=== PATIENT | male | born 1950 | race Caucasian/White ===

== ENCOUNTER 2018-05-06 19:55 | Emergency (ER) | payer MEDICARE, SELFPAY ==
[2018-05-06 19:58] VITALS: BP 123/78; PULSE 69; RESP 16; TEMP 36.4; O2SAT 99; BMI 41.1
--- NOTE | 2018-05-06 21:17 | ED.VISSUMM ---
- ER Visit Summary Date of Service: 05/06/18 Chief Complaint: Leg wounds History of Present Illness: The patient is a 67 M who dropped a ramp on his bilateral shins about a week ago. He has some abrasions to his shins and he is concerned the left side seems to be getting infected. He says he has been scrubbing them. He is also applying peroxide. He has noted some increasing surrounding redness and weeping on the left side. No fever or systemic symptoms. He does take Coumadin for A. fib and he says his last INR was about 2.8. Physical Examination: Vital signs are unremarkable. Afebrile. No acute distress. Patient has abrasions to his bilateral shins, worse on the left side. The abrasions on the left benavides are surrounded by erythema and warmth. There is a central area with some mild weeping. He is neurovascularly intact distally. No deformities. Test Results: None indicated. Emergency Department Course and Treatment: Tetanus updated. Patient will be started on Keflex. He was advised that antibiotics can raise his INR and he will follow-up with his PCP for recheck. Patient was advised to stop scrubbing the wounds. He will clean them gently and pat them dry. Regular soap and water. Apply bacitracin or topical antibiotic ointment. He may keep the wounds open to the air when he is at home and resting. When he is active or outside his home, he should cover them up and protect them. He should monitor for signs of spreading redness or warmth. Monitor for signs of black or tissue. Monitor for signs of skin peeling or other concerning findings. Return for fevers or any other issues. Treatment Plan: As above Disposition: Discharged Impression: 1. Bilateral leg abrasions 2. Left leg cellulitis This note was generated with [employer] dictation software. It may contain incorrect words, spelling, and punctuation that were not noted in review of the chart prior to signing ED Disposition - Plan for ED Patient: Chief Complaint: Wound Referrals: Matthew Rocha MD [Primary Care Provider] -
--- NOTE | 2018-05-06 21:20 | ED.DEP ---
ED Disposition - Plan for ED Patient: Chief Complaint: Wound Instructions: Cellulitis - Causes,Symptoms,Treating Prescriptions: Cephalexin [Keflex] 500 mg PO Q6 #28 cap Referrals: Matthew Rocha MD [Primary Care Provider] -
[2018-05-06] MEDS: Diphth,Pertuss(Acell),Tet Vac 0.5 ML Vial IM (21:26)
[2018-05-06] MEDS: Cephalexin 250 MG Capsule 500 MG PO (21:27)
[2018-05-06] MEDS: BACITRACIN 15 GM Tube 1 APPLIC TOPICAL (21:27)
[2018-05-06 21:37] VITALS: BP 128/66; PULSE 60; RESP 14; O2SAT 96
== END 2018-05-06 21:39 | disposition home or self-care (01) ==
LOC: ED 21:17
PROVIDERS: Emergency Provider Emergency Medicine; Family Provider Internal Medicine; PCP Internal Medicine
DX: S80.812A Abrasion, left lower leg, initial encounter (principal); S80.811A Abrasion, right lower leg, initial encounter; L03.116 Cellulitis of left lower limb; L03.115 Cellulitis of right lower limb; B96.89 Other specified bacterial agents as the cause of diseases classified elsewhere; W22.8XXA Striking against or struck by other objects, initial encounter; Y93.9 Activity, unspecified; Y92.9 Unspecified place or not applicable; I10 Essential (primary) hypertension; I48.91 Unspecified atrial fibrillation; Z79.01 Long term (current) use of anticoagulants; Z79.899 Other long term (current) drug therapy; Z87.891 Personal history of nicotine dependence
CPT/HCPCS: 90471; 90715; 99283

== ENCOUNTER → 2019-01-02 10:03 | Outpatient (CLI) | payer MEDICARE, SELFPAY ==
[2019-01-02 10:23] LABS: International Normalized Ratio 2.3
== END ==
PROVIDERS: Family Provider Internal Medicine; PCP Internal Medicine; Referring Provider Internal Medicine; Visit Provider Internal Medicine
DX: I48.91 Unspecified atrial fibrillation (principal)
CPT/HCPCS: 85610

== ENCOUNTER 2019-03-15 11:26 | Emergency (ER) | payer MEDICARE, SELFPAY ==
[2019-03-15 11:27] VITALS: BP 143/62; PULSE 67; RESP 18; TEMP 36.6; O2SAT 96; BMI 42.3
--- NOTE | 2019-03-15 11:44 | ED.DCSUM_ITS ---
History of Present Illness Chief Complaint: Cellulitis Informant: Patient Onset: Yesterday Context: Gradual Onset Timing: Continuous Quality: sore Location: left lower leg Current Severity: Mild Maximum Severity: Mild Worsened by: palpation Relieved by: leaving affected area alone Associated Symptoms: redness. no fevers or systemic sx. Narrative: Patient states 2 days ago he dropped a metal ring out and accidentally scraped his leg. Yesterday and today it is sore and red. Redness spread more proximally although that area does not hurt. Has chronic edema in both of his legs, with changes of stasis dermatitis, he states the area proximally that is now red used to look like the contralateral one does, which is chronic stasis- appearing changes of the skin. He has varicose veins in the legs, he says he recently had an ultrasound of his leg vasculature that was good, he has had no recent surgeries or procedures on the veins. He is not a diabetic. - Past Medical History (1) HTN (hypertension) Status: Chronic Past Medical History - Allergies and Home Meds Allergies/Adverse Reactions: Allergies No Known Allergies Allergy (Verified 03/15/19 11:29) Primary Care Physician: Matthew Rocha MD [Primary Care Provider] - Smoking Status: Never smoker Review of Systems General: Denies: Chills, Fever Gastrointestinal: Denies: Nausea, Vomiting Musculoskeletal: Reports: Swelling, Extremity Pain Skin: Reports: Abrasions, Wounds Neurological: Denies: Weakness, Numbness Physical Exam Vital Signs/Narrative: Vital Signs Temp Pulse Resp BP Pulse Ox 03/15/19 11:27 97.8 F 67 18 143/62 H 96 Inital Vital Signs reviewed: Yes General: Well nourished, Well developed, No Acute Distress Head: Normocephalic, Atraumatic Neck: Supple, Nontender Respiratory: No distress Back: Nontender, Normal Inspection Extremities: No edema, Tenderness - distal LLE. chronic-appearing edema and stasis BLE. symmetrically edematous, 1-2+. Skin: Trauma - superficial abrasion distal anterior left lower leg/benavides, w/ surrounding mildly tender erythema that goes distally around lateral malleolus and proximally into dark discolored area of stasis dermatitis, which is nontender. no lymphangitis. no abscess. many areas of venous varicosities, all nontender. Neurological: Alert, Oriented x3, Cranial nerves II-XII grossly intact, Normal Strength, Normal Sensation, Normal Gait Psychological: Normal affect, Normal Mood Diagnostic/Tx/Re-eval - Medical Decision Making He likely has cellulitis due to his superficial wound. There is no abscess. He has no systemic symptoms and I do not think any studies are involved, there is nothing to suggest necrotizing fasciitis or very fast spreading. There is no subcutaneous emphysema. He has full range of motion of all joints of the left lower extremity. We will give him an injection of Ancef here as well as a prescription for Keflex which should minimally interact with his Coumadin. There is no active bleeding from his wound. ED Disposition - Plan for ED Patient: Disposition: Home or Assisted Living Diagnosis: Wound infection, posttraumatic, Abrasion, left lower leg, initial encounter Instructions: ED Infec Skin Cellulitis, ED Abrasion Prescriptions: Cephalexin [Keflex] 500 mg PO 4X/DAY #40 cap Referrals: Matthew Rocha MD [Primary Care Provider] - 3-5 Days if not improving Additional Instructions: Keep wound covered with dressing and antibiotic ointment.
== END 2019-03-15 13:24 | disposition home or self-care (01) ==
PROVIDERS: Emergency Provider Emergency Medicine; Family Provider Internal Medicine; PCP Internal Medicine
DX: S80.812A Abrasion, left lower leg, initial encounter (principal); L08.9 Local infection of the skin and subcutaneous tissue, unspecified; W20.8XXA Other cause of strike by thrown, projected or falling object, initial encounter; Y93.9 Activity, unspecified; Y92.9 Unspecified place or not applicable; I87.2 Venous insufficiency (chronic) (peripheral); I10 Essential (primary) hypertension; Z79.01 Long term (current) use of anticoagulants; Z79.899 Other long term (current) drug therapy
CPT/HCPCS: 96372; 99283; A4216

== ENCOUNTER → 2019-09-18 14:08 | Outpatient (CLI) | payer MEDICARE, SELFPAY ==
--- NOTE | 2019-09-18 14:12 | VDLE_ITS ---
Reason For Study: Edema RIGHT LEFT GSV is normal. GSV is normal. CFV is compressible, spontaneous, phasic, CFV is compressible, spontaneous, phasic, competent and demonstrates normal competent, and demonstrates normal augmentation. augmentation. FV is compressible, spontaneous, phasic, FV is compressible, spontaneous, phasic, competent and demonstrates normal competent and demonstrates normal augmentation. augmentation. POP V is compressible, spontaneous, phasic, POP V is compressible, spontaneous, phasic, competent and demonstrates normal competent and demonstrates normal augmentation. augmentation. T/P Trunk is compressible. T/P Trunk is compressible. PTV is compressible. PTV is compressible. RT PerV is compressible. LT PerV is compressible. Procedure Exam performed in department. A preliminary report was called and/or faxed to [facility]. Interpretation Summary Deep veins of the lower extremities are bilaterally patent and compressible segmentally. There is no evidence of deep vein thrombosis on either side. Valvular competence appears intact within the proximal deep venous systems bilaterally. The great saphenous veins appear bilaterally patent and compressible segmentally. Ordering Physician: Piper Sears Referring Physician: Matthew Rocha M.D. Performed By: Catie Womack RVT
[2019-09-18 14:32] LABS: International Normalized Ratio 2.5; Prothrombin Time (Protime)PT. 27.1 SECONDS (11.7-14.9)
== END ==
LOC: CVS 14:10
PROVIDERS: Family Provider Internal Medicine; PCP Internal Medicine; Referring Provider Nurse Practitioner; Visit Provider Nurse Practitioner
DX: R60.0 Localized edema (principal); I87.2 Venous insufficiency (chronic) (peripheral); I48.91 Unspecified atrial fibrillation
CPT/HCPCS: 83880; 85610; 93970

== ENCOUNTER 2020-03-26 19:07 | Emergency (ER) | payer MEDICARE, SELFPAY ==
[2020-03-26 19:07] VITALS: BP 162/91; PULSE 83; RESP 16; TEMP 36.5; O2SAT 94; BMI 47.5
--- NOTE | 2020-03-26 19:19 | ED.DCSUM_ITS ---
History of Present Illness Chief Complaint: Cellulitis Informant: Patient Onset: Days Context: Gradual Onset Current Severity: Moderate Maximum Severity: Moderate Narrative: Patient presents secondary to cellulitis of the left lower extremity. He has had intermittent problems with cellulitis of the past 2 years. He does have chronic venous stasis. He states that the left lower leg became more red and swollen several days ago. He developed a fluid-filled blister on the medial portion of his lower leg that ruptured when he was in the shower. Since that time he continues to have yellow watery drainage from that area. He was seen by his PCP in a virtual visit 2 days ago and started on doxycycline. Patient states that despite the antibiotic the redness is continued to worsen. He den ies fever but has had some chills. - Past Medical History (1) BPH (benign prostatic hyperplasia) Status: Chronic (2) A-fib Status: Acute (3) Sleep apnea Status: Chronic (4) HTN (hypertension) Status: Chronic Past Medical History - Allergies and Home Meds Allergies/Adverse Reactions: Allergies No Known Allergies Allergy (Verified 03/26/20 19:09) Primary Care Physician: Matthew Rocha MD [Primary Care Provider] - Prior records reviewed: Yes Lives: Spouse/ Significant Other Smoking Status: Never smoker Review of Systems General: Reports: Chills. Denies: Fever Eyes: Denies: Visual changes - bilaterally ENT: Denies: Bilateral ear pain Cardiovascular: Denies: Chest pain Respiratory: Denies: Dyspnea, Cough Gastrointestinal: Denies: Abdominal pain, Nausea, Vomiting Musculoskeletal: Reports: Swelling, Extremity Pain Skin: Reports: Wounds Neurological: Denies: Headache Hematologic: Denies: Easy bruising, Easy bleeding Allergy: Denies: Uticaria Physical Exam Vital Signs/Narrative: Vital Signs Temp Pulse Resp BP Pulse Ox 03/26/20 19:07 97.7 F L 83 16 162/91 H 94 Inital Vital Signs reviewed: Yes General: Well nourished, Well developed Head: Normocephalic ENT: Moist mucous membranes Neck: Supple Cardiovascular: Regular rate, Regular rhythm Respiratory: No distress, CTA bilaterally Abdomen: Soft, Nontender Extremities: - - Chronic venous stasis changes noted to both lower extremities. He does have slight increased warmth and erythema to the left leg. There is a 3 cm round opened blister along the medial left calf. There is drainage of serosanguineous fluid. He does have erythema and significant edema of the left foot. Neurological: Alert, Oriented x3 Psychological: Normal affect Diagnostic/Tx/Re-eval Laboratory Results 03/26/20 03/26/20 03/26/20 19:30 19:30 19:30 WBC 14.2 H RBC 3.91 L Hgb 12.9 L Hct 38.7 L MCV 99.0 H MCH 33.0 H MCHC 33.3 RDW Std Deviation 52.3 H RDW Coeff of Leah 14.4 Plt Count 131 L MPV 9.4 Immature Gran % (Auto) 0.400 Neut % (Auto) 33.0 L Lymph % (Auto) 56.9 H Terrell % (Auto) 7.3 Eos % (Auto) 2.0 Baso % (Auto) 0.4 Absolute Neuts (auto) 4.7 Absolute Lymphs (auto) 8.10 H Nucleated RBC % 0 Differential Comment SCANNED PT 40.5 H INR 4.2 H* Sodium 138 Potassium 3.1 L Chloride 102 Carbon Dioxide 29.0 Anion Gap 7 BUN 17 Creatinine 1.11 Estim Creat Clear Calc 67.00 Est GFR (MDRD) Af Amer 84 Est GFR (MDRD) Non-Af 69 BUN/Creatinine Ratio 15.3 Glucose 118 H Lactic Acid Calcium 8.8 03/26/20 19:30 WBC RBC Hgb Hct MCV MCH MCHC RDW Std Deviation RDW Coeff of Leah Plt Count MPV Immature Gran % (Auto) Neut % (Auto) Lymph % (Auto) Terrell % (Auto) Eos % (Auto) Baso % (Auto) Absolute Neuts (auto) Absolute Lymphs (auto) Nucleated RBC % Differential Comment PT INR Sodium Potassium Chloride Carbon Dioxide Anion Gap BUN Creatinine Estim Creat Clear Calc Est GFR (MDRD) Af Amer Est GFR (MDRD) Non-Af BUN/Creatinine Ratio Glucose Lactic Acid 1.4 Calcium - Medical Decision Making Patient's white count is elevated. He has been on 48 hours of doxycycline. Patient is given IV Ancef and vancomycin here. This time he is refusing hospital admission and wants to go home. His lactic acid is normal. Left leg wound will be cleansed and dressed. Patient was advised if he has not seen improvement in next 24 hours he needs to return for admission and IV antibiotics. He voices understanding and agreement. ED Disposition - Plan for ED Patient: Disposition: Home or Assisted Living Diagnosis: Cellulitis Instructions: Cellulitis Referrals: Matthew Rocha MD [Primary Care Provider] - 3-5 Days
[2020-03-26 19:27] VITALS: BP 162/91; PULSE 83; RESP 16; TEMP 36.5; O2SAT 94
[2020-03-26 19:38] LABS: Absolute Neutrophil Count 4.7 X10^3/uL (2.0-7.7); Basophil# 0.06 X10^3/uL; Basophil% 0.4 % (0-1); Eosinophil# 0.28 X10^3/uL; Hematocrit 38.7 % (40-54); Hemoglobin 12.9 g/dL (13.0-16.5); Lymphocyte % 56.9 % (19-41); Mean Corp Hgb Conc 33.3 g/dL (32-36); Mean Platelet Vol. 9.4 fl (6.2-12.0); Monocyte# 1.04 X10^3/uL; Monocyte% 7.3 % (0-10); NRBC Flagged by Analyzer 0 % (0-5); Neutrophil # 4.71 X10^3/uL (2.7-7.7); POSITIVE DIFFERENTIAL YES; Platelet Count 131 K/mm3 (150-450); RBC Distribution Width CV 14.4 % (11.6-14.6); RBC Distribution Width SD 52.3 fl (35.1-43.9); Red Blood Count 3.91 M/mm3 (4.6-6.2); White Blood Count 14.2 K/mm3 (4.4-11.0)
[2020-03-26 19:41] LABS: Differential Indicated SCAN CRITERIA MET
[2020-03-26 19:49] LABS: Prothrombin Time (Protime)PT. 40.5 SECONDS (11.7-14.9)
[2020-03-26 19:59] LABS: Anion Gap 7 (5-15); BUN 17 mg/dL (7-18); BUN/Creat Ratio 15.3 RATIO (10-20); Calcium,Total 8.8 mg/dL (8.5-10.1); Chloride 102 mmol/L (98-107); Creatinine, Serum 1.11 mg/dL (0.70-1.30); EST Glomerular Filtration Rate 69 mL/min (>60); Est Glom Filt Rate - Afr Amer 84 mL/min (>60); Glucose 118 mg/dL (74-106); Potassium 3.1 mmol/L (3.5-5.1); Sodium Level 138 mmol/L (136-145)
[2020-03-26 20:03] LABS: Lactic Acid 1.4 mmol/L (0.4-1.9)
[2020-03-26] MEDS: Cefazolin 1 GM/50 ML BAG IV (20:07)
[2020-03-26 20:18] LABS: Differential Comment SCANNED
[2020-03-26 20:19] LABS: International Normalized Ratio 4.2
[2020-03-26 21:04] VITALS: BP 158/89; PULSE 85; RESP 16; TEMP 36.6; O2SAT 95
[2020-03-26 23:17] VITALS: BP 125/59; PULSE 75; RESP 18; O2SAT 96
--- OUTSIDE RECORDS SUMMARY | 2020-08-09 19:37 | XMS RPT_ITS | CCD ---
:1950 External Reference #:[id number] Author Organization [facility] Care Team Providers Name Role Phone Matthew Rocha Primary Care Provider Medications Medication Name Sig Date Prescriber Location Finasteride finasteride (PROSCAR) 12-23-2019 - Matthew Rocha [facility] 5 mg tablet TAKE 1/2 06-27-2020 (58783) (ONE-HALF) OF A TABLET BY MOUTH DAILY 45 tablet 1 12/23/2019 06/27/2020 Discontinued Comment: TAKE 1/2 (ONE-HALF) OF A TAB LET BY MOUTH DAILY Furosemide furosemide (LASIX) 20 mg 04-21-2020 Mike ([facility]) Kam ladd [facility] tablet Indications: (44596) Bilateral lower extremity edema Take 0.5 tablets by mouth once daily. 45 tablet 0 04/21/2020 Active Comment: Take 0.5 tablets by mouth on ce daily. Metoprolol metoprolol tartrate, short 05-10-2020 Piper ([facility]) Lydia bower [facility] acting, (LOPRESSOR) 50 mg (4 9239) tablet Indications: Atrial fibrillation, unspecified type (HCC) , Essential hypertension Take 0.5 tablets by mouth twice daily. 180 tablet 0 05/10/2020 Active Comment: Take 0.5 tablets by mouth tw ice daily. perflutren lipid perflutren lipid 05-27-2020 - Matthew Montes [place] microspheres microspheres (DEFINITY) 05-27-2021 [place] [facility] ic (29568) (DEFINITY) 1.1 1.1 mg/mL injection (to mg/mL injection be provided with echo (to be provided procedure) Inject 1.3 with echo mL intravenously as procedure) directed. Administration Instructions: If no IV access, insert saline lock prior to administering contrast. Discontinue saline lock post exam. If patient has central line or IVAD, may access for administration according to line specific nursing protocol. Once exam is complete, flush line and de-access per line specific nursing protocol. Diluted IV Bolus: Dilute 1.3 ml of Definity with 8.7 ml of preservative-free saline. 1.3 mL 0 05/27/2020 05/27/2021 Active perflutren lipid 05-27-2020 - [facility] [place] inic microspheres (DEFINITY) 1.1 05-27-2021 (441 95) mg/mL injection (to be provided with echo procedure) Inject 1.3 mL intravenously as directed. Administration Instructions: If no IV access, insert saline lock prior to administering contrast. Discontinue saline lock post exam. If patient has central line or IVAD, may access for administration according to line specific nursing protocol. Once exam is complete, flush line and de-access per line specific nursing protocol. Diluted IV Bolus: Dilute 1.3 ml of Definity with 8.7 ml of preservative-free saline. 1.3 mL 0 05/27/2020 05/27/2021 Active perflutren lipid 05-27-2020 - [facility] [place] inic microspheres (DEFINITY) 1.1 05-27-2021 (441 95) mg/mL injection (to be provided with echo procedure) Inject 1.3 mL intravenously as directed. Administration Instructions: If no IV access, insert saline lock prior to administering contrast. Discontinue saline lock post exam. If patient has central line or IVAD, may access for administration according to line specific nursing protocol. Once exam is complete, flush line and de-access per line specific nursing protocol. Diluted IV Bolus: Dilute 1.3 ml of Definity with 8.7 ml of preservative-free saline. 1.3 mL 0 05/27/2020 05/27/2021 Active perflutren lipid 05-27-2020 - [facility] [place] inic microspheres (DEFINITY) 1.1 05-27-2021 (441 95) mg/mL injection (to be provided with echo procedure) Inject 1.3 mL intravenously as directed. Administration Instructions: If no IV access, insert saline lock prior to administering contrast. Discontinue saline lock post exam. If patient has central line or IVAD, may access for administration according to line specific nursing protocol. Once exam is complete, flush line and de-access per line specific nursing protocol. Diluted IV Bolus: Dilute 1.3 ml of Definity with 8.7 ml of preservative-free saline. 1.3 mL 0 05/27/2020 05/27/2021 Active Comment: Inject 1.3 mL intravenously as directed. Administration Instructions: If no IV access, insert saline lock prior to administering contrast. Discontinue saline lock post exam. If patient has central line or IVAD, may access for admi nistration according to line specific nursing protocol. Once exam is complete, flush line and de-access per line specific nursing protocol. Diluted IV Bolus: Dilute 1.3 ml of Definity with 8.7 ml of preservative-free saline. Potassium Chloride potassium chloride 04-21-2020 Mike ([facility]) [facility] (K-TAB) 10 mEq tablet Sin (31964 ) Indications: Bilateral lower extremity edema Take 1 tablet by mouth daily with breakfast. 90 tablet 0 04/21/2020 Active Comment: Take 1 tablet by mouth daily with breakfast. Triamcinolone triamcinolone acetonide 11-06-2019 Piper ([facility]) [facility] (KENALOG) 0.5 % cream (91495 ) Apply 1 application to affected area twice daily. For rash/itching. Apply sparingly. Avoid face/skin fold. 30 g 0 11/06/2019 Active Comment: Apply 1 application to affec ino area twice daily. For rash/itching. Apply sparingly. Avoid face/skin f old. Warfarin warfarin (COUMADIN) 5 mg 06-02-2020 Matthew Mckeon [facility] tablet Indications: (64651) Atrial fibrillation, unspecified type (HCC) TAKE 1 TABLET BY MOUTH DAILY or DIRECTED 90 tablet 1 06/02/2020 Active Comment: TAKE 1 TABLET BY MOUTH DAILY or DIRECTED Problems Active Problems Category Problem Name Status Date Location Cardiac dysrhythmias Atrial fibrillation Active 07-25-2009 - [facility] ([id number]) Essential hypertension Hypertensive disorder Active - [facility] ([id number]) Hyperplasia of prostate Benign prostatic Active 07-14-2007 - [facility] hypertrophy with (44895) outflow obstruction Osteoarthritis Osteoarthritis of right Active 09-29-2015 - [facility] knee joint (31906) Other nutritional; Morbid obesity Active 03-10-2018 - [facility] endocrine; and metabolic (44 195) disorders Pulmonary heart disease Pulmonary hypertension Active 020 - [facility] (79061) Residual codes; Obstructive sleep apnea Active 09-01-2009 - [facility] unclassified syndrome (91572) Past or Other Problems Category Problem Name Status Date Location Other screening for Platelet count below Completed 01-08-2019 - [facility] suspected conditions reference range (441 95) (not mental disorders or infectious disease) Other skin disorders Alopecia Completed 05-03-2010 - [facility] ([id number]) Varicose veins of Varicose veins of Completed 01-08-2019 - [facility] lower extremity lower extremity (59027) Results Result Name Value Range Unit Interpretation Flag Date Location obsolete on 2020-05 OBSOLETE Refill (INTMWS) Normal 06-27-2020 [facility] JUSTIN ZAZUETA ([id number]) 1950 [facility] Time Provider Department ([id number]) 06/27/20 MATTHEW ROCHA INTMWS During your visit today, we recorded the following informati on about you: Cary Og RN 06/27/2020 9:28 AM Signed Patient phones requesting refills as follows: Pending Prescriptions Disp Refills FINASTERIDE 5 MG TABLET 45 tablet 0 Sig: TAKE 1/2 (ONE-HALF) OF A TABLET BY MOUTH DAILY ROGER: No Verified pharmacy Last office visit 04-21-2020, next visit 08-11-2020 Please review and advise. Cary Og RN Allergies As of Date: 06/27/2020 (No Known Allergies) Date Reviewed: 06/06/2020 Reviewed by: Chhaya Singh Ma - Fully Assessed Reason for Visit: Refill Request [94] Order(s):finasteride (PROSCAR) 5 mg tabletTAKE 1/2 (ON E-HALF) OF A TABLET BY MOUTH DAILYDisp: 45 tabletRfl: 0 Prescriptions as of 06/27/2020 Sig: FINASTERIDE 5 MG TABLET TAKE 1/2 (ONE-HALF) OF A TABL* WARFARIN 5 MG TABLET TAKE 1 TABLET BY MOUTH DAILY * PERFLUTREN LIPID MICROSPHERES* Inject 1.3 mL intravenously a * METOPROLOL TARTRATE 50 MG TAB* Take 0.5 tablets by mouth twi * FUROSEMIDE 20 MG TABLET Take 0.5 tablets by mouth onc* POTASSIUM CHLORIDE ER 10 MEQ * Take 1 tablet by mouth daily * TRIAMCINOLONE ACETONIDE 0.5 %* Apply 1 application to affect * Patient not taking: Reported on 04/15/2020 Problem List As Of Date 06/27/2020 Noted Resolved Abnormal liver function test [R94.5] 12/25/2004 11/03/2010 More... 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 Obstructive Sleep Apnea, on CPAP [G47.33] 09/01/2009 More... Erectile dysfunction [N52.9] 05/03/2010 12/10/2014 Alopecia [L65.9] 05/03/2010 Primary osteoarthritis of right knee [M17.11] 09/29/2015 Obesity, Class III, BMI 40-49.9 (morbid obesity*03/10/2018 Thrombocytopenia (HCC) [D69.6] 01/08/2019 Varicose veins of bilateral lower extremities w*01/08/2019 Prescriptions ordered this encounter Disp Refills Start End FINASTERIDE 5 MG TABLET 45 t* 0 06/27/2020 Sig: TAKE 1/2 (ONE-HALF) OF A TABLET BY MOUTH DAILY Medications Discontinued During This Encounter Prescriptions - finasteride (PROSCAR) 5 mg tablet (Discontinued) TAKE 1/2 (ONE-HALF) OF A TABLET BY MOUTH DAILY Encounter Status:Closed by PIPER SEARS CNP on 06/27/20 lorenzo on 2020-06-27 CNOV Office Visit (CARDWS) Normal 06-27-20 [facility] JUSTIN ZAZUETA ([id number]) 1950 [facility] Date Time Provider Department () 06/27/20 10:00 AM ECHOCARDIOGRAM WSTR CARDWS During your visit today, we recorded the following informati on about you: Nichelle Rose RN, RN 06/27/2020 10:34 AM Signed 22 ga angio started to right arm. Good blood ret urn. Flushed easily with NSS. Dressing applied. Definity (Lot # [id number] exp ) mixed per protocol. 4 cc administered throughout proc edure. 6 cc discarded. Pt tolerated procedure well. No C/o's, Hep lock D/c'd and dressing applied. Patient discharged ambulatory with Mmi Teacher. Nichelle Rose RN Referring Provider: MATTHEW ROCHA [[id number]] Allergies As of Date: 06/27/2020 (No Known Allergies) Date Reviewed: 06/06/2020 Reviewed by: Chhaya Singh Ma - Fully Assessed Visit Diagnosis:Chronic atrial fibrillation (HCC) [I48.20] Order(s):ECHO [147202] Order #: [id number]. #:[id number]: [id number] Prescriptions as of 06/27/2020 Sig: WARFARIN 5 MG TABLET TAKE 1 TABLET BY MOUTH DAILY * PERFLUTREN LIPID MICROSPHERES* Inject 1.3 mL intravenously a * METOPROLOL TARTRATE 50 MG TAB* Take 0.5 tablets by mouth twi * FUROSEMIDE 20 MG TABLET Take 0.5 tablets by mouth onc* POTASSIUM CHLORIDE ER 10 MEQ * Take 1 tablet by mouth daily * X FINASTERIDE 5 MG TABLET TAKE 1/2 (ONE-HALF) OF A TABL* TRIAMCINOLONE ACETONIDE 0.5 %* Apply 1 application to affect * Patient not taking: Reported on 04/15/2020 Problem List As Of Date 06/27/2020 Noted Resolved Abnormal liver function test [R94.5] 12/25/2004 11/03/2010 More... 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 Obstructive Sleep Apnea, on CPAP [G47.33] 09/01/2009 More... Erectile dysfunction [N52.9] 05/03/2010 12/10/2014 Alopecia [L65.9] 05/03/2010 Primary osteoarthritis of right knee [M17.11] 09/29/2015 Obesity, Class III, BMI 40-49.9 (morbid obesity*03/10/2018 Thrombocytopenia (HCC) [D69.6] 01/08/2019 Varicose veins of bilateral lower extremities w*01/08/2019 Visit Notes: >> Nichelle Rose, RN, RN Mon Jun 27, 2020 10:33 AM Status: Signed 22 ga angio started to right arm. Good blood return. Flushed easily with NSS. Dressing applied. Definity (Lot # [id number] exp 11-28- ) mi xed per protocol. 4 cc administered throughout procedure. 6 cc disca rded. Pt tolerated procedure well. No C/o's, Hep lock D/c'd and dress ing applied. Patient discharged ambulatory with Mmi Teacher. Nichelle Rose RN Encounter Status:Closed by FRIDA GORDILLO CMA on 07/13/20 No panel information on 2020-06-27 LV Ejection Fraction 63 % 0 [facility] ([id number]) [facility] ([id number]) cnco on 2020-06-09 CNCO Letter Text Normal 06-09-2020 [facility] ([id number]) progress on 2020-05 PROGRESS HNO ID: [id number] Normal 06-06-2020 [facility] Author: Kaitlin Betancourt [facility] ([id number]) Service: ? Author Type: Physician Type: Progress Notes Filed: 06/06/2020 9:19 PM Note Text: Initial Podiatric Office Visit: Chief Complaint: This 69 year old male who presents with chi ef complaint:toenail fungus HPI Patient presents to clinic for evaluation of b/l feet. Patie nt complains of thick dystrophic toenails of b/l feet. He treats them usu ally himself but recently he was admitted to a nursing facility for cellu litis of legs and he was advised that he should seek podiatry evaluation b ecause if he cuts his toenails and develops sores, he could be at risk of recurrent cellulitis. Patient states that at times, his left hallux toenail become s ingrown and causes him pain. PAIN EVALUATION No data found in the last 1 encounters. Hemoglobin A1C (%) Date Value 01/02/2019 5.5 PCP: Matthew Rocha MD PAST MEDICAL HISTORY Diagnosis Date - Abnormal liver function test 12/25/2004 Pt reportedly had this since age 24: no measure in the syste m to verify ALT 61 (30-65) in 08-05 HCV quantitative was undetectable in 08-05 HBsAb, HBsAg, Hep A negative in 08-05 NL iron and ferritin levels i n 08-05 HCV negative in 08-05 - Alopecia 05/03/2010 - Atrial fibrillation (HCC) 07/25/2009 Started Coumadin and Metoprolol in 07-06 - Diverticulosis of colon (without mention of hemorrhage) - Erectile dysfunction 05/03/2010 - HTN (hypertension) 07/25/2009 Office BP was 150/98 in 08-05: Lisinopril to 20 mg bid - Hypertrophy of prostate with urinary obstruction and other lower urinary tract symptoms (LUTS) 07/14/2007 - Obstructive sleep apnea 09/01/[address] Ramos. - Primary osteoarthritis of right knee 09/29/2015 - Unspecified viral hepatitis C without hepatic coma 1980s Current Outpatient Medications Medication Sig - warfarin (COUMADIN) 5 mg tablet TAKE 1 TABLET BY MOUTH SHARON LY or DIRECTED - perflutren lipid microspheres (DEFINITY) 1.1 mg/mL injecti on (to be provided with echo procedure) Inject 1.3 mL intravenously as directed. Administration Instructions: If no IV access, insert saline lock prior to administering contrast. Discontinue saline lock post exam. I f patient has central line or IVAD, may access for administration accordin g to line specific nursing protocol. Once exam is complete, flush line and de-access per line specific nursing protocol. Diluted IV Bolus: Dilute 1.3 ml of Definity with 8.7 ml of preservative-free saline. - metoprolol tartrate, short acting, (LOPRESSOR) 50 mg table t Take 0.5 tablets by mouth twice daily. - furosemide (LASIX) 20 mg tablet Take 0.5 tablets by mouth once daily. - potassium chloride (K-TAB) 10 mEq tablet Take 1 tablet by mouth daily with breakfast. - finasteride (PROSCAR) 5 mg tablet TAKE 1/2 (ONE-HALF) OF A TABLET BY MOUTH DAILY - triamcinolone acetonide (KENALOG) 0.5 % cream Apply 1 appl ication to affected area twice daily. For rash/itching. Apply sparingly . Avoid face/skin fold. (Patient not taking: Reported on 04/15/2020 ) No current facility-administered medications for this visit. ALLERGIES No Known Allergies PAST SURGICAL HISTORY Procedure Laterality Date - COLONOSCOP W/ OR W/O [facility] SPEC April 2001 normal - COLONOSCOP W/ OR W/O [facility] SPEC 02/25/2012 Colonoscopy - PAST SURGICAL HISTORY OF sinus x2 FAMILY HISTORY Problem Relation Age of Onset - Alzheimer's Disease Mother 85 - Prostate Cancer Father 78 - Diabetes Father - None Sister Social History Tobacco Use - Smoking status: Former Smoker Packs/day: 2.00 Years: 8.00 Pack years: 16.00 Types: Cigarettes Quit date: 10/28/1975 Years since quittin.6 - Smokeless tobacco: Never Used Substance Use Topics - Alcohol use: No Frequency: Never Drinks per session: Patient refused Binge frequency: Never - Drug use: No Comment: none since 20s REVIEW OF SYSTEMS GENERAL: Negative for Malaise, significant weight loss, feve r RESPIRATORY: Negative for cough, wheezing and shortness of b reath CARDIOVASCULAR: Negative for chest pain, leg swelling and pa lpitations GI: Negative for abdominal discomfort, blood in stools or bl ack stools and change in bowel habits : Negative for dysuria, frequency and incontinence MUSCULOSKELETAL: Negative for joint pain or swelling, back p ain, and muscle pain. SKIN: Negative for lesions, rash, and itching. HEMATOLOGY/LYMPHOLOGY Negative for prolonged bleeding, bruis ing easily, and swollen nodes. ENDOCRINE: Negative for cold or heat intolerance, polyuria, polydipsia and goiter. NEURO: negative Physical Exam: Constitutional: Pt is a well developed 69 year old male who is alert, oriented and cooperative Eyes: Following during examination. No redness or drainage. Respiratory: RR normal and nonlabored. Even breathing. No ev idence of distress or shortness of breath. Psychology: Patient is engaged during conversation. Normal a ffect and mood. Does not appear depressed or anxious during encounter. Vascular: Dorsalis pedis and posterior tibial pulses faintly palpable as b/l Capillary Fill time < 5 seconds to digits 1-5 b/l Skin temperature warm to cool proximal to distal b/l Hair growth decreased to digits Neurological: decreased light touch/epicritic sensation Vibratory sensation decreased b/l decreased protective sensation + significant neurological deficits Dermatological: Nails 1-5 b/l appear thick, dystrophic, painful. Webspaces c lean and dry 1-4 b/l. Skin appears well hydrated and supple. good color, texture, turgor. No open lesions present. Callus present to right 1st metatarsal Musculoskeletal/Orthopaedic: Foot type is neutral structurally AJ ROM is full with knee extended and flexed 1st MPJ is full when loaded and no pain or crepitus are note d with ROM. MTJ, STJ are full and free of pain and crepitus. +5/5 muscle strength dorsiflexion, plantarflexion, inversion , eversion b/l Radiographs: n/a ASSESSMENT: (B35.1) Onychomycosis (primary encounter diagnosis) (M79.675) Pain in toe of left foot (M79.674) Pain in toe of right foot (L85.9) Hyperkeratosis PLAN: A review of the patient's PMH and Podiatric physical exam wa s completed. We discussed the possible etiologies of discolored, dystroph ic, and thickened nails including fungus, yeast, mold as well as in some instances, prior trauma, or mechanical causes such as repeti tive microtrauma in shoe gear. We discussed topical medication fo r discolored toenails which has very low success but no major side effect s. We discussed oral medication. Patient will need hepatic testing prior to use. Patient informed of risks associated with Lamisil. We d iscussed removal of toenails. Patient would like to proceed with cont inued debridement. Debridement performed on toenails 1-5 b/l Callus reduced with dremmel and tissue nippers Continue with lotion to feet daily ? Kaitlin Betancourt DPM Podiatry [address] [facility] [id number] Dept: [phone] Dept PROGRESS HNO ID: [id number] Normal 06-06-2020 [facility] Author: Chhaya Singh Ma [facility] ([id number]) Service: ? Author Type: ? Type: Progress Notes Filed: 06/06/2020 9:19 PM Note Text: AMB ROOMING INTAKE FLOWSHEET DATA Patient presents with: Left Foot - New, Nail Fungus Right Foot - New, Nail Fungus Travel Screening Question Response In the last month, have you been in contact with someone who was confirmed or suspected to have Coronavirus / COVID-19? No / Unsure Do you have any of the following symptoms? None of these Have you traveled internationally in the last month? No Travel History Travel since 05/06/20 No documented travel since 05/06/20 cnov on 2020-06-06 CNOV Office Visit (PODIWS) Normal 06-06-20 [facility] JUSTIN ZAZUETA ([id number]) 1950 [facility] Date Time Provider Department ([id number]) 06/06/20 3:00 PM KAITLIN BETANCOURT During your visit today, we recorded the following informati on about you: Chhaya Samanthamansoor Chase 06/06/2020 9:19 PM Signed [facility] ROOMING INTAKE FLOWSHEET DATA Patient presents with: Left Foot - New, Nail Fungus Right Foot - New, Nail Fungus Travel Screening Question Response In the last month, have you been in contact with someone who was confirmed or suspected to have Coronavirus / COVID-19? No / Unsure Do you have any of the following symptoms? None of these Have you traveled internationally in the last month? No Travel History Travel since 05/06/20 No documented travel since 05/06/20 Kaitlin Betancourt DPM 06/06/2020 9:19 PM Signed Initial Podiatric Office Visit: Chief Complaint: This 69 year old male who presents with chi ef complaint:toenail fungus HPI Patient presents to clinic for evaluation of b/l feet. Pat ient complains of thick dystrophic toenails of b/l feet. He treats them usuall y himself but recently he was admitted to a nursing facility for carmel lulitis of legs and he was advised that he should seek podiatry evaluation because if he cuts his toenails and develops sores, he could be at risk of recurren t cellulitis. Patient states that at times, his left hallux toenail become s ingrown and causes him pain. PAIN EVALUATION No data found in the last 1 encounters. Hemoglobin A1C (%) Date Value 01/02/2019 5.5 PCP: Matthew Rocha MD PAST MEDICAL HISTORY Diagnosis Date - Abnormal liver function test 12/25/2004 Pt reportedly had this since age 24: no measure in the system to verify ALT 61 (30-65) in 08-05 HCV quantit ative was undetectable in 08-05 HBsAb, HBsAg, Hep A negative in 08-05 NL iron and ferritin levels in 08-05 HCV negative in 08-05 - Alopecia 05/03/2010 - Atrial fibrillation (HCC) 07/25/2009 Started Coumadin and Metoprolol in 07-06 - Diverticulosis of colon (without mention of hemorrhage) - Erectile dysfunction 05/03/2010 - HTN (hypertension) 07/25/2009 Office BP was 150/98 in 08-05: Lisinopril to 20 mg bid - Hypertrophy of prostate with urinary obstruction and other lower urinary tract symptoms (LUTS) 07/14/2007 - Obstructive sleep apnea 09/01/[address] Ramos. - Primary osteoarthritis of right knee 09/29/2015 - Unspecified viral hepatitis C without hepatic coma 1980s Current Outpatient Medications Medication Sig - warfarin (COUMADIN) 5 mg tablet TAKE 1 TABLET BY MOUTH DAILY or DIRECTED - perflutren lipid microspheres (DEFINIT Y) 1.1 mg/mL injection (to be provided with echo procedure) Inject 1.3 mL intravenously as di rected. Administration Instructions: If no IV access, insert saline lock prior to a dministering contrast. Discontinue saline lock post exam. If patient castano s central line or IVAD, may access for administration according to line specif ic nursing protocol. Once exam is complete, flush line and de-access per line specific nursing protocol. Diluted IV Bolus: Dilute 1.3 ml of Definity with 8.7 m l of preservative-free saline. - metoprolol tartrate, short acting, (LO PRESSOR) 50 mg tablet Take 0.5 tablets by mouth twice daily. - furosemide (LASIX) 20 mg tablet Take 0.5 tablets by mouth once daily. - potassium chloride (K-TAB) 10 mEq tablet Take 1 tabl et by mouth daily with breakfast. - finasteride (PROSCAR) 5 mg tablet TAKE 1/2 (ONE-HALF ) OF A TABLET BY MOUTH DAILY - triamcinolone acetonide (K ENALOG) 0.5 % cream Apply 1 application to affected area twice daily. For rash/itching. Apply sparingly. Avoid f danika/skin fold. (Patient not taking: Reported on 04/15/2020 ) No current facility-administered medications for this visit. ALLERGIES No Known Allergies PAST SURGICAL HISTORY Procedure Laterality Date - COLONOSCOP W/ OR W/O [facility] SPEC April 2001 normal - COLONOSCOP W/ OR W/O [facility] SPEC 02/25/2012 Colonoscopy - PAST SURGICAL HISTORY OF sinus x2 FAMILY HISTORY Problem Relation Age of Onset - Alzheimer's Disease Mother 85 - Prostate Cancer Father 78 - Diabetes Father - None Sister Social History Tobacco Use - Smoking status: Former Smoker Packs/day: 2.00 Years: 8.00 Pack years: 16.00 Types: Cigarettes Quit date: 10/28/1975 Years since quittin.6 - Smokeless tobacco: Never Used Substance Use Topics - Alcohol use: No Frequency: Never Drinks per session: Patient refused Binge frequency: Never - Drug use: No Comment: none since 20s REVIEW OF SYSTEMS GENERAL: Negative for Malaise, significant weight loss, feve r RESPIRATORY: Negative for cough, wheezing and shortness of b reath CARDIOVASCULAR: Negative for chest pain, leg swelling and pa lpitations GI: Negative for abdominal discomfort, blood in stools or bl ack stools and change in bowel habits : Negative for dysuria, frequency and incontinence MUSCULOSKELETAL: Negative for joint pain or swelling, back pain, and muscle pain. SKIN: Negative for lesions, rash, and itching. HEMATOLOGY/LYMPHOLOGY Negative for prolonged bleeding, bru ising easily, and swollen nodes. ENDOCRINE: Negative for cold or heat intolerance, polyuria, polydipsia and goiter. NEURO: negative Physical Exam: Constitutional: Pt is a well developed 5 1 year old male who is alert, oriented and cooperative Eyes: Following during examination. No redness or drainage. Respiratory: RR normal and nonlabored. E minh breathing. No evidence of distress or shortness of breath. Psychology: Patient is engaged during conversation. Normal affect and mood. Does not appear depressed or anxious during encounter. Vascular: Dorsalis pedis and posterior tibial pulses faintly palpable as b/l Capillary Fill time < 5 seconds to digits 1-5 b/l Skin temperature warm to cool proximal to distal b/l Hair growth decreased to digits Neurological: decreased light touch/epicritic sensation Vibratory sensation decreased b/l decreased protective sensation + significant neurological deficits Dermatological: Nails 1-5 b/l appear thick, dystrophic, painful. Websp aces clean and dry 1-4 b/l. Skin appears well hydrated and supple. good color, te xture, turgor. No open lesions present. Callus present to right 1st metatarsal Musculoskeletal/Orthopaedic: Foot type is neutral structurally AJ ROM is full with knee extended and flexed 1st MPJ is full when loaded and no pain or crepitus are note d with ROM. MTJ, STJ are full and free of pain and crepitus. +5/5 muscle strength dorsiflexion, plantarflexion, inversion , eversion b/l Radiographs: n/a ASSESSMENT: (B35.1) Onychomycosis (primary encounter diagnosis) (M79.675) Pain in toe of left foot (M79.674) Pain in toe of right foot (L85.9) Hyperkeratosis PLAN: A review of the patient's PMH and Podiatric physical exam was completed. We discussed the possible etiologies of discolored, dystrophic, and thickened nails including fungus, yeas t, mold as well as in some instances, prior trauma, or mechanical causes such as repetitive microtrauma in shoe gear. We discussed topical medication for discolored toenails which has v carmen low success but no major side effects. We discussed oral medication. Patient will need hepatic testing prior to use. Patient informed of risks associated with Lamisil. We discussed removal of toenails. Patient would like to proce ed with continued debridement. Debridement performed on toenails 1-5 b/l Callus reduced with dremmel and tissue nippers Continue with lotion to feet daily ? Kaitlin Betancourt DPM Podiatry [address] [facility] [address] Dept: [phone] Dept Referring Provider: SELF [200] Allergies As of Date: 06/06/2020 (No Known Allergies) Date Reviewed: 06/06/2020 Reviewed by: Chhaya Singh Ma - Fully Assessed Reason for Visit: New [[id number]] Nail Fungus [764] New [[id number]] Nail Fungus [764] Primary Visit Diagnosis:Onychomycosis [B35.1] Other Visit Diagnoses:Pain in toe of left foot [M79.675] Pain in toe of right foot [M79.674] Hyperkeratosis [L85.9] Prescriptions as of 06/06/2020 Sig: WARFARIN 5 MG TABLET TAKE 1 TABLET BY MOUTH DAILY * PERFLUTREN LIPID MICROSPHERES* Inject 1.3 mL intravenously a * METOPROLOL TARTRATE 50 MG TAB* Take 0.5 tablets by mouth twi * FUROSEMIDE 20 MG TABLET Take 0.5 tablets by mouth onc* POTASSIUM CHLORIDE ER 10 MEQ * Take 1 tablet by mouth daily * FINASTERIDE 5 MG TABLET TAKE 1/2 (ONE-HALF) OF A TABL* TRIAMCINOLONE ACETONIDE 0.5 %* Apply 1 application to affect * Patient not taking: Reported on 04/15/2020 Problem List As Of Date 06/06/2020 Noted Resolved Abnormal liver function test [R94.5] 12/25/2004 11/03/2010 More... 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 Obstructive Sleep Apnea, on CPAP [G47.33] 09/01/2009 More... Erectile dysfunction [N52.9] 05/03/2010 12/10/2014 Alopecia [L65.9] 05/03/2010 Primary osteoarthritis of right knee [M17.11] 09/29/2015 Obesity, Class III, BMI 40-49.9 (morbid obesity*03/10/2018 Thrombocytopenia (HCC) [D69.6] 01/08/2019 Varicose veins of bilateral lower extremities w*01/08/2019 Disposition: Return in about 3 months (around 09/06/2020) fo r nail care. Follow-up and Disposition History Recorded Encounter Status:Closed by KAITLIN BETANCOURT DPM on 06/06/20 obsolete on 2020-05 OBSOLETE Refill (FAMPWS) Normal 06-02-2020 [facility] JUSTIN ZAZUETA ([id number]) 1950 [facility] Date Time Provider Department ([id number]) 06/02/20 MATTHEW ROCHA FAMPWS During your visit today, we recorded the following informati on about you: Ewa Liu LPN 06/02/2020 12:45 PM Signed Last appt: 04/21/20 Last INR: 05/19/20 Patient has been identified by name and date of : Yes Pending Prescriptions Disp Refills WARFARIN 5 MG TABLET 90 tablet 1 Sig: TAKE 1 TABLET BY MOUTH DAILY or DIRECTED ROGER: No RX INSTRUCTIONS: Patient aware RX will be sent to pharmacy. No need to notify patient. Ewa Liu LPN Allergies As of Date: 06/02/2020 (No Known Allergies) Date Reviewed: 04/27/2020 Reviewed by: Graciela Espitia Ma - Fully Assessed Reason for Visit: Refill Request [94] Visit Diagnosis:Atrial fibrillation, unspecified type (HCC) [I48.91] Order(s):warfarin (COUMADIN) 5 mg tabletTAKE 1 TABLET BY JOSETTE DAILY or DIRECTEDDisp: 90 tabletRfl: 1 Prescriptions as of 06/02/2020 Sig: WARFARIN 5 MG TABLET TAKE 1 TABLET BY MOUTH DAILY * PERFLUTREN LIPID MICROSPHERES* Inject 1.3 mL intravenously a * METOPROLOL TARTRATE 50 MG TAB* Take 0.5 tablets by mouth twi * FUROSEMIDE 20 MG TABLET Take 0.5 tablets by mouth onc* POTASSIUM CHLORIDE ER 10 MEQ * Take 1 tablet by mouth daily * FINASTERIDE 5 MG TABLET TAKE 1/2 (ONE-HALF) OF A TABL* TRIAMCINOLONE ACETONIDE 0.5 %* Apply 1 application to affect * Patient not taking: Reported on 04/15/2020 Problem List As Of Date 06/02/2020 Noted Resolved Abnormal liver function test [R94.5] 12/25/2004 11/03/2010 More... 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 Obstructive Sleep Apnea, on CPAP [G47.33] 09/01/2009 More... Erectile dysfunction [N52.9] 05/03/2010 12/10/2014 Alopecia [L65.9] 05/03/2010 Primary osteoarthritis of right knee [M17.11] 09/29/2015 Obesity, Class III, BMI 40-49.9 (morbid obesity*03/10/2018 Thrombocytopenia (HCC) [D69.6] 01/08/2019 Varicose veins of bilateral lower extremities w*01/08/2019 Prescriptions ordered this encounter Disp Refills Start End WARFARIN 5 MG TABLET 90 t* 1 06/02/2020 Sig: TAKE 1 TABLET BY MOUTH DAILY or DIRECTED Medications Discontinued During This Encounter Prescriptions - warfarin (COUMADIN) 5 mg tablet (Discontinued) TAKE 1 TABLET BY MOUTH DAILY or DIRECTED Encounter Status:Closed by MATTHEW ROCHA [facility] Normal 05-27-2020 [place] [facility] JUSTIN ZAZUETA ([id number]) 1950 [facility] Date Time Provider Department ([id number]) 05/27/20 MATTHEW ROCHA INTMWS During your visit today, we recorded the following informati on about you: Darby Boyle, RN, RN 05/27/2020 9:40 AM Signed Pt calls, stating PCP had recommended he get an echo and he wanted to know how to schedule. No orders seen. Please place orders if pt to [facility] ve echo. Matthew Rocha MD 05/27/2020 11:21 AM Signed ASSESSMENT/PLAN: 1. Chronic atrial fibrillation (HCC) - ICD9: 427.31, ICD10: I48.20 - ECHO MD Itzel Saul [facility] 05/27/2020 12:37 PM Signed PSS please assist with scheduling. Jessica Lee Pss 05/28/2020 3:08 PM Signed L/m for patient to call and schedule. Jessica Lee Pss Osei Bautista Pss 06/03/2020 3:26 PM Signed Patient has been scheduled for Echo on 06/09 Allergies As of Date: 05/27/2020 (No Known Allergies) Date Reviewed: 04/27/2020 Reviewed by: Graciela Espitia Ma - Fully Assessed Reason for Visit: Orders for Echo [Other] Primary Visit Diagnosis:Chronic atrial fibrillation (HCC) [I 48.20] Order(s):ECHO [[id number]] Order #: [id number]: 1 FUTURE perflutren lipid microspheres (DEFINITY) 1.1 mg/mL injection (to be provided with echo procedure)Inject 1.3 mL intravenously as directed. Administration Instructions: If no IV access, insert saline lock prior to administering contrast. Discontinue saline lock post exam . If patient has central line or IVAD, may access for administrat ion according to line specific nursing protocol. Once exam is co mplete, flush line and de-access per line specific nursing protocol. Diluted IV Bolus: Dilute 1.3 ml of Definity with 8.7 ml of preservative-free saline.Disp: 1.3 mLRfl: 0 Prescriptions as of 05/27/2020 Sig: PERFLUTREN LIPID MICROSPHERES* Inject 1.3 mL intravenously a * METOPROLOL TARTRATE 50 MG TAB* Take 0.5 tablets by mouth twi * FUROSEMIDE 20 MG TABLET Take 0.5 tablets by mouth onc* POTASSIUM CHLORIDE ER 10 MEQ * Take 1 tablet by mouth daily * FINASTERIDE 5 MG TABLET TAKE 1/2 (ONE-HALF) OF A TABL* X WARFARIN 5 MG TABLET TAKE 1 TABLET BY MOUTH DAILY * TRIAMCINOLONE ACETONIDE 0.5 %* Apply 1 application to affect * Patient not taking: Reported on 04/15/2020 Problem List As Of Date 05/27/2020 Noted Resolved Abnormal liver function test [R94.5] 12/25/2004 11/03/2010 More... 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 Obstructive Sleep Apnea, on CPAP [G47.33] 09/01/2009 More... Erectile dysfunction [N52.9] 05/03/2010 12/10/2014 Alopecia [L65.9] 05/03/2010 Primary osteoarthritis of right knee [M17.11] 09/29/2015 Obesity, Class III, BMI 40-49.9 (morbid obesity*03/10/2018 Thrombocytopenia (HCC) [D69.6] 01/08/2019 Varicose veins of bilateral lower extremities w*01/08/2019 Prescriptions ordered this encounter Disp Refills Start End PERFLUTREN LIPID MICROSPHERES 1.1 MG* 1.3 * 0 05/27/2020 Class: In Office Route: INTRAVENOUS Sig: Inject 1.3 mL intravenously as directed. Ad ministration Instructions: If no IV access, insert saline lock prior to administering cont rast. Discontinue saline lock post exam. If patient has central li ne or IVAD, may access for administration according to line specific nina sing protocol. Once exam is complete, flush line and de-access pe r line specific nursing protocol. Diluted IV Bolus: Dilute 1.3 ml of Definity with 8.7 ml of preservative-free saline. Encounter Status:Closed by ITZEL MOSER CMA on 06/03/20 blood culture on 16-05-31 Bacteria identified Specimen source XXX: Normal 05-27-2020 [facility] Cx Nom (Bld) BLOOD Performed at [facility] [address] [facility] 44 122 System (33686) Service Cmnt XXX-Imp: NONE Performed at [address] [address] Bacteria identified: NO GROWTH 5 DAYS Performed at [facility],[address] [place] [address] : FINAL 05/27/2020 Comment: Performed By: #### BCUL #### [facility] [place] [address] prothrombin time on 2020-05-25 INR Coag (PPP) [Relative 2.0 0.86-1.16 {INR} High 05-25 [facility] time] (24259) Comment: Result Comment: INR Theraput ic Range: 2.0-3.5 Performed at [place] [address] [address] [place] [address] PT Coag (PPP) 22.0 9.3-12.7 SEC High 05-25-2020 [facility] [Time] System (00 000) PT Coag (PPP) INFORMATION NOT Normal 05-25-2020 [facility] [Time] REPORTED TO System ( 76861) LABORATORY comprehensive metabolic panel on 2020-05-25 Albumin [Mass/Vol] 2.9 3.5-5.0 GM/DL Low 05-25-2020 [facility] (36356) Albumin/Globulin [Mass 1.0 1.5-3.0 RATIO Low 020 [facility] ratio] (84476) ALP [Catalytic 82 35-125 U/L Normal 05-25-2020 [facility] activity/Vol] (85179 ) ALT [Catalytic 8 5-40 U/L Normal 05-25-2020 [facility] activity/Vol] (22199 ) Comment: Result Comment: Performed at [place] [address] [address] [place] [id number] Anion gap [Moles/Vol] 11 0-19 MMOL/L Normal 05-25-20 [facility] (25521) AST [Catalytic 39 5-40 U/L Normal 05-25-2020 [facility] activity/Vol] (56544 ) Bilirubin [Mass/Vol] 2.3 0.1-1.2 MG/DL High 0 [facility] (25645) Calcium [Mass/Vol] 8.3 8.5-10.4 MG/DL Low 05-25-2020 [facility] (11691) Chloride [Moles/Vol] 104 97-107 MMOL/L Normal 0 [facility] (35099) CO2 [Moles/Vol] 25 24-31 MMOL/L Normal 05-25-2020 [facility] (06696) Creatinine [Mass/Vol] 1.0 0.4-1.6 MG/DL Normal 05-25-20 20 [facility] (64516) Globulin (S) [Mass/Vol] 2.8 1.9-3.7 G/DL Normal 2019 [facility] (78102) Glucose [Mass/Vol] 94 65-99 MG/DL Normal 05-25-2020 [facility] (82185) Potassium [Moles/Vol] 3.5 3.4-5.1 MMOL/L Normal 05-25-20 [facility] (68065) Protein [Mass/Vol] 5.7 5.9-7.9 G/DL Low 05-25-2020 [facility] (25675) Sodium [Moles/Vol] 140 133-145 MMOL/L Normal 05-25-2020 [facility] (10311) Urea nitrogen [Mass/Vol] 14 8-25 MG/DL Normal 05-25 [facility] (12073) Urea nitrogen/Creatinine 14.0 8-21 RATIO Normal 05-25 [facility] [Mass ratio] (63515) cbc with diff on 16-05-29 AB IMMATURE NEUT 0.02 0.0-0.1 K/UL Normal 05-25-2020 [facility] (10967) ABS BASO 0.03 0.00-0.22 K/UL Normal 05-25-2020 [facility] (95581) ABS EOS 0.41 0-0.45 K/UL Normal 05-25-2020 [facility] (87514) ABS NEUTROPHILS 3.11 1.8-7.7 K/UL Normal 05-25-2020 [facility] (55174) ABS.NEUT.CALCULATED 3.11 K/UL Normal 05-25-2020 [facility] (66585) Comment: Result Comment: Performed at [facility] [address] [facility] [address] Basophils/100 WBC (Bld) 0.30 0-1 % Normal 2019 [facility] (00 000) DIFF TYPE AUTO DIFF Normal 05-25-2020 [facility] (00 000) Eosinophils/100 WBC 4.40 0-3 % High 05-25-2020 [facility] (Bld) System (00 000) Erythrocyte distribution 14.2 11.7-15.0 % Normal 05-25 [facility] width (RBC) [Ratio] System (45494) Hematocrit (Bld) [Volume 35.5 41-50 % Low 05-25 [facility] fraction] System (00 000) Hemoglobin (Bld) 11.8 13.5-16.5 GM/DL Low 05-25-2020 [facility] [Mass/Vol] System (0 0000) Lymphocytes (Bld) 5.24 1.2-3.2 K/UL High 05-25-2020 [facility] [#/Vol] System (00 000) Lymphocytes/100 WBC 55.60 20-40 % High 05-25-2020 [facility] (Bld) System (00 000) MCH (RBC) [Entitic mass] 33.1 26-34 PG Normal 05-25 [facility] System (00 000) MCHC (RBC) [Mass/Vol] 33.2 31-37 % Normal 05-25-20 20 [facility] (00 000) MCV (RBC) [Entitic vol] 99.4 80-100 FL Normal 2019 [facility] (00 000) MEAN PLT VOL 9.7 7.0-12.6 CU Normal 05-25-2020 [facility] (00 000) Monocytes (Bld) [#/Vol] 0.61 0-0.8 K/UL Normal 2019 [facility] (00 000) Monocytes/100 WBC (Bld) 6.50 0-8 % Normal 2019 [facility] (00 000) Neutrophils/100 WBC 0.20 0.0-1.0 % Normal 05-25-2020 [facility] (Bld) System (00 000) Neutrophils/100 WBC 33.00 50-70 % Low 05-25-2020 [facility] (d) System (00 000) Comment: Result Comment: CONSISTENT W ITH PERIPHERAL SMEAR Platelets (Bld) CONSISTENT WITH Normal 05-25-20 20 [facility] [#/Vol] REPORTED RESULTS Sys tem (94390) Platelets (Bld) 105 150-450 K/UL Low 05-25-2020 [employer] [#/Vol] System (00 000) RBC (Bld) [#/Vol] 3.57 4.5-5.5 M/UL Low 05-25-2020 [facility] System (00 000) RBC morphology CONSISTENT WITH Normal 0 [facility] finding Nom (Bld) REPORTED RESULTS System (28481) RDW-SD 52.3 37.0-54. FL Normal 05-25-2020 [facility] System (00 000) WBC (Bld) [#/Vol] 9.4 4.5-11.0 K/UL Normal 05-25-2020 L [facility] System ( 000) WBC MORPHOLOGY SMEAR REVIEWED AND Normal 2019 [facility] FOUND CONSISTENT Sys tem (82312) WITH AUTOMATED DIFFERENTIAL prothrombin time on 2020-05-24 INR Coag (PPP) [Relative 2.4 0.86-1.16 {INR} High 05-24 [facility] time] (60855) Comment: Result Comment: INR Theraput ic Range: 2.0-3.5 Performed at [facility] [address] [address] [facility] [address] PT Coag (PPP) 26.0 9.3-12.7 SEC High 05-24-2020 [facility] [Time] System ( 000) PT Coag (PPP) INFORMATION NOT Normal 05-24-2020 [facility] [Time] REPORTED TO System ( 84497) LABORATORY comprehensive metabolic panel on 2020-05-24 Bilirubin [Mass/Vol] 1.8 0.1-1.2 MG/DL High 0 [facility] (46637) Comment: Result Comment: RESULT CHECK ED Albumin [Mass/Vol] 2.9 3.5-5.0 GM/DL Low 05-24-2020 [facility] (37360) Albumin/Globulin [Mass 1.0 1.5-3.0 RATIO Low 020 [facility] ratio] (90241) ALP [Catalytic 82 35-125 U/L Normal 05-24-2020 [facility] activity/Vol] (12750 ) ALT [Catalytic 9 5-40 U/L Normal 05-24-2020 [facility] activity/Vol] (03411 ) Comment: Result Comment: Performed at [facility] [address] [address] [facility] [address] Anion gap [Moles/Vol] 11 0-19 MMOL/L Normal 05-24-20 20 [facility] (19776) AST [Catalytic 40 5-40 U/L Normal 05-24-2020 [facility] activity/Vol] (18085 ) Calcium [Mass/Vol] 8.2 8.5-10.4 MG/DL Low 05-24-2020 [facility] (53912) Chloride [Moles/Vol] 104 97-107 MMOL/L Normal 0 [facility] (44988) CO2 [Moles/Vol] 23 24-31 MMOL/L Low 05-24-2020 [facility] (72030) Creatinine [Mass/Vol] 0.9 0.4-1.6 MG/DL Normal 05-24-20 20 [facility] (92229) Globulin (S) [Mass/Vol] 2.9 1.9-3.7 G/DL Normal 2019 [facility] (41605) Glucose [Mass/Vol] 98 65-99 MG/DL Normal 05-24-2020 [facility] (63636) Potassium [Moles/Vol] 3.5 3.4-5.1 MMOL/L Normal 05-24-20 20 [facility] (77141) Protein [Mass/Vol] 5.8 5.9-7.9 G/DL Low 05-24-2020 [facility] (67813) Sodium [Moles/Vol] 138 133-145 MMOL/L Normal 05-24-2020 [facility] (30135) Urea nitrogen [Mass/Vol] 16 8-25 MG/DL Normal 05-24 [facility] (01603) Urea nitrogen/Creatinine 17.8 8-21 RATIO Normal 05-24 [facility] [Mass ratio] (01733) cbc with diff on 16-05-28 AB IMMATURE NEUT 0.01 0.0-0.1 K/UL Normal 05-24-2020 [facility] (17610) ABS BASO 0.03 0.00-0.22 K/UL Normal 05-24-[address] [facility] (01154) ABS EOS 0.43 0-0.45 K/UL Normal 05-24-[address] [facility] (37914) ABS NEUTROPHILS 4.23 1.8-7.7 K/UL Normal 05-24-2020 [facility] (64924) ABS.NEUT.CALCULATED 4.23 K/UL Normal 05-24-2020 [facility] (96363) Comment: Result Comment: Performed at [facility] [address] [facility] [address] Basophils/100 WBC (Bld) 0.30 0-1 % Normal 2019 [facility] (00 000) DIFF TYPE AUTO DIFF Normal 05-24-[address] [facility] (00 000) Eosinophils/100 WBC 4.20 0-3 % High 05-24-2020 [facility] (Bld) System ( 000) Erythrocyte distribution 14.5 11.7-15.0 % Normal 05-24 [facility] width (RBC) [Ratio] System (26125) Hematocrit (Bld) [Volume 33.0 41-50 % Low 05-24 [facility] fraction] System (00 000) Hemoglobin (Bld) 10.9 13.5-16.5 GM/DL Low 05-24-2020 [facility] [Mass/Vol] System (0 0000) Lymphocytes (Bld) 4.92 1.2-3.2 K/UL High 05-24-2020 [facility] [#/Vol] System (00 000) Lymphocytes/100 WBC 48.00 20-40 % High 05-24-2020 [facility] (Bld) System ( 000) MCH (RBC) [Entitic mass] 33.1 26-34 PG Normal 05-24 [facility] ( 000) MCHC (RBC) [Mass/Vol] 33.0 31-37 % Normal 05-24-20 20 [facility] ( 000) MCV (RBC) [Entitic vol] 100.3 80-100 FL High 2019 [facility] ( 000) MEAN PLT VOL 9.5 7.0-12.6 CU Normal 05-24-2020 [facility] ( 000) Monocytes (Bld) [#/Vol] 0.63 0-0.8 K/UL Normal 2019 [facility] ( 000) Monocytes/100 WBC (Bld) 6.10 0-8 % Normal 2019 [facility] ( 000) Neutrophils/100 WBC 0.10 0.0-1.0 % Normal 05-24-2020 [facility] (Bld) System (00 000) Neutrophils/100 WBC 41.30 50-70 % Low 05-24-2020 [facility] (d) System ( 000) Platelets (Bld) [#/Vol] 104 150-450 K/UL Low 2019 [facility] (00 000) RBC (Bld) [#/Vol] 3.29 4.5-5.5 M/UL Low 05-24-2020 [facility] ( 000) RDW-SD 54.3 37.0-54.0 FL High 05-24-[address] [facility] (00 000) WBC (Bld) [#/Vol] 10.3 4.5-11.0 K/UL Normal 05-24-2020 [facility] (00 000) prothrombin time on 2020-05-23 INR Coag (PPP) [Relative 2.7 0.86-1.16 {INR} High 05-23 [facility] time] (10460) Comment: Result Comment: INR Theraput ic Range: 2.0-3.5 Performed at [place] [address] [address] [place] [address] PT Coag (PPP) 29.2 9.3-12.7 SEC High 05-23-2020 [facility] [Time] (56667) PT Coag (PPP) HISTORY OF COUMADIN Normal 2019 [facility] [Time] (33021) pro-bnp on Natriuretic peptide B (Bld) 467 0-229 PG/ML High [facility] [Mass/Vol] (67451) Comment: Result Comment: Reference ra nges are based on clinical submission data. These ranges represent the 95th percentil e of normal cut-off points. As NT pro-BNP values approach 1000 pg/ml, clinical symptoms are more likely associated with CHF. Performed at [place] [address] Performed By: #### PBNP #### [place] [address] plt estimate battery on 2020-05-23 Platelets (Bld) [#/Vol] Normal 2019 [facility] (92259) Comment: Result Comment: DECREASED Performed at [place] [address] [address] [place] [id number] magnesium on 05-23 Magnesium [Mass/Vol] 1.8 1.6-3.1 MG/DL Normal 0 [facility] (98562) Comment: Result Comment: Performed at [place] [address] [address] [place] [id number] cbc without diff on 2020-05-23 Erythrocyte distribution 14.4 11.7-15.0 % Normal 05-23 [facility] width (RBC) [Ratio] (39955) Hematocrit (Bld) [Volume 31.9 41-50 % Low 05-23 [facility] fraction] (08617) Hemoglobin (Bld) 10.8 13.5-16.5 GM/DL Low 05-23-2020 [facility] [Mass/Vol] (85354) MCH (RBC) [Entitic mass] 34.0 26-34 PG Normal 05-23 [facility] (30260) MCHC (RBC) [Mass/Vol] 33.9 31-37 % Normal 05-23-20 20 [facility] (00736) MCV (RBC) [Entitic vol] 100.3 80-100 FL High 2019 [facility] (38750) MEAN PLT VOL 9.3 7.0-12.6 CU Normal 05-23-2020 [facility] (82472) Comment: Result Comment: Performed at [facility] [address] [address] [facility] [address] Platelets (Bld) [#/Vol] 94 150-450 K/UL Low 2019 [facility] ([id number]) Comment: Result Comment: CONSISTENT W ITH PERIPHERAL SMEAR RBC (Bld) [#/Vol] 3.18 4.5-5.5 M/UL Low 05-23-2020 [facility] ([id number]) RDW-SD 53.7 37.0-54.0 FL Normal 05-23-[address] [facility] (66024) WBC (Bld) [#/Vol] 14.6 4.5-11.0 K/UL High 05-23-2020 [facility] (63534) c reactive protein on 2020-05-23 CRP [Mass/Vol] 5.7 0-2.0 MG/DL High 05-23-2020 [facility] (22733) Comment: Result Comment: Performed at [address] [address] Performed By: #### CRP #### Main Laboratory [address] [address] basic metabolic panel on 2020-05-23 Anion gap [Moles/Vol] 10 0-19 MMOL/L Normal 05-23-20 20 [facility] (22048) Calcium [Mass/Vol] 8.2 8.5-10.4 MG/DL Low 05-23-2020 [facility] (41721) Comment: Result Comment: Performed at [address] [address] Chloride [Moles/Vol] 104 97-107 MMOL/L Normal 0 [facility] (49511) CO2 [Moles/Vol] 24 24-31 MMOL/L Normal 05-23-2020 [facility] (02518) Creatinine [Mass/Vol] 1.0 0.4-1.6 MG/DL Normal 05-23-20 20 [facility] (46889) Glucose [Mass/Vol] 105 65-99 MG/DL High 05-23-2020 [facility] (88837) Potassium [Moles/Vol] 3.3 3.4-5.1 MMOL/L Low 05-23-20 20 [facility] (47757) Sodium [Moles/Vol] 138 133-145 MMOL/L Normal 05-23-2020 [facility] (93061) Urea nitrogen [Mass/Vol] 17 8-25 MG/DL Normal 05-23 [facility] (52951) Urea nitrogen/Creatinine 17.0 8-21 RATIO Normal 05-23 [facility] [Mass ratio] (49164) sedimentation rate on 2020-05-22 SEDIMENTATION RATE 39 0-12 MM/HR High 05-22-2020 [facility] (36013) Comment: Result Comment: Performed at [address] [address] pt and ptt on 05-22 aPTT Coag (Bld) [Time] 40.9 22.0-32.5 SEC High 020 [facility] (91456) Comment: Result Comment: Performed at [address] [address] INR Coag (PPP) [Relative 2.5 0.86-1.16 {INR} High 05-22 [facility] time] (37417) Comment: Result Comment: INR Theraput ic Range: 2.0-3.5 PT Coag (PPP) [Time] 27.0 9.3-12.7 SEC High 0 [facility] (21436) ANTICOAGULANT COUMADIN Normal 05-22-2020 [facility] (02276) magnesium on 05-22 Magnesium [Mass/Vol] 1.9 1.6-3.1 MG/DL Normal 0 [facility] (83863) Comment: Result Comment: Performed at [facility] [address] [place] [id number] comprehensive metabolic panel on 2020-05-22 Albumin [Mass/Vol] 3.3 3.5-5.0 GM/DL Low 05-22-2020 [facility] (05618) Albumin/Globulin 1.1 1.5-3.0 RATIO Low 05-22-2020 [facility] [Mass ratio] (00232) ALP [Catalytic 97 35-125 U/L Normal 05-22-2020 [facility] activity/Vol] (94961 ) ALT [Catalytic 11 5-40 U/L Normal 05-22-2020 [facility] activity/Vol] (36979 ) Anion gap [Moles/Vol] 13 0-19 MMOL/L Normal 05-22-20 20 [facility] (00215) AST [Catalytic 53 5-40 U/L High 05-22-2020 [facility] activity/Vol] (43857 ) Bilirubin [Mass/Vol] 2.6 0.1-1.2 MG/DL High 0 [facility] (16349) Calcium [Mass/Vol] 8.5 8.5-10.4 MG/DL Normal 05-22-2020 [facility] (29394) Chloride [Moles/Vol] 102 97-107 MMOL/L Normal 0 [facility] (26991) CO2 [Moles/Vol] 22 24-31 MMOL/L Low 05-22-2020 [facility] (22706) Creatinine [Mass/Vol] 1.0 0.4-1.6 MG/DL Normal 05-22-20 20 [facility] (65932) GFR/1.73 sq 78 mL/min/1.73 m2 Normal 05-22-2020 [facility] M.predicted MDRD (00 000) (S/P/Bld) [Vol rate/Area] Comment: Result Comment: GFR ml/min/1.73m2 Stage ----- 90 1 60-89 2 30-59 3 15-29 4 <15 5 For -Americans, multi ply EGFR result by 1.210 Calculation not validated fo r patients under 18 years of age. Performed at [facility] [address] [facility] [address] Globulin (S) [Mass/Vol] 3.1 1.9-3.7 G/DL Normal 2019 [facility] (07487) Glucose [Mass/Vol] 90 65-99 MG/DL Normal 05-22-2020 [facility] (56856) Potassium [Moles/Vol] 3.6 3.4-5.1 MMOL/L Normal 05-22-20 [facility] (89384) Protein [Mass/Vol] 6.4 5.9-7.9 G/DL Normal 05-22-2020 [facility] (48824) Sodium [Moles/Vol] 137 133-145 MMOL/L Normal 05-22-2020 [facility] (23798) Urea nitrogen [Mass/Vol] 18 8-25 MG/DL Normal 05-22 [facility] (20055) Urea nitrogen/Creatinine 18.0 8-21 RATIO Normal 05-22 [facility] [Mass ratio] (02740) cbc with diff on 16-05-26 ABS ATYPICAL LYMPH 0.19 K/UL Normal 05-22-2020 [facility] (66878) Comment: Performed By: #### CBCD #### [facility] [address] [place] [address] ABS BAND 0.39 K/UL Normal 05-22-2020 [facility] (82164) Comment: Performed By: #### CBCD #### [facility] [address] [place] [address] ABS EOS 0.58 0-0.45 K/UL High 05-22-2020 [facility] (44725) Comment: Performed By: #### CBCD #### [facility] [address] [place] [address] ABS NEUTROPHILS 8.50 1.8-7.7 K/UL High 05-22-2020 [facility] (41754) Comment: Performed By: #### CBCD #### [facility] [address] [place] [address] ABS.NEUT.MANUAL 8.88 Normal 05-22-2020 [facility] (86490) Comment: Performed By: #### CBCD #### [facility] [address] [place] [address] ATYPICAL LYMPH 1.00 % Normal 05-22-2020 [facility] (12664) Comment: Performed By: #### CBCD #### [facility] [address] [place] [address] BAND NEUTROPHIL 2.00 <16 % Normal 05-22-2020 [facility] (44348) Comment: Performed By: #### CBCD #### [facility] [address] [place] [address] DIFF TYPE MANUAL DIFF Normal 05-22-2020 [facility] (62904) Comment: Performed By: #### CBCD #### [facility] [address] [place] [address] Eosinophils/100 WBC (Bld) 3.00 0-3 % Normal 04-28 [facility] (16510) Comment: Performed By: #### CBCD #### [place] [address] [place] [address] Lymphocytes (Bld) [#/Vol] 8.50 1.2-3.2 K/UL High 04-28 [facility] (67095) Comment: Performed By: #### CBCD #### [facility] [address] [place] [address] Lymphocytes/100 WBC (Bld) 44.00 20-40 % High 04-28 [facility] (14059) Comment: Performed By: #### CBCD #### [facility] [address] [place] [address] Monocytes (Bld) [#/Vol] 1.16 0-0.8 K/UL High 2019 [facility] (93538) Comment: Performed By: #### CBCD #### [facility] [address] [place] [address] Monocytes/100 WBC (Bld) 6.00 0-8 % Normal 2019 [facility] (29209) Comment: Performed By: #### CBCD #### [facility] [address] [place] [address] Neutrophils/100 WBC (Bld) 44.00 50-70 % Low 04-28 [facility] (56282) Comment: Performed By: #### CBCD #### [facility] [address] [place] [address] Platelets (Bld) [#/Vol] SLIGHTLY DECREASED Normal 05-22-2020 [facility] (22869) Comment: Performed By: #### CBCD #### [facility] [address] [place] [address] RBC morphology finding CONSISTENT WITH Normal 0 05-22-2020 [facility] Nom (Bld) REPORTED RESULTS (00 000) Comment: Performed By: #### CBCD #### [facility] [address] [place] [address] ABS.NEUT.CALCULATED 9.43 K/UL Normal 05-22-2020 [facility] (19408) Comment: Result Comment: Performed at [address] [address] Performed By: #### CBCD #### [facility] [address] [place] [address] Erythrocyte distribution 14.4 11.7-15.0 % Normal 05-22 [facility] width (RBC) [Ratio] (74356) Comment: Performed By: #### CBCD #### [facility] [address] [place] [address] Hematocrit (Bld) [Volume 35.1 41-50 % Low 05-22 [facility] (40674) fraction] Comment: Performed By: #### CBCD #### [facility] [address] [place] [address] Hemoglobin (Bld) 11.9 13.5-16.5 GM/DL Low 05-22-2020 [facility] [Mass/Vol] (11145) Comment: Performed By: #### CBCD #### [facility] [address] [place] [address] MCH (RBC) [Entitic mass] 34.0 26-34 PG Normal 05-22 [facility] (15520) Comment: Performed By: #### CBCD #### [facility] [address] [place] [address] MCHC (RBC) [Mass/Vol] 33.9 31-37 % Normal 05-22-20 20 [facility] (03868) Comment: Performed By: #### CBCD #### [facility] [address] [place] [address] MCV (RBC) [Entitic vol] 100.3 80-100 FL High 2019 [facility] (25069) Comment: Performed By: #### CBCD #### [facility] [address] [place] [address] MEAN PLT VOL 9.7 7.0-12.6 CU Normal 05-22-2020 [facility] (54786) Comment: Performed By: #### CBCD #### [facility] [address] [place] [address] Platelets (Bld) [#/Vol] 112 150-450 K/UL Low 2019 [facility] (78264) Comment: Performed By: #### CBCD #### [facility] [address] [place] [address] RBC (Bld) [#/Vol] 3.50 4.5-5.5 M/UL [facility] 05-22-2020 [facility] (35915) Comment: Performed By: #### CBCD #### [facility] [address] [place] [address] RDW-SD 53.4 37.0-54.0 FL Normal 05-22-2020 [facility] (45524) Comment: Performed By: #### CBCD #### [facility] [address] [place] [address] WBC (Bld) [#/Vol] 19.3 4.5-11.0 K/UL High 05-22-2020 [facility] (96865) Comment: Performed By: #### CBCD #### [facility] [address] [place] [address] progress on 2020-04 PROGRESS HNO ID: [id number] Normal 05-19-2020 [facility] Author: Piper Harman) [facility] [place] ([id number]) Service: ? Author Type: Nurse Practitioner Type: Progress Notes Filed: 05/19/2020 11:04 AM Note Text: Victorino Sears, ENVIRONMENTAL HEALTH NURSE.JULIANA PROGRESS HNO ID: [id number] Normal 05-19-2020 [facility] Author: Elsie Huber RN [facility] ([id number]) Service: ? Author Type: ? Type: Progress Notes Filed: 05/19/2020 11:04 AM Note Text: patient had inr completed at [facility] patients inr is 2.6 (patients inr range is 2.0-3.0) patient is currently taking 5mg daily patients last dose change was on 04/07/20 due to a low level of 1.5 (dose at that time ws 2.5mg daily) patient has had no changes in medication and no missed doses and no change in diet Advised patient to continue on the same dose(s) and that the y would only be contacted regarding dosage and follow up instructions aft er review with provider, if a change is needed. Written instructions given and patient verbalized understanding. Presently scheduled in 1 month (pt will call to schedule follow up ) for follow up INR. hay on 2020-05-19 CNPN Telephone (KAYY) Normal 05-19-2020 [facility] JUSTIN ZAZUETA ([id number]) 1950 [facility] Date Time Provider Department ([id number]) 05/19/20 MATTHEW ROCHA During your visit today, we recorded the following informati on about you: Elsie Huber RN 05/19/2020 10:35 AM Signed patients orders for coumadin clinic inr's has ex pired at this time. new order has been pended for approval if possible so that patie nt can continue to get inr's completed thru the coumadin clinic. coumadin clinic nu rse only needs called if order can not be approved. Allergies As of Date: 05/19/2020 (No Known Allergies) Date Reviewed: 04/27/2020 Reviewed by: Graciela Espitia Ma - Fully Assessed Reason for Visit: Orders [681] Primary Visit Diagnosis:Atrial fibrillation, chronic (HCC) [ I48.20] Order(s):INR (POC) [0855702] Order #: [id number] STANDING PROTHROMBIN TIME/PT [SQPT] Order #: [id number] STANDING Prescriptions as of 05/19/2020 Sig: METOPROLOL TARTRATE 50 MG TAB* Take 0.5 tablets by mouth twi * FUROSEMIDE 20 MG TABLET Take 0.5 tablets by mouth onc* POTASSIUM CHLORIDE ER 10 MEQ * Take 1 tablet by mouth daily * FINASTERIDE 5 MG TABLET TAKE 1/2 (ONE-HALF) OF A TABL* WARFARIN 5 MG TABLET TAKE 1 TABLET BY MOUTH DAILY * TRIAMCINOLONE ACETONIDE 0.5 %* Apply 1 application to affect * Patient not taking: Reported on 04/15/2020 Problem List As Of Date 05/19/2020 Noted Resolved Abnormal liver function test [R94.5] 12/25/2004 11/03/2010 More... 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 Obstructive Sleep Apnea, on CPAP [G47.33] 09/01/2009 More... Erectile dysfunction [N52.9] 05/03/2010 12/10/2014 Alopecia [L65.9] 05/03/2010 Primary osteoarthritis of right knee [M17.11] 09/29/2015 Obesity, Class III, BMI 40-49.9 (morbid obesity*03/10/2018 Thrombocytopenia (HCC) [D69.6] 01/08/2019 Varicose veins of bilateral lower extremities w*01/08/2019 Encounter Status:Closed by PIPER SEARS CNP on 05/19/20 obsolete on 2020-04 OBSOLETE Refill (INTMWS) Normal 05-10-2020 [place] JUSTIN Julian ([id number]) 1950 [facility] Date Time Provider Department ([id number]) 05/10/20 MATTHEW ROCHA During your visit today, we recorded the following informati on about you: Veronica Farris LPN 05/10/2020 9:14 AM Signed Last entry on medication listed below was a med update. Patient has been identified by name and date of : Yes Patient phones for refill(s): Pending Prescriptions Disp Refills METOPROLOL TARTRATE 50 MG TABLET 180 tablet 0 Sig: Take 0.5 tablets by mouth twice daily. ROGER: No Date of last office visit in primary care: 04/21/20 next apt 05/19/20 Last 2 Encounter Wt Readings: Date: Wt: 04/21/2020 148.8 kg (328 lb) 04/15/2020 147 kg (324 lb) Previous labs/tests for medication: Blood Pressure: BUN (mg/dL) Date Value 04/06/2020 20 Sodium (mmol/L) Date Value 04/06/2020 135 Last 1 Encounter BP Readings: Date: BP: 04/21/2020 118/72 Please advise. Thank you. Veronica Farris LPN Allergies As of Date: 05/10/2020 (No Known Allergies) Date Reviewed: 04/27/2020 Reviewed by: Graciela Espitia Ma - Fully Assessed Reason for Visit: Refill Request [94] Visit Diagnoses:Atrial fibrillation, unspecified type (HCC) [I48.91] Essential hypertension [I10] Order(s):metoprolol tartrate, short acting, (LOPRESSOR ) 50 mg tabletTake 0.5 tablets by mouth twice daily.Disp: 180 tabletRfl: 0 Prescriptions as of 05/10/2020 Sig: METOPROLOL TARTRATE 50 MG TAB* Take 0.5 tablets by mouth twi * FUROSEMIDE 20 MG TABLET Take 0.5 tablets by mouth onc* POTASSIUM CHLORIDE ER 10 MEQ * Take 1 tablet by mouth daily * FINASTERIDE 5 MG TABLET TAKE 1/2 (ONE-HALF) OF A TABL* WARFARIN 5 MG TABLET TAKE 1 TABLET BY MOUTH DAILY * TRIAMCINOLONE ACETONIDE 0.5 %* Apply 1 application to affect * Patient not taking: Reported on 04/15/2020 Problem List As Of Date 05/10/2020 Noted Resolved Abnormal liver function test [R94.5] 12/25/2004 11/03/2010 More... 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 Obstructive Sleep Apnea, on CPAP [G47.33] 09/01/2009 More... Erectile dysfunction [N52.9] 05/03/2010 12/10/2014 Alopecia [L65.9] 05/03/2010 Primary osteoarthritis of right knee [M17.11] 09/29/2015 Obesity, Class III, BMI 40-49.9 (morbid obesity*03/10/2018 Thrombocytopenia (HCC) [D69.6] 01/08/2019 Varicose veins of bilateral lower extremities w*01/08/2019 Prescriptions ordered this encounter Disp Refills Start End METOPROLOL TARTRATE 50 MG TABLET 180 * 0 05/10/2020 Route: ORAL Sig: Take 0.5 tablets by mouth twice daily. Medications Discontinued During This Encounter metoprolol tartrate, short acting, (* 180 * 0 04/21/202005/10 Class: Med Update Route: ORAL Sig: Take 0.5 tablets by mouth twice daily. Disc: Reason for discontinue is not on file. Encounter Status:Closed by PIPER SEARS CNP on 05/10/20 progress on 2020-04 PROGRESS HNO ID: [id number] Normal 04-27-2020 [place] Author: Vickie Griffin [facility] Service: ? [place] Author Type: Nurse Practitioner ([id number]) Type: Progress Notes Filed: 05/01/2020 9:32 AM Note Text: VASCULAR SURGERY WOUND OSTOMY CONTINENCE CONSULTATION CHIEF COMPLAINT: Wound check and evaluation HISTORY OF PRESENT ILLNESS: BLE lymphedema PAST MEDICAL HISTORY Diagnosis Date - Abnormal liver function test 12/25/2004 Pt reportedly had this since age 24: no measure in the syste m to verify ALT 61 (30-65) in 08-05 HCV quantitative was undetectable in 08-05 HBsAb, HBsAg, Hep A negative in 08-05 NL iron and ferritin levels i n 08-05 HCV negative in 08-05 - Alopecia 05/03/2010 - Atrial fibrillation (HCC) 07/25/2009 Started Coumadin and Metoprolol in 07-06 - Diverticulosis of colon (without mention of hemorrhage) - Erectile dysfunction 05/03/2010 - HTN (hypertension) 07/25/2009 Office BP was 150/98 in 10-09: Lisinopril to 20 mg bid - Hypertrophy of prostate with urinary obstruction and other lower urinary tract symptoms (LUTS) 07/14/2007 - Obstructive sleep apnea 09/01/[address] Ramos. - Primary osteoarthritis of right knee 09/29/2015 - Unspecified viral hepatitis C without hepatic coma 1980s PAST SURGICAL HISTORY Procedure Laterality Date - COLONOSCOP W/ OR W/O [facility] SPEC April 2001 normal - COLONOSCOP W/ OR W/O [facility] SPEC 02/25/2012 Colonoscopy - PAST SURGICAL HISTORY OF sinus x2 ALLERGIES No Known Allergies Social History Tobacco Use - Smoking status: Former Smoker Packs/day: 2.00 Years: 8.00 Pack years: 16.00 Types: Cigarettes Last attempt to quit: 10/28/1975 Years since quittin.5 - Smokeless tobacco: Never Used Substance Use Topics - Alcohol use: No Frequency: Never Drinks per session: Patient refused Binge frequency: Never - Drug use: No Comment: none since 20s FAMILY HISTORY Problem Relation Age of Onset - Alzheimer's Disease Mother 85 - Prostate Cancer Father 78 - Diabetes Father - None Sister MEDICATIONS: metoprolol tartrate, short acting, (LOPRESSOR) 50 mg tablet Take 0.5 tablets by mouth twice daily. furosemide (LASIX) 20 mg tablet Take 0.5 tablets by mouth on ce daily. potassium chloride (K-TAB) 10 mEq tablet Take 1 tablet by mo uth daily with breakfast. finasteride (PROSCAR) 5 mg tablet TAKE 1/2 (ONE-HALF) OF A T ABLET BY MOUTH DAILY warfarin (COUMADIN) 5 mg tablet TAKE 1 TABLET BY MOUTH DAILY or DIRECTED triamcinolone acetonide (KENALOG) 0.5 % cream Apply 1 applic ation to affected area twice daily. For rash/itching. Apply sparingly . Avoid face/skin fold. REVIEW OF SYSTEMS 12 organ system review was performed with these findings: No change from prior assessment Exceptions: Integumentary: See below Nutritional Status Appetite: fair Diet: Low sodium Albumin/Prealbumin levels: Lab Results Component Value Date ALB 3.7 (L) 04/06/2020 PHYSICAL EXAMINATION Constitutional: Appears about stated age, well nourished, no weight loss, no fevers and no chills. Psych: Alert and oriented to person, place and time. Intact memory. Normal limit affect, judgement and insight. Respiratory: Symmetrical expansion and effort. No cough, no shortness of breath. Cardiovascular: No chest pain. Normal limit dorsalis pedis a nd posterior tibial pulses. BLE lymphedema. Neuro: Normal limit cranial nerves. Musculoskeletal: Normal limit gait. Normal limit symmetry. N ormal limit range of motion. Normal limit muscle strength. Normal limit tone of all extremities. Integumentary: Normal skin color, texture and turgor. No dry , scaly or cracked skin. No ecchymotic areas. No friable skin. No rash, lesions, excoriations or waller. No diaphoresis. No jaundice, no ruddi ness, no skin pallor. Left medial LE ulcer: healed Eyes: Pupils are equal, round and reactive to light. Ears: Normal limit hearing. Nose/Mouth/Throat: Normal limit external ear canals and TM. Normal limit teeth, lips and gums. Neck: Normal limit appearance and movements. Trachea midline . Breast: Not assessed. Lymphatic: Not assessed. Abdominal: Not assessed. WOUND PAIN: No pain or discomfort DATA REVIEWED: Chart reviewed. ASSESSMENT/PLAN/TREATMENT RECOMMENDATIONS Danika wrap 6 inches from toes to knee at all times until compr ession stockings are available Elevate legs frequently. Exercise legs frequently as per LE edema, lymphedema and CVI conservative treatment plan. Follow up with Dr. Mckay for possible intervention as per he r note Will order compression pumps due to continued lymphedema nir pite above plan Education provided Treatment demonstrated Questions answered I have spent 15 minutes with the patient for physical and wo und assessment, wound cleaning, dressing demonstration and answe ring questions. More than 50% of the time spent with the patient included education/counselling/coordination of care. Vickie Griffin, PhD, WOCN, CUSTOMER SUCCESS MANAGER cnov on 2020-04-27 CNOV Office Visit (VASSWS) Normal 04-27-20 20 [facility] JUSTIN ZAZUETA ([id number]) 1950 [facility] Date Time Provider Department ([id number]) 04/27/20 2:30 PM VICKIE GRIFFIN During your visit today, we recorded the following informati on about you: Vickie Griffin, PhD, ENVIRONMENTAL HEALTH NURSE.CUSTOMER SUCCESS MANAGER 05/01/2020 9:32 AM Signed VASCULAR SURGERY WOUND OSTOMY CONTINENCE CONSULTATION CHIEF COMPLAINT: Wound check and evaluation HISTORY OF PRESENT ILLNESS: BLE lymphedema PAST MEDICAL HISTORY Diagnosis Date - Abnormal liver function test 12/25/2004 Pt reportedly had this since age 24: no measure in the system to verify ALT 61 (30-65) in 08-05 HCV quantit ative was undetectable in 08-05 HBsAb, HBsAg, Hep A negative in 08-05 NL iron and ferritin levels in 08-05 HCV negative in 08-05 - Alopecia 05/03/2010 - Atrial fibrillation (HCC) 07/25/2009 Started Coumadin and Metoprolol in 07-06 - Diverticulosis of colon (without mention of hemorrhage) - Erectile dysfunction 05/03/2010 - HTN (hypertension) 07/25/2009 Office BP was 150/98 in 08-05: Lisinopril to 20 mg bid - Hypertrophy of prostate with urinary obstruction and other lower urinary tract symptoms (LUTS) 07/14/2007 - Obstructive sleep apnea 09/01/[address] Ramos. - Primary osteoarthritis of right knee 09/29/2015 - Unspecified viral hepatitis C without hepatic coma PAST SURGICAL HISTORY Procedure Laterality Date - COLONOSCOP W/ OR W/O [facility] SPEC April 2001 normal - COLONOSCOP W/ OR W/O [facility] SPEC 02/25/2012 Colonoscopy - PAST SURGICAL HISTORY OF sinus x2 ALLERGIES No Known Allergies Social History Tobacco Use - Smoking status: Former Smoker Packs/day: 2.00 Years: 8.00 Pack years: 16.00 Types: Cigarettes Last attempt to quit: 10/28/1975 Years since quittin.5 - Smokeless tobacco: Never Used Substance Use Topics - Alcohol use: No Frequency: Never Drinks per session: Patient refused Binge frequency: Never - Drug use: No Comment: none since 20s FAMILY HISTORY Problem Relation Age of Onset - Alzheimer's Disease Mother 85 - Prostate Cancer Father 78 - Diabetes Father - None Sister MEDICATIONS: metoprolol tartrate, short a cting, (LOPRESSOR) 50 mg tablet Take 0.5 tablets by mouth twice daily. furosemide (LASIX) 20 mg tablet Take 0.5 tablets by mouth on ce daily. potassium chloride (K-TAB) 10 mEq tablet Take 1 tablet by mo uth daily with breakfast. finasteride (PROSCAR) 5 mg tablet TAKE 1/2 (ONE-HALF) OF A T ABLET BY MOUTH DAILY warfarin (COUMADIN) 5 mg tablet TAKE 1 TABLET BY MOUTH SHARON LY or DIRECTED triamcinolone acetonide (KENALOG) 0.5 % cream Ap ply 1 application to affected area twice daily. For rash/itching. Apply sparingly. Avoid f danika/skin fold. REVIEW OF SYSTEMS 12 organ system review was performed with these findings: No change from prior assessment Exceptions: Integumentary: See below Nutritional Status Appetite: fair Diet: Low sodium Albumin/Prealbumin levels: Lab Results Component Value Date ALB 3.7 (L) 04/06/2020 PHYSICAL EXAMINATION Constitutional: Appears about stated age, well nourish ed, no weight loss, no fevers and no chills. Psych: Alert and oriented to person, place and time. Intact memory. Normal limit affect, judgement and insight. Respiratory: Symmetrical exp ansion and effort. No cough, no shortness of breath. Cardiovascular: No chest ricky n. Normal limit dorsalis pedis and posterior tibial pulses. BLE lymphedema. Neuro: Normal limit cranial nerves. Musculoskeletal: Normal limit gait. Normal limit symmetry. Normal limit range of motion. Normal limit muscle strength. Normal limit tone of all extremities. Integumentary: Normal skin color, textur e and turgor. No dry, scaly or cracked skin. No ecchymotic areas. No friable skin. No r mehrdad, lesions, excoriations or waller. No diaphoresis. No jaundice, no ruddiness, no skin pa llor. Left medial LE ulcer: healed Eyes: Pupils are equal, round and reactive to light. Ears: Normal limit hearing. Nose/Mouth/Throat: Normal li betzaida external ear canals and TM. Normal limit teeth, lips and gums. Neck: Normal limit appearance and movements. Trachea midline . Breast: Not assessed. Lymphatic: Not assessed. Abdominal: Not assessed. WOUND PAIN: No pain or discomfort DATA REVIEWED: Chart reviewed. ASSESSMENT/PLAN/TREATMENT RECOMMENDATIONS Danika wrap 6 inches from toes to knee at all times until compression stockings are available Elevate legs frequently. Exercise legs frequently as per LE edema, lymphedema and CVI conservative treatment plan. Follow up with Dr. Mckay for possible intervention as per he r note Will order compression pumps due to continued lymphedema d espite above plan Education provided Treatment demonstrated Questions answered I have spent 15 minutes with the patient for physical and wound assessment, wound cleaning, dressing demonstration and answe ring questions. More than 50% of the time spent with the patient inclu ded education/counselling/coordination of care. Vickie Griffin, PhD, WOCN, CUSTOMER SUCCESS MANAGER Referring Provider: VICKIE GRIFFIN [[id number]] Allergies As of Date: 04/27/2020 (No Known Allergies) Date Reviewed: 04/27/2020 Reviewed by: Graciela Espitia Ma - Fully Assessed Reason for Visit: Established Patient [175] Cmt: 2 week follow up Primary Visit Diagnosis:Lymphedema of both lower extremities [I89.0] Prescriptions as of 04/27/2020 Sig: METOPROLOL TARTRATE 50 MG TAB* Take 0.5 tablets by mouth twi * FUROSEMIDE 20 MG TABLET Take 0.5 tablets by mouth onc* POTASSIUM CHLORIDE ER 10 MEQ * Take 1 tablet by mouth daily * FINASTERIDE 5 MG TABLET TAKE 1/2 (ONE-HALF) OF A TABL* WARFARIN 5 MG TABLET TAKE 1 TABLET BY MOUTH DAILY * TRIAMCINOLONE ACETONIDE 0.5 %* Apply 1 application to affect * Patient not taking: Reported on 04/15/2020 Problem List As Of Date 04/27/2020 Noted Resolved Abnormal liver function test [R94.5] 12/25/2004 11/03/2010 More... 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 Obstructive Sleep Apnea, on CPAP [G47.33] 09/01/2009 More... Erectile dysfunction [N52.9] 05/03/2010 12/10/2014 Alopecia [L65.9] 05/03/2010 Primary osteoarthritis of right knee [M17.11] 09/29/2015 Obesity, Class III, BMI 40-49.9 (morbid obesity*03/10/2018 Thrombocytopenia (HCC) [D69.6] 01/08/2019 Varicose veins of bilateral lower extremities w*01/08/2019 Encounter Status:Closed by VICKIE GRIFFIN CNP on 05/01/20 cnco on 2020-04-27 CNCO Letter Text Normal 04-27-2020 [facility] ([id number]) progress on 2020-03 PROGRESS HNO ID: [id number] Normal 04-21-2020 [facility] Author: Matthew Rocha [place] ([id number]) Service: ? Author Type: Physician Type: Progress Notes Filed: 04/21/2020 5:33 PM Note Text: Okay. DIRECTOR OF LABOR AND DELIVERY notes reviewed. Medication list updated. PROGRESS HNO ID: [id number] Normal 04-21-2020 [facility] Author: Elsie Huber RN [place] ([id number]) Service: ? Author Type: ? Type: Progress Notes Filed: 04/21/2020 5:33 PM Note Text: patient had inr completed at [facility] patients inr is 2.5 (patients inr range is 2.0-3.0) patient is currently taking 5mg daily patients last dose change was on 03/13/18 due to a high level of 3.2 (dose at that time was 7.5mg Sun and 5mg all other days) patient has had no changes in medication and no missed doses and no change in diet Advised patient to continue on the same dose(s) and that the y would only be contacted regarding dosage and follow up instructions aft er review with provider, if a change is needed. Written instructions given and patient verbalized understanding. Presently scheduled in 4 weeks () for follow up INR. PROGRESS HNO ID: [id number] Normal 04-21-2020 [facility] Author: Mike Mccurdy [place] ([id number]) Service: ? Author Type: Nurse Practitioner Type: Progress Notes Filed: 04/21/2020 1:53 PM Note Text: CC: Patient presents with: Ear Problem: R ear muffled, improving HPI Justin Zazueta is a 69 year old male who presents today for fol low BP and ear complaints. is an established patient of and is new to me today. He complains of intermittent muffled hearing or hearing loss of the right ear for several weeks. Notes commented on his hearing l oss, he requires her to repeat herself more. Denies any recent head injury, sinus symptoms, ear pain or tinnitus. Did experience some dizzines s with reported low BP of 103/42 readings. Hypotension: Patient contacted office ~6 days ago with low B P readings of 103/42 and 113/62 with some dizziness. He was instructed to reduce his lisinopril to half. Patient indicates by the time office fol lowed up with him he had stopped his BP medications. Dizziness has resolved. Denies chest pain, SOB or palpitatio ns. He is no longer on lasix- indicates significant weight loss when dose increased and felt ~30lb weight loss was too much. He is now wearing his c ompression stockings however experiencing pitting edema up to the thigh s. He does weigh himself at home- 324-326lbs. REVIEW OF SYSTEMS General: no fevers, no chills and See HPI HEENT: no frequent or significant headaches, no visual slaughter es, no sinus or nasal problems, See HPI Respiratory: no cough, no wheezing, no shortness of breath Cardiovascular: no chest pain, no chest pressure, no palpita tions and See HPI See HPI PAST MEDICAL HISTORY Diagnosis Date - Abnormal liver function test 12/25/2004 Pt reportedly had this since age 24: no measure in the syste m to verify ALT 61 (30-65) in 08-05 HCV quantitative was undetectable in 08-05 HBsAb, HBsAg, Hep A negative in 08-05 NL iron and ferritin levels i n 08-05 HCV negative in 08-05 - Alopecia 05/03/2010 - Atrial fibrillation (HCC) 07/25/2009 Started Coumadin and Metoprolol in 07-06 - Diverticulosis of colon (without mention of hemorrhage) - Erectile dysfunction 05/03/2010 - HTN (hypertension) 07/25/2009 Office BP was 150/98 in 08-05: Lisinopril to 20 mg bid - Hypertrophy of prostate with urinary obstruction and other lower urinary tract symptoms (LUTS) 07/14/2007 - Obstructive sleep apnea 09/01/[address] Ramos. - Primary osteoarthritis of right knee 09/29/2015 - Unspecified viral hepatitis C without hepatic coma PAST SURGICAL HISTORY Procedure Laterality Date - COLONOSCOP W/ OR W/O [facility] SPEC April 2001 normal - COLONOSCOP W/ OR W/O [facility] SPEC 02/25/2012 Colonoscopy - PAST SURGICAL HISTORY OF sinus x2 ALLERGIES Patient has no known allergies. MEDICATIONS lisinopril (ZESTRIL, PRINIVIL) 20 mg tablet Take 0.5 tablets by mouth once daily. metoprolol tartrate, short acting, (LOPRESSOR) 50 mg tablet Take 1 tablet by mouth twice daily. finasteride (PROSCAR) 5 mg tablet TAKE 1/2 (ONE-HALF) OF A T ABLET BY MOUTH DAILY warfarin (COUMADIN) 5 mg tablet TAKE 1 TABLET BY MOUTH DAILY or DIRECTED triamcinolone acetonide (KENALOG) 0.5 % cream Apply 1 applic ation to affected area twice daily. For rash/itching. Apply sparingly . Avoid face/skin fold. FAMILY HISTORY Problem Relation Age of Onset - Alzheimer's Disease Mother 85 - Prostate Cancer Father 78 - Diabetes Father - None Sister Social History Tobacco Use - Smoking status: Former Smoker Packs/day: 2.00 Years: 8.00 Pack years: 16.00 Types: Cigarettes Last attempt to quit: 10/28/1975 Years since quittin.5 - Smokeless tobacco: Never Used Substance Use Topics - Alcohol use: No Frequency: Never Drinks per session: Patient refused Binge frequency: Never - Drug use: No Comment: none since 20s PHYSICAL EXAM BP 118/72 Pulse 63 Temp 36.3 ?C (97.3 ?F) (Temporal) R luz 16 Wt (!) 148.8 kg (328 lb) SpO2 98% BMI 43.85 kg/m? General Appearance: well appearing, in no acute distress, al ert, obese Pysch: mood and affect broad and appropriate Skin: Skin color, texture, turgor normal for age; Head: normocephalic, atraumatic Eyes: EOM's intact, conjunctiva pink and moist, no icterus, sclera white, non-injected Ears: external ears normal to inspection and palpation, sanjiv ls clear, Left tympanic membrane normal. , Right tympanic membrane normal. Carl test: normal and Rinne test: AC>BC, normal Oropharynx: lips normal without lesions, tongue midline and normal Lungs: Lungs clear to auscultation. No wheezing, rhonchi, ra les. Heart: RRR without murmur, gallop, or rubs. No ectopy Bilateral Lower Extremities: Edema: +1-2 pitting edema exten ding to the thigh. Patient wearing bilateral compression stockings. SHINGRIX VACCINE(2 of 3) due on 07/23/2012 ADVANCE DIRECTIVE DISCUSSION due on 2013 ANNUAL PCP TEAM CHRONIC DISEASE VISIT due on 04/06/2021 BP CONTROLLED (<130/80) due on 04/15/2021 DIABETES SCREEN due on 04/06/2023 LIPID SCREEN due on 04/06/2025 COLORECTAL CANCER SCREENING,SEE MODIFIER due on 10/30/2027 DTAP,TDAP,TD(3 - Td) due on 05/06/2028 ABDOMINAL AORTIC ANEURYSM SCREENING Completed INFLUENZA Completed HEPATITIS C SCREENING Completed PNEUMOVAX AGE 65 AND OVER WITH 5YR LOOKBACK Completed ASSESSMENT/PLAN: 1. Perceived hearing changes - ICD9: 388.8, ICD10: H91.90 (p rimary diagnosis) - No conductive or sensorineural hearing loss. Carl and Rin ne test normal - Discussed possible audiology referral for further evaluati on, patient declined at this time 2. Atrial fibrillation, unspecified type (HCC) - ICD9: 427.3 1, ICD10: I48.91 - Discussed importance of continued beta jag therapy for management of Afib. Resume metoprolol at reduced dose of 25mg BID given hypotension and reported dizziness - Recheck BP in 3-4 weeks - METOPROLOL TARTRATE 50 MG TABLET 3. Essential hypertension - ICD9: 401.9, ICD10: I10 - Episodes of hypotension reported. Today BP is stable, yung sangeeta patient self discontinued antihypertensives ~ 1 week ago. - Patient agreeable to restart metoprolol as above, see #2 - Begin low dose lasix for worsening BLE edema - Follow up with labs and BP check in 3-4 weeks - METOPROLOL TARTRATE 50 MG TABLET - BASIC METABOLIC PNL 4. Bilateral lower extremity edema - ICD9: 782.3, ICD10: R60 .0 - As above - FUROSEMIDE 20 MG TABLET - POTASSIUM CHLORIDE ER 10 MEQ TABLET,EXTENDED RELEASE Mike Mccurdy APRN.CUSTOMER SUCCESS MANAGER Prescription instructions reviewed with patient as applicabl e. Potential red flag symptoms discussed with the patient. Reviewed appro priate action plan to take if red flag symptoms occur. Patient agreeable t o treatment plan. cnov on 2020-04-21 CNOV Office Visit (INTMWS) Normal 04-21-20 [place] [facility] JUSTIN ZAZUETA ([id number]) 1950 [facility] Date Time Provider Department ([id number]) 04/21/20 10:40 AM MIKE MCCURDY (CUSTOMER SUCCESS MANAGER) INTMWS During your visit today, we recorded the following informati on about you: Temperature Pulse Respiration Blood pressure 97.3 degrees 63/minute 16/minute 118/72 Weight 148.8 kg Mike Mccurdy APRN.CNP 04/21/2020 1:53 PM Signed CC: Patient presents with: Ear Problem: R ear muffled, improving HPI Justinshaina Zazueta is a 69 year old male who presents today for fol low BP and ear complaints. is an established patient of and is new to me today. He complains of intermittent muffled hearing or hearing loss of the right ear for several weeks. Notes dahlia walden commented on his hearing loss, he requires her to repeat herself more. Denies any recent head injury, sinus symptoms, ear pain or tinnitus. Did experience some dizziness with reported low BP of 103/42 readings. Hypotension: Patient contacted office ~6 days ago with low B P readings of 103/42 and 113/62 with some dizziness. He was instructed to reduce his lisinopril to half. Patient indicates by the mitzi walden office followed up with him he had stopped his BP medications. Dizziness has resolved. Demetris es chest pain, SOB or palpitations. He is no longer on lasix- indicates significant weight l oss when dose increased and felt ~30lb weight loss was too much. He is now wearing his compression stockings however experiencing pitting edema up to the thighs. He does weigh himself at home- 324-326lbs. REVIEW OF SYSTEMS General: no fevers, no chills and See HPI HEENT: no frequent or significant headaches, no visual staci nges, no sinus or nasal problems, See HPI Respiratory: no cough, no wheezing, no shortness of breath Cardiovascular: no chest pain, no chest pressure , no palpitations and See HPI See HPI PAST MEDICAL HISTORY Diagnosis Date - Abnormal liver function test 12/25/2004 Pt reportedly had this since age 24: no measure in the system to verify ALT 61 (30-65) in 08-05 HCV quantit ative was undetectable in 08-05 HBsAb, HBsAg, Hep A negative in 08-05 NL iron and ferritin levels in 08-05 HCV negative in 08-05 - Alopecia 05/03/2010 - Atrial fibrillation (HCC) 07/25/2009 Started Coumadin and Metoprolol in 07-06 - Diverticulosis of colon (without mention of hemorrhage) - Erectile dysfunction 05/03/2010 - HTN (hypertension) 07/25/2009 Office BP was 150/98 in 08-05: Lisinopril to 20 mg bid - Hypertrophy of prostate with urinary obstruction and other lower urinary tract symptoms (LUTS) 07/14/2007 - Obstructive sleep apnea 09/01/[address] Ramos. - Primary osteoarthritis of right knee 09/29/2015 - Unspecified viral hepatitis C without hepatic coma 1980s PAST SURGICAL HISTORY Procedure Laterality Date - COLONOSCOP W/ OR W/O [facility] SPEC April 2001 normal - COLONOSCOP W/ OR W/O [facility] SPEC 02/25/2012 Colonoscopy - PAST SURGICAL HISTORY OF sinus x2 ALLERGIES Patient has no known allergies. MEDICATIONS lisinopril (ZESTRIL, PRINIVIL) 20 mg tablet Take 0.5 tablets by mouth once daily. metoprolol tartrate, short acting, (LOPRESSOR) 50 mg t ablet Take 1 tablet by mouth twice daily. finasteride (PROSCAR) 5 mg tablet TAKE 1/2 (ONE-HALF) OF A T ABLET BY MOUTH DAILY warfarin (COUMADIN) 5 mg tablet TAKE 1 TABLET BY MOUTH SHARON LY or DIRECTED triamcinolone acetonide (KENALOG) 0.5 % cream Ap ply 1 application to affected area twice daily. For rash/itching. Apply sparingly. Avoid f danika/skin fold. FAMILY HISTORY Problem Relation Age of Onset - Alzheimer's Disease Mother 85 - Prostate Cancer Father 78 - Diabetes Father - None Sister Social History Tobacco Use - Smoking status: Former Smoker Packs/day: 2.00 Years: 8.00 Pack years: 16.00 Types: Cigarettes Last attempt to quit: 10/28/1975 Years since quittin.5 - Smokeless tobacco: Never Used Substance Use Topics - Alcohol use: No Frequency: Never Drinks per session: Patient refused Binge frequency: Never - Drug use: No Comment: none since 20s PHYSICAL EXAM BP 118/72 Pulse 63 Temp 36.3 ?C (97.3 ?F) (Temporal) Resp 16 Wt (!) 148.8 kg (328 lb) SpO2 98% BMI 43.85 kg/m? General Appearance: well appearing, in no acute distress, al ert, obese Pysch: mood and affect broad and appropriate Skin: Skin color, texture, turgor normal for age; Head: normocephalic, atraumatic Eyes: EOM's intact, conjunctiva pink and moist, no icterus, sclera white, non-injected Ears: external ears normal to inspection and palpation, sanjiv ls clear, Left tympanic membrane normal. , Right tympanic membrane normal. Carl test: normal and Rinne test: AC>BC, normal Oropharynx: lips normal without lesions, tongue midline and normal Lungs: Lungs clear to auscultation. No wheezing, rhonchi, ra les. Heart: RRR without murmur, gallop, or rubs. No ectopy Bilateral Lower Extremities: Edema: +1-2 pitting edema extending to the thigh. Patient wearing bilateral compression stockings. SHINGRIX VACCINE(2 of 3) due on 07/23/2012 ADVANCE DIRECTIVE DISCUSSION due on 2013 ANNUAL PCP TEAM CHRONIC DISEASE VISIT due on 04/06/2021 BP CONTROLLED (<130/80) due on 04/15/2021 DIABETES SCREEN due on 04/06/2023 LIPID SCREEN due on 04/06/2025 COLORECTAL CANCER SCREENING,SEE MODIFIER due on 10/30/2027 DTAP,TDAP,TD(3 - Td) due on 05/06/2028 ABDOMINAL AORTIC ANEURYSM SCREENING Completed INFLUENZA Completed HEPATITIS C SCREENING Completed PNEUMOVAX AGE 65 AND OVER WITH 5YR LOOKBACK Completed ASSESSMENT/PLAN: 1. Perceived hearing changes - ICD9: 388.8, ICD1 0: H91.90 (primary diagnosis) - No conductive or sensorineural hearing loss. Carl and Rin ne test normal - Discussed possible audiology referral for further evaluati on, patient declined at this time 2. Atrial fibrillation, unspecified type (HCC) - ICD9: 427.31, ICD10: I48.91 - Discussed importance of continued beta jag therapy for management of Afib. Resume metoprolol at reduced dose of 25mg BID given hy potension and reported dizziness - Recheck BP in 3-4 weeks - METOPROLOL TARTRATE 50 MG TABLET 3. Essential hypertension - ICD9: 401.9, ICD10: I10 - Episodes of hypotension reported. Today BP is stable , however patient self discontinued antihypertensives ~ 1 week ago. - Patient agreeable to restart metoprolol as above, see #2 - Begin low dose lasix for worsening BLE edema - Follow up with labs and BP check in 3-4 weeks - METOPROLOL TARTRATE 50 MG TABLET - BASIC METABOLIC PNL 4. Bilateral lower extremity edema - ICD9: 782.3, ICD10: R60 .0 - As above - FUROSEMIDE 20 MG TABLET - POTASSIUM CHLORIDE ER 10 MEQ TABLET,EXTENDED RELEASE Mike Mccurdy APRN.CUSTOMER SUCCESS MANAGER Prescription instructions reviewed with patient as sanjay licable. Potential red flag symptoms discussed with the patient. Review ed appropriate action plan to take if red flag symptoms occur. Patient agreeable to treatm ent plan. Mike Mccurdy APRN.CUSTOMER SUCCESS MANAGER 04/21/2020 11:05 AM Addendum Continue to check blood pressure daily. Contact office for readings <100/60 or >140/90. Check weight daily- record readings. Not mannie office of >5 pounds weight gain in 24 hour period. Continue to hold Lisinopril Referring Provider: MATTHEW ROCHA [[id number]] Allergies As of Date: 04/21/2020 (No Known Allergies) Date Reviewed: 04/21/2020 Reviewed by: Dianelys Donaldson Ma - Fully Assessed Reason for Visit: Ear Problem [38] Cmt: R ear muffled, improving Primary Visit Diagnosis:Perceived hearing changes [H91.90] Other Visit Diagnoses:Atrial fibrillation, unspecified type (HCC) [I48.91] Essential hypertension [I10] Bilateral lower extremity edema [R60.0] Order(s):INR (POC) [[id number]] Order #: [id number]. #:[id number] metoprolol tartrate, short acting, (LOPRESSOR) 50 mg tabletT ken 0.5 tablets by mouth twice daily.Disp: 180 tabletRfl: 0 furosemide (LASIX) 20 mg tabletTake 0.5 tablets by mouth onc e daily.Disp: 45 tabletRfl: 0 potassium chloride (K-TAB) 10 mEq tabletTake 1 tablet by josette th daily with breakfast.Disp: 90 tabletRfl: 0 BASIC METABOLIC PNL [SQBMP] Order #: [id number] FUTURE Prescriptions as of 04/21/2020 Sig: METOPROLOL TARTRATE 50 MG TAB* Take 0.5 tablets by mouth twi * FUROSEMIDE 20 MG TABLET Take 0.5 tablets by mouth onc* POTASSIUM CHLORIDE ER 10 MEQ * Take 1 tablet by mouth daily * LISINOPRIL 20 MG TABLET Take 0.5 tablets by mouth onc* FINASTERIDE 5 MG TABLET TAKE 1/2 (ONE-HALF) OF A TABL* WARFARIN 5 MG TABLET TAKE 1 TABLET BY MOUTH DAILY * TRIAMCINOLONE ACETONIDE 0.5 %* Apply 1 application to affect * Patient not taking: Reported on 04/15/2020 Problem List As Of Date 04/21/2020 Noted Resolved Abnormal liver function test [R94.5] 12/25/2004 11/03/2010 More... 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 Obstructive Sleep Apnea, on CPAP [G47.33] 09/01/2009 More... Erectile dysfunction [N52.9] 05/03/2010 12/10/2014 Alopecia [L65.9] 05/03/2010 Primary osteoarthritis of right knee [M17.11] 09/29/2015 Obesity, Class III, BMI 40-49.9 (morbid obesity*03/10/2018 Thrombocytopenia (HCC) [D69.6] 01/08/2019 Varicose veins of bilateral lower extremities w*01/08/2019 Other instructions from your clinician: Continue to check blood pressure daily. Contact office for r eadings <100/60 or >140/90. Check weight daily- record readings. Notify office of >5 nickolas nds weight gain in 24 hour period. Continue to hold Lisinopril Prescriptions ordered this encounter Disp Refills Start End METOPROLOL TARTRATE 50 MG TABLET 180 * 0 04/21/2020 Class: Med Update Route: ORAL Sig: Take 0.5 tablets by mouth twice daily. FUROSEMIDE 20 MG TABLET 45 t* 0 04/21/2020 Class: Med Update Route: ORAL Sig: Take 0.5 tablets by mouth once daily. POTASSIUM CHLORIDE ER 10 MEQ TABLET,* 90 t* 0 04/21/2020 Route: ORAL Sig: Take 1 tablet by mouth daily with breakfast. Medications Discontinued During This Encounter metoprolol tartrate, short acting, (* 180 * 0 01/18/202004/21 Route: ORAL Sig: Take 1 tablet by mouth twice daily. Disc: Reason for discontinue is not on file. Follow-up and Disposition History Recorded Encounter Status:Closed by MIKE MCCURDY CNP on 04/21/20 progress on 2020-03 PROGRESS HNO ID: [id number] Normal 04-15-2020 [place] Author: [facility] Service: ? [place] Author Type: Nurse Practitioner ([id number]) Type: Progress Notes Filed: 04/15/2020 6:01 PM Note Text: VASCULAR SURGERY WOUND OSTOMY CONTINENCE CONSULTATION CHIEF COMPLAINT: Wound check and evaluation HISTORY OF PRESENT ILLNESS: LLE venous ulcer with lymphedema PAST MEDICAL HISTORY Diagnosis Date - Abnormal liver function test 12/25/2004 Pt reportedly had this since age 24: no measure in the syste m to verify ALT 61 (30-65) in 08-05 HCV quantitative was undetectable in 08-05 HBsAb, HBsAg, Hep A negative in 08-05 NL iron and ferritin levels i n 08-05 HCV negative in 08-05 - Alopecia 05/03/2010 - Atrial fibrillation (HCC) 07/25/2009 Started Coumadin and Metoprolol in 07-06 - Diverticulosis of colon (without mention of hemorrhage) - Erectile dysfunction 05/03/2010 - HTN (hypertension) 07/25/2009 Office BP was 150/98 in 08-05: Lisinopril to 20 mg bid - Hypertrophy of prostate with urinary obstruction and other lower urinary tract symptoms (LUTS) 07/14/2007 - Obstructive sleep apnea 09/01/[address] Ramos. - Primary osteoarthritis of right knee 09/29/2015 - Unspecified viral hepatitis C without hepatic coma 1980s PAST SURGICAL HISTORY Procedure Laterality Date - COLONOSCOP W/ OR W/O [facility] SPEC April 2001 normal - COLONOSCOP W/ OR W/O [facility] SPEC 02/25/2012 Colonoscopy - PAST SURGICAL HISTORY OF sinus x2 ALLERGIES No Known Allergies Social History Tobacco Use - Smoking status: Former Smoker Packs/day: 2.00 Years: 8.00 Pack years: 16.00 Types: Cigarettes Last attempt to quit: 10/28/1975 Years since quittin.4 - Smokeless tobacco: Never Used Substance Use Topics - Alcohol use: No Frequency: Never Drinks per session: Patient refused Binge frequency: Never - Drug use: No Comment: none since 20s FAMILY HISTORY Problem Relation Age of Onset - Alzheimer's Disease Mother 85 - Prostate Cancer Father 78 - Diabetes Father - None Sister MEDICATIONS: metoprolol tartrate, short acting, (LOPRESSOR) 50 mg tablet Take 1 tablet by mouth twice daily. finasteride (PROSCAR) 5 mg tablet TAKE 1/2 (ONE-HALF) OF A T ABLET BY MOUTH DAILY warfarin (COUMADIN) 5 mg tablet TAKE 1 TABLET BY MOUTH DAILY or DIRECTED lisinopril (ZESTRIL, PRINIVIL) 20 mg tablet Take 0.5 tablets by mouth once daily. triamcinolone acetonide (KENALOG) 0.5 % cream Apply 1 applic ation to affected area twice daily. For rash/itching. Apply sparingly . Avoid face/skin fold. REVIEW OF SYSTEMS 12 organ system review was performed with these findings: No change from prior assessment Exceptions: Integumentary: See below Nutritional Status Appetite: good Diet: Low sodium Albumin/Prealbumin levels: Lab Results Component Value Date ALB 3.7 (L) 04/06/2020 PHYSICAL EXAMINATION Constitutional: Appears about stated age, well nourished, no weight loss, no fevers and no chills. Psych: Alert and oriented to person, place and time. Intact memory. Normal limit affect, judgement and insight. Respiratory: Symmetrical expansion and effort. No cough, no shortness of breath. Cardiovascular: No chest pain. Normal limit dorsalis pedis a nd posterior tibial pulses. BLE lymphedema. Neuro: Normal limit cranial nerves. Musculoskeletal: Normal limit gait. Normal limit symmetry. N ormal limit range of motion. Normal limit muscle strength. Normal limit tone of all extremities. Integumentary: Normal skin color, texture and turgor. No dry , scaly or cracked skin. No ecchymotic areas. No friable skin. No rash, lesions, excoriations or waller. No diaphoresis. No jaundice, no ruddi ness, no skin pallor. Left medial LE ulcer: pink pinpoint tissue, rest is healed Eyes: Pupils are equal, round and reactive to light. Ears: Normal limit hearing. Nose/Mouth/Throat: Normal limit external ear canals and TM. Normal limit teeth, lips and gums. Neck: Normal limit appearance and movements. Trachea midline . Breast: Not assessed. Lymphatic: Not assessed. Abdominal: Not assessed. WOUND PAIN: No pain or discomfort DATA REVIEWED: Chart reviewed. ASSESSMENT/PLAN/TREATMENT RECOMMENDATIONS Danika wrap 6 inches from toes to knee at all times until compr ession stockings are available Elevate legs frequently. Exercise legs frequently as per LE edema, lymphedema and CVI conservative treatment plan. Follow up with Dr. Mckay for possible intervention as per he r note Continue with xeroform or ABX ointment daily until healed Education provided Treatment demonstrated Questions answered I have spent 15 minutes with the patient for physical and wo und assessment, wound cleaning, dressing demonstration and answe ring questions. More than 50% of the time spent with the patient included education/counselling/coordination of care. Vickie Griffin, PhD, WOCN, CUSTOMER SUCCESS MANAGER cnpn on 2020-04-15 CNPN Telephone (INTMWS) Normal 04-15-2020 [facility] JUSTIN ZAZUETA ([id number]) 1950 [facility] Date Time Provider Department ([id number]) 04/15/20 MATTHEW ROCHA INTMWS During your visit today, we recorded the following informati on about you: Veronica Tate RN 04/15/2020 1:27 PM Signed Patient calls to report that he saw Vickie Griffin DNP today and BP was running too low at 103/42 and patient verbalized intermittent dizzin ess and mild headache. Denies shortness o f breath or other symptoms. At visit on 04/06/20 his BP was 113/62. His is only on Lisinopril 20 mg d karlay and Metroprolol Tartrate 50 mg twice a day. Oumou walden remains off diuretics and lost too much/30 pounds water weight in past month. He was down to 307 #'s but is now regaining some weight and back up to 324#'s. Patient also reports that [facility] is not permitted to check patient's ear for his recent hearing etienne ge. Vickie informed patient to notify PCP. [facility]acy is [facility]. Patient does not monitor BP at home. Please review and advise. Veronica Tate, NAVID Rocha MD 04/15/2020 3:45 PM Signed Schedule with or Piper next week when he comes in for INR for BP and ear check. Cut LISINOPRIL 20 mg to 1/2 tablet daily. Itzel Moser Cma 04/15/2020 3:58 PM Signed Left message for patient to call office back and to ask to speak with a nurse. Itzel Moser [facility] Racheal Macario LPN 04/19/2020 11:05 AM Signed My chart message sent to pt. Racheal Macario LPN 04/19/2020 11:54 AM Signed Message left to pt with info. Allergies As of Date: 04/15/2020 (No Known Allergies) Date Reviewed: 04/15/2020 Reviewed by: Graciela Espitia Ma - Fully Assessed Reason for Visit: bp lower [Other] Visit Diagnosis:Essential hypertension [I10] Order(s):lisinopril (ZESTRIL, PRINIVIL) 20 mg ta Jesusita 0.5 tablets by mouth once daily.Disp: Rfl: Prescriptions as of 04/15/2020 Sig: LISINOPRIL 20 MG TABLET Take 0.5 tablets by mouth onc* METOPROLOL TARTRATE 50 MG TAB* Take 1 tablet by mouth twice * FINASTERIDE 5 MG TABLET TAKE 1/2 (ONE-HALF) OF A TABL* WARFARIN 5 MG TABLET TAKE 1 TABLET BY MOUTH DAILY * TRIAMCINOLONE ACETONIDE 0.5 %* Apply 1 application to affect * Patient not taking: Reported on 04/15/2020 Problem List As Of Date 04/15/2020 Noted Resolved Abnormal liver function test [R94.5] 12/25/2004 11/03/2010 More... 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 Obstructive Sleep Apnea, on CPAP [G47.33] 09/01/2009 More... Erectile dysfunction [N52.9] 05/03/2010 12/10/2014 Alopecia [L65.9] 05/03/2010 Primary osteoarthritis of right knee [M17.11] 09/29/2015 Obesity, Class III, BMI 40-49.9 (morbid obesity*03/10/2018 Thrombocytopenia (HCC) [D69.6] 01/08/2019 Varicose veins of bilateral lower extremities w*01/08/2019 Prescriptions ordered this encounter Disp Refills Start End LISINOPRIL 20 MG TABLET 04/15/2020 Class: Med Update Route: ORAL Sig: Take 0.5 tablets by mouth once daily. Medications Discontinued During This Encounter lisinopril (ZESTRIL, PRINIVIL) 20 mg* 90 t* 3 02/18/202004/15 Route: ORAL Sig: Take 1 tablet by mouth once daily. Disc: Reason for discontinue is not on file. Encounter Status:Closed by RACHEAL MACARIO LPN on 04/19/20 cnov on 2020-04-15 CNOV Office Visit (VASSWS) Normal 04-15-[address] [place] [address] [facility] JUSTIN ZAZUETA ([id number]) 1950 [facility] Date Time Provider Department ([id number]) 04/15/20 10:30 AM VICKIE GRIFFIN VASSWS During your visit today, we recorded the following informati on about you: Pulse Blood pressure Weight 63/minute 103/42 147 kg Vickie Griffin, PhD, ENVIRONMENTAL HEALTH NURSE.CUSTOMER SUCCESS MANAGER 04/15/2020 6:01 PM Signed VASCULAR SURGERY WOUND OSTOMY CONTINENCE CONSULTATION CHIEF COMPLAINT: Wound check and evaluation HISTORY OF PRESENT ILLNESS: LLE venous ulcer with lymphedema PAST MEDICAL HISTORY Diagnosis Date - Abnormal liver function test 12/25/2004 Pt reportedly had this since age 24: no measure in the system to verify ALT 61 (30-65) in 08-05 HCV quantit ative was undetectable in 08-05 HBsAb, HBsAg, Hep A negative in 08-05 NL iron and ferritin levels in 08-05 HCV negative in 08-05 - Alopecia 05/03/2010 - Atrial fibrillation (HCC) 07/25/2009 Started Coumadin and Metoprolol in 07-06 - Diverticulosis of colon (without mention of hemorrhage) - Erectile dysfunction 05/03/2010 - HTN (hypertension) 07/25/2009 Office BP was 150/98 in 08-05: Lisinopril to 20 mg bid - Hypertrophy of prostate with urinary obstruction and other lower urinary tract symptoms (LUTS) 07/14/2007 - Obstructive sleep apnea 09/01/[address] Ramos. - Primary osteoarthritis of right knee 09/29/2015 - Unspecified viral hepatitis C without hepatic coma PAST SURGICAL HISTORY Procedure Laterality Date - COLONOSCOP W/ OR W/O BRS SPEC April 2001 normal - COLONOSCOP W/ OR W/O BRSH SPEC 02/25/2012 Colonoscopy - PAST SURGICAL HISTORY OF sinus x2 ALLERGIES No Known Allergies Social History Tobacco Use - Smoking status: Former Smoker Packs/day: 2.00 Years: 8.00 Pack years: 16.00 Types: Cigarettes Last attempt to quit: 10/28/1975 Years since quittin.4 - Smokeless tobacco: Never Used Substance Use Topics - Alcohol use: No Frequency: Never Drinks per session: Patient refused Binge frequency: Never - Drug use: No Comment: none since 20s FAMILY HISTORY Problem Relation Age of Onset - Alzheimer's Disease Mother 85 - Prostate Cancer Father 78 - Diabetes Father - None Sister MEDICATIONS: metoprolol tartrate, short acting, (LOPRESSOR) 50 mg t ablet Take 1 tablet by mouth twice daily. finasteride (PROSCAR) 5 mg tablet TAKE 1/2 (ONE-HALF) OF A T ABLET BY MOUTH DAILY warfarin (COUMADIN) 5 mg tablet TAKE 1 TABLET BY MOUTH SHARON LY or DIRECTED lisinopril (ZESTRIL, PRINIVIL) 20 mg tablet Take 0.5 tablets by mouth once daily. triamcinolone acetonide (KENALOG) 0.5 % cream Ap ply 1 application to affected area twice daily. For rash/itching. Apply sparingly. Avoid f danika/skin fold. REVIEW OF SYSTEMS 12 organ system review was performed with these findings: No change from prior assessment Exceptions: Integumentary: See below Nutritional Status Appetite: good Diet: Low sodium Albumin/Prealbumin levels: Lab Results Component Value Date ALB 3.7 (L) 04/06/2020 PHYSICAL EXAMINATION Constitutional: Appears about stated age, well nourish ed, no weight loss, no fevers and no chills. Psych: Alert and oriented to person, place and time. Intact memory. Normal limit affect, judgement and insight. Respiratory: Symmetrical exp ansion and effort. No cough, no shortness of breath. Cardiovascular: No chest ricky n. Normal limit dorsalis pedis and posterior tibial pulses. BLE lymphedema. Neuro: Normal limit cranial nerves. Musculoskeletal: Normal limit gait. Normal limit symmetry. Normal limit range of motion. Normal limit muscle strength. Normal limit tone of all extremities. Integumentary: Normal skin color, textur e and turgor. No dry, scaly or cracked skin. No ecchymotic areas. No friable skin. No r mehrdad, lesions, excoriations or waller. No diaphoresis. No jaundice, no ruddiness, no skin pa llor. Left medial LE ulcer: pink pinpoint tissue, rest is healed Eyes: Pupils are equal, round and reactive to light. Ears: Normal limit hearing. Nose/Mouth/Throat: Normal li betzaida external ear canals and TM. Normal limit teeth, lips and gums. Neck: Normal limit appearance and movements. Trachea midline . Breast: Not assessed. Lymphatic: Not assessed. Abdominal: Not assessed. WOUND PAIN: No pain or discomfort DATA REVIEWED: Chart reviewed. ASSESSMENT/PLAN/TREATMENT RECOMMENDATIONS Danika wrap 6 inches from toes to knee at all times until compression stockings are available Elevate legs frequently. Exercise legs frequently as per LE edema, lymphedema and CVI conservative treatment plan. Follow up with Dr. Mckay for possible intervention as per he r note Continue with xeroform or ABX ointment daily until healed Education provided Treatment demonstrated Questions answered I have spent 15 minutes with the patient for physical and wound assessment, wound cleaning, dressing demonstration and answe ring questions. More than 50% of the time spent with the patient inclu ded education/counselling/coordination of care. Vickie Griffin, PhD, WOCN, CUSTOMER SUCCESS MANAGER Referring Provider: VICKIE GRIFFIN [[id number]] Allergies As of Date: 04/15/2020 (No Known Allergies) Date Reviewed: 04/15/2020 Reviewed by: Graciela Espitia Ma - Fully Assessed Reason for Visit: Established Patient [175] Cmt: follow up LLE wound Primary Visit Diagnosis:Lymphedema of both lower extremities [I89.0] Other Visit Diagnosis:Venous ulcer (HCC) [I83.009, L97.909] Prescriptions as of 04/15/2020 Sig: X LISINOPRIL 20 MG TABLET Take 1 tablet by mouth once d* METOPROLOL TARTRATE 50 MG TAB* Take 1 tablet by mouth twice * FINASTERIDE 5 MG TABLET TAKE 1/2 (ONE-HALF) OF A TABL* WARFARIN 5 MG TABLET TAKE 1 TABLET BY MOUTH DAILY * TRIAMCINOLONE ACETONIDE 0.5 %* Apply 1 application to affect * Patient not taking: Reported on 04/15/2020 Problem List As Of Date 04/15/2020 Noted Resolved Abnormal liver function test [R94.5] 12/25/2004 11/03/2010 More... 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 Obstructive Sleep Apnea, on CPAP [G47.33] 09/01/2009 More... Erectile dysfunction [N52.9] 05/03/2010 12/10/2014 Alopecia [L65.9] 05/03/2010 Primary osteoarthritis of right knee [M17.11] 09/29/2015 Obesity, Class III, BMI 40-49.9 (morbid obesity*03/10/2018 Thrombocytopenia (HCC) [D69.6] 01/08/2019 Varicose veins of bilateral lower extremities w*01/08/2019 Encounter Status:Closed by VICKIE GRIFFIN CNP on 04/15/20 progress on 2020-03 PROGRESS HNO ID: [id number] Normal 04-07-2020 [facility] Author: Matthew Jose ([id number]) Service: ? Author Type: Physician Type: Progress Notes Filed: 04/07/2020 1:22 PM Note Text: I agree. PROGRESS HNO ID: [id number] Normal 04-07-2020 [facility] Author: Elsie Huber RN [facility] ([id number]) Service: ? Author Type: ? Type: Progress Notes Filed: 04/07/2020 1:22 PM Note Text: patient had inr completed at [facility] patients inr is 1.5 (patients inr range is 2.0-3.0) patient is currently taking 2.5mg daily patients last dose change was on 03/13/18 due to a high level of 3.2 (dose at that time was 7.5mg Sun and 5mg all other days) patient has had no changes in medication and no uninstructed missed doses and no change in diet FYI - patient only started back on 2.5mg daily due to still on antibiotics. patient was instructed to go to the 5mg daily a s instructed last week and to recheck inr in 2 weeks on 04/21/20, unless o therwise notified after pcp reviews. psa, diagnostic on 2020-04-06 PSA, Diagnostic 0.38 0.00-2.59 ng/mL Normal 04-06-2020 [facility] ([id number]) Comment: Result Comment: Total PSA te st methodology used is the Electrochemiluminescence Imm unoassay. Performed By: #### PSA, CMP, LIPB, CBCDIF ####[facility] [id number] [place], [place] [phone] protime on PT Coag (PPP) Test sent to Mobile Normal 04-06 [facility] [Time] [facility] ([id number]) Comment: Result Comment: Account Cred ited HIDE progress on 2020-03 PROGRESS HNO ID: [id number] Normal 04-06-2020 [facility] Author: Matthew Rocha [place] ([id number]) Service: ? Author Type: Physician Type: Progress Notes Filed: 04/06/2020 6:14 PM Note Text: This note was created using NoteWriter. Subjective This Team Access Model visit is a phone encounter. It requir ed patient-provider interaction for the medical decision making as documented below. Justin Zazueta's identity was confirmed by The limitatio ns of telemedicine were reviewed, and verbal consent was obtained for this encounter. This encounter is not related to previous similar encounter within the past 7 days. No face to face visit is planned in the next day in connection to this encounter. Patient presents with: Multiple Concerns He was seen 03/24 for infected ulcer of the left leg and alejandro a. His condition was slow to respond to oral diuresis and antibioti c, so he ended up in in the ER 03/26 where he got IV antibiotics. He started feeling better, for 1 week. Edema significantly improved, and he not ed progressive weight loss. He saw wound nurse last week, and h is edema resolved, wound and cellulitis healed. His blood pressure wa s lower than baseline. However he started having headaches, back aches, m uscle pains, burning sensation of his eyes, generalized weakness, and dec reased appetite. He therefore stopped the furosemide and zaroxolyn 3 days ago. His INR in the ER 03/26 was 4.2, so he had been taking only 2 .5 mg of warfarin daily. Review of Systems Constitutional: Positive for appetite change and unexpected weight change. Negative for chills, diaphoresis and fever. HENT: Positive for hearing loss. Alternating hearing loss on either side. Respiratory: Negative for cough and shortness of breath. Cardiovascular: Negative. Gastrointestinal: Negative. Genitourinary: Positive for frequency. Musculoskeletal: Positive for arthralgias, gait problem and myalgias. Neurological: Positive for weakness and headaches. ACTIVE PROBLEM LIST Bph With Obstruction/Lower Urinary Tract Symptoms Htn (Hypertension) Atrial Fibrillation (Hcc) Obstructive Sleep Apnea, on CPAP Alopecia Primary Osteoarthritis of Right Knee Obesity, Class Iii, Bmi 40-49.9 (Morbid Obesity) (Hcc) Thrombocytopenia (Hcc) Varicose Veins of Bilateral Lower Extremities With Other Com plications Current Outpatient Medications Medication Sig - metOLAzone (ZAROXOLYN) 5 mg tablet Take 1 tablet by mouth every morning. With furosemide. - lisinopril (ZESTRIL, PRINIVIL) 20 mg tablet Take 1 tablet by mouth once daily. - furosemide (LASIX) 40 mg tablet Take 1 tablet by mouth onc e daily. - metoprolol tartrate, short acting, (LOPRESSOR) 50 mg table t Take 1 tablet by mouth twice daily. - finasteride (PROSCAR) 5 mg tablet TAKE 1/2 (ONE-HALF) OF A TABLET BY MOUTH DAILY - warfarin (COUMADIN) 5 mg tablet TAKE 1 TABLET BY MOUTH SHARON LY or DIRECTED - triamcinolone acetonide (KENALOG) 0.5 % cream Apply 1 appl ication to affected area twice daily. For rash/itching. Apply sparingly . Avoid face/skin fold. No current facility-administered medications for this visit. Objective There were no vitals taken for this visit. He was in no distress. Labs were drawn and pending. Assessment and Plan 1. Nonintractable headache, unspecified chronicity pattern, unspecified headache type - ICD9: 784.0, ICD10: R51 (primary diagnosis) 2. Myalgia multiple sites - ICD9: 729.1, ICD10: M79.18 3. Multiple joint pain - ICD9: 719.49, ICD10: M25.50 4. Weakness - ICD9: 780.79, ICD10: R53.1 5. Chronic anticoagulation - ICD9: V58.61, ICD10: Z79.01 Symptoms concerning for dehydration, acute kidney injury. Hy dration stressed. NSAIDs not recommended. Take Tylenol as needed for headache. Further recommendations when lab results are in. Time spent was 25 minutes for discussion. Matthew Rocha MD PROGRESS HNO ID: [id number] Normal 04-06-2020 [facility] Author: Vickie Jose ([id number]) Service: ? Author Type: Nurse Practitioner Type: Progress Notes Filed: 04/07/2020 1:15 PM Note Text: VASCULAR SURGERY WOUND OSTOMY CONTINENCE CONSULTATION CHIEF COMPLAINT: Wound check and evaluation HISTORY OF PRESENT ILLNESS: LLE ulcer and lymphedema PAST MEDICAL HISTORY Diagnosis Date - Abnormal liver function test 12/25/2004 Pt reportedly had this since age 24: no measure in the syste m to verify ALT 61 (30-65) in 08-05 HCV quantitative was undetectable in 08-05 HBsAb, HBsAg, Hep A negative in 08-05 NL iron and ferritin levels i n 08-05 HCV negative in 08-05 - Alopecia 05/03/2010 - Atrial fibrillation (HCC) 07/25/2009 Started Coumadin and Metoprolol in 07-06 - Diverticulosis of colon (without mention of hemorrhage) - Erectile dysfunction 05/03/2010 - HTN (hypertension) 07/25/2009 Office BP was 150/98 in 08-05: Lisinopril to 20 mg bid - Hypertrophy of prostate with urinary obstruction and other lower urinary tract symptoms (LUTS) 07/14/2007 - Obstructive sleep apnea 09/01/[address] Ramos. - Primary osteoarthritis of right knee 09/29/2015 - Unspecified viral hepatitis C without hepatic coma 1980s PAST SURGICAL HISTORY Procedure Laterality Date - COLONOSCOP W/ OR W/O BRSH SPEC April 2001 normal - COLONOSCOP W/ OR W/O BRSH SPEC 02/25/2012 Colonoscopy - PAST SURGICAL HISTORY OF sinus x2 ALLERGIES No Known Allergies Social History Tobacco Use - Smoking status: Former Smoker Packs/day: 2.00 Years: 8.00 Pack years: 16.00 Types: Cigarettes Last attempt to quit: 10/28/1975 Years since quittin.4 - Smokeless tobacco: Never Used Substance Use Topics - Alcohol use: No Frequency: Never Drinks per session: Patient refused Binge frequency: Never - Drug use: No Comment: none since 20s FAMILY HISTORY Problem Relation Age of Onset - Alzheimer's Disease Mother 85 - Prostate Cancer Father 78 - Diabetes Father - None Sister MEDICATIONS: lisinopril (ZESTRIL, PRINIVIL) 20 mg tablet Take 1 tablet by mouth once daily. metoprolol tartrate, short acting, (LOPRESSOR) 50 mg tablet Take 1 tablet by mouth twice daily. finasteride (PROSCAR) 5 mg tablet TAKE 1/2 (ONE-HALF) OF A T ABLET BY MOUTH DAILY warfarin (COUMADIN) 5 mg tablet TAKE 1 TABLET BY MOUTH DAILY or DIRECTED triamcinolone acetonide (KENALOG) 0.5 % cream Apply 1 applic ation to affected area twice daily. For rash/itching. Apply sparingly . Avoid face/skin fold. REVIEW OF SYSTEMS 12 organ system review was performed with these findings: No change from prior assessment Exceptions: Integumentary: See below Nutritional Status Appetite: good Diet: Low sodium Albumin/Prealbumin levels: Lab Results Component Value Date ALB 3.7 (L) 04/06/2020 PHYSICAL EXAMINATION Constitutional: Appears about stated age, well nourished, no weight loss, no fevers and no chills. Psych: Alert and oriented to person, place and time. Intact memory. Normal limit affect, judgement and insight. Respiratory: Symmetrical expansion and effort. No cough, no shortness of breath. Cardiovascular: No chest pain. Normal limit dorsalis pedis a nd posterior tibial pulses. BLE lymphedema. New compression stockings rec eived Neuro: Normal limit cranial nerves. Musculoskeletal: Normal limit gait. Normal limit symmetry. N ormal limit range of motion. Normal limit muscle strength. Normal limit tone of all extremities. Integumentary: Normal skin color, texture and turgor. No dry , scaly or cracked skin. No ecchymotic areas. No friable skin. No rash, lesions, excoriations or waller. No diaphoresis. No jaundice, no ruddi ness, no skin pallor. Left medial LE ulcer 75% Healed, pink base shallow 2.0 cm x 2.3 x <0.25 Eyes: Pupils are equal, round and reactive to light. Ears: Normal limit hearing. Nose/Mouth/Throat: Normal limit external ear canals and TM. Normal limit teeth, lips and gums. Neck: Normal limit appearance and movements. Trachea midline . Breast: Not assessed. Lymphatic: Not assessed. Abdominal: Not assessed. WOUND PAIN: No pain or discomfort DATA REVIEWED: Chart reviewed. ASSESSMENT/PLAN/TREATMENT RECOMMENDATIONS Danika wrap 6 inches from toes to knee at all times until compr ession stockings are available Elevate legs frequently. Exercise legs frequently as per LE edema, lymphedema and CVI conservative treatment plan. Continue with xeroform or ABX ointment daily until healed Education provided Treatment demonstrated Questions answered I have spent 15 minutes with the patient for physical and wo und assessment, wound cleaning, dressing demonstration and answe ring questions. More than 50% of the time spent with the patient included education/counselling/coordination of care. Vickie Griffin, PhD, WOCN, CUSTOMER SUCCESS MANAGER lipid panel, basic on 2020-04-06 Cholesterol [Mass/Vol] 127 <200 mg/dL Normal 04-06- 020 [facility] ([id number]) Comment: Result Comment: <200 mg/dL, Desirable 200-239 mg/dL, Borderline hi gh >239 mg/dL, High Performed By: #### PSA, CMP, LIPB, CBCDIF ####[facility] [id number] [place], [place] [phone] Cholesterol in HDL 43 >39 mg/dL Normal 04-06-2020 [facility] [Mass/Vol] ([id number]) Comment: Result Comment: 40-59 mg/dL, Acceptable >59 mg/dL, High: Negative ri sk factor for coronary heart disease <40 mg/dL, Low: Positive ris k factor for coronary heart disease Performed By: #### PSA, CMP, LIPB, CBCDIF ####[facility] [id number] [place], [place] [phone] Cholesterol in LDL 71 <100 mg/dL Normal 04-06-2020 [facility] [Mass/Vol] [place] ([id number]) Comment: Result Comment: <100 mg/dL, Optimal 100-129 mg/dL, Near optimal/ above optimal 130-159 mg/dL, Borderline hi gh 160-189 mg/dL, High >189 mg/dL, Very high Secondary prevention optimal LDL Cholesterol levels are recommended to be < 70 mg/dL Performed By: #### PSA, CMP, LIPB, CBCDIF ####[facility] [id number] [place], [place] [phone] Fasting Time 12 hrs Normal 04-06-2020 [facility] ([id number]) Comment: Performed By: #### PSA, CMP, LIPB, CBCDIF ####[facility] [id number] [place], [place] [phone] LDL:HDL Ratio 1.65 <2.54 Normal 04-06-2020 [facility] ([id number]) Comment: Result Comment: Reference: 1. National Cholesterol Educ ation Program ATP III Guideline At-A-Glance Quick Desk Reference: National Heart, Lung, and Blood [place]. National Institutes of Health. 2001: NIH Publication No. 01-3305. 2. An International Atherosc lerosis Society position paper: global recommendations for the management of dyslipidemia: executive summary, Atherosclerosis. 2014: 232(2):410-413. Performed By: #### PSA, CMP, LIPB, CBCDIF ####[place] [address] [place], [place] [phone] Non HDL Cholesterol 84 <130 mg/dL Normal 04-06-2020 [facility] ([id number]) Comment: Result Comment: <130 mg/dL, Optimal 130-159 mg/dL, Near optimal/ above optimal 160-189 mg/dL, Borderline hi gh 190-219 mg/dL, High >219 mg/dL, Very high Secondary prevention optimal non HDL Cholesterol levels are recommended to be < 100 mg/dL Performed By: #### PSA, CMP, LIPB, CBCDIF ####[facility] [address] [place], [place] [phone] TC:HDL Ratio 2.95 <5.10 Normal 04-06-2020 [facility] ([id number]) Comment: Performed By: #### PSA, CMP, LIPB, CBCDIF ####[place] [address] [place] [phone] Triglyceride [Mass/Vol] 63 <150 mg/dL Normal 2019 [facility] ([id number]) Comment: Result Comment: <150 mg/dL, Normal 150-199 mg/dL, Borderline hi gh 200-499 mg/dL, High >499 mg/dL, Very high Performed By: #### PSA, CMP, LIPB, CBCDIF ####[facility] [address] [place] [phone] VLDL Cholesterol 13 <30 mg/dL Normal 04-06-2020 [facility] (74721) Comment: Performed By: #### PSA, CMP, LIPB, CBCDIF ####[facility] [address] [place] [phone] comp metabolic panel on 2020-04-06 Albumin [Mass/Vol] 3.7 3.9-4.9 g/dL Low 04-06-2020 [facility] ([id number]) Comment: Performed By: #### PSA, CMP, LIPB, CBCDIF ####[place] [address] [place] [phone] ALP [Catalytic activity/Vol] 88 38-113 U/L Normal 0 04-06-2020 [facility] (54347) Comment: Performed By: #### PSA, CMP, LIPB, CBCDIF ####[facility] [place], [place] [phone] ALT [Catalytic activity/Vol] 7 10-54 U/L Low 0 04-06-2020 [facility] (22903) Comment: Performed By: #### PSA, CMP, LIPB, CBCDIF ####[place] [address] [place], [place] [phone] Anion gap [Moles/Vol] 11 9-18 mmol/L Normal 04-06-20 20 [facility] (46173) Comment: Performed By: #### PSA, CMP, LIPB, CBCDIF ####[place] [address] [place], [place] [phone] AST [Catalytic activity/Vol] 66 14-40 U/L High 0 04-06-2020 [facility] (41712) Comment: Performed By: #### PSA, CMP, LIPB, CBCDIF ####[place] [address] [place], [place] [phone] Bilirubin [Mass/Vol] 2.7 0.2-1.3 mg/dL High 0 [facility] (91798) Comment: Performed By: #### PSA, CMP, LIPB, CBCDIF ####[facility] [place], [place] [phone] Calcium [Mass/Vol] 9.7 8.5-10.2 mg/dL Normal 04-06-2020 [facility] (12448) Comment: Performed By: #### PSA, CMP, LIPB, CBCDIF ####[facility] [address] [place], [place] [phone] Chloride [Moles/Vol] 98 97-105 mmol/L Normal 0 [facility] (18097) Comment: Performed By: #### PSA, CMP, LIPB, CBCDIF ####[facility] [address] [place], [place] [phone] CO2 [Moles/Vol] 26 22-30 mmol/L Normal 04-06-2020 [facility] (11707) Comment: Performed By: #### PSA, CMP, LIPB, CBCDIF ####[facility] [address] [place] [phone] Creatinine [Mass/Vol] 0.92 0.73-1.22 mg/dL Normal 04-06-20 [facility] (44453) Comment: Performed By: #### PSA, CMP, LIPB, CBCDIF ####[facility] [address] [place], [place] [phone] eGFR- Amer. >60 Normal 04-06-2020 [facility] (89246) Comment: Performed By: #### PSA, CMP, LIPB, CBCDIF ####[facility] [place], [place] [phone] GFR/1.73 sq M predicted >60 mL/min/{1.73_m2} Normal 04-06-2020 [facility] among non-blacks MDRD [place] (81381) (S/P/Bld) [Vol rate/Area] Comment: Result Comment: eGFR (Estima ino GFR) Units of measure: mL/min/1.73 meters squared eGFR is derived from the ree xpressed MDRD Study equation using the following parameters: serum creatinine, age, gender and race. The creatinine assay has been calibrated to be traceable to IDMS. An eGFR <60 mL/min/1.73m2 fo r >3 months is consistent with chronic kidney disease. Refer to KDOQI guidelines for clinical interpretation. In patients with unstable re nal function, e.g. those with acute kidney injury, the eGFR may not accurately reflect actual GFR. Performed By: #### PSA, CMP, LIPB, CBCDIF ####[facility] [address] [place], [place] [phone] Glucose [Mass/Vol] 97 74-99 mg/dL Normal 04-06-2020 [facility] (59253) Comment: Result Comment: The [place] Diabetes Association (ADA) provides guidance for cutoff values for fasting glucose and random glucose. The ADA defines fasting as no caloric intake for at least 8 hours. Fas ting plasma glucose results between 100 to 125 mg/dL indicate increased risk for diabetes (prediabetes). Fasting plasma glucose resul ts greater than or equal to 126 mg/dL meet the criteria for diagnosis of diabetes. In the absence of unequivocal hyperglycemia, results should be confirmed by repeat testing. In a patient with classic s ymptoms of hyperglycemia or hyperglycemic crisis, random plasma glucose results greater than or equal to 200 mg/dL meet the criteria for diagnosis of diabetes. Reference: Standards of [facility] Care in Diabetes 2016, [place] Diabetes Association. Diabetes Care. 2016.39(Suppl 1). Performed By: #### PSA, CMP, LIPB, CBCDIF ####[facility] [address] [place], [place] [phone] Potassium [Moles/Vol] 3.8 3.7-5.1 mmol/L Normal 04-06-20 20 [facility] (67455) Comment: Performed By: #### PSA, CMP, LIPB, CBCDIF ####[facility] [address] [place], [place] [phone] Protein [Mass/Vol] 7.2 6.3-8.0 g/dL Normal 04-06-2020 [facility] (59723) Comment: Performed By: #### PSA, CMP, LIPB, CBCDIF ####[facility] [address] [place], [place] [phone] Sodium [Moles/Vol] 135 136-144 mmol/L Low 04-06-2020 [facility] (14199) Comment: Performed By: #### PSA, CMP, LIPB, CBCDIF ####[facility] [address] [place], [place] [phone] Urea nitrogen [Mass/Vol] 20 9-24 mg/dL Normal 04-06 [facility] (88364) Comment: Performed By: #### PSA, CMP, LIPB, CBCDIF ####[facility] [address] [place], [place] [phone] cnpn on 2020-04-06 CNPN Telephone (INTMWS) Normal 04-06-2020 [place] [facility] JUSTIN ZAZUETA ([id number]) 1950 [facility] Date Time Provider Department ([id number]) 04/06/20 MATTHEW ROCHA INTDiandraWS During your visit today, we recorded the following informati on about you: Darby Venegas LPN 04/06/2020 4:42 PM Signed as of 4:41PM , INR not resulted in [facility]. Kate Lemon LPN 04/06/2020 5:05 PM Signed Called [facility] Lab, INR specimen was rejected because there was not enough blood in the tube. Kate Rocha MD 04/06/2020 6:20 PM Signed MC message sent. Matthew Rocha MD 04/07/2020 8:50 AM Signed This Team Access Model visit is a phone encounter. It requir ed patient-provider interaction for the medical decision making as documented below. I called Mr. Zazueta. He was still fatigued. He had no s/s of i nfection. We reviewed his lab results. Plans: 1) INR POC today. 2) Monitor hearing loss. It may be from medication. Have ear s checked when able. 3) Repeat labs in one week to recheck elevated W BC, LFT. WBC elevation may be protracted response to infection. LFT elevation can occur wi th metolazone. 4) Call for recurrent s/s of infection. ASSESSMENT/PLAN: 1. Leukocytosis, unspecified type - ICD9: 288.60, ICD10: D72 .829 (primary diagnosis) Repeat in one week - CBC + DIFF 2. Abnormal liver enzymes - ICD9: 790.5, ICD10: R74.8 Repeat in one week - HEPATIC FUNCTION PNL 3. Atrial fibrillation, unspecified type (HCC) - ICD9: 427.31, ICD10: I48.91 Renewed standing orders. - PROTHROMBIN TIME/PT - INR (POC) Patient indicated understanding and willingness to follow re commendations. Matthew Rocha MD Allergies As of Date: 04/06/2020 (No Known Allergies) Date Reviewed: 04/06/2020 Reviewed by: Veronica Johnson Ma - Fully Assessed Reason for Visit: Anticoagulation [8] Primary Visit Diagnosis:Leukocytosis, unspecified type [D72. 829] Other Visit Diagnoses:Abnormal liver enzymes [R74.8] Atrial fibrillation, unspecified type (HCC) [I48.91] Order(s):CBC + DIFF [SQCBCDIF] Order #: [id number] FUTURE HEPATIC FUNCTION PNL [SQHFP] Order #: [id number] FUTURE PROTHROMBIN TIME/PT [SQPT] Order #: [id number] STANDING INR (POC) [3574492] Order #: [id number]: 99 STANDING Prescriptions as of 04/06/2020 Sig: LISINOPRIL 20 MG TABLET Take 1 tablet by mouth once d* METOPROLOL TARTRATE 50 MG TAB* Take 1 tablet by mouth twice * FINASTERIDE 5 MG TABLET TAKE 1/2 (ONE-HALF) OF A TABL* WARFARIN 5 MG TABLET TAKE 1 TABLET BY MOUTH DAILY * TRIAMCINOLONE ACETONIDE 0.5 %* Apply 1 application to affect * Problem List As Of Date 04/06/2020 Noted Resolved Abnormal liver function test [R94.5] 12/25/2004 11/03/2010 More... 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 Obstructive Sleep Apnea, on CPAP [G47.33] 09/01/2009 More... Erectile dysfunction [N52.9] 05/03/2010 12/10/2014 Alopecia [L65.9] 05/03/2010 Primary osteoarthritis of right knee [M17.11] 09/29/2015 Obesity, Class III, BMI 40-49.9 (morbid obesity*03/10/2018 Thrombocytopenia (HCC) [D69.6] 01/08/2019 Varicose veins of bilateral lower extremities w*01/08/2019 Encounter Status:Closed by MATTHEW ROCHA MD on 04/07/20 cnov on 2020-04-06 CNOV Office Visit (VASSWS) Normal 04-06-[address] [place] [address] [facility] JUSTIN ZAZUETA ([id number]) 1950 [address] [place] Date Time Provider Department ([id number]) 04/06/20 11:00 AM VICKIE GRIFFIN VASSWS During your visit today, we recorded the following informati on about you: Pulse Blood pressure Weight 65/minute 113/62 139.6 kg Vickei Griffin, PhD, ENVIRONMENTAL HEALTH NURSE.CUSTOMER SUCCESS MANAGER 04/07/2020 1:15 PM Signed VASCULAR SURGERY WOUND OSTOMY CONTINENCE CONSULTATION CHIEF COMPLAINT: Wound check and evaluation HISTORY OF PRESENT ILLNESS: LLE ulcer and lymphedema PAST MEDICAL HISTORY Diagnosis Date - Abnormal liver function test 12/25/2004 Pt reportedly had this since age 24: no measure in the system to verify ALT 61 (30-65) in 08-05 HCV quantit ative was undetectable in 08-05 HBsAb, HBsAg, Hep A negative in 08-05 NL iron and ferritin levels in 08-05 HCV negative in 08-05 - Alopecia 05/03/2010 - Atrial fibrillation (HCC) 07/25/2009 Started Coumadin and Metoprolol in 07-06 - Diverticulosis of colon (without mention of hemorrhage) - Erectile dysfunction 05/03/2010 - HTN (hypertension) 07/25/2009 Office BP was 150/98 in 08-05: Lisinopril to 20 mg bid - Hypertrophy of prostate with urinary obstruction and other lower urinary tract symptoms (LUTS) 07/14/2007 - Obstructive sleep apnea 09/01/[address] Ramos. - Primary osteoarthritis of right knee 09/29/2015 - Unspecified viral hepatitis C without hepatic coma 1980s PAST SURGICAL HISTORY Procedure Laterality Date - COLONOSCOP W/ OR W/O [facility] SPEC April 2001 normal - COLONOSCOP W/ OR W/O [facility] SPEC 02/25/2012 Colonoscopy - PAST SURGICAL HISTORY OF sinus x2 ALLERGIES No Known Allergies Social History Tobacco Use - Smoking status: Former Smoker Packs/day: 2.00 Years: 8.00 Pack years: 16.00 Types: Cigarettes Last attempt to quit: 10/28/1975 Years since quittin.4 - Smokeless tobacco: Never Used Substance Use Topics - Alcohol use: No Frequency: Never Drinks per session: Patient refused Binge frequency: Never - Drug use: No Comment: none since 20s FAMILY HISTORY Problem Relation Age of Onset - Alzheimer's Disease Mother 85 - Prostate Cancer Father 78 - Diabetes Father - None Sister MEDICATIONS: lisinopril (ZESTRIL, PRINIVIL) 20 mg tab let Take 1 tablet by mouth once daily. metoprolol tartrate, short acting, (LOPRESSOR) 50 mg t ablet Take 1 tablet by mouth twice daily. finasteride (PROSCAR) 5 mg tablet TAKE 1/2 (ONE-HALF) OF A T ABLET BY MOUTH DAILY warfarin (COUMADIN) 5 mg tablet TAKE 1 TABLET BY MOUTH SHARON LY or DIRECTED triamcinolone acetonide (KENALOG) 0.5 % cream Ap ply 1 application to affected area twice daily. For rash/itching. Apply sparingly. Avoid f danika/skin fold. REVIEW OF SYSTEMS 12 organ system review was performed with these findings: No change from prior assessment Exceptions: Integumentary: See below Nutritional Status Appetite: good Diet: Low sodium Albumin/Prealbumin levels: Lab Results Component Value Date ALB 3.7 (L) 04/06/2020 PHYSICAL EXAMINATION Constitutional: Appears about stated age, well nourish ed, no weight loss, no fevers and no chills. Psych: Alert and oriented to person, place and time. Intact memory. Normal limit affect, judgement and insight. Respiratory: Symmetrical exp ansion and effort. No cough, no shortness of breath. Cardiovascular: No chest ricky n. Normal limit dorsalis pedis and posterior tibial pulses. BLE lymphedema. New compression stockings received Neuro: Normal limit cranial nerves. Musculoskeletal: Normal limit gait. Normal limit symmetry. Normal limit range of motion. Normal limit muscle strength. Normal limit tone of all extremities. Integumentary: Normal skin color, textur e and turgor. No dry, scaly or cracked skin. No ecchymotic areas. No friable skin. No r mehrdad, lesions, excoriations or waller. No diaphoresis. No jaundice, no ruddiness, no skin pa llor. Left medial LE ulcer 75% Healed, pink base shallow 2.0 cm x 2.3 x <0.25 Eyes: Pupils are equal, round and reactive to light. Ears: Normal limit hearing. Nose/Mouth/Throat: Normal li betzaida external ear canals and TM. Normal limit teeth, lips and gums. Neck: Normal limit appearance and movements. Trachea midline . Breast: Not assessed. Lymphatic: Not assessed. Abdominal: Not assessed. WOUND PAIN: No pain or discomfort DATA REVIEWED: Chart reviewed. ASSESSMENT/PLAN/TREATMENT RECOMMENDATIONS Danika wrap 6 inches from toes to knee at all times until compression stockings are available Elevate legs frequently. Exercise legs frequently as per LE edema, lymphedema and CVI conservative treatment plan. Continue with xeroform or ABX ointment daily until healed Education provided Treatment demonstrated Questions answered I have spent 15 minutes with the patient for physical and wound assessment, wound cleaning, dressing demonstration and answe ring questions. More than 50% of the time spent with the patient inclu ded education/counselling/coordination of care. Vickie Griffin, PhD, WOCN, CUSTOMER SUCCESS MANAGER Referring Provider: VICKIE GRIFFIN [[id number]] Allergies As of Date: 04/06/2020 (No Known Allergies) Date Reviewed: 04/06/2020 Reviewed by: Veronica Johnson Ma - Fully Assessed Reason for Visit: lymphedema follow up [Other] Primary Visit Diagnosis:Lymphedema of both lower extremities [I89.0] Other Visit Diagnosis:Venous ulcer (HCC) [I83.009, L97.909] Prescriptions as of 04/06/2020 Sig: X METOLAZONE 5 MG TABLET Take 1 tablet by mouth every * LISINOPRIL 20 MG TABLET Take 1 tablet by mouth once d* METOPROLOL TARTRATE 50 MG TAB* Take 1 tablet by mouth twice * FINASTERIDE 5 MG TABLET TAKE 1/2 (ONE-HALF) OF A TABL* WARFARIN 5 MG TABLET TAKE 1 TABLET BY MOUTH DAILY * TRIAMCINOLONE ACETONIDE 0.5 %* Apply 1 application to affect * X FUROSEMIDE 40 MG TABLET Take 1 tablet by mouth once d* Problem List As Of Date 04/06/2020 Noted Resolved Abnormal liver function test [R94.5] 12/25/2004 11/03/2010 More... 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 Obstructive Sleep Apnea, on CPAP [G47.33] 09/01/2009 More... Erectile dysfunction [N52.9] 05/03/2010 12/10/2014 Alopecia [L65.9] 05/03/2010 Primary osteoarthritis of right knee [M17.11] 09/29/2015 Obesity, Class III, BMI 40-49.9 (morbid obesity*03/10/2018 Thrombocytopenia (HCC) [D69.6] 01/08/2019 Varicose veins of bilateral lower extremities w*01/08/2019 Encounter Status:Closed by VICKIE GRIFFIN CUSTOMER SUCCESS MANAGER on 04/07/20 cbc and differential on 2020-04-06 Abs Baso 0.16 <0.11 k/uL High 04-06-2020 [facility] ([id number]) Comment: Performed By: #### PSA, CMP, LIPB, CBCDIF ####[facility] [address] [place] [phone] Abs [place]shaw 0.81 <0.87 k/uL Normal 04-06-2020 [facility] (07513) Comment: Performed By: #### PSA, CMP, LIPB, CBCDIF ####[facility] [address] [place], [place] [phone] Abs Neut 2.76 1.45-7.50 k/uL Normal 04-06-2020 [facility] (44870) Comment: Performed By: #### PSA, CMP, LIPB, CBCDIF ####[facility] [address] [place] [phone] ANC(includeSEG+BAND) 2.76 k/uL Normal 0 [facility] (99225) Comment: Performed By: #### PSA, CMP, LIPB, CBCDIF ####[facility] [place], [place] [phone] Basophils/100 WBC (Bld) 1.0 % Normal 2019 [facility] (35191) Comment: Performed By: #### PSA, CMP, LIPB, CBCDIF ####[facility] [place], [place] [phone] DTYPE Manual Diff Normal 04-06-2020 [facility] (79619) Comment: Performed By: #### PSA, CMP, LIPB, CBCDIF ####[place] [address] [place], [place] [phone] Eosinophils (Bld) [#/Vol] 0.00 <0.46 k/uL Normal 03-28 [facility] (19490) Comment: Performed By: #### PSA, CMP, LIPB, CBCDIF ####[facility] [place], [place] [phone] Eosinophils/100 WBC (Bld) 0.0 % Normal 03-28 [facility] (63207) Comment: Performed By: #### PSA, CMP, LIPB, CBCDIF ####[facility] [place], [place] [phone] Erythrocyte distribution 14.3 11.5-15.0 % Normal 04-06 [facility] width (RBC) [Ratio] [place] (33748) Comment: Performed By: #### PSA, CMP, LIPB, CBCDIF ####[facility] [address] [place], [place] [phone] Hematocrit (Bld) [Volume 42.1 39.0-51.0 % Normal 04-06 [facility] fraction] [place] (63246) Comment: Performed By: #### PSA, CMP, LIPB, CBCDIF ####[facility] [place], [place] [phone] Hemoglobin (Bld) 13.9 13.0-17.0 g/dL Normal 04-06-2020 [facility] [Mass/Vol] [place] (12160) Comment: Performed By: #### PSA, CMP, LIPB, CBCDIF ####[place] [address] [place], [place] [phone] Lymphocytes (Bld) [#/Vol] 12.50 1.00-4.00 k/uL High 03-28 [facility] (86409) Comment: Performed By: #### PSA, CMP, LIPB, CBCDIF ####[place] [address] [place], [place] [phone] Lymphocytes/100 WBC (Bld) 77.0 % Normal 03-28 [facility] (50953) Comment: Performed By: #### PSA, CMP, LIPB, CBCDIF ####[place] [address] [place], [place] [phone] MCH (RBC) [Entitic mass] 33.4 26.0-34.0 pG Normal 04-06 [facility] (71287) Comment: Performed By: #### PSA, CMP, LIPB, CBCDIF ####[place] [address] [place], [place] [phone] MCHC (RBC) [Mass/Vol] 33.0 30.5-36.0 g/dL Normal 04-06-20 [facility] (76366) Comment: Performed By: #### PSA, CMP, LIPB, CBCDIF ####[place] [address] [place], [place] [phone] MCV (RBC) [Entitic vol] 101.2 80.0-100.0 fL High 04-06 [facility] (81373) Comment: Performed By: #### PSA, CMP, LIPB, CBCDIF ####[facility] [address] [place], [place] [phone] Monocytes/100 WBC (Bld) 5.0 % Normal 2019 [facility] (60346) Comment: Performed By: #### PSA, CMP, LIPB, CBCDIF ####[facility] [address] [place], [place] [phone] Neutrophils/100 WBC (Bld) 17.0 % Normal 03-28 [facility] (02858) Comment: Performed By: #### PSA, CMP, LIPB, CBCDIF ####[facility] [place], [place] [phone] Platelet mean volume 10.2 9.0-12.7 fL Normal 0 [facility] (Bld) [Entitic vol] [place] (65136) Comment: Performed By: #### PSA, CMP, LIPB, CBCDIF ####[place] [address] [place], [place] [phone] Platelets (Bld) Platelet estimate Normal 2019 [facility] [#/Vol] adequate [place] (38424) Comment: Performed By: #### PSA, CMP, LIPB, CBCDIF ####[facility] [place], [place] [phone] Platelets (Bld) [#/Vol] 181 150-400 k/uL Normal 2019 [facility] (84474) Comment: Performed By: #### PSA, CMP, LIPB, CBCDIF ####[facility] [address] [place], [place] [phone] Polychromasia Slight Normal 04-06-2020 [facility] (46733) Comment: Performed By: #### PSA, CMP, LIPB, CBCDIF ####[facility] [address] [place], [place] [phone] RBC (Bld) [#/Vol] 4.16 4.20-6.00 m/uL Low 04-06-2020 C [facility] (02860) Comment: Performed By: #### PSA, CMP, LIPB, CBCDIF ####[facility] [address] [place], [place] [phone] Red Cell Morph SEE COMMENT Normal 04-06-2020 Cl [facility] (57680) Comment: Result Comment: Unremarkable Performed By: #### PSA, CMP, LIPB, CBCDIF ####[facility] [address] [place], [place] [phone] WBC (Bld) [#/Vol] 16.24 3.70-11.00 k/uL High 04-06-2020 [facility] (04968) Comment: Performed By: #### PSA, CMP, LIPB, CBCDIF ####[facility] [address], [place] [phone] progress on 2020-03 PROGRESS HNO ID: [id number] Normal 04-04-2020 [place] Author: Vickie Griffin [facility] Service: ? [place] Author Type: Nurse Practitioner ([id number]) Type: Progress Notes Filed: 04/04/2020 5:56 AM Note Text: VASCULAR SURGERY WOUND OSTOMY CONTINENCE CONSULTATION CHIEF COMPLAINT: Wound check and evaluation HISTORY OF PRESENT ILLNESS: bilateral lymphedema, LLE cellul itis PAST MEDICAL HISTORY Diagnosis Date - Abnormal liver function test 12/25/2004 Pt reportedly had this since age 24: no measure in the syste m to verify ALT 61 (30-65) in 08-05 HCV quantitative was undetectable in 08-05 HBsAb, HBsAg, Hep A negative in 08-05 NL iron and ferritin levels i n 08-05 HCV negative in 08-05 - Alopecia 05/03/2010 - Atrial fibrillation (HCC) 07/25/2009 Started Coumadin and Metoprolol in 07-06 - Diverticulosis of colon (without mention of hemorrhage) - Erectile dysfunction 05/03/2010 - HTN (hypertension) 07/25/2009 Office BP was 150/98 in 08-05: Lisinopril to 20 mg bid - Hypertrophy of prostate with urinary obstruction and other lower urinary tract symptoms (LUTS) 07/14/2007 - Obstructive sleep apnea 09/01/[address] Ramos. - Primary osteoarthritis of right knee 09/29/2015 - Unspecified viral hepatitis C without hepatic coma 1980s PAST SURGICAL HISTORY Procedure Laterality Date - COLONOSCOP W/ OR W/O [facility] SPEC April 2001 normal - COLONOSCOP W/ OR W/O [facility] SPEC 02/25/2012 Colonoscopy - PAST SURGICAL HISTORY OF sinus x2 ALLERGIES No Known Allergies Social History Tobacco Use - Smoking status: Former Smoker Packs/day: 2.00 Years: 8.00 Pack years: 16.00 Types: Cigarettes Last attempt to quit: 10/28/1975 Years since quittin.4 - Smokeless tobacco: Never Used Substance Use Topics - Alcohol use: No - Drug use: No Comment: none since 20s FAMILY HISTORY Problem Relation Age of Onset - Alzheimer's Disease Mother 85 - Prostate Cancer Father 78 - Diabetes Father - None Sister MEDICATIONS: metOLAzone (ZAROXOLYN) 5 mg tablet Take 1 tablet by mouth ev carmen morning. With furosemide. lisinopril (ZESTRIL, PRINIVIL) 20 mg tablet Take 1 tablet by mouth once daily. furosemide (LASIX) 40 mg tablet Take 1 tablet by mouth once daily. metoprolol tartrate, short acting, (LOPRESSOR) 50 mg tablet Take 1 tablet by mouth twice daily. finasteride (PROSCAR) 5 mg tablet TAKE 1/2 (ONE-HALF) OF A T ABLET BY MOUTH DAILY warfarin (COUMADIN) 5 mg tablet TAKE 1 TABLET BY MOUTH DAILY or DIRECTED triamcinolone acetonide (KENALOG) 0.5 % cream Apply 1 applic ation to affected area twice daily. For rash/itching. Apply sparingly . Avoid face/skin fold. REVIEW OF SYSTEMS 12 organ system review was performed with these findings: Constitutional: obese Eyes: Within Normal Limits Ears/Nose/Mouth/Throat: Within Normal Limits Respiratory: Within Normal Limits Cardiovascular: lymphedema Gastrointestinal: Within Normal Limits Genitourinary: Within Normal Limits Musculoskeletal: Within Normal Limits Neurologic: Within Normal Limits Psychiatric: Within Normal Limits Endocrinological: Within Normal Limits Hematologic: Within Normal Limits Immunologic: Within Normal Limits Integumentary: See below Nutritional Status Appetite: good Diet: Low sodium Albumin/Prealbumin levels: Lab Results Component Value Date ALB 3.9 11/06/2019 PHYSICAL EXAMINATION Constitutional: Appears about stated age, well nourished, no weight loss, no fevers and no chills. Psych: Alert and oriented to person, place and time. Intact memory. Normal limit affect, judgement and insight. Respiratory: Symmetrical expansion and effort. No cough, no shortness of breath. Cardiovascular: No chest pain. Normal limit dorsalis pedis a nd posterior tibial pulses. BLE lymphedema. Neuro: Normal limit cranial nerves. Musculoskeletal: Normal limit gait. Normal limit symmetry. N ormal limit range of motion. Normal limit muscle strength. Normal limit tone of all extremities. Integumentary: Normal skin color, texture and turgor. No dry , scaly or cracked skin. No ecchymotic areas. No friable skin. No rash, lesions, excoriations or waller. No diaphoresis. No jaundice, no ruddi ness, no skin pallor. LLE cellulitis cleared Measurements: Right in inches Ankle = 13 Calf = 20 Instep = 18.5 Left in inches Ankle = 14 Calf = 20 Instep = 18.5 Eyes: Pupils are equal, round and reactive to light. Ears: Normal limit hearing. Nose/Mouth/Throat: Normal limit external ear canals and TM. Normal limit teeth, lips and gums. Neck: Normal limit appearance and movements. Trachea midline . Breast: Not assessed. Lymphatic: Not assessed. Abdominal: Not assessed. WOUND PAIN: No pain or discomfort DATA REVIEWED: Chart reviewed. ASSESSMENT/PLAN/TREATMENT RECOMMENDATIONS Adnika wrap 6 inches from toes to knee at all times until compr ession stockings are available Elevate legs frequently. Exercise legs frequently as per LE edema, lymphedema and CVI conservative treatment plan. Education provided Treatment demonstrated Questions answered I have spent 30 minutes with the patient for physical and wo und assessment, wound cleaning, dressing demonstration and answe ring questions. More than 50% of the time spent with the patient included education/counselling/coordination of care. Vickie Griffin, PhD, WOCN, CUSTOMER SUCCESS MANAGER progress on 2020-03 PROGRESS HNO ID: [id number] Normal 03-31-2020 [facility] Author: Elsie Huber RN ([id number]) Service: ? Author Type: ? Type: Progress Notes Filed: 03/31/2020 12:06 PM Note Text: patient had inr completed at [facility] patients inr is 2.3 (patients inr range is 2.0-3.0) patient is currently holding due to high level from [facility] of 4 .3 per patient patients last dose change was on 03/13/18 due to a high level of 3.2 (dose at that time was 7.5mg Sun and 5mg all other days) patient has had a change in medication and pt is on IV and o ral antibiotics for cellulitis of both legs and no change in t patient has been instructed to restart on the 5mg daily and to recheck inr in 1 week on 04/07/20 as [facility] had him hold coumadin for the pa st 3 days. cnpn on 2020-03-30 CNPN Telephone (INTMWS) Normal 03-30-2020 [facility] JUSTIN ZAZUETA ([id number]) 1950 [facility] Date Time Provider Department ([id number]) 03/30/20 MATTHEW ROCHA INTMWS During your visit today, we recorded the following informati on about you: Veronica Tate RN 03/30/2020 10:09 AM Signed Patient reports that PCP has been managing his leg wounds an d swelling and redness became worse and he went to ER on 03/26/20 and received 2 IV antibiotics in ER: Selmaxine and Vancomycin and ER d ischarged him.He was also told to hold coumadin for 3 days, due to INR high in Er and get INR checked today and he is still taking the Doxycycline. Patient st ates he is coming in today to have INR checked. States that the left leg is 90 % and ER advised that he see [facility] wound doctor. he still has one draining blister on side of his right leg. Patient asking if PCP would refer him to [facility] wound doctor, Ying Griffin DNP? Patient does not wish to see vascular surgeon at this time. Please review and advise. NAVID Ramsey MD 03/30/2020 10:59 AM Signed He has an appointment with Ashley Griffin here in [place] at 3 25 PM. Please inform the patient. Kate Lemon LPN 03/30/2020 11:08 AM Signed Left below message on identified vm. Kate Lemon LPN Allergies As of Date: 03/30/2020 (No Known Allergies) Date Reviewed: 11/06/2019 Reviewed by: Itzel Moser Neon Tube Bender - Fully Assessed Reason for Visit: request for orders [Other] Primary Visit Diagnosis:Wound of right lower extremity, init ial encounter [S81.801A] Prescriptions as of 03/30/2020 Sig: DOXYCYCLINE HYCLATE 100 MG TA* Take 1 tablet by mouth twice * METOLAZONE 5 MG TABLET Take 1 tablet by mouth every * LISINOPRIL 20 MG TABLET Take 1 tablet by mouth once d* FUROSEMIDE 40 MG TABLET Take 1 tablet by mouth once d* METOPROLOL TARTRATE 50 MG TAB* Take 1 tablet by mouth twice * FINASTERIDE 5 MG TABLET TAKE 1/2 (ONE-HALF) OF A TABL* WARFARIN 5 MG TABLET TAKE 1 TABLET BY MOUTH DAILY * TRIAMCINOLONE ACETONIDE 0.5 %* Apply 1 application to affect * Problem List As Of Date 03/30/2020 Noted Resolved Abnormal liver function test [R94.5] 12/25/2004 11/03/2010 More... 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 Obstructive Sleep Apnea, on CPAP [G47.33] 09/01/2009 More... Erectile dysfunction [N52.9] 05/03/2010 12/10/2014 Alopecia [L65.9] 05/03/2010 Primary osteoarthritis of right knee [M17.11] 09/29/2015 Obesity, Class III, BMI 40-49.9 (morbid obesity*03/10/2018 Thrombocytopenia (HCC) [D69.6] 01/08/2019 Varicose veins of bilateral lower extremities w*01/08/2019 Encounter Status:Closed by KATE LEMON LPN on 03/30/20 cnov on 2020-03-30 CNOV Office Visit (VASSWS) Normal 03-30-20 20 [facility] JUSTIN ZAZUETA ([id number]) 1950 [place] Date Time Provider Department ([id number]) 03/30/20 3:30 PM VICKIE GRIFFIN VASSWS During your visit today, we recorded the following informati on about you: Vickie Griffin, PhD, ENVIRONMENTAL HEALTH NURSE.CUSTOMER SUCCESS MANAGER 04/04/2020 5:56 AM Signed VASCULAR SURGERY WOUND OSTOMY CONTINENCE CONSULTATION CHIEF COMPLAINT: Wound check and evaluation HISTORY OF PRESENT ILLNESS: bilateral lymphedema, LLE cellul itis PAST MEDICAL HISTORY Diagnosis Date - Abnormal liver function test 12/25/2004 Pt reportedly had this since age 24: no measure in the system to verify ALT 61 (30-65) in 08-05 HCV quantit ative was undetectable in 08-05 HBsAb, HBsAg, Hep A negative in 08-05 NL iron and ferritin levels in 08-05 HCV negative in 08-05 - Alopecia 05/03/2010 - Atrial fibrillation (HCC) 07/25/2009 Started Coumadin and Metoprolol in 07-06 - Diverticulosis of colon (without mention of hemorrhage) - Erectile dysfunction 05/03/2010 - HTN (hypertension) 07/25/2009 Office BP was 150/98 in 08-05: Lisinopril to 20 mg bid - Hypertrophy of prostate with urinary obstruction and other lower urinary tract symptoms (LUTS) 07/14/2007 - Obstructive sleep apnea 09/01/[address] Ramos. - Primary osteoarthritis of right knee 09/29/2015 - Unspecified viral hepatitis C without hepatic coma 1980s PAST SURGICAL HISTORY Procedure Laterality Date - COLONOSCOP W/ OR W/O [facility] SPEC April 2001 normal - COLONOSCOP W/ OR W/O [facility] SPEC 02/25/2012 Colonoscopy - PAST SURGICAL HISTORY OF sinus x2 ALLERGIES No Known Allergies Social History Tobacco Use - Smoking status: Former Smoker Packs/day: 2.00 Years: 8.00 Pack years: 16.00 Types: Cigarettes Last attempt to quit: 10/28/1975 Years since quittin.4 - Smokeless tobacco: Never Used Substance Use Topics - Alcohol use: No - Drug use: No Comment: none since 20s FAMILY HISTORY Problem Relation Age of Onset - Alzheimer's Disease Mother 85 - Prostate Cancer Father 78 - Diabetes Father - None Sister MEDICATIONS: metOLAzone (ZAROXOLYN) 5 mg tablet Take 1 tablet by mouth every morning. With furosemide. lisinopril (ZESTRIL, PRINIVIL) 20 mg tab let Take 1 tablet by mouth once daily. furosemide (LASIX) 40 mg tablet Take 1 tablet by mouth once daily. metoprolol tartrate, short acting, (LOPRESSOR) 50 mg t ablet Take 1 tablet by mouth twice daily. finasteride (PROSCAR) 5 mg tablet TAKE 1/2 (ONE-HALF) OF A T ABLET BY MOUTH DAILY warfarin (COUMADIN) 5 mg tablet TAKE 1 TABLET BY MOUTH SHARON LY or DIRECTED triamcinolone acetonide (KENALOG) 0.5 % cream Ap ply 1 application to affected area twice daily. For rash/itching. Apply sparingly. Avoid f danika/skin fold. REVIEW OF SYSTEMS 12 organ system review was performed with these findings: Constitutional: obese Eyes: Within Normal Limits Ears/Nose/Mouth/Throat: Within Normal Limits Respiratory: Within Normal Limits Cardiovascular: lymphedema Gastrointestinal: Within Normal Limits Genitourinary: Within Normal Limits Musculoskeletal: Within Normal Limits Neurologic: Within Normal Limits Psychiatric: Within Normal Limits Endocrinological: Within Normal Limits Hematologic: Within Normal Limits Immunologic: Within Normal Limits Integumentary: See below Nutritional Status Appetite: good Diet: Low sodium Albumin/Prealbumin levels: Lab Results Component Value Date ALB 3.9 11/06/2019 PHYSICAL EXAMINATION Constitutional: Appears about stated age, well nourish ed, no weight loss, no fevers and no chills. Psych: Alert and oriented to person, place and time. Intact memory. Normal limit affect, judgement and insight. Respiratory: Symmetrical exp ansion and effort. No cough, no shortness of breath. Cardiovascular: No chest ricky n. Normal limit dorsalis pedis and posterior tibial pulses. BLE lymphedema. Neuro: Normal limit cranial nerves. Musculoskeletal: Normal limit gait. Normal limit symmetry. Normal limit range of motion. Normal limit muscle strength. Normal limit tone of all extremities. Integumentary: Normal skin color, textur e and turgor. No dry, scaly or cracked skin. No ecchymotic areas. No friable skin. No r mehrdad, lesions, excoriations or waller. No diaphoresis. No jaundice, no ruddiness, no skin pa llor. LLE cellulitis cleared Measurements: Right in inches Ankle = 13 Calf = 20 Instep = 18.5 Left in inches Ankle = 14 Calf = 20 Instep = 18.5 Eyes: Pupils are equal, round and reactive to light. Ears: Normal limit hearing. Nose/Mouth/Throat: Normal li betzaida external ear canals and TM. Normal limit teeth, lips and gums. Neck: Normal limit appearance and movements. Trachea midline . Breast: Not assessed. Lymphatic: Not assessed. Abdominal: Not assessed. WOUND PAIN: No pain or discomfort DATA REVIEWED: Chart reviewed. ASSESSMENT/PLAN/TREATMENT RECOMMENDATIONS Danika wrap 6 inches from toes to knee at all times until compression stockings are available Elevate legs frequently. Exercise legs frequently as per LE edema, lymphedema and CVI conservative treatment plan. Education provided Treatment demonstrated Questions answered I have spent 30 minutes with the patient for physical and wound assessment, wound cleaning, dressing demonstration and answe ring questions. More than 50% of the time spent with the patient inclu ded education/counselling/coordination of care. Vickie Griffin, PhD, WOCN, CUSTOMER SUCCESS MANAGER Referring Provider: MATTHEW ROCHA [[id number]] Allergies As of Date: 03/30/2020 (No Known Allergies) Date Reviewed: 03/30/2020 Reviewed by: Graciela Espitia Ma - Fully Assessed Reason for Visit: New Patient [172] Cmt: left lower leg Reason For Visit History Recorded Primary Visit Diagnosis:Lymphedema of both lower extremities [I89.0] Other Visit Diagnoses:Varicose veins of bilateral lower extr emities with other complications [I83.893] Venous insufficiency of both lower extremities [I87.2] Cellulitis of leg without foot, left [L03.116] Infected stasis ulcer of left lower extremity (HCC) [I83.229, L97.929] Order(s):CONSULT TO VASCULAR SURGERY [3742] Order #: [id number]: 1 Prescriptions as of 03/30/2020 Sig: DOXYCYCLINE HYCLATE 100 MG TA* Take 1 tablet by mouth twice * METOLAZONE 5 MG TABLET Take 1 tablet by mouth every * LISINOPRIL 20 MG TABLET Take 1 tablet by mouth once d* FUROSEMIDE 40 MG TABLET Take 1 tablet by mouth once d* METOPROLOL TARTRATE 50 MG TAB* Take 1 tablet by mouth twice * FINASTERIDE 5 MG TABLET TAKE 1/2 (ONE-HALF) OF A TABL* WARFARIN 5 MG TABLET TAKE 1 TABLET BY MOUTH DAILY * Patient not taking: Reported on 03/30/2020 TRIAMCINOLONE ACETONIDE 0.5 %* Apply 1 application to affect * Problem List As Of Date 03/30/2020 Noted Resolved Abnormal liver function test [R94.5] 12/25/2004 11/03/2010 More... 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 Obstructive Sleep Apnea, on CPAP [G47.33] 09/01/2009 More... Erectile dysfunction [N52.9] 05/03/2010 12/10/2014 Alopecia [L65.9] 05/03/2010 Primary osteoarthritis of right knee [M17.11] 09/29/2015 Obesity, Class III, BMI 40-49.9 (morbid obesity*03/10/2018 Thrombocytopenia (HCC) [D69.6] 01/08/2019 Varicose veins of bilateral lower extremities w*01/08/2019 Encounter Status:Closed by VICKIE GRIFFIN CNP on 04/04/20 progress on 2020-02 PROGRESS HNO ID: [id number] Normal 03-24-2020 [facility] Author: Matthew Jose ([id number]) Service: ? Author Type: Physician Type: Progress Notes Filed: 03/24/2020 9:18 AM Note Text: This note was created using [employer]. Subjective This Team Access Model visit is a virtual encounter. It requ ired patient-provider interaction for the medical decision making as documented below. Justin Wilber Zazueta's identity was confirmed by The limitatio ns of telemedicine were reviewed, and verbal consent was obtained for this encounter. This encounter is not related to previous similar encounter within the past 7 days. No face to face visit is planned in the next day in connection to this encounter. This telemedicine encounter was accomplished via [employer]. Patient presents with: Wound Evaluation: new left leg wound Edema Justin continued with tense edema of the legs with skin bliste ring. His right leg wounds healed but he broke out on his left calf ye sterday. He felt chills but had no fever (97.6F). Furosemide seemed less effective. Review of Systems Constitutional: Positive for chills. Negative for fever. Respiratory: Negative for shortness of breath. Cardiovascular: Positive for leg swelling. Negative for ches t pain. Gastrointestinal: Negative. ACTIVE PROBLEM LIST Bph With Obstruction/Lower Urinary Tract Symptoms Htn (Hypertension) Atrial Fibrillation (Hcc) Obstructive Sleep Apnea, on CPAP Alopecia Primary Osteoarthritis of Right Knee Obesity, Class Iii, Bmi 40-49.9 (Morbid Obesity) (Hcc) Thrombocytopenia (Hcc) Varicose Veins of Bilateral Lower Extremities With Other Com plications Current Outpatient Medications Medication Sig - lisinopril (ZESTRIL, PRINIVIL) 20 mg tablet Take 1 tablet by mouth once daily. - furosemide (LASIX) 40 mg tablet Take 1 tablet by mouth onc e daily. - metOLAzone (ZAROXOLYN) 5 mg tablet Take 1 tablet by mouth every morning. With furosemide. - metoprolol tartrate, short acting, (LOPRESSOR) 50 mg table t Take 1 tablet by mouth twice daily. - finasteride (PROSCAR) 5 mg tablet TAKE 1/2 (ONE-HALF) OF A TABLET BY MOUTH DAILY - warfarin (COUMADIN) 5 mg tablet TAKE 1 TABLET BY MOUTH SHARON LY or DIRECTED - triamcinolone acetonide (KENALOG) 0.5 % cream Apply 1 appl ication to affected area twice daily. For rash/itching. Apply sparingly . Avoid face/skin fold. No current facility-administered medications for this visit. Objective There were no vitals taken for this visit. Physical Exam Constitutional: General: He is not in acute distress. Appearance: He is not ill-appearing or diaphoretic. Pulmonary: Effort: Pulmonary effort is normal. Musculoskeletal: Right lower leg: Edema present. Left lower leg: Edema present. Comments: 3+ edema, L>R. Skin: Comments: Left medial calf fresh stage 2 ulcer, with serosan guinous drainage. Left leg erythema from above ankle to below knee. Right leg with stasis pigmentation and large patch with diffuse papule s and blisters. Assessment and Plan 1. Infected stasis ulcer of left lower extremity (HCC) - ICD 9: 454.2, ICD10: I83.229, L97.929 (primary diagnosis) - DOXYCYCLINE HYCLATE 100 MG TABLET - CONSULT TO VASCULAR SURGERY 2. Varicose veins of bilateral lower extremities with other complications - ICD9: 454.8, ICD10: I83.893 - US LEG VEIN DVT DILCIA VAS LAB - CONSULT TO VASCULAR SURGERY 3. Venous insufficiency of both lower extremities - ICD9: 45 9.81, ICD10: I87.2 - METOLAZONE 5 MG TABLET - US LEG VEIN DVT DILCIA VAS LAB - CONSULT TO VASCULAR SURGERY 4. Cellulitis of leg without foot, left - ICD9: 682.6, ICD10 : L03.116 - Begin treatment with antibiotic. - DOXYCYCLINE HYCLATE 100 MG TABLET - CONSULT TO VASCULAR SURGERY - CBC + DIFF Matthew Rocha MD cnpn on 2020-03-24 CNPN Telephone (INTMWS) Normal 03-24-2020 [facility] JUSTIN ZAZUETA ([id number]) 1950 [facility] Date Time Provider Department ([id number]) 03/24/20 MATTHEW ROCHA INTMWS During your visit today, we recorded the following informati on about you: Kate Lemon LPN 03/24/2020 9:[address] Rocha has Ordered US leg vein dvt dilcia va s lab AND Consult to Vascular Surgery. Please call Patient to schedule. Kate Lemon LPN Sindy Megan [facility] 03/24/2020 2:39 PM Signed Spoke with the patient and he is refusing to schedule ultrasound and consult with Dr Mckay until swelling goes down . We would like to try medication first before health information systems technician starts pushing on his leg s and he thinks that there is nothing Dr Mckay can do for him right now. Advis ed patient that if he changes his mind orders are in and we are able to schedule. Matthew Rocha MD 03/24/2020 3:22 PM Signed Schedule with john paul Griffin CNP. He can do all tests same day in 1-2 weeks. Racheal Macario SENIOR ENERGY CONSULTANT 03/28/2020 10:34 AM Signed Please call pt to arrange test per pcp notes Manjula Conroy Pss 03/30/2020 4:02 PM Signed 1st attempt. Message left for patient to contact office to s [facility] US Vascular Surgery consult with Dr. Mckay Patient is scheduled to see Miesha Griffin on 04/06. Jessica Lee Pss 04/20/2020 9:42 AM Signed 2nd attempt to contact patient. L/m for him to call and sc felipa. Jessica Lee Pss Jessica Lee Pss 04/27/2020 8:52 AM Signed 3rd attempt to contact patient to schedule. L/m and letter s ent. Jessica Lee Pss Allergies As of Date: 03/24/2020 (No Known Allergies) Date Reviewed: 11/06/2019 Reviewed by: Itzel Moser Neon Tube Bender - Fully Assessed Reason for Visit: Orders [681] Prescriptions as of 03/24/2020 Sig: DOXYCYCLINE HYCLATE 100 MG TA* Take 1 tablet by mouth twice * X METOLAZONE 5 MG TABLET Take 1 tablet by mouth every * X LISINOPRIL 20 MG TABLET Take 1 tablet by mouth once d* X FUROSEMIDE 40 MG TABLET Take 1 tablet by mouth once d* X METOPROLOL TARTRATE 50 MG TAB* Take 1 tablet by mouth twic e * FINASTERIDE 5 MG TABLET TAKE 1/2 (ONE-HALF) OF A TABL* WARFARIN 5 MG TABLET TAKE 1 TABLET BY MOUTH DAILY * TRIAMCINOLONE ACETONIDE 0.5 %* Apply 1 application to affect * Patient not taking: Reported on 04/15/2020 Problem List As Of Date 03/24/2020 Noted Resolved Abnormal liver function test [R94.5] 12/25/2004 11/03/2010 More... 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 Obstructive Sleep Apnea, on CPAP [G47.33] 09/01/2009 More... Erectile dysfunction [N52.9] 05/03/2010 12/10/2014 Alopecia [L65.9] 05/03/2010 Primary osteoarthritis of right knee [M17.11] 09/29/2015 Obesity, Class III, BMI 40-49.9 (morbid obesity*03/10/2018 Thrombocytopenia (HCC) [D69.6] 01/08/2019 Varicose veins of bilateral lower extremities w*01/08/2019 Encounter Status:Closed by MATTHEW ROCHA MD on 03/30/20 obsolete on 2020-01 OBSOLETE Refill (INTMWS) Normal 02-18-2020 [facility] JUSTIN ZAZUETA ([id number]) 1950 [facility] Time Provider Department ([id number]) 02/18/20 MATTHEW ROCHA INTMWS During your visit today, we recorded the following informati on about you: Kae Galeana 02/18/2020 11:42 AM Signed Patient has been identified by name and date of : Yes Last office visit in this department: 11/06/2019 RX INSTRUCTIONS: Patient aware RX will be sent to pharmacy. No need to notify patient. Patient phones requesting refills as follows: Pending Prescriptions Disp Refills LISINOPRIL 20 MG TABLET 90 tablet 3 Sig: Take 1 tablet by mouth once daily. ROGER: No Please review and advise. Kae Ray Pss Allergies As of Date: 02/18/2020 (No Known Allergies) Date Reviewed: 11/06/2019 Reviewed by: Itzel Moser Cma - Fully Assessed Reason for Visit: Refill Request [94] Visit Diagnosis:Essential hypertension [I10] Order(s):lisinopril (ZESTRIL, PRINIVIL) 20 mg tabletTake 1 t ablet by mouth once daily.Disp: 90 tabletRfl: 3 Prescriptions as of 02/18/2020 Sig: LISINOPRIL 20 MG TABLET Take 1 tablet by mouth once d* FUROSEMIDE 40 MG TABLET Take 1 tablet by mouth once d* METOLAZONE 5 MG TABLET Take 1 tablet by mouth every * METOPROLOL TARTRATE 50 MG TAB* Take 1 tablet by mouth twice * FINASTERIDE 5 MG TABLET TAKE 1/2 (ONE-HALF) OF A TABL* WARFARIN 5 MG TABLET TAKE 1 TABLET BY MOUTH DAILY * TRIAMCINOLONE ACETONIDE 0.5 %* Apply 1 application to affect * Problem List As Of Date 02/18/2020 Noted Resolved Abnormal liver function test [R94.5] 12/25/2004 11/03/2010 More... 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 Obstructive Sleep Apnea, on CPAP [G47.33] 09/01/2009 More... Erectile dysfunction [N52.9] 05/03/2010 12/10/2014 Alopecia [L65.9] 05/03/2010 Primary osteoarthritis of right knee [M17.11] 09/29/2015 Obesity, Class III, BMI 40-49.9 (morbid obesity*03/10/2018 Thrombocytopenia (HCC) [D69.6] 01/08/2019 Varicose veins of bilateral lower extremities w*01/08/2019 Prescriptions ordered this encounter Disp Refills Start End LISINOPRIL 20 MG TABLET 90 t* 3 02/18/2020 Route: ORAL Sig: Take 1 tablet by mouth once daily. Medications Discontinued During This Encounter lisinopril (ZESTRIL, PRINIVIL) 20 mg* 90 t* 3 12/18/201802/17 Route: ORAL Sig: Take 1 tablet by mouth once daily. Disc: Reason for discontinue is not on file. Encounter Status:Closed by PIPER SEARS CUSTOMER SUCCESS MANAGER on 02/18/20 cnpn on 2020-02-15 CNPN Telephone (INTMWS) Normal 02-15-2020 [facility] JUSTIN ZAZUETA ([id number]) 1950 [facility] Date Time Provider Department ([id number]) 02/15/20 MATTHEW ROCHA INTMWS During your visit today, we recorded the following informati on about you: Diandra Bruno RN 02/15/2020 2:10 PM Signed Patient reports he took his last cephalexin today at noon. H as had a major improvement since taking AB. Swelling is way down. The 2 pun cture wounds healed up. Right leg still looks red/shiny, no seeping. Havi ng pain with walking. Asking provider if he should have more AB? Please a dvise patient. Matthew Rocha MD 02/15/2020 2:20 PM Signed I suspect redness is from stasis dermatitis, not infection. Continue water pill. Reevaluate if needed virtually. Do blood c hemistry when he comes in for INR to monitor electrolytes and kidney function. Itzel Moser Cma 02/15/2020 2:44 PM Signed Patient is notified of all information and verbalizes unders tanding Allergies As of Date: 02/15/2020 (No Known Allergies) Date Reviewed: 11/06/2019 Reviewed by: Itzel Moser Cma - Fully Assessed Reason for Visit: Leg progress [Other] Primary Visit Diagnosis:Bilateral lower extremity edema [R60 .0] Order(s):BASIC METABOLIC PNL [SQBMP] Order #: [id number] FUT URE Prescriptions as of 02/15/2020 Sig: FUROSEMIDE 40 MG TABLET Take 1 tablet by mouth once d* METOLAZONE 5 MG TABLET Take 1 tablet by mouth every * METOPROLOL TARTRATE 50 MG TAB* Take 1 tablet by mouth twice * FINASTERIDE 5 MG TABLET TAKE 1/2 (ONE-HALF) OF A TABL* WARFARIN 5 MG TABLET TAKE 1 TABLET BY MOUTH DAILY * TRIAMCINOLONE ACETONIDE 0.5 %* Apply 1 application to affect * LISINOPRIL 20 MG TABLET Take 1 tablet by mouth once d* Problem List As Of Date 02/15/2020 Noted Resolved Abnormal liver function test [R94.5] 12/25/2004 11/03/2010 More... 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 Obstructive Sleep Apnea, on CPAP [G47.33] 09/01/2009 More... Erectile dysfunction [N52.9] 05/03/2010 12/10/2014 Alopecia [L65.9] 05/03/2010 Primary osteoarthritis of right knee [M17.11] 09/29/2015 Obesity, Class III, BMI 40-49.9 (morbid obesity*03/10/2018 Thrombocytopenia (HCC) [D69.6] 01/08/2019 Varicose veins of bilateral lower extremities w*01/08/2019 Encounter Status:Closed by ITZEL MOSER CMA on 02/15/20 progress on 2020-01 PROGRESS HNO ID: [id number] Normal 02-04-2020 [facility] Author: Matthew Rocha Jose ([id number]) Service: ? Author Type: Physician Type: Progress Notes Filed: 02/04/2020 2:08 PM Note Text: This note was created using [employer]. Subjective This Team Access Model visit is a virtual encounter. It requ ired patient-provider interaction for the medical decision making as documented below. Patient presents with: Edema Justin Zazueta was called first and consent for using [employer] (not HIPAA compliant) was obtained. He had worsening edema the past 2 o r more weeks. His skin was blistering. He was taking his medications. 2 da ys ago, he gouged his right calf with farm equipment. He now had a drai naga wound. He had venous insufficiency and declined vein surgery last y ear. His INR was checked today and was therapeutic. Review of Systems Constitutional: Negative for chills, diaphoresis and fever. Respiratory: Negative. Cardiovascular: Positive for leg swelling. Musculoskeletal: Positive for gait problem. Skin: Positive for color change and wound. ACTIVE PROBLEM LIST Bph With Obstruction/Lower Urinary Tract Symptoms Htn (Hypertension) Atrial Fibrillation (Hcc) Obstructive Sleep Apnea, on CPAP Alopecia Primary Osteoarthritis of Right Knee Obesity, Class Iii, Bmi 40-49.9 (Morbid Obesity) (Hcc) Thrombocytopenia (Hcc) Varicose Veins of Bilateral Lower Extremities With Other Com plications Current Outpatient Medications Medication Sig - metoprolol tartrate, short acting, (LOPRESSOR) 50 mg table t Take 1 tablet by mouth twice daily. - finasteride (PROSCAR) 5 mg tablet TAKE 1/2 (ONE-HALF) OF A TABLET BY MOUTH DAILY - hydroCHLOROthiazide (HYDRODIURIL, ESIDRIX) 25 mg tablet Ta ke 1 tablet by mouth every morning. - warfarin (COUMADIN) 5 mg tablet TAKE 1 TABLET BY MOUTH SHARON LY or DIRECTED - triamcinolone acetonide (KENALOG) 0.5 % cream Apply 1 appl ication to affected area twice daily. For rash/itching. Apply sparingly . Avoid face/skin fold. - furosemide (LASIX) 20 mg tablet Take 1 tablet by mouth onc e daily. - lisinopril (ZESTRIL, PRINIVIL) 20 mg tablet Take 1 tablet by mouth once daily. No current facility-administered medications for this visit. Objective There were no vitals taken for this visit. Physical Exam Constitutional: Appearance: He is not ill-appearing. Pulmonary: Effort: Pulmonary effort is normal. Musculoskeletal: Right lower leg: Edema present. Left lower leg: Edema present. Comments: 3+edema, diffuse blistering, stasis pigmentation. ~2 cm ulcer of the right calf draining blood and pus. No obvious l ymphangitis or cellulitis. Neurological: Mental Status: He is alert. Assessment and Plan 1. Wound of right lower extremity, initial encounter - ICD9: 894.0, ICD10: S81.801A (primary diagnosis) - Wound care instructions given. - CEPHALEXIN 500 MG CAPSULE 2. Bilateral lower extremity edema - ICD9: 782.3, ICD10: R60 .0 - METOLAZONE 5 MG TABLET. Daily x 7 days. Discussed medicati on dosage, usage, goals of therapy, and side effects. 3. Varicose veins of bilateral lower extremities with other complications - ICD9: 454.8, ICD10: I83.893 Dose increased. - FUROSEMIDE 40 MG TABLET 4. Atrial fibrillation, unspecified type (HCC) - ICD9: 427.3 1, ICD10: I48.91 Do INR in one week. 5. Essential hypertension - ICD9: 401.9, ICD10: I10 - Discontinue HCTZ Virtual follow up if not better next week. Matthew Rocha MD PROGRESS HNO ID: [id number] Normal 02-04-2020 [facility] Author: Matthew Rocha [place] ([id number]) Service: ? Author Type: Physician Type: Progress Notes Filed: 02/04/2020 1:04 PM Note Text: I agree. PROGRESS HNO ID: [id number] Normal 02-04-2020 [facility] Author: Elsie Huber RN [place] ([id number]) Service: ? Author Type: ? Type: Progress Notes Filed: 02/04/2020 9:27 AM Note Text: patient had inr completed at [facility] patients inr is 2.7 (patients inr range is 2.0-3.0) patient is currently taking 5mg daily patients last dose change was on 03/13/18 due to a high level of 3.2 (dose at that time was 7.5mg Sun and 5mg all other days) patient has had no changes in medication and no missed doses and no change in diet Advised patient to continue on the same dose(s) and that the y would only be contacted regarding dosage and follow up instructions aft er review with provider, if a change is needed. Written instructions given and patient verbalized understanding. Presently scheduled in 1 month (pt will call to schedule) for follow up INR. obsolete on 2019-12 OBSOLETE Refill (INTMWS) Normal 01-18-2020 [facility] JUSTIN ZAZUETA ([id number]) 1950 [facility] Date Time Provider Department ([id number]) 01/18/20 MATTHEW ROCHA INTMWS During your visit today, we recorded the following informati on about you: Cely San 01/18/2020 10:53 AM Signed Patient has been identified by name and date of : Yes Last office visit in this department: 11/06/2019 RX INSTRUCTIONS: Patient aware RX will be sent to pharmacy. No need to notify patient. Patient phones requesting refills as follows: Pending Prescriptions Disp Refills METOPROLOL TARTRATE 50 MG TABLET 180 tablet 3 Sig: Take 1 tablet by mouth twice daily. ROGER: No Please review and advise. Cely San Allergies As of Date: 01/18/2020 (No Known Allergies) Date Reviewed: 11/06/2019 Reviewed by: Itzel Moser Cma - Fully Assessed Reason for Visit: Refill Request [94] Visit Diagnoses:Atrial fibrillation, unspecified type (HCC) [I48.91] Essential hypertension [I10] Order(s):metoprolol tartrate, short acting, (LOPRESSOR) 50 m g tabletTake 1 tablet by mouth twice daily.Disp: 180 tabletRfl: 0 Prescriptions as of 01/18/2020 Sig: METOPROLOL TARTRATE 50 MG TAB* Take 1 tablet by mouth twice * FINASTERIDE 5 MG TABLET TAKE 1/2 (ONE-HALF) OF A TABL* HYDROCHLOROTHIAZIDE 25 MG TAB* Take 1 tablet by mouth every * WARFARIN 5 MG TABLET TAKE 1 TABLET BY MOUTH DAILY * TRIAMCINOLONE ACETONIDE 0.5 %* Apply 1 application to affect * FUROSEMIDE 20 MG TABLET Take 1 tablet by mouth once d* LISINOPRIL 20 MG TABLET Take 1 tablet by mouth once d* Problem List As Of Date 01/18/2020 Noted Resolved Abnormal liver function test [R94.5] 12/25/2004 11/03/2010 More... 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 Obstructive Sleep Apnea, on CPAP [G47.33] 09/01/2009 More... Erectile dysfunction [N52.9] 05/03/2010 12/10/2014 Alopecia [L65.9] 05/03/2010 Primary osteoarthritis of right knee [M17.11] 09/29/2015 Obesity, Class III, BMI 40-49.9 (morbid obesity*03/10/2018 Thrombocytopenia (HCC) [D69.6] 01/08/2019 Varicose veins of bilateral lower extremities w*01/08/2019 Prescriptions ordered this encounter Disp Refills Start End METOPROLOL TARTRATE 50 MG TABLET 180 * 0 01/18/2020 Route: ORAL Sig: Take 1 tablet by mouth twice daily. Medications Discontinued During This Encounter metoprolol tartrate, short acting, (* 180 * 3 12/18/201801/17 Route: ORAL Sig: Take 1 tablet by mouth twice daily. Disc: Reason for discontinue is not on file. Encounter Status:Closed by PIPER SEARS CNP on 01/18/20 obsolete on 2019-11 OBSOLETE Refill (INTMWS) Normal 12-22-2019 [facility] JUSTIN ZAZUETA ([id number]) 1950 [facility] Time Provider Department ([id number]) 12/22/19 PIPER SEARS (JULIANA) INTMWS During your visit today, we recorded the following informati on about you: Chelo Thompson 12/22/2019 11:25 AM Signed Patient has been identified by name and date of : Yes Pending Prescriptions Disp Refills FINASTERIDE 5 MG TABLET 45 tablet 3 Sig: TAKE 1/2 (ONE-HALF) OF A TABLET BY MOUTH DAILY ROGER: No FUROSEMIDE 20 MG TABLET 90 tablet 3 Sig: Take 1 tablet by mouth once daily. ROGER: No HYDROCHLOROTHIAZIDE 25 MG TABLET 90 tablet 3 Sig: Take 1 tablet by mouth every morning. ROGER: No RX INSTRUCTIONS: Patient is out of the [facility] de - Patient thought pharmacy requested refills on his behalf last week Patient aware RX will be sent to pharmacy. No need to notify patient. Chelo Lemon LPN 12/22/2019 2:22 PM Signed Patient has been identified by name and date of : Yes Patient phones for refill(s): Pending Prescriptions Disp Refills FINASTERIDE 5 MG TABLET 45 tablet 3 Sig: TAKE 1/2 (ONE-HALF) OF A TABLET BY MOUTH DAILY ROGER: No HYDROCHLOROTHIAZIDE 25 MG TABLET 90 tablet 3 Sig: Take 1 tablet by mouth every morning. ROGER: No Date of last office visit in primary care: 11/06/2019 Patient has been identified by name and date of : Yes Patient phones for refill(s): Pending Prescriptions Disp Refills FINASTERIDE 5 MG TABLET 45 tablet 0 Sig: TAKE 1/2 (ONE-HALF) OF A TABLET BY MOUTH DAILY ROGER: No HYDROCHLOROTHIAZIDE 25 MG TABLET 90 tablet 0 Sig: Take 1 tablet by mouth every morning. ROGER: No Date of last office visit in primary care: 11/06/2019 Pharmacy Note added: Patient needs to schedule appt w/PCP Kate Lemon LPN Allergies As of Date: 12/22/2019 (No Known Allergies) Date Reviewed: 11/06/2019 Reviewed by: Itzel Moser Neon Tube Bender - Fully Assessed Reason for Visit: Refill Request [94] Visit Diagnosis:Essential hypertension [I10] Order(s):finasteride (PROSCAR) 5 mg tabletTAKE 1/2 (ON E-HALF) OF A TABLET BY MOUTH DAILYDisp: 45 tabletRfl: 1 hydroCHLOROthiazide (HYDRODIURIL, ESIDRIX) 25 mg tabletTake 1 tablet by mouth every morning.Disp: 90 tabletRfl: 1 Prescriptions as of 12/22/2019 Sig: FINASTERIDE 5 MG TABLET TAKE 1/2 (ONE-HALF) OF A TABL* HYDROCHLOROTHIAZIDE 25 MG TAB* Take 1 tablet by mouth every * WARFARIN 5 MG TABLET TAKE 1 TABLET BY MOUTH DAILY * TRIAMCINOLONE ACETONIDE 0.5 %* Apply 1 application to affect * FUROSEMIDE 20 MG TABLET Take 1 tablet by mouth once d* LISINOPRIL 20 MG TABLET Take 1 tablet by mouth once d* METOPROLOL TARTRATE 50 MG TAB* Take 1 tablet by mouth twice * Problem List As Of Date 12/22/2019 Noted Resolved Abnormal liver function test [R94.5] 12/25/2004 11/03/2010 More... 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 Obstructive Sleep Apnea, on CPAP [G47.33] 09/01/2009 More... Erectile dysfunction [N52.9] 05/03/2010 12/10/2014 Alopecia [L65.9] 05/03/2010 Primary osteoarthritis of right knee [M17.11] 09/29/2015 Obesity, Class III, BMI 40-49.9 (morbid obesity*03/10/2018 Thrombocytopenia (HCC) [D69.6] 01/08/2019 Varicose veins of bilateral lower extremities w*01/08/2019 Prescriptions ordered this encounter Disp Refills Start End FINASTERIDE 5 MG TABLET 45 t* 1 12/23/2019 Cmt: Patient needs to schedule appt w/PCP Sig: TAKE 1/2 (ONE-HALF) OF A TABLET BY MOUTH DAILY HYDROCHLOROTHIAZIDE 25 MG TABLET 90 t* 1 12/23/2019 Cmt: Patient needs to schedule appt w/PCP Route: ORAL Sig: Take 1 tablet by mouth every morning. Medications Discontinued During This Encounter finasteride (PROSCAR) 5 mg tablet 45 t* 3 12/18/2018 0 Sig: TAKE 1/2 (ONE-HALF) OF A TABLET BY MOUTH DAILY Disc: Reason for discontinue is not on file. hydroCHLOROthiazide (HYDRODIURIL, ES* 90 t* 3 12/18/201812/23 Route: ORAL Sig: Take 1 tablet by mouth every morning. Disc: Reason for discontinue is not on file. Encounter Status:Closed by MATTHEW ROCHA MD on 12/23/19 progress on 2019-11 PROGRESS HNO ID: [id number] Normal 12-18-2019 [facility] Author: Matthew Rocha [place] ([id number]) Service: ? Author Type: Physician Type: Progress Notes Filed: 12/18/2019 6:15 PM Note Text: Ok. PROGRESS HNO ID: [id number] Normal 12-18-2019 [facility] Author: Elsie Huber RN [place] ([id number]) Service: ? Author Type: ? Type: Progress Notes Filed: 12/18/2019 11:18 AM Note Text: patient had inr completed at [facility] patients inr is 2.6 (patients inr range is 2.0-3.0) patient is currently taking 5mg daily patients last dose change was on 03/14/18 due to a high level of 3.2 (dose at that time was 7.5mg Sun and 5mg all other days) patient has had no changes in medication and no missed doses and no change in diet Advised patient to continue on the same dose(s) and that the y would only be contacted regarding dosage and follow up instructions aft er review with provider, if a change is needed. Written instructions given and patient verbalized understanding. Presently scheduled in 4 weeks (pt will call to schedule) for follow up INR. obsolete on 2019-10 OBSOLETE Refill (LAB) Normal 11-14-2019 [facility] JUSTIN ZAZUETA ([id number]) 1950 [facility] Date Time Provider Department ([id number]) 11/14/19 MATTHEW ROCHA LAB During your visit today, we recorded the following informati on about you: Graciela Galeana 11/14/2019 9:56 AM Signed Patient has been identified by name and date of : Yes Last office visit in this department: Visit date not found RX INSTRUCTIONS: Patient aware RX will be sent to pharmacy. No need to notify patient. Patient phones requesting refills as follows: Pending Prescriptions Disp Refills WARFARIN 5 MG TABLET 90 tablet 1 Sig: TAKE 1 TABLET BY MOUTH DAILY or DIRECTED ROGER: No Please review and advise. Graciela Lemon LPN 11/16/2019 10:18 AM Signed Patient has been identified by name and date of : Yes Patient phones for refill(s): Pending Prescriptions Disp Refills WARFARIN 5 MG TABLET 90 tablet 1 Sig: TAKE 1 TABLET BY MOUTH DAILY or DIRECTED ROGER: No Date of last office visit in primary care: 11/06/2019 6 month follow-up scheduled: 01/14/2020 Kate Lemon LORENA Allergies As of Date: 11/14/2019 (No Known Allergies) Date Reviewed: 11/06/2019 Reviewed by: Itzel Moser Cma - Fully Assessed Reason for Visit: Refill Request [94] Visit Diagnosis:Atrial fibrillation, unspecified type (HCC) [I48.91] Order(s):warfarin (COUMADIN) 5 mg tabletTAKE 1 TABLET BY JOSETTE TH DAILY or DIRECTEDDisp: 90 tabletRfl: 1 Prescriptions as of 11/14/2019 Sig: WARFARIN 5 MG TABLET TAKE 1 TABLET BY MOUTH DAILY * TRIAMCINOLONE ACETONIDE 0.5 %* Apply 1 application to affect * FUROSEMIDE 20 MG TABLET Take 1 tablet by mouth once d* FINASTERIDE 5 MG TABLET TAKE 1/2 (ONE-HALF) OF A TABL* HYDROCHLOROTHIAZIDE 25 MG TAB* Take 1 tablet by mouth every * LISINOPRIL 20 MG TABLET Take 1 tablet by mouth once d* METOPROLOL TARTRATE 50 MG TAB* Take 1 tablet by mouth twice * Problem List As Of Date 11/14/2019 Noted Resolved Abnormal liver function test [R94.5] 12/25/2004 11/03/2010 More... 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 Obstructive Sleep Apnea, on CPAP [G47.33] 09/01/2009 More... Erectile dysfunction [N52.9] 05/03/2010 12/10/2014 Alopecia [L65.9] 05/03/2010 Primary osteoarthritis of right knee [M17.11] 09/29/2015 Obesity, Class III, BMI 40-49.9 (morbid obesity*03/10/2018 Thrombocytopenia (HCC) [D69.6] 01/08/2019 Varicose veins of bilateral lower extremities w*01/08/2019 Prescriptions ordered this encounter Disp Refills Start End WARFARIN 5 MG TABLET 90 t* 1 11/16/2019 Sig: TAKE 1 TABLET BY MOUTH DAILY or DIRECTED Medications Discontinued During This Encounter warfarin (COUMADIN) 5 mg tablet 90 t* 1 05/14/2019 11/16/2019 Sig: TAKE 1 TABLET BY MOUTH DAILY or DIRECTED Disc: Reason for discontinue is not on file. Encounter Status:Closed by PIPER SEARS CNP on 11/16/19 tsh on 2019-11-06 TSH Qn 2.610 0.270-4.200 uU/mL Normal 11-06-2019 [facility] ([id number]) Comment: Performed By: #### CBC, CMP, TSH ####[facility] [id number] [place] [address] [phone] progress on 2019-10 PROGRESS HNO ID: [id number] Normal 11-06-2019 [facility] Author: Piper Harman) [facility] ([id number]) Service: ? Author Type: Nurse Practitioner Type: Progress Notes Filed: 11/06/2019 10:50 AM Note Text: Addressed during office visit today, see notes Piper Sears APRN.CNP PROGRESS HNO ID: [id number] Normal 11-06-2019 [facility] Author: Elsie Huber [facility] ([id number]) Service: ? Author Type: ? Type: Progress Notes Filed: 11/06/2019 10:31 AM Note Text: patient had inr completed at [facility] patients inr is 3.6 (patients inr range is 2.0-3.0) patient is currently taking 5mg daily patients last dose change was on 03/13/18 due to a high level of 3.2 (dose at that time was 7.5mg Sun and 5mg all other days) patient has had no changes in medication and no missed doses and no change in diet patient has appt with CARLTON Sears and has been instructed to di scuss results at that time PROGRESS HNO ID: [id number] Normal 11-06-2019 [facility] Author: Piper Harman) [facility] ([id number]) Service: ? Author Type: Nurse Practitioner Type: Progress Notes Filed: 11/06/2019 11:08 AM Note Text: CC: Follow-up on leg swelling and new onset rash HPI Justin Zazueta is a 68 year old male who presents today for abo ve. Chronic bilateral lower extremity edema: He was evaluated on 09/18 for progressively worsening edema x 2 weeks. He was also having leg pain at that time. Ultrasound was negative for DVT. Lab work-up was also completed, BNP was elevated, mild leukocytosis, and mildly e levated LFT. He was treated with Lasix and repeat BMP showed stable kidne y function. Patient still taking Lasix 20 mg daily which has helped with edema but still not back to baseline. However leg pain has completely resolved. 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 Continues to deny SOB, palpitations, chest pain, weight gain, PND, orthopnea. Wears his CPAP nightly and denies snoring, mask leaks, un-refreshed sleep a nd excessive daytime drowsiness. Rash on thighs x 1 week: slightly itchy, not getting worse. Denies new lotions, soaps, detergents, medications. Has not treated wit h anything. REVIEW OF SYSTEMS General: no fevers, no chills, no night sweats and no change in energy PAST MEDICAL HISTORY Diagnosis Date - Abnormal liver function test 12/25/2004 Pt reportedly had this since age 24: no measure in the syste m to verify ALT 61 (30-65) in 08-05 HCV quantitative was undetectable in 08-05 HBsAb, HBsAg, Hep A negative in 08-05 NL iron and ferritin levels i n 08-05 HCV negative in 08-05 - Alopecia 05/03/2010 - Atrial fibrillation (HCC) 07/25/2009 Started Coumadin and Metoprolol in 07-06 - Diverticulosis of colon (without mention of hemorrhage) - Erectile dysfunction 05/03/2010 - HTN (hypertension) 07/25/2009 Office BP was 150/98 in 08-05: Lisinopril to 20 mg bid - Hypertrophy of prostate with urinary obstruction and other lower urinary tract symptoms (LUTS) 07/14/2007 - Obstructive sleep apnea 09/01/[address] Ramos. - Primary osteoarthritis of right knee 09/29/2015 - Unspecified viral hepatitis C without hepatic coma PAST SURGICAL HISTORY Procedure Laterality Date - COLONOSCOP W/ OR W/O [facility] SPEC April 2001 normal - COLONOSCOP W/ OR W/O [facility] SPEC 02/25/2012 Colonoscopy - PAST SURGICAL HISTORY OF sinus x2 ALLERGIES Patient has no known allergies. MEDICATIONS furosemide (LASIX) 20 mg tablet Take 1 tablet by mouth once daily. warfarin (COUMADIN) 5 mg tablet TAKE 1 TABLET BY MOUTH DAILY or DIRECTED finasteride (PROSCAR) 5 mg tablet TAKE 1/2 (ONE-HALF) OF A T ABLET BY MOUTH DAILY hydroCHLOROthiazide (HYDRODIURIL, ESIDRIX) 25 mg tablet Take 1 tablet by mouth every morning. lisinopril (ZESTRIL, PRINIVIL) 20 mg tablet Take 1 tablet by mouth once daily. metoprolol tartrate, short acting, (LOPRESSOR) 50 mg tablet Take 1 tablet by mouth twice daily. FAMILY HISTORY Problem Relation Age of Onset - Alzheimer's Disease Mother 85 - Prostate Cancer Father 78 - Diabetes Father - None Sister Social History Tobacco Use - Smoking status: Former Smoker Packs/day: 2.00 Years: 8.00 Pack years: 16.00 Types: Cigarettes Last attempt to quit: 10/28/1975 Years since quittin.0 - Smokeless tobacco: Never Used Substance Use Topics - Alcohol use: No - Drug use: No Comment: none since 20s PHYSICAL EXAM BP 130/88 Pulse 63 Resp 16 Wt (!) 155.1 kg (342 lb) SpO2 95% BMI 45.72 kg/m? General Appearance: well appearing, in no acute distress, al ert, morbidly obese Neck: Thyroid normal size and symmetric without palpable nod ules, Neck supple Lungs: lungs clear to auscultation. No wheezing, rhonchi, ra les Heart: RRR without murmur, gallop, or rubs. No ectopy Abdomen: Abdomen soft, non-tender, obese. Bowel sounds cecy l. No masses, organomegaly but difficult exam due to body habitus Extremities: 2-3+ edema BLE from mid thigh down including fe et. Dark brown venous stasis changes BLE. Good capillary refill. Puls es: 2+. No cords. No calf tenderness. Panfilo's sign negative. ASSESSMENT/PLAN: 1. Bilateral lower extremity edema - ICD9: 782.3, ICD10: R60 .0 (primary diagnosis) Most likely due to venous insufficiency. US for enous incomp etency 02/05/19 positive for valvular incompetency bilaterally. Vascular rec ommended trial of compression stockings but patient did not follow through with this. Recent ultrasound negative for blood clots Will repeat labs and check TSH: - COMP METABOLIC PANEL - TSH BLD - CBC COMPRESSION STOCKINGS 20-30 mmHg, given prescription No symptoms or exam findings concerning for HF and/or pulmon yehuda hypertension however if lab work-up negative recommend echoc ardiogram 2. Venous insufficiency of both lower extremities - ICD9: 45 9.81, ICD10: I87.2 As above - COMPRESSION STOCKINGS 3. Rash - ICD9: 782.1, ICD10: R21 Dermatitis of unknown etiology - Topical steriod tx with Rx for steriod cream/ointment- see orders - discussed skin care of rash - follow up if symptoms persist or worsen. 4. Chronic anticoagulation INR today 3.6, current Coumadin dosing is 5 mg daily. Patien t instructed to take only 2.5 mg today and repeat INR in 2 weeks. Offered to schedule, patient states he will take care of this Prescription instructions reviewed with patient as applicabl e. Potential red flag symptoms discussed with the patient. Reviewed appro priate action plan to take if red flag symptoms occur. Patient agreeable t o treatment plan. Piper Sears APRN.CUSTOMER SUCCESS MANAGER comp metabolic panel on 2019-11-06 Albumin [Mass/Vol] 3.9 3.9-4.9 g/dL Normal 11-06-2019 [facility] ([id number]) Comment: Performed By: #### CBC, CMP, TSH ####[place] [id number] [place] [address] ALP [Catalytic activity/Vol] 100 38-113 U/L Normal 0 11-06-2019 [facility] ([id number]) Comment: Performed By: #### CBC, CMP, TSH ####[facility] [address] [place] [address] [phone] ALT [Catalytic activity/Vol] 16 10-54 U/L Normal 0 11-06-2019 [facility] ([id number]) Comment: Performed By: #### CBC, CMP, TSH ####[facility] [id number] [place] [address] [phone] Anion gap [Moles/Vol] 15 9-18 mmol/L Normal 11-06-19 [facility] ([id number]) Comment: Performed By: #### CBC, CMP, TSH ####[facility] [address] [place] [address] [phone] AST [Catalytic activity/Vol] 60 14-40 U/L High 0 11-06-2019 [facility] ([id number]) Comment: Performed By: #### CBC, CMP, TSH ####[place] [address] [place] [address] [phone] Bilirubin [Mass/Vol] 1.7 0.2-1.3 mg/dL High 0 [facility] (45775) Comment: Performed By: #### CBC, CMP, TSH ####[place] [address] [place] [address] [phone] Calcium [Mass/Vol] 9.2 8.5-10.2 mg/dL Normal 11-06-2019 [facility] (08322) Comment: Performed By: #### CBC, CMP, TSH ####[place] [address] [phone] Chloride [Moles/Vol] 100 97-105 mmol/L Normal 0 [facility] (62444) Comment: Performed By: #### CBC, CMP, TSH ####[place] [address] [place] [address] [phone] CO2 [Moles/Vol] 25 22-30 mmol/L Normal 11-06-2019 [facility] (58430) Comment: Performed By: #### CBC, CMP, TSH ####[place] [address] [place] [address] [phone] Creatinine [Mass/Vol] 1.01 0.73-1.22 mg/dL Normal 11-06-19 20 [facility] ([id number]) Comment: Performed By: #### CBC, CMP, TSH ####[place] [address] [place] [address] [phone] eGFR- Amer. >60 Normal 11-06-2019 [facility] (92134) Comment: Performed By: #### CBC, CMP, TSH ####[facility] [place] [address] [phone] GFR/1.73 sq M predicted >60 mL/min/{1.73_m2} Normal 11-06-2019 [facility] among non-blacks MDRD [place] ([id number]) (S/P/Bld) [Vol rate/Area] Comment: Result Comment: eGFR (Estima ino GFR) Units of measure: mL/min/1.73 meters squared eGFR is derived from the ree xpressed MDRD Study equation using the following parameters: serum creatinine, age, gender and race. The creatinine assay has been calibrated to be traceable to IDMS. An eGFR <60 mL/min/1.73m2 fo r >3 months is consistent with chronic kidney disease. Refer to KDOQI guidelines for clinical interpretation. In patients with unstable re nal function, e.g. those with acute kidney injury, the eGFR may not accurately reflect actual GFR. Performed By: #### CBC, CMP, TSH ####[facility] [place] [address] [phone] Glucose [Mass/Vol] 88 74-99 mg/dL Normal 11-06-2019 [facility] ([id number]) Comment: Result Comment: The [place] Diabetes Association (ADA) provides guidance for cutoff values for fasting glucose and random glucose. The ADA defines fasting as no caloric intake for at least 8 hours. Fas ting plasma glucose results between 100 to 125 mg/dL indicate increased risk for diabetes (prediabetes). Fasting plasma glucose resul ts greater than or equal to 126 mg/dL meet the criteria for diagnosis of diabetes. In the absence of unequivocal hyperglycemia, results should be confirmed by repeat testing. In a patient with classic s ymptoms of hyperglycemia or hyperglycemic crisis, random plasma glucose results greater than or equal to 200 mg/dL meet the criteria for diagnosis of diabetes. Reference: Standards of [facility] Care in Diabetes 2016, [place] Diabetes Association. Diabetes Care. 2016.39(Suppl 1). Performed By: #### CBC, CMP, TSH ####[facility] [address] [place] [address] [phone] Potassium [Moles/Vol] 3.9 3.7-5.1 mmol/L Normal 11-06-19 20 [facility] (75987) Comment: Performed By: #### CBC, CMP, TSH ####[place] [id number] [place] [address] [phone] Protein [Mass/Vol] 6.9 6.3-8.0 g/dL Normal 11-06-2019 [facility] (03052) Comment: Performed By: #### CBC, CMP, TSH ####[place] [id number] [place] [address] [phone] Sodium [Moles/Vol] 140 136-144 mmol/L Normal 11-06-2019 [facility] (00538) Comment: Performed By: #### CBC, CMP, TSH ####[facility] [place] [address] [phone] Urea nitrogen [Mass/Vol] 24 9-24 mg/dL Normal 11-06 [facility] (71399) Comment: Performed By: #### CBC, CMP, TSH ####[place] [address] [phone] cnov on 2019-11-06 CNOV Office Visit (INTMWS) Normal 11-06-19 [facility] JUSTIN ZAZUETA ([id number]) 1950 [facility] Date Time Provider Department () 11/06/19 9:00 AM PIPER SEARS (JULIANA) INTMWS During your visit today, we recorded the following informati on about you: Pulse Respiration Blood pressure Weight 63/minute 16/minute 130/88 155.1 kg Piper Sears APRN.CNP 11/06/2019 11:08 AM Addendum CC: Follow-up on leg swelling and new onset rash HPI Justin Zazueta is a 68 year old male who presents today for abo ve. Chronic bilateral lower extremity edema: He was evaluated on 09/18 for progressively worsening edema x 2 weeks. He was also h aving leg pain at that time. Ultrasound was negative for DVT. L ab work-up was also completed, BNP was elevated, mild leukocytosis, and mildly elevated LFT. He was treated with Lasix and repeat BMP showed stable kidney func tion. Patient still taking Lasix 20 mg daily which has helped with edema but still not back to baseline. However leg pain has completely resolved. 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 Continues to deny SOB, palpitations, chest pain, weight ga in, PND, orthopnea. Wears his CPAP nightly and denies snoring, mask leaks, un- refreshed sleep and excessive daytime drowsiness. Rash on thighs x 1 week: sli ghtly itchy, not getting worse. Denies new lotions, soaps, detergents, medications. Has not treated with anythin g. REVIEW OF SYSTEMS General: no fevers, no chills, no night sweats and no change in energy PAST MEDICAL HISTORY Diagnosis Date - Abnormal liver function test 12/25/2004 Pt reportedly had this since age 24: no measure in the system to verify ALT 61 (30-65) in 08-05 HCV quantit ative was undetectable in 08-05 HBsAb, HBsAg, Hep A negative in 08-05 NL iron and ferritin levels in 08-05 HCV negative in 08-05 - Alopecia 05/03/2010 - Atrial fibrillation (HCC) 07/25/2009 Started Coumadin and Metoprolol in 07-06 - Diverticulosis of colon (without mention of hemorrhage) - Erectile dysfunction 05/03/2010 - HTN (hypertension) 07/25/2009 Office BP was 150/98 in 08-05: Lisinopril to 20 mg bid - Hypertrophy of prostate with urinary obstruction and other lower urinary tract symptoms (LUTS) 07/14/2007 - Obstructive sleep apnea 09/01/[address] Ramos. - Primary osteoarthritis of right knee 09/29/2015 - Unspecified viral hepatitis C without hepatic coma 1980s PAST SURGICAL HISTORY Procedure Laterality Date - COLONOSCOP W/ OR W/O [facility] SPEC April 2001 normal - COLONOSCOP W/ OR W/O [facility] SPEC 02/25/2012 Colonoscopy - PAST SURGICAL HISTORY OF sinus x2 ALLERGIES Patient has no known allergies. MEDICATIONS furosemide (LASIX) 20 mg tablet Take 1 tablet by mouth once daily. warfarin (COUMADIN) 5 mg tablet TAKE 1 TABLET BY MOUTH SHARON LY or DIRECTED finasteride (PROSCAR) 5 mg tablet TAKE 1/2 (ONE-HALF) OF A T ABLET BY MOUTH DAILY hydroCHLOROthiazide (HYDRODIURIL, ESIDRI X) 25 mg tablet Take 1 tablet by mouth every morning. lisinopril (ZESTRIL, PRINIVIL) 20 mg tab let Take 1 tablet by mouth once daily. metoprolol tartrate, short acting, (LOPRESSOR) 50 mg t ablet Take 1 tablet by mouth twice daily. FAMILY HISTORY Problem Relation Age of Onset - Alzheimer's Disease Mother 85 - Prostate Cancer Father 78 - Diabetes Father - None Sister Social History Tobacco Use - Smoking status: Former Smoker Packs/day: 2.00 Years: 8.00 Pack years: 16.00 Types: Cigarettes Last attempt to quit: 10/28/1975 Years since quittin.0 - Smokeless tobacco: Never Used Substance Use Topics - Alcohol use: No - Drug use: No Comment: none since 20s PHYSICAL EXAM BP 130/88 Pulse 63 Resp 16 Wt (!) 155.1 kg (342 lb) SpO2 95% BMI 45.72 kg/m? General Appearance: well sanjay earing, in no acute distress, alert, morbidly obese Neck: Thyroid normal size and symmetric without palpable nodules, Neck supple Lungs: lungs clear to auscultation. No wheezing, rhonchi, ra les Heart: RRR without murmur, gallop, or rubs. No ectopy Abdomen: Abdomen soft, non-tender, obese. Bowel sounds cecy l. No masses, organomegaly but difficult exam due to body habitus Extremities: 2-3+ edema BLE from mid thigh down including fe et. Dark brown venous stasis changes BLE. Good capillary refill. Pulses: 2+ . No cords. No calf tenderness. Panfilo's sign negative. ASSESSMENT/PLAN: 1. Bilateral lower extremity edema - ICD9: 782.3, ICD10: R60 .0 (primary diagnosis) Most likely due to venous insufficiency. US for enous incomp etency 02/05/19 positive for valvular incompetency bilaterally. Vascular recommended trial of compression stockings but patient did not follow through wit h this. Recent ultrasound negative for blood clots Will repeat labs and check TSH: - COMP METABOLIC PANEL - TSH BLD - CBC COMPRESSION STOCKINGS 20-30 mmHg, given prescription No symptoms or exam findings concerning for HF and/or pulmonary hypertension however if lab work-up negative recommend echocardiogram 2. Venous insufficiency of both lower ex tremities - ICD9: 459.81, ICD10: I87.2 As above - COMPRESSION STOCKINGS 3. Rash - ICD9: 782.1, ICD10: R21 Dermatitis of unknown etiology - Topical steriod tx with Rx for steriod cream/ointment- see orders - discussed skin care of rash - follow up if symptoms persist or worsen. 4. Chronic anticoagulation INR today 3.6, current Coumadin dosing is 5 mg daily. Nany ent instructed to take only 2.5 mg today and repeat INR in 2 weeks. Offered to schedule, patient states he will take care of this Prescription instructions reviewed with patient as sanjay licable. Potential red flag symptoms discussed with the patient. Review ed appropriate action plan to take if red flag symptoms occur. Patient agreeable to treatm ent plan. RAÚL Arciniega APRN.CNP 11/06/2019 9:31 AM Signed CAUSES OF LEG SWELLING HOW TO REDUCE LEG SWELLING Sitting with your legs hanging down Elevate your toes above your nose! Sit in a recliner with your legs up. Avoid sitting for long periods of time Standing for long periods of time Wear c ompression stockings. Apply them first things in the morning and remove them at bedtime. Avoid demond ding for long periods of time Eating foods high in salt Avoid canned foods, look for low sodium or no salt added foods Medical conditions that cause you to retain fluid: Con gestive heart failure, Venous Stasis Take medications as ordered. Take diuretics (water pills) early in the day Sleeping in a chair with you legs hangin g down Place a pillow or several phone books between the mattress and box sprin g of your bed. Sleep in a hospital bed or electric adjustable bed Referring Provider: SELF [[id number]] Allergies As of Date: 11/06/2019 (No Known Allergies) Date Reviewed: 11/06/2019 Reviewed by: Itzel N Nenadal Neon Tube Bender - Fully Assessed Primary Visit Diagnosis:Bilateral lower extremity edema [R60 .0] Other Visit Diagnoses:Venous insufficiency of both low er extremities [I87.2] Rash [R21] Chronic anticoagulation [Z79.01] Order(s):triamcinolone acetonide (KENALOG) 0.5 % cream Apply 1 application to affected area twice daily. For rash/itching. Apply sparingly . Avoid face/skin fold.Disp: 30 gRfl: 0 COMP METABOLIC PANEL [SQCMP] Order #: [id number] FUTURE TSH BLD [SQTSH] Order #: [id number] FUTURE CBC [SQCBC] Order #: [id number] FUTURE COMPRESSION STOCKINGS [4415575] Order #: [id number] Prescriptions as of 11/06/2019 Sig: FUROSEMIDE 20 MG TABLET Take 1 tablet by mouth once d* WARFARIN 5 MG TABLET TAKE 1 TABLET BY MOUTH DAILY * FINASTERIDE 5 MG TABLET TAKE 1/2 (ONE-HALF) OF A TABL* HYDROCHLOROTHIAZIDE 25 MG TAB* Take 1 tablet by mouth every * LISINOPRIL 20 MG TABLET Take 1 tablet by mouth once d* METOPROLOL TARTRATE 50 MG TAB* Take 1 tablet by mouth twice * TRIAMCINOLONE ACETONIDE 0.5 %* Apply 1 application to affect * Problem List As Of Date 11/06/2019 Noted Resolved Abnormal liver function test [R94.5] 12/25/2004 11/03/2010 More... 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 Obstructive Sleep Apnea, on CPAP [G47.33] 09/01/2009 More... Erectile dysfunction [N52.9] 05/03/2010 12/10/2014 Alopecia [L65.9] 05/03/2010 Primary osteoarthritis of right knee [M17.11] 09/29/2015 Obesity, Class III, BMI 40-49.9 (morbid obesity*03/10/2018 Thrombocytopenia (HCC) [D69.6] 01/08/2019 Varicose veins of bilateral lower extremities w*01/08/2019 Other instructions from your clinician: CAUSES OF LEG SWELLING HOW TO REDUCE LEG SWELLING Sitting with your legs hanging down Elevate your toes above your nose! Sit in a recliner with your legs up. Avoid sitting for long periods of time Standing for long periods of time Wear compression stockings . Apply them first things in the morning and remove them at bedtime. Avoi d standing for long periods of time Eating foods high in salt Avoid canned foods, look for low s odium or no salt added foods Medical conditions that cause you to retain fluid: Congestiv e heart failure, Venous Stasis Take medications as ordered. Take diu retics (water pills) early in the day Sleeping in a chair with you legs hanging down Place a lida w or several phone books between the mattress and box spring of your bed. Sleep in a hospital bed or electric adjustable bed Prescriptions ordered this encounter Disp Refills Start End TRIAMCINOLONE ACETONIDE 0.5 % TOPICA* 30 g 0 11/06/2019 Route: TOPICAL Sig: Apply 1 application to affected area twice daily. For r mehrdad/itching. Apply sparingly. Avoid face/skin fold. Annotated image of MALE BODY , DORSAL/NO GENITALIA last updated by Piper Harman) [place] on 11/06/2019 10:53 AM Encounter Status:Closed by PIPER SEARS CNP on 11/06/19 cbc on 2019-11-06 Absolute nRBC <0.01 <0.01 Normal 11-06-2019 [facility] ([id number]) Comment: Performed By: #### CBC, CMP, TSH ####[facility] [address] [place] [address] Erythrocyte distribution 13.8 11.5-15.0 % Normal 11-06 [facility] width (RBC) [Ratio] [place] ([id number]) Comment: Performed By: #### CBC, CMP, TSH ####[facility] [address] [place] [address] Hematocrit (Bld) [Volume 41.7 39.0-51.0 % Normal 11-06 [facility] fraction] [place] ([id number]) Comment: Performed By: #### CBC, CMP, TSH ####[facility] [address] [place] [address] Hemoglobin (Bld) 13.8 13.0-17.0 g/dL Normal 11-06-2019 Cl [facility] [Mass/Vol] [place] (70334) Comment: Performed By: #### CBC, CMP, TSH ####[place] [address] [place] [address] [phone] MCH (RBC) [Entitic mass] 32.5 26.0-34.0 pG Normal 11-06 [facility] ([id number]) Comment: Performed By: #### CBC, CMP, TSH ####[place] [address] [place] [address] MCHC (RBC) [Mass/Vol] 33.1 30.5-36.0 g/dL Normal 11-06-19 20 [facility] (88859) Comment: Performed By: #### CBC, CMP, TSH ####[place] [address] [phone] MCV (RBC) [Entitic vol] 98.1 80.0-100.0 fL Normal 11-06 [facility] (18488) Comment: Performed By: #### CBC, CMP, TSH ####[place] [address] [phone] Platelet mean volume 11.2 9.0-12.7 fL Normal 0 [facility] (Bld) [Entitic vol] [place] (27488) Comment: Performed By: #### CBC, CMP, TSH ####[address] [place] [address] [phone] Platelets (Bld) [#/Vol] 128 150-400 k/uL Low 2019 [facility] (85635) Comment: Performed By: #### CBC, CMP, TSH ####[place] [address] [place] [address] [phone] RBC (Bld) [#/Vol] 4.25 4.20-6.00 m/uL Normal 11-06-2019 C [facility] (94081) Comment: Performed By: #### CBC, CMP, TSH ####[place] [address] [phone] WBC (Bld) [#/Vol] 12.13 3.70-11.00 k/uL High 11-06-2019 [facility] (39400) Comment: Performed By: #### CBC, CMP, TSH ####[place] [address] [phone] basic metabolic panl on 2019-10-02 Anion gap [Moles/Vol] 13 9-18 mmol/L Normal 10-02-20 [facility] (96795) Comment: Performed By: #### BMP ####C [address] [phone] Calcium [Mass/Vol] 9.1 8.5-10.2 mg/dL Normal 10-02-2019 [facility] (20091) Comment: Performed By: #### BMP ####C [address] [phone] Chloride [Moles/Vol] 102 97-105 mmol/L Normal 9 [facility] (04960) Comment: Performed By: #### BMP ####C [address] [phone] CO2 [Moles/Vol] 27 22-30 mmol/L Normal 10-02-2019 [facility] (29650) Comment: Performed By: #### BMP ####C [address] [phone] Creatinine [Mass/Vol] 1.07 0.73-1.22 mg/dL Normal 10-02-20 19 [facility] (56972) Comment: Performed By: #### BMP ####C [address] [phone] eGFR- Amer. >60 Normal 10-02-2019 [facility] (59955) Comment: Performed By: #### BMP ####C [facility] [place], [place] [phone] GFR/1.73 sq M predicted >60 mL/min/{1.73_m2} Normal 10-02-2019 [facility] among non-blacks MDRD [place] ([id number]) (S/P/Bld) [Vol rate/Area] Comment: Result Comment: eGFR (Estima ino GFR) Units of measure: mL/min/1.73 meters squared eGFR is derived from the ree xpressed MDRD Study equation using the following parameters: serum creatinine, age, gender and race. The creatinine assay has been calibrated to be traceable to IDMS. An eGFR <60 mL/min/1.73m2 fo r >3 months is consistent with chronic kidney disease. Refer to KDOQI guidelines for clinical interpretation. In patients with unstable re nal function, e.g. those with acute kidney injury, the eGFR may not accurately reflect actual GFR. Performed By: #### BMP ####C [facility] [place], [place] [phone] Glucose [Mass/Vol] 125 74-99 mg/dL High 10-02-2019 [facility] (64731) Comment: Result Comment: The [place] Diabetes Association (ADA) provides guidance for cutoff values for fasting glucose and random glucose. The ADA defines fasting as no caloric intake for at least 8 hours. Fas ting plasma glucose results between 100 to 125 mg/dL indicate increased risk for diabetes (prediabetes). Fasting plasma glucose resul ts greater than or equal to 126 mg/dL meet the criteria for diagnosis of diabetes. In the absence of unequivocal hyperglycemia, results should be confirmed by repeat testing. In a patient with classic s ymptoms of hyperglycemia or hyperglycemic crisis, random plasma glucose results greater than or equal to 200 mg/dL meet the criteria for diagnosis of diabetes. Reference: Standards of [facility] Care in Diabetes 2016, [place] Diabetes Association. Diabetes Care. 2016.39(Suppl 1). Performed By: #### BMP ####C [facility] [place], [place] [phone] Potassium [Moles/Vol] 3.7 3.7-5.1 mmol/L Normal 10-02-20 [facility] (46327) Comment: Performed By: #### BMP ####C [address] [phone] Sodium [Moles/Vol] 142 136-144 mmol/L Normal 10-02-2019 [facility] (19532) Comment: Performed By: #### BMP ####C [address] [phone] Urea nitrogen [Mass/Vol] 21 9-24 mg/dL Normal 10-02 [facility] (57662) Comment: Performed By: #### BMP ####C [address] [phone] jose m cbc on 2018 Erythrocyte distribution 14.2 11.5-15.0 % Normal 09-18 [facility] width (RBC) [Ratio] [place] (66073) Hematocrit (Bld) [Volume 40.0 39.0-51.0 % Normal 09-18 [facility] fraction] [facility] (43342) Hemoglobin (Bld) 13.6 13.0-17.0 g/dL Normal 09-18-2019 [facility] [Mass/Vol] [place] (80031) MCH (RBC) [Entitic mass] 33.1 26.0-34.0 pg Normal 09-18 [facility] (38932) MCHC (RBC) [Mass/Vol] 34.0 30.5-36.0 g/dL Normal 09-18-20 [facility] (49606) MCV (RBC) [Entitic vol] 97.3 80.0-100.0 fL Normal 09-18 [facility] (15860) Platelet mean volume 10.3 9.0-12.7 fL Normal 9 [facility] (Bld) [Entitic vol] [place] (50656) Comment: Result Comment: Test perform ed by: [facility] [place], [address] [place], [place] [address]. RBC (Bld) [#/Vol] 4.11 4.20-6.00 m/uL Low 09-18-2019 C [facility] (13098) WBC (Bld) [#/Vol] 11.59 3.70-11.00 k/uL High 09-18-2019 [facility] ([id number]) [place] Platelet Cnt 125 150-400 k/uL Low 9 [facility] (74447) protime on PT Coag (PPP) Test sent to [place] Normal 09-18 [facility] [Time] [facility]. [place] ([id number]) Comment: Result Comment: Account Cred ited HIDE progress on 2019-08 PROGRESS HNO ID: [id number] Normal 09-18-2019 [facility] Author: Piper (Juliana) [facility] ([id number]) Service: ? Author Type: Nurse Practitioner Type: Progress Notes Filed: 09/18/2019 3:08 PM Note Text: This Team Access Model visit is a walk in encounter. It requ ired patient-provider interaction for the medical decision making as documented below. CC: Patient presents with: URI left leg swelling and pain HPI: Justin Zazueta is a 68 year old male who presents to the office with above. Sinus symptoms x 2 weeks, not much improvement. Associated symptoms includes sore throat, nasal congestion, facial pain/pressure, hoarse voice, post nasal drip and thick/green nasal drainage and bloody nose a couple times. Denies fever, ear pain and cough. Treatments tried include nothing so far. Chronic lower extremity edema, much worse for the past 2 wee ks. Usually only the lower leg but now both feet and entire right lower extremity is swollen. History of varicose veins, underwent ultrasound randy ded sclerotherapy in February. He is on Coumadin for Afib, last INR 11/04 was 2.1. 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 Denies chest pain, SOB, palpitations, weight gain, P ND, orthopnea. REVIEW OF SYSTEMS See HPI The patient's pmh, medications, allergies, and past visits a re reviewed. PHYSICAL EXAM: BP 120/80 Pulse 68 Resp 14 Wt (!) 156.5 kg (345 lb) SpO2 94% BMI 46.12 kg/m? General appearance: healthy, alert, cooperative, pleasant, i n no acute distress, obese Head: Normocephalic Eyes: conjunctiva pink and moist, no icterus, sclera white, non-injected Ears: Right ear: External ear/canal- Normal, TM - clear with good landmarks. Left ear: External ear/canal- Normal, TM - clear with good landmarks Nose: purulent rhinorrhea, mucosa erythematous and swollen, no sinus tenderness. Oropharynx:No erythema, exudates or tonsillar hypertrophy. Neck:supple and no adenopathy Heart: Negative. RRR without obvious murmur, gallop, or rubs . No ectopy. Lungs: clear to auscultation, without rales or wheeze, good air exchange Ext: 2+ pitting edema RLE from mid thigh down, including gildardo t. 1-2+ pitting edema LLE. Brown venous stasis changes to bother low er legs. No erythema, increased warmth, cording, tenderness. Cap refill < 3 sec, pedal pulses 1+ Modified Wells Rule for DVT (1pt each) - active cancer (tx or palliation in last 6mo)= 0 - paralysis, paresis or recent leg casting= 0 - bedridden >3D/major surgery w/in 4 wks= 0 - localized tenderness along deep venous system= 0 - entire ext swollen= 1 - unilateral calf swelling >3cm below Tibial tuberosity= 1 - unilateral pitting edema= 1 - prominent non-varicose collateral superficial veins= 0 Score -2 if alt dx as likely as DVT= -2 Score Total: 1 Pretest probabilty: High >= 3, Intermediate 1-2, Low 0 ASSESSMENT/PLAN: 1. Bilateral lower extremity edema - ICD9: 782.3, ICD10: R60 .0 (primary diagnosis) Worsening edema, especially RLE. Wells score 1, no symptoms or exam findings consistent with CHF or cellulitis Stat work-up with: - COMP METABOLIC PANEL - NT PRO BNP - JOSE M CBC - US LEG VEIN DVT DILCIA VAS LAB 2. Atrial fibrillation, unspecified type (HCC) - ICD9: 427.3 1, ICD10: I48.91 - PROTHROMBIN TIME/PT 3. Venous insufficiency - ICD9: 459.81, ICD10: I87.2 See #1 - US LEG VEIN DVT DILCIA VAS LAB Prescription instructions reviewed with patient as applicabl e. Potential red flag symptoms discussed with the patient. Reviewed appro priate action plan to take if red flag symptoms occur. Patient agreeable t o treatment plan. Piper Older, ENVIRONMENTAL HEALTH NURSE.CUSTOMER SUCCESS MANAGER nt pro bnp on 09-18 PRO B Natr Peptide Test sent to Mobile <125 Normal 09-18-2019 [facility]. [place] ([id number]) Comment: Result Comment: Account Cred ited HIDE comp metabolic panel on 2019-09-18 Albumin [Mass/Vol] 3.6 3.9-4.9 g/dL Low 09-18-2019 [facility] ([id number]) ALP [Catalytic 103 38-113 U/L Normal 09-18-2019 [facility] activity/Vol] [place] and (56448) ALT [Catalytic 12 10-54 U/L Normal 09-18-2019 [facility] activity/Vol] [place] and (60081) Anion gap 7 9-18 mmol/L Low 09-18-2019 [facility] [Moles/Vol] [place] ([id number]) AST [Catalytic 47 14-40 U/L High 09-18-2019 [facility] activity/Vol] [place] and (91599) Bilirubin [Mass/Vol] 1.6 0.2-1.3 mg/dL High 9 [facility] ([id number]) Calcium [Mass/Vol] 9.3 8.5-10.2 mg/dL Normal 09-18-2019 [facility] ([id number]) Chloride [Moles/Vol] 104 97-105 mmol/L Normal 9 [facility] ([id number]) CO2 [Moles/Vol] 27 22-30 mmol/L Normal 09-18-2019 [facility] ([id number]) Creatinine 0.92 0.73-1.22 mg/dL Normal 09-18-2019 [facility] [Mass/Vol] [place] ([id number]) eGFR- Amer. >60 Normal 09-18-2019 [facility] ([id number]) GFR/1.73 sq M >60 mL/min/{1.73_m Normal 09-18-2019 [facility] predicted among 2} Joni crockett ([id number]) non-blacks MDRD (S/P/Bld) [Vol rate/Area] Comment: Result Comment: eGFR (Estima ino GFR) Units of measure: mL/min/1.73 meters squared eGFR is derived from the ree xpressed MDRD Study equation using the following parameters: serum creatinine, age, gender and race. The creatinine assay has been calibrated to be traceable to IDMS. An eGFR <60 mL/min/1.73m2 fo r >3 months is consistent with chronic kidney disease. Refer to KDOQI guidelines for clinical interpretation. In patients with unstable re nal function, e.g. those with acute kidney injury, the eGFR may not accurately reflect actual GFR. Glucose [Mass/Vol] 107 74-99 mg/dL High 09-18-2019 [facility] ([id number]) Comment: Result Comment: The [place] Diabetes Association (ADA) provides guidance for cutoff values for fasting glucose and random glucose. The ADA defines fasting as no caloric intake for at least 8 hours. Fas ting plasma glucose results between 100 to 125 mg/dL indicate increased risk for diabetes (prediabetes). Fasting plasma glucose resul ts greater than or equal to 126 mg/dL meet the criteria for diagnosis of diabetes. In the absence of unequivocal hyperglycemia, results should be confirmed by repeat testing. In a patient with classic s ymptoms of hyperglycemia or hyperglycemic crisis, random plasma glucose results greater than or equal to 200 mg/dL meet the criteria for diagnosis of diabetes. Reference: Standards of [facility] Care in Diabetes 2016, [place] Diabetes Association. Diabetes Care. 2016.39(Suppl 1). Potassium [Moles/Vol] 3.5 3.7-5.1 mmol/L Low 09-18-20 19 [facility] ([id number]) Protein [Mass/Vol] 6.9 6.3-8.0 g/dL Normal 09-18-2019 [facility] ([id number]) Sodium [Moles/Vol] 138 136-144 mmol/L Normal 09-18-2019 [facility] ([id number]) Urea nitrogen [Mass/Vol] 18 9-24 mg/dL Normal 09-18 [facility] ([id number]) cnov on 2019-09-18 CNOV Office Visit (INTMWS) Normal 09-18-20 [place] [facility] JUSTIN ZAZUETA ([id number]) 1950 M [place] Date Time Provider Department ([id number]) 09/18/19 1:00 PM PIPRE SEARS (JULIANA) INTMWS During your visit today, we recorded the following informati on about you: Pulse Respiration Blood pressure Weight 68/minute 14/minute 120/80 156.5 kg Piper Sears APRN.CNP 09/18/2019 3:08 PM Addendum This Team Access Model visit is a walk in encounter. It requ ired patient-provider interaction for the medical decision making as documented below. CC: Patient presents with: URI left leg swelling and pain HPI: Justin Zazueta is a 68 year old male who presents to the office with above. Sinus symptoms x 2 weeks, not much improvement. Associated symptoms includes sore throat, nasal congestion, facial pain/pressure, hoarse voice, post nasal drip and thick/green nasal drainage and bloody nose a couple times. Denies fever, ear pain and cough. Treatments tried include nothing so far. Chronic lower extremity edema, much worse for the past 2 weeks. Usually only the lower leg but now both feet and entire right lower extremity is swollen. History of varicose veins, u nderwent ultrasound guided sclerotherapy in February. He is on Coumadin for Afib, last INR 09/04 was 2.1. 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 D enies chest pain, SOB, palpitations, weight gain, PND, orthopnea. REVIEW OF SYSTEMS See HPI The patient's pmh, medications, allergies, and past visits a re reviewed. PHYSICAL EXAM: BP 120/80 Pulse 68 Resp 14 Wt (!) 156.5 kg (345 lb) SpO2 94% BMI 46.12 kg/m? General appearance: healthy, alert, cooperative, pleasant, i n no acute distress, obese Head: Normocephalic Eyes: conjunctiva pink and moist, no icterus, sclera white, non-injected Ears: Right ear: External ear/canal- Normal, TM - bao r with good landmarks. Left ear: External ear/canal- Normal, TM - clear with good l andmarks Nose: purulent rhinorrhea, mucosa erythematous and swollen, no sinus tenderness. Oropharynx:No erythema, exudates or tonsillar hypertrophy. Neck:supple and no adenopathy Heart: Negative. RRR without obvious murmur, gallop, or rubs . No ectopy. Lungs: clear to auscultation, without rales or wheeze, good air exchange Ext: 2+ pitting edema RLE from mid thigh down, including f oot. 1-2+ pitting edema LLE. Brown venous stasis changes to bother lower legs. No erythema, increased warmth, cording, tenderness. Cap refill < 3 sec, p edal pulses 1+ Modified Wells Rule for DVT (1pt each) - active cancer (tx or palliation in last 6mo)= 0 - paralysis, paresis or recent leg casting= 0 - bedridden >3D/major surgery w/in 4 wks= 0 - localized tenderness along deep venous system= 0 - entire ext swollen= 1 - unilateral calf swelling >3cm below Tibial tuberosity= 1 - unilateral pitting edema= 1 - prominent non-varicose collateral superficial veins= 0 Score -2 if alt dx as likely as DVT= -2 Score Total: 1 Pretest probabilty: High >= 3, Intermediate 1-2, Low 0 ASSESSMENT/PLAN: 1. Bilateral lower extremity edema - ICD9: 782.3, ICD10: R60 .0 (primary diagnosis) Worsening edema, especially RLE. Wells score 1, no sym ptoms or exam findings consistent with CHF or cellulitis Stat work-up with: - COMP METABOLIC PANEL - NT PRO BNP - JOSE M CBC - US LEG VEIN DVT DILCIA VAS LAB 2. Atrial fibrillation, unspecified type (HCC) - ICD9: 427.31, ICD10: I48.91 - PROTHROMBIN TIME/PT 3. Venous insufficiency - ICD9: 459.81, ICD10: I87.2 See #1 - US LEG VEIN DVT DILCIA VAS LAB Prescription instructions reviewed with patient as sanjay licable. Potential red flag symptoms discussed with the patient. Review ed appropriate action plan to take if red flag symptoms occur. Patient agreeable to treatm ent plan. RAÚL Arciniega APRN.CNP 09/18/2019 1:21 PM Signed CAUSES OF LEG SWELLING HOW TO REDUCE LEG SWELLING Sitting with your legs hanging down Elevate your toes above your nose! Sit in a recliner with your legs up. Avoid sitting for long periods of time Standing for long periods of time Wear c ompression stockings. Apply them first things in the morning and remove them at bedtime. Avoid demond ding for long periods of time Eating foods high in salt Avoid canned foods, look for low sodium or no salt added foods Medical conditions that cause you to retain fluid: Con gestive heart failure, Venous Stasis Take medications as ordered. Take diuretics (water pills) early in the day Sleeping in a chair with you legs hangin g down Place a pillow or several phone books between the mattress and box sprin g of your bed. Sleep in a hospital bed or electric adjustable bed Referring Provider: SELF [[id number]] Allergies As of Date: 09/18/2019 (No Known Allergies) Date Reviewed: 09/18/2019 Reviewed by: Itzel Moser Neon Tube Bender - Fully Assessed Reason for Visit: URI [115] left leg swelling and pain [Other] Primary Visit Diagnosis:Bilateral lower extremity edema [R60 .0] Other Visit Diagnoses:Atrial fibrillation, unspecified type (HCC) [I48.91] Venous insufficiency [I87.2] Order(s):amoxicillin-clavulanic acid (AUGMENTIN) 875-1 25 mg per tabletTake 1 tablet by mouth twice daily for 10 days.Disp: 20 tabletRfl: 0 COMP METABOLIC PANEL [SQCMP] Order #: [id number] FUTURE JOSE M CBC [SQWCBC] Order #: [id number] FUTURE US LEG VEIN DVT DILCIA VAS LAB [7943239] Order #: [id number] FU TURE Prescriptions as of 09/18/2019 Sig: WARFARIN 5 MG TABLET TAKE 1 TABLET BY MOUTH DAILY * FINASTERIDE 5 MG TABLET TAKE 1/2 (ONE-HALF) OF A TABL* HYDROCHLOROTHIAZIDE 25 MG TAB* Take 1 tablet by mouth every * LISINOPRIL 20 MG TABLET Take 1 tablet by mouth once d* METOPROLOL TARTRATE 50 MG TAB* Take 1 tablet by mouth twice * AMOXICILLIN 875 MG-POTASSIUM * Take 1 tablet by mouth twice * Problem List As Of Date 09/18/2019 Noted Resolved Abnormal liver function test [R94.5] 12/25/2004 11/03/2010 More... 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 Obstructive Sleep Apnea, on CPAP [G47.33] 09/01/2009 More... Erectile dysfunction [N52.9] 05/03/2010 12/10/2014 Alopecia [L65.9] 05/03/2010 Primary osteoarthritis of right knee [M17.11] 09/29/2015 Obesity, Class III, BMI 40-49.9 (morbid obesity*03/10/2018 Thrombocytopenia (HCC) [D69.6] 01/08/2019 Varicose veins of bilateral lower extremities w*01/08/2019 Other instructions from your clinician: CAUSES OF LEG SWELLING HOW TO REDUCE LEG SWELLING Sitting with your legs hanging down Elevate your toes above your nose! Sit in a recliner with your legs up. Avoid sitting for long periods of time Standing for long periods of time Wear compression stockings . Apply them first things in the morning and remove them at bedtime. Avoi d standing for long periods of time Eating foods high in salt Avoid canned foods, look for low s odium or no salt added foods Medical conditions that cause you to retain fluid: Congestiv e heart failure, Venous Stasis Take medications as ordered. Take diu retics (water pills) early in the day Sleeping in a chair with you legs hanging down Place a lida w or several phone books between the mattress and box spring of your bed. Sleep in a hospital bed or electric adjustable bed Prescriptions ordered this encounter Disp Refills Start End AMOXICILLIN 875 MG-POTASSIUM CLAVULA* 20 t* 0 09/18/201911/2018 Route: ORAL Sig: Take 1 tablet by mouth twice daily for 10 days. Encounter Status:Closed by PIPER SEARS CNP on 09/18/19 progress on 2019-08 PROGRESS HNO ID: [id number] Normal 09-04-2019 [facility] Author: Piper Harman) Orion [place] ([id number]) Service: ? Author Type: Nurse Practitioner Type: Progress Notes Filed: 09/04/2019 1:33 PM Note Text: Ambrociomiguel ángel Sears, ENVIRONMENTAL HEALTH NURSE.JULIANA PROGRESS HNO ID: [id number] Normal 09-04-2019 [facility] Author: Elsie Huber RN [place] ([id number]) Service: ? Author Type: ? Type: Progress Notes Filed: 09/04/2019 1:06 PM Note Text: patient had inr completed at [facility] patients inr is 2.1 (patients inr range is 2.0-3.0) patient is currently taking 5mg daily patients last dose change was on 03/13/18 due to a high level of 3.2 (dose at that time was 7.5mg Sun and 5mg all other days) patient has had no changes on medication and no missed doses and no change in diet Advised patient to continue on the same dose(s) and that the y would only be contacted regarding dosage and follow up instructions aft er review with provider, if a change is needed. Written instructions given and patient verbalized understanding. Presently scheduled in 1 month (pt will call into schedule) for follow up INR. progress on 2019-06 PROGRESS HNO ID: [id number] Normal 07-16-2019 [facility] Author: Mike Riojas LPN [place] ([id number]) Service: ? Author Type: ? Type: Progress Notes Filed: 07/16/2019 4:07 PM Note Text: INR addressed at [facility] with PCP today. 4. Chronic atrial fibrillation (HCC) - ICD9: 427.31, ICD10: I48.2 Continue Coumadin dose. INR in 4 weeks. Rosser sheet given to patient Mike Haywoodelissa CARRILOL PROGRESS HNO ID: [id number] Normal 07-16-2019 [facility] Author: Matthew Rocha [place] ([id number]) Service: ? Author Type: Physician Type: Progress Notes Filed: 07/16/2019 12:32 PM Note Text: This note was created using NoteWriter. Subjective Justin Zazueta is a 68 year old male here for follow up. He was doing well. His INR was therapeutic. His conditions were stable. ACTIVE PROBLEM LIST Bph With Obstruction/Lower Urinary Tract Symptoms Htn (Hypertension) Atrial Fibrillation (Hcc) Obstructive Sleep Apnea, on CPAP Alopecia Primary Osteoarthritis of Right Knee Obesity, Class Iii, Bmi 40-49.9 (Morbid Obesity) (Hcc) Thrombocytopenia (Hcc) Varicose Veins of Bilateral Lower Extremities With Other Com plications Current Outpatient Medications: warfarin (COUMADIN) 5 mg tablet TAKE 1 TABLET BY MOUTH DAILY or DIRECTED finasteride (PROSCAR) 5 mg tablet TAKE 1/2 (ONE-HALF) OF A T ABLET BY MOUTH DAILY hydroCHLOROthiazide (HYDRODIURIL, ESIDRIX) 25 mg tablet Take 1 tablet by mouth every morning. lisinopril (ZESTRIL, PRINIVIL) 20 mg tablet Take 1 tablet by mouth once daily. metoprolol tartrate, short acting, (LOPRESSOR) 50 mg tablet Take 1 tablet by mouth twice daily. No current facility-administered medications for this visit. Review of Systems Constitutional: Negative. Respiratory: Negative. Cardiovascular: Positive for leg swelling. Negative for ches t pain and palpitations. Gastrointestinal: Negative. Genitourinary: Negative. Hematological: Negative. Objective BP 120/70 Pulse (!) 56 Temp 36.3 ?C (97.3 ?F) (Temporal) Resp 16 Ht 184.2 cm (6' 0.52) Wt (!) 153.8 kg (339 lb) SpO2 9 5% BMI 45.32 kg/m? Physical Exam Constitutional: No distress. Cardiovascular: Regular rhythm, S1 normal and S2 normal. Bra dycardia present. Pulmonary/Chest: Breath sounds normal. Musculoskeletal: He exhibits edema. He exhibits no tendernes s. 2+ lymphedema. Skin: Skin is dry. Assessment and Plan 1. Medicare annual wellness visit, subsequent - ICD9: V70.0, ICD10: Z00.00 (primary diagnosis) See other note. 2. Need for vaccination - ICD9: V05.9, ICD10: Z23 - INFLUENZA SEASONAL HIGH DOSE AGE 65+ 3. Essential hypertension - ICD9: 401.9, ICD10: I10 - good control - Continue current medication(s) - Goal of BP <130/80 - COMP METABOLIC PANEL - LIPID PANEL BASIC 4. Chronic atrial fibrillation (HCC) - ICD9: 427.31, ICD10: I48.2 Continue Coumadin dose. INR in 4 weeks. Rosser sheet given to patient. 5. BPH with obstruction/lower urinary tract symptoms - ICD9: 600.01, 599.69, ICD10: N40.1, N13.8 The meaning of a false positive PSA and false negative PSA h as been discussed, and the patient indicates their understanding of the limitations of this screening test. - PSA/PROSTSPECAG DIAG 6. Thrombocytopenia (HCC) - ICD9: 287.5, ICD10: D69.6 Monitor. - CBC Matthew Rocha MD PROGRESS HNO ID: [id number] Normal 07-16-2019 [facility] Author: Elsie Huber RN [place] ([id number]) Service: ? Author Type: ? Type: Progress Notes Filed: 07/16/2019 11:11 AM Note Text: patient had inr completed at [facility] patients inr is 2.5 (patients inr range is 2.0-3.0) patient is currently taking 5mg daily patients last dose change was on 03/13/18 due to a high level of 3.2 (dose at that time was 7.5mg Sun and 5mg all other days) patient has had no changes in medication and no missed doses and no change in diet Advised patient to continue on the same dose(s) and that the y would only be contacted regarding dosage and follow up instructions aft er review with provider, if a change is needed. Written instructions given and patient verbalized understanding. Presently scheduled in 4 weeks (pt will call to schedule) for follow up INR. PROGRESS HNO ID: [id number] Normal 07-16-2019 [facility] Author: Matthew Rocha [place] ([id number]) Service: ? Author Type: Physician Type: Progress Notes Filed: 07/16/2019 12:32 PM Note Text: Medicare Yearly Visit Medical B eligibilty date 2013 Date of last exam 01/02/2018 PAST MEDICAL HISTORY Diagnosis Date - Abnormal liver function test 12/25/2004 Pt reportedly had this since age 24: no measure in the syste m to verify ALT 61 (30-65) in 08-05 HCV quantitative was undetectable in 08-05 HBsAb, HBsAg, Hep A negative in 08-05 NL iron and ferritin levels i n 08-05 HCV negative in 08-05 - Alopecia 05/03/2010 - Atrial fibrillation (HCC) 07/25/2009 Started Coumadin and Metoprolol in 07-06 - Diverticulosis of colon (without mention of hemorrhage) - Erectile dysfunction 05/03/2010 - HTN (hypertension) 07/25/2009 Office BP was 150/98 in 08-05: Lisinopril to 20 mg bid - Hypertrophy of prostate with urinary obstruction and other lower urinary tract symptoms (LUTS) 07/14/2007 - Obstructive sleep apnea 09/01/[address] Ramos. - Primary osteoarthritis of right knee 09/29/2015 - Unspecified viral hepatitis C without hepatic coma 1980s PAST SURGICAL HISTORY Procedure Laterality Date - COLONOSCOP W/ OR W/O BRS SPEC April 2001 normal - COLONOSCOP W/ OR W/O BRSH SPEC 02/25/2012 Colonoscopy - PAST SURGICAL HISTORY OF sinus x2 Patient has no known allergies. 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: [employer] Comment: [employer] Social Needs Financial resource strain: Not on file Food insecurity: Worry: Not on file Inability: Not on file Transportation needs: Medical: Not on file Non-medical: Not on file Tobacco Use Smoking status: Former Smoker Packs/day: 2.00 Years: 8.00 Pack years: 16 Types: Cigarettes Quit date: 10/28/1975 Years since quittin.7 Smokeless tobacco: Never Used Substance and Sexual Activity Alcohol use: No Drug use: No Comment: none since 20s Sexual activity: Not on file Lifestyle Physical activity: Days per week: Not on file Minutes per session: Not on file Stress: Not on file Relationships Social connections: Talks on phone: Not on file Gets together: Not on file Attends yarsanism service: Not on file Active member of club or organization: Not on file Attends meetings of clubs or organizations: Not on file Relationship status: Not on file Intimate partner violence: Fear of current or ex partner: Not on file Emotionally abused: Not on file Physically abused: Not on file Forced sexual activity: Not on file Other Topics Concerns: Not on file Social History Narrative Not on file Justin 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 He watches his diet for sodium, low fat and low cholesterol most of the time. List of current specialists seen: Dr. Kate Sinha, dermatology. Dr. Soni, ophthalmology. End of Live Planning discussed including patients advanced d irective wishes: Yes I am willing to follow Justin's advanced directives. PHQ-2 / Depression screen He in the past two weeks denies having felt down, depressed, hopeless or with little interest or pleasure in doing things. Functional Ability/Safety Screen 1. Was the patient's timed Up and Go test unsteady or longer than 30 seconds? No 2. Does the patient need help with the phone, transportation , shopping,preparing meals, housework, laundry, medications or managing money? No 3. Does your home have rugs in the hallway, lack of grab bar s in the bathroom, lack of handrails on the stairs or have poor light ing? No Hearing Evaluation: normal PHYSICAL EXAM BP 120/70 Pulse (!) 56 Temp 36.3 ?C (97.3 ?F) (Temporal) Resp 16 Ht 184.2 cm (6' 0.52) Wt (!) 153.8 kg (339 lb) SpO2 9 5% BMI 45.32 kg/m? Alert and oriented X 3: YES Body mass index is 45.32 kg/m?. Visual acuity: OD: 20/25 OS: 20/ 25 OU: 20/20 Mini Co/5. ASSESSMENT/PLAN: 68 year old male The following prevention plan was discussed during the offic e visit and provided to the patient: - Weight Loss - Vaccines recommended Influenza. - Shingles vaccine RSV recommended. VIS given. - Counseling for Weight Loss and Exercise MD lorenzo Saul on 2019-07-16 CNOV Office Visit (INTMWS) Normal 07-16-20 [place] JUSTIN Julian ([id number]) 1950 [facility] Date Time Provider Department ([id number]) 07/16/19 10:20 AM MATTHEW ROCHA INTERIK During your visit today, we recorded the following informati on about you: Temperature Pulse Respiration Blood pressure 97.3 degrees 56/minute 16/minute 120/70 Weight Height 153.8 kg 1.842 m Matthew Rocha MD 07/16/2019 12:32 PM Signed Medicare Yearly Visit Medical B eligibilty date 2013 Date of last exam 01/02/2018 PAST MEDICAL HISTORY Diagnosis Date - Abnormal liver function test 12/25/2004 Pt reportedly had this since age 24: no measure in the system to verify ALT 61 (30-65) in 08-05 HCV quantit ative was undetectable in 08-05 HBsAb, HBsAg, Hep A negative in 08-05 NL iron and ferritin levels in 08-05 HCV negative in 08-05 - Alopecia 05/03/2010 - Atrial fibrillation (HCC) 07/25/2009 Started Coumadin and Metoprolol in 07-06 - Diverticulosis of colon (without mention of hemorrhage) - Erectile dysfunction 05/03/2010 - HTN (hypertension) 07/25/2009 Office BP was 150/98 in 08-05: Lisinopril to 20 mg bid - Hypertrophy of prostate with urinary obstruction and other lower urinary tract symptoms (LUTS) 07/14/2007 - Obstructive sleep apnea 09/01/[address] Ramos. - Primary osteoarthritis of right knee 09/29/2015 - Unspecified viral hepatitis C without hepatic coma PAST SURGICAL HISTORY Procedure Laterality Date - COLONOSCOP W/ OR W/O BRS SPEC April 2001 normal - COLONOSCOP W/ OR W/O BRS SPEC 02/25/2012 Colonoscopy - PAST SURGICAL HISTORY OF sinus x2 Patient has no known allergies. 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: [employer] Comment: [employer] Social Needs Financial resource strain: Not on file Food insecurity: Worry: Not on file Inability: Not on file Transportation needs: Medical: Not on file Non-medical: Not on file Tobacco Use Smoking status: Former Smoker Packs/day: 2.00 Years: 8.00 Pack years: 16 Types: Cigarettes Quit date: 10/28/1975 Years since quittin.7 Smokeless tobacco: Never Used Substance and Sexual Activity Alcohol use: No Drug use: No Comment: none since 20s Sexual activity: Not on file Lifestyle Physical activity: Days per week: Not on file Minutes per session: Not on file Stress: Not on file Relationships Social connections: Talks on phone: Not on file Gets together: Not on file Attends yarsanism service: Not on file Active member of club or organization: Not on file Attends meetings of clubs or organizations: Not on file Relationship status: Not on file Intimate partner violence: Fear of current or ex partner: Not on file Emotionally abused: Not on file Physically abused: Not on file Forced sexual activity: Not on file Other Topics Concerns: Not on file Social History Narrative Not on file Justin 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 He watches his diet for sodium, low fat and low cholesterol mos t of the time. List of current specialists seen: Dr. Kate Sinha, dermatology. Dr. Soni, ophthalmology. End of Live Planning discuss ed including patients advanced directive wishes: Yes I am willing to follow Justin's advanced directives. PHQ-2 / Depression screen He in the past two weeks denies having felt down , depressed, hopeless or with little interest or pleasure in doing things. Functional Ability/Safety Screen 1. Was the patient's timed Up and Go test unstea dy or longer than 30 seconds? No 2. Does the patient need help with the phone, transportation , shopping,preparing meals, ho usework, laundry, medications or managing money? No 3. Does your home have rugs in the hallw ay, lack of grab bars in the bathroom, lack of handrails on the stairs or have poor lighting? No Hearing Evaluation: normal PHYSICAL EXAM BP 120/70 Pulse (!) 56 Temp 36.3 ?C (97.3 ?F) (Tempora l) Resp 16 Ht 184.2 cm (6' 0.52) Wt (!) 153.8 kg (339 lb) SpO2 95% BMI 45.32 kg/m? Alert and oriented X 3: YES Body mass index is 45.32 kg/m?. Visual acuity: OD: 20/25 OS: 20/ 25 OU: 20/20 Mini Co/5. ASSESSMENT/PLAN: 68 year old male The following prevention plan was discussed during the offic e visit and provided to the patient: - Weight Loss - Vaccines recommended Influenza. - Shingles vaccine RSV recommended. VIS given. - Counseling for Weight Loss and Exercise MD Matthew Saul MD 07/16/2019 12:32 PM Signed This note was created using NoteWriter. Subjective Justin Zazueta is a 68 year old male here for follow up. He was doing well. His INR was therapeutic. His conditions were stable. ACTIVE PROBLEM LIST Bph With Obstruction/Lower Urinary Tract Symptoms Htn (Hypertension) Atrial Fibrillation (Hcc) Obstructive Sleep Apnea, on CPAP Alopecia Primary Osteoarthritis of Right Knee Obesity, Class Iii, Bmi 40-49.9 (Morbid Obesity) (Hcc) Thrombocytopenia (Hcc) Varicose Veins of Bilateral Lower Extremities With Other Com plications Current Outpatient Medications: warfarin (COUMADIN) 5 mg tablet TAKE 1 TABLET BY MOUTH SHARON LY or DIRECTED finasteride (PROSCAR) 5 mg tablet TAKE 1/2 (ONE-HALF) OF A T ABLET BY MOUTH DAILY hydroCHLOROthiazide (HYDRODIURIL, ESIDRI X) 25 mg tablet Take 1 tablet by mouth every morning. lisinopril (ZESTRIL, PRINIVIL) 20 mg tab let Take 1 tablet by mouth once daily. metoprolol tartrate, short acting, (LOPRESSOR) 50 mg t ablet Take 1 tablet by mouth twice daily. No current facility-administered medications for this visit. Review of Systems Constitutional: Negative. Respiratory: Negative. Cardiovascular: Positive for leg swelling. Negative for ches t pain and palpitations. Gastrointestinal: Negative. Genitourinary: Negative. Hematological: Negative. Objective BP 120/70 Pulse (!) 56 Temp 36.3 ?C (97.3 ?F) (Tempora l) Resp 16 Ht 184.2 cm (6' 0.52) Wt (!) 153.8 kg (339 lb) SpO2 95% BMI 45.32 kg/m? Physical Exam Constitutional: No distress. Cardiovascular: Regular rhythm, S1 normal and S2 normal. Bradycardia present. Pulmonary/Chest: Breath sounds normal. Musculoskeletal: He exhibits edema. He exhibits no tendernes s. 2+ lymphedema. Skin: Skin is dry. Assessment and Plan 1. Medicare annual wellness visit, subsequent - ICD9: V70.0, ICD10: Z00.00 (primary diagnosis) See other note. 2. Need for vaccination - ICD9: V05.9, ICD10: Z23 - INFLUENZA SEASONAL HIGH DOSE AGE 65+ 3. Essential hypertension - ICD9: 401.9, ICD10: I10 - good control - Continue current medication(s) - Goal of BP <130/80 - COMP METABOLIC PANEL - LIPID PANEL BASIC 4. Chronic atrial fibrillation (HCC) - ICD9: 427.31, ICD10: I48.2 Continue Coumadin dose. INR in 4 weeks. Rosser sheet given to patient. 5. BPH with obstruction/lower urinary tract symptoms - ICD9: 600.01, 599.69, ICD10: N40.1, N13.8 The meaning of a false positive PSA and false negative PSA has been discussed, and the patient indicates their understanding of the limitat ions of this screening test. - PSA/PROSTSPECAG DIAG 6. Thrombocytopenia (HCC) - ICD9: 287.5, ICD10: D69.6 Monitor. - CBC Matthew Rocha MD Referring Provider: SELF [200] Allergies As of Date: 07/16/2019 (No Known Allergies) Date Reviewed: 07/16/2019 Reviewed by: Itzel Moser Neon Tube Bender - Fully Assessed Reason for Visit: Imm/Inj [58] Cmt: Flu Vaccine Primary Visit Diagnosis:Medicare annual wellness visit, meza bsequent [Z00.00] Other Visit Diagnoses:Need for vaccination [Z23] Essential hypertension [I10] Chronic atrial fibrillation (HCC) [I48.2] BPH with obstruction/lower urinary tract symptoms [N40.1, N13.8] Thrombocytopenia (HCC) [D69.6] Order(s):INFLUENZA SEASONAL HIGH DOSE AGE 65+ [21199NL D] Order #: [id number] CBC [SQCBC] Order #: [id number] FUTURE COMP METABOLIC PANEL [SQCMP] Order #: [id number] FUTURE LIPID PANEL BASIC [SQLIPB] Order #: [id number] FUTURE PSA/PROSTSPECAG DIAG [SQPSA] Order #: [id number] FUTURE Prescriptions as of 07/16/2019 Sig: WARFARIN 5 MG TABLET TAKE 1 TABLET BY MOUTH DAILY * FINASTERIDE 5 MG TABLET TAKE 1/2 (ONE-HALF) OF A TABL* HYDROCHLOROTHIAZIDE 25 MG TAB* Take 1 tablet by mouth every * LISINOPRIL 20 MG TABLET Take 1 tablet by mouth once d* METOPROLOL TARTRATE 50 MG TAB* Take 1 tablet by mouth twice * Problem List As Of Date 07/16/2019 Noted Resolved Abnormal liver function test [R94.5] INVALID FOR*11/03/2010 More... BPH with obstruction/lower urinary tract sympto*INVALID FOR* HTN (Hypertension) [I10] INVALID FOR* Atrial Fibrillation [I48.91] INVALID FOR* More... Obstructive Sleep Apnea, on CPAP [G47.33] INVALID FOR* More... Erectile dysfunction [N52.9] INVALID FOR*12/10/2014 Alopecia [L65.9] INVALID FOR* Primary osteoarthritis of right knee [M17.11] INVALID FOR* Obesity, Class III, BMI 40-49.9 (morbid obesity*INVALID FOR* Thrombocytopenia (HCC) [D69.6] INVALID FOR* Varicose veins of bilateral lower extremities w*INVALID FOR* Disposition: Return in about 6 months (around 01/14/2020). Follow-up and Disposition History Recorded Encounter Status:Closed by MATTHEW ROCHA MD on 07/16/19 Encounters Date Type Reason Provider Location 06-09-2020 - Letter encounter Matthew Rocha Inter [facility] 06-09-2020 [facility] [place] 06-27-2020 - Patient encounter Chronic atrial Matthew Rocha [facility] 06-27-2020 procedure fibrillation Echocardiogram Wstr Comment: Chronic atrial fibrillation (HCC) 06-27-2020 - 06-27-2020 Refill Matthew guaman [facility] Comment: Refill Request 06-27-2020 Results Only Matthew Rocha [facility] Procedures Procedure Name Date Provider Location Echo tthrc r-t 2d 06-27-2020 Matthew [facility] w/wom-mode compl spec&colr (4419 5) d LVEF TRANSTHORACIC ECHO 06-27-2020 Matthew Rocha [facility] ([id number]) Colonoscopy 10-30-2017 - [facility] 10-30-2017 ([id number]) Plan of Treatment Plan Description Date Location DTAP,TDAP,TD (3 - Td) DTAP,TDAP,TD (3 - Td) 05-06-2028 - [facility] 05-06-2028 ([id number]) COLONOSCOPY COLONOSCOPY 10-30-2027 - [facility] 10-30-2027 ([id number]) COLORECTAL CANCER COLORECTAL CANCER 10-30-2027 [facility] inic SCREENING,SEE MODIFIER SCREENING,SEE MODIFIER (2 1873) LIPID SCREEN LIPID SCREEN 04-06-2025 - [facility] 04-06-2025 ([id number]) DIABETES SCREEN DIABETES SCREEN 04-06-2023 - [facility] 04-06-2023 ([id number]) ANNUAL PCP TEAM CHRONIC ANNUAL PCP TEAM CHRONIC 04-21-2021 - [facility] DISEASE VISIT DISEASE VISIT 04-21-2021 ([id number]) BP CONTROLLED (<130/80) BP CONTROLLED (<130/80) 04-21-2021 - [facility] 04-21-2021 ([id number]) INFLUENZA (#1) INFLUENZA (#1) 2020 - [facility] 06-28-2020 ([id number]) ADVANCE DIRECTIVE ADVANCE DIRECTIVE 2013 - [facility] in DISCUSSION DISCUSSION 2013 (46581) SHINGRIX VACCINE (2 of SHINGRIX VACCINE (2 of 07-23-2012 - [facility] 3) 3) 07-23-2012 (10928) no information [facility] (09834) no information [facility] (01192) Immunizations Vaccine Notes Status Date Location Influenza Vaccine, influenza virus (completed) 07-09-2016 - [facility] Split-Non Spec vaccine, unspecified 07-09-2016 (4419 5) formulation Influenza Vaccine, influenza virus (completed) 07-25-2009 - [facility] Split-Non Spec vaccine, unspecified 07-25-2009 (4419 5) formulation Influenza Vaccine, influenza virus (completed) 10-01-2007 - [facility] Split-Non Spec vaccine, unspecified 10-01-2007 (4419 5) formulation Influenza Vaccine, influenza virus (completed) 09-11-2006 - [facility] Split-Non Spec vaccine, unspecified 09-11-2006 (4419 5) formulation Influenza Seasonal - influenza, high dose (completed) 07-16-2019 - [facility] High Dose - Age 65+ seasonal, 07-16-2019 (94878) preservative-free Influenza Seasonal - influenza, high dose (completed) 07-24-2017 - [facility] High Dose - Age 65+ seasonal, 07-24-2017 (79521) preservative-free Influenza Seasonal influenza, injectable, (completed) 07-24-2018 - [facility] Inj Quadrivalent Age quadrivalent, contains 07-24-2018 (33496) 3+ preservative Influenza Seasonal influenza, seasonal, (completed) 06-28-2014 - [facility] Inj Age 3+ injectable 06-28-2014 (81949) Pneumococcal-13 Vac pneumococcal conjugate (completed) 06-30-2015 - [facility] Conjugate vaccine, 13 valent 06-30-2015 (16630) Pneumovax pneumococcal (completed) 06-04-2014 - [facility] polysaccharide vaccine, 06-04-2014 (441 95) 23 valent TD Adult tetanus and diphtheria (completed) 10-28-2000 - [facility] toxoids, adsorbed, 10-28-2000 (52160) preservative free, for adult use (2 Lf of tetanus toxoid and 2 Lf of diphtheria toxoid) Tdap (Age 7+) tetanus toxoid, reduced (completed) 05-06-2018 - [facility] diphtheria toxoid, and 05-06-2018 (4419 5) acellular pertussis vaccine, adsorbed Tdap (Age 7+) tetanus toxoid, reduced (completed) 11-03-2010 - [facility] diphtheria toxoid, and 11-03-2010 (4419 5) acellular pertussis vaccine, adsorbed Zostavax zoster vaccine, live (completed) 05-28-2012 - [facility] 05-28-2012 (53488) Payers Payer Name Policy Number Location MMO MEDICARE [id number] [facility] ([phone]) The following information is from the original human readable contentNo Payer Records FoundNo Payer Records FoundNo Payer Records Found Social History Type Social History Date Location Description History of tobacco use Current smoker 10-28-1975 [facility] ([id number]) History SDOH Social 5 04-06-2020 - [facility] inic Connections Phone 04-06-2020 ([id number]) History of tobacco use Cigarette Smoker 10-28-1975 [facility] (66248) Cigarettes smoked 04-27-2020 - [facility] current (pack per day) - 04-27-2020 (13844) Reported Tobacco use and exposure Never used 04-27-2020 - [facility] 04-27-2020 (00903) Alcohol intake Current non-drinker of 04-27-2020 [facility] alcohol (finding) 04-27-2020 (19724) History SDOH Alcohol 1 04-06-[address] [facility] C linic Frequency 04-06-2020 (83138) History SDOH Alcohol Std 98 04-06-2020 [facility] Drinks 04-06-2020 (86918) Tobacco smoking status Former smoker 04-27-2020 [facility] NHIS 04-27-2020 (05663) History SDOH Social 3 04-06-[address] [facility] Cl inic [facility] [employer] 04-06-2020 (06921) History SDOH Physical 0 04-06-2020 [facility] Activity DPW 04-06-2020 (26943) History SDOH Education 21 04-06-2020 - [facility] 04-06-2020 (73373) History SDOH Financial 4 04-06-2020 - [facility] 04-06-2020 (85034) History SDOH Transport 2 04-06-2020 - [facility] Med 04-06-2020 (64794) Sex Assigned At Not on file [facility] (83635) Exposure to SARS-CoV-2 Not sure [facility] (event) (07868) Sex Assigned At Male [facility] (82665) The following information is from the original human readable contentNo Social History Records FoundNo Social History Records FoundNo Social History Records Found Summary Purpose Family History No Family History Records FoundNo Family History Records Found Advance Directives No Advanced Directives Records FoundNo Advanced Directives Records Found History of Past Illness Problem Noted Date Resolved Date Erectile dysfunction 05/03/2010 12/10/2014 Abnormal liver function test 12/25/2004 11/03/2010 Overview: Pt reportedly had this since age 24: no measure in the system to verify ALT 61 (30-65) in 08-05 HCV quantitative was undetectable in HBsAb, HBsAg, Hep A negative in 08-05 NL iron and ferritin levels in 08-05 HCV negative in 08-05 Problem Noted Date Resolved Date Erectile dysfunction 05/03/2010 12/10/2014 Abnormal liver function test 12/25/2004 11/03/2010 Overview: Pt reportedly had this since age 24: no measure in the system to verify ALT 61 (30-65) in 08-05 HCV quantitative was undetectable in HBsAb, HBsAg, Hep A negative in 08-05 NL iron and ferritin levels in 08-05 HCV negative in 08-05 Assessments Diagnosis Chronic atrial fibrillation (HCC) Atrial fibrillation Additional Source Comments FOR RECORDS PERTAINING TO PATIENTS WHO ARE OR HAVE BEEN ENROLLED IN A CHEMICAL DEPENDENCY/SUBSTANCE ABUSE PROGRAM, SOME INFORMATION MAY BE OMITTED. This clinical summary was aggregated from multiple sources. Caution should be exercised in using it in the provision of clinical care. This summary normalizes information from multiple sources, and as a consequence, information in this document may materially changethe coding, format and clinical context of patient data. In addition, data may be omittedin some cases. CLINICAL DECISIONS SHOULD BE BASED ON THE PRIMARY CLINICAL RECORDS. [facility] provides no warranty or guarantee of the accuracy or completeness of information in this document. UNRECOGNIZED CONTENT PROVIDED BELOW FOR UNRECOGNIZED SECTION No Status Records FoundNo Status Records Found UNRECOGNIZED CONTENT PROVIDED BELOW FOR UNRECOGNIZED SECTION INFORMATION SOURCE DATE CREATED AUTHOR AUTHOR'S ORGANIZATIO N 05/30/2020 [facility] DATE CREATED AUTHOR AUTHOR'S ORGANIZATIO N 07/13/2020 [facility] UNRECOGNIZED CONTENT PROVIDED BELOW FOR UNRECOGNIZED SECTION Source Comments In the event this information is protected by the Federal Confidentiality of Alcohol and Drug Abuse Patient Records regulations: The Federal rules restrict any use of the information to criminally investigate or prosecute any alcohol or drug abuse patient.[facility] the event this information is protected by the Federal Confidentiality of Alcohol and Drug Abuse Patient Records regulations: The Federal rules restrict any use of the information to criminally investigate or prosecute any alcohol or drug abuse patient.[facility] the event this information is protected by the [facility] Confidentiality of Alcohol and Drug Abuse Patient Records regulations: The Federal rules restrict any use of the information to criminally investigate or prosecute any alcohol or drug abuse patient.[facility] the event this information is protected by the Federal Confidentiality of Alcohol and Drug Abuse Patient Records regulations: The Federal rules restrict any use of the information to criminally investigate or prosecute any alcohol or drug abuse patient.[facility] UNRECOGNIZED CONTENT PROVIDED BELOW FOR UNRECOGNIZED SECTION Reason for Visit Reason Onset Date Comments Refill Request 06/27/2020 Status Reason Specialty Diagnoses / Referred By Referred To Procedures Contact Contact Authorized Auto-Generated HEART AND Diagnoses Chronic atrial fibrillation (HCC) Aj, Heart And Referral VASCULAR Procedures ECHO TTE W/DOPPLER, COMPLETE [facility] [address] [place] [place] [address] [address] [place], [place] Phone: [phone] UNRECOGNIZED CONTENT PROVIDED BELOW FOR UNRECOGNIZED SECTION Miscellaneous Notes Telephone Encounter - Cary Og RN - 06/27/2020 9:27 AM EDT Patient phones requesting refills as follows: Pending Prescriptions Disp Refills FINASTERIDE 5 MG TABLET 45 tablet 0 Sig: TAKE 1/2 (ONE-HALF) OF A TABLET BY MOUTH DAILY ROGER: No Verified pharmacy Last office visit 04-21-2020, next visit 08-11-2020 Please review and advise. Cary Og RN documented in this encounter UNRECOGNIZED CONTENT PROVIDED BELOW FOR UNRECOGNIZED SECTION Nursing Notes Nichelle Rose, RN, RN - 06/27/2020 10:33 AM EDT24 ga angio started to right arm. Good blood return. Flushed easily with NSS. Dressing applied. Definity (Lot # [id number] exp 11-28-20 ) mixed per protocol. 4 cc administered throughout procedure. 6 cc discarded. Pt tolerated procedure well. No C/o's, Hep lock D/c'd and dressing applied. Patient discharged ambulatory with [facility] Teacher. Nichelle Rose RN documented in this encounter
--- OUTSIDE RECORDS SUMMARY | 2020-08-09 19:37 | XMS RPT_ITS | CCD ---
:1950 External Reference #:[id number] Author Organization [facility] Care Team Providers Name Role Phone Matthew Rocha Primary Care Provider Medications Medication Name Sig Date Prescriber Location Finasteride finasteride (PROSCAR) 12-23-2019 - Matthew Rocha [facility] 5 mg tablet TAKE 1/2 06-27-2020 (81718) (ONE-HALF) OF A TABLET BY MOUTH DAILY 45 tablet 1 12/23/2019 06/27/2020 Discontinued Comment: TAKE 1/2 (ONE-HALF) OF A TAB LET BY MOUTH DAILY Furosemide furosemide (LASIX) 20 mg 04-21-2020 Mike ([facility]) Kam ladd [facility] tablet Indications: (47277) Bilateral lower extremity edema Take 0.5 tablets by mouth once daily. 45 tablet 0 04/21/2020 Active Comment: Take 0.5 tablets by mouth on ce daily. Metoprolol metoprolol tartrate, short 05-10-2020 [facility] ([facility]) Lydia bower [facility] acting, (LOPRESSOR) 50 mg (4 6430) tablet Indications: Atrial fibrillation, unspecified type (HCC) , Essential hypertension Take 0.5 tablets by mouth twice daily. 180 tablet 0 05/10/2020 Active Comment: Take 0.5 tablets by mouth tw ice daily. perflutren lipid perflutren lipid 05-27-2020 - Matthew Montes [place] microspheres microspheres (DEFINITY) 05-27-2021 [facility] (15983) (DEFINITY) 1.1 1.1 mg/mL injection (to mg/mL [...] 05/27/2020 05/27/2021 Active perflutren lipid 05-27-2020 - [facility] inic microspheres (DEFINITY) 1.1 05-27-2021 (441 95) [...] 05/27/2020 05/27/2021 Active perflutren lipid 05-27-2020 - [facility] inic microspheres (DEFINITY) 1.1 05-27-2021 (441 95) [...] 05/27/2020 05/27/2021 Active perflutren lipid 05-27-2020 - [facility] inic microspheres (DEFINITY) 1.1 05-27-2021 (441 95) [...] saline. Potassium Chloride potassium chloride 04-21-2020 Mike ([facility]) [facility] (K-TAB) 10 mEq tablet Sin (79927 ) Indications: Bilateral lower extremity edema Take 1 tablet by mouth daily with breakfast. 90 tablet 0 04/21/2020 Active Comment: Take 1 tablet by mouth daily with breakfast. Triamcinolone triamcinolone acetonide 11-06-2019 Piper ([facility]) [facility] (KENALOG) 0.5 % cream (10169 ) Apply 1 application to affected area twice daily. For rash/itching. Apply sparingly. Avoid face/skin fold. 30 g 0 11/06/2019 Active Comment: Apply 1 application to affec ino area twice daily. For rash/itching. Apply sparingly. Avoid face/skin f old. Warfarin warfarin (COUMADIN) 5 mg 06-02-2020 Matthew Mckeon [facility] tablet Indications: (09638) Atrial fibrillation, unspecified type (HCC) TAKE 1 TABLET BY MOUTH DAILY or DIRECTED 90 tablet 1 06/02/2020 Active Comment: TAKE 1 TABLET BY MOUTH DAILY or DIRECTED Problems Active Problems Category Problem Name Status Date Location Cardiac dysrhythmias Atrial fibrillation Active 07-25-2009 - [facility] (85935) Essential hypertension Hypertensive disorder Active - [facility] (47422) Hyperplasia of prostate Benign prostatic Active 07-14-2007 - [facility] hypertrophy with (28496) outflow obstruction Osteoarthritis Osteoarthritis of right Active 09-29-2015 - [facility] knee joint (64851) Other nutritional; Morbid obesity Active 03-10-2018 - [facility] endocrine; and metabolic (44 195) disorders Pulmonary heart disease Pulmonary hypertension Active 020 - [facility] (39182) Residual codes; Obstructive sleep apnea Active 09-01-2009 - [facility] unclassified syndrome (21316) Past or Other Problems Category Problem Name Status Date Location Other screening for Platelet count below Completed 01-08-2019 - [facility] suspected conditions reference range (441 95) (not mental disorders or infectious disease) Other skin disorders Alopecia Completed 05-03-2010 - [facility] (61267) Varicose veins of Varicose veins of Completed 01-08-2019 - [facility] lower extremity lower extremity (30693) Results Result Name Value Range Unit Interpretation Flag Date Location obsolete on 2020-05 OBSOLETE Refill (INTMWS) Normal 06-27-2020 [facility] JUSTIN ZAZUETA ([id number]) 1950 [facility] Time Provider Department (40618) 06/27/20 MATTHEW ROCHA INTMWS During your visit [...] 2020-06-27 CNOV Office Visit (CARDWS) Normal 06-27-20 [facility] JUSTIN ZAZUETA ([id number]) 1950 [facility] Date Time Provider Department () 06/27/20 10:00 [...] and dressing applied. 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 Nichelle Rose RN Referring Provider: MATTHEW ROCHA [[id number]] Allergies As of Date: 06/27/2020 (No Known Allergies) Date Reviewed: 06/06/2020 Reviewed by: Chhaya Singh Ma - Fully Assessed Visit Diagnosis:Chronic atrial fibrillation (HCC) [I48.20] Order(s):ECHO [[id number]] Order #: [id number]. #:[id number]: 1 Prescriptions as of 06/27/2020 Sig: WARFARIN [...] dress ing applied. 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 Nichelle Rose RN Encounter Status:Closed by FRIDA GORDILLO CMA on 07/13/20 No panel information on 2020-06-27 LV Ejection Fraction 63 % 0 [facility] (89786) [facility] (27361) cnco on 2020-06-09 CNCO Letter Text Normal 06-09-2020 [facility] (90001) progress on 2020-05 PROGRESS HNO ID: [id number] Normal 06-06-2020 [facility] Author: Kaitlin Betancourt [place] ([id number]) Service: ? Author Type: Physician Type: Progress [...] Laterality Date - COLONOSCOP W/ OR W/O [facility] SPEC April 2001 normal - COLONOSCOP W/ OR W/O [facility] SPEC 02/25/2012 Colonoscopy - PAST [...] Betancourt DPM Podiatry [address] [facility] [address] Dept: [phone] Dept PROGRESS HNO ID: [id number] Normal 06-06-2020 [facility] Author: Chhaya Singh Ma [facility] ([id number]) Service: ? Author Type: ? Type: Progress [...] 2020-06-06 CNOV Office Visit (PODIWS) Normal 06-06-20 [facility] JUSTIN ZAZUETA ([id number]) 1950 [facility] Date Time Provider Department (38424) 06/06/20 3:00 PM KAITLIN BETANCOURT During your visit today, we recorded the following informati on about you: Chhaya Samanthamansoor Chase 06/06/2020 9:19 PM Signed [facility] ROOMING INTAKE FLOWSHEET DATA Patient presents with: [...] Laterality Date - COLONOSCOP W/ OR W/O [facility] SPEC April 2001 normal - COLONOSCOP W/ OR W/O [facility] SPEC 02/25/2012 Colonoscopy - PAST [...] Betancourt DPM Podiatry [address] [facility] [address] Dept: [phone] Dept Referring Provider: SELF [[id number]] Allergies As of Date: 06/06/2020 (No Known Allergies) Date Reviewed: 06/06/2020 Reviewed by: Chhaya Singh Ma - Fully Assessed Reason for Visit: New [336335] Nail Fungus [764] New [930688] Nail Fungus [764] Primary Visit Diagnosis:Onychomycosis [B35.1] [...] OBSOLETE Refill (FAMPWS) Normal 06-02-2020 Liban wolf [facility] JUSTIN ZAZUETA ([id number]) 1950 [facility] Date Time Provider Department (71101) 06/02/20 MATTHEW ROCHA FAMPWS During your visit [...] Status:Closed by MATTHEW ROCHA MD on 06/02/20 [facility]) Normal 05-27-2020 [facility] JUSTIN ZAZUETA ([id number]) 1950 [facility] Date Time Provider Department (99525) 05/27/20 MATTHEW ROCHA INTMWS During your visit [...] ICD10: I48.20 - ECHO MD Itzel [facility] 05/27/2020 12:37 PM Signed PSS please assist [...] Diagnosis:Chronic atrial fibrillation (HCC) [I 48.20] Order(s):ECHO [[id number]] Order #: [id number]: 1 FUTURE perflutren lipid microspheres (DEFINITY) 1.1 [...] Bacteria identified Specimen source XXX: Normal 05-27-2020 [facility] Cx Nom (Bld) BLOOD Performed at [facility] [address] [facility] 44 122 System (18191) Service Cmnt XXX-Imp: NONE Performed at [address] [address] Bacteria identified: NO GROWTH 5 DAYS Performed at [facility],[address] [place] [address] : FINAL 05/27/2020 Comment: Performed By: #### BCUL #### [facility] [place] [address] prothrombin time on 2020-05-25 INR Coag (PPP) [Relative 2.0 0.86-1.16 {INR} High 05-25 [facility] time] (71334) Comment: Result Comment: INR Theraput ic Range: 2.0-3.5 Performed at [place] [address] [address] [place] [address] PT Coag (PPP) 22.0 9.3-12.7 SEC High 05-25-2020 [facility] [Time] System (00 000) PT Coag (PPP) INFORMATION NOT Normal 05-25-2020 [facility] [Time] REPORTED TO System ( 73770) LABORATORY comprehensive metabolic panel on 2020-05-25 Albumin [Mass/Vol] 2.9 3.5-5.0 GM/DL Low 05-25-2020 [facility] (77853) Albumin/Globulin [Mass 1.0 1.5-3.0 RATIO Low 020 [facility] ratio] (21574) ALP [Catalytic 82 35-125 U/L Normal 05-25-2020 [facility] activity/Vol] (56730 ) ALT [Catalytic 8 5-40 U/L Normal 05-25-2020 [facility] activity/Vol] (70956 ) Comment: Result Comment: Performed at [place] [address] [address] [place] [id number] Anion gap [Moles/Vol] 11 0-19 MMOL/L Normal 05-25-20 [facility] (80315) AST [Catalytic 39 5-40 U/L Normal 05-25-2020 [facility] activity/Vol] (95683 ) Bilirubin [Mass/Vol] 2.3 0.1-1.2 MG/DL High 0 [facility] (79689) Calcium [Mass/Vol] 8.3 8.5-10.4 MG/DL Low 05-25-2020 [facility] (29442) Chloride [Moles/Vol] 104 97-107 MMOL/L Normal 0 [facility] (89077) CO2 [Moles/Vol] 25 24-31 MMOL/L Normal 05-25-2020 [facility] (83221) Creatinine [Mass/Vol] 1.0 0.4-1.6 MG/DL Normal 05-25-20 20 [facility] (02583) Globulin (S) [Mass/Vol] 2.8 1.9-3.7 G/DL Normal 2019 [facility] (56848) Glucose [Mass/Vol] 94 65-99 MG/DL Normal 05-25-2020 [facility] (58808) Potassium [Moles/Vol] 3.5 3.4-5.1 MMOL/L Normal 05-25-20 [facility] (53652) Protein [Mass/Vol] 5.7 5.9-7.9 G/DL Low 05-25-2020 [facility] (69364) Sodium [Moles/Vol] 140 133-145 MMOL/L Normal 05-25-2020 [facility] (39582) Urea nitrogen [Mass/Vol] 14 8-25 MG/DL Normal 05-25 [facility] (22785) Urea nitrogen/Creatinine 14.0 8-21 RATIO Normal 05-25 [facility] [Mass ratio] (46123) cbc with diff on 16-05-29 AB IMMATURE NEUT 0.02 0.0-0.1 K/UL Normal 05-25-2020 [facility] (53955) ABS BASO 0.03 0.00-0.22 K/UL Normal 05-25-2020 [facility] (58383) ABS EOS 0.41 0-0.45 K/UL Normal 05-25-2020 [facility] (68758) ABS NEUTROPHILS 3.11 1.8-7.7 K/UL Normal 05-25-2020 [facility] (93857) ABS.NEUT.CALCULATED 3.11 K/UL Normal 05-25-2020 [facility] (21702) Comment: Result Comment: Performed at [facility] [address] [facility] [address] Basophils/100 WBC (Bld) 0.30 0-1 % Normal 2019 [facility] (00 000) DIFF TYPE AUTO DIFF Normal 05-25-2020 [facility] System (00 000) Eosinophils/100 WBC 4.40 0-3 % High 05-25-2020 [facility] (Bld) System (00 000) Erythrocyte distribution 14.2 11.7-15.0 % Normal 05-25 [facility] width (RBC) [Ratio] System (19551) Hematocrit (Bld) [Volume 35.5 41-50 % Low 05-25 [facility] fraction] System (00 000) Hemoglobin (Bld) 11.8 13.5-16.5 GM/DL Low 05-25-2020 [facility] [employer] [Mass/Vol] System (0 0000) Lymphocytes (Bld) 5.24 1.2-3.2 K/UL High 05-25-[address] [facility] [employer] [#/Vol] System (00 000) Lymphocytes/100 WBC 55.60 20-40 % High 05-25-2020 [facility] (Bld) System (00 000) MCH (RBC) [Entitic mass] 33.1 26-34 PG Normal 05-25 [facility] System (00 000) MCHC (RBC) [Mass/Vol] 33.2 31-37 % Normal 05-25-20 20 [facility] (00 000) MCV (RBC) [Entitic vol] 99.4 80-100 FL Normal 2019 [facility] (00 000) MEAN PLT VOL 9.7 7.0-12.6 CU Normal 05-25-2020 [facility] System (00 000) Monocytes (Bld) [#/Vol] 0.61 0-0.8 K/UL Normal 2019 [facility] (00 000) Monocytes/100 WBC (Bld) 6.50 0-8 % Normal 2019 [facility] (00 000) Neutrophils/100 WBC 0.20 0.0-1.0 % Normal 05-25-2020 [facility] (Bld) System (00 000) Neutrophils/100 WBC 33.00 50-70 % Low 05-25-2020 [facility] (d) System (00 000) Comment: Result Comment: CONSISTENT W ITH PERIPHERAL SMEAR Platelets (Bld) CONSISTENT WITH Normal 05-25-20 20 [facility] [#/Vol] REPORTED RESULTS Sys tem (94341) Platelets (Bld) 105 150-450 K/UL Low 05-25-2020 [employer] [#/Vol] System (00 000) RBC (Bld) [#/Vol] 3.57 4.5-5.5 M/UL Low 05-25-[address] [facility] [employer] System (00 000) RBC morphology CONSISTENT WITH Normal 0 [facility] finding Nom (Bld) REPORTED RESULTS System (70722) RDW-SD 52.3 37.0-54. FL Normal 05-25-2020 [facility] System (00 000) WBC (Bld) [#/Vol] 9.4 4.5-11.0 K/UL Normal 05-25-2020 [facility] ( 000) WBC MORPHOLOGY SMEAR REVIEWED AND Normal 2019 [facility] FOUND CONSISTENT Sys tem (26614) WITH AUTOMATED DIFFERENTIAL prothrombin time on 2020-05-24 INR Coag (PPP) [Relative 2.4 0.86-1.16 {INR} High 05-24 [facility] System time] (31045) Comment: Result Comment: INR Theraput ic Range: 2.0-3.5 Performed at [facility] [address] [address] [facility] [address] PT Coag (PPP) 26.0 9.3-12.7 SEC High 05-24-2020 [facility] [Time] System ( 000) PT Coag (PPP) INFORMATION NOT Normal 05-24-2020 [facility] [Time] REPORTED TO System ( 17609) LABORATORY comprehensive metabolic panel on 2020-05-24 Bilirubin [Mass/Vol] 1.8 0.1-1.2 MG/DL High 0 [facility] (03107) Comment: Result Comment: RESULT CHECK ED Albumin [Mass/Vol] 2.9 3.5-5.0 GM/DL Low 05-24-2020 [facility] (73630) Albumin/Globulin [Mass 1.0 1.5-3.0 RATIO Low 020 [facility] ratio] (53231) ALP [Catalytic 82 35-125 U/L Normal 05-24-2020 [facility] activity/Vol] (28105 ) ALT [Catalytic 9 5-40 U/L Normal 05-24-2020 [facility] activity/Vol] (00228 ) Comment: Result Comment: Performed at [facility] [address] [address] [facility] [address] Anion gap [Moles/Vol] 11 0-19 MMOL/L Normal 05-24-20 20 [facility] (22219) AST [Catalytic 40 5-40 U/L Normal 05-24-2020 [facility] activity/Vol] (25230 ) Calcium [Mass/Vol] 8.2 8.5-10.4 MG/DL Low 05-24-2020 [facility] (60082) Chloride [Moles/Vol] 104 97-107 MMOL/L Normal 0 [facility] (10965) CO2 [Moles/Vol] 23 24-31 MMOL/L Low 05-24-2020 [facility] (69809) Creatinine [Mass/Vol] 0.9 0.4-1.6 MG/DL Normal 05-24-20 20 [facility] (57428) Globulin (S) [Mass/Vol] 2.9 1.9-3.7 G/DL Normal 2019 [facility] (28648) Glucose [Mass/Vol] 98 65-99 MG/DL Normal 05-24-2020 [facility] (23134) Potassium [Moles/Vol] 3.5 3.4-5.1 MMOL/L Normal 05-24-20 20 [facility] (71456) Protein [Mass/Vol] 5.8 5.9-7.9 G/DL Low 05-24-2020 [facility] (50851) Sodium [Moles/Vol] 138 133-145 MMOL/L Normal 05-24-2020 [facility] (09336) Urea nitrogen [Mass/Vol] 16 8-25 MG/DL Normal 05-24 [facility] (00421) Urea nitrogen/Creatinine 17.8 8-21 RATIO Normal 05-24 [facility] [Mass ratio] (61822) cbc with diff on 16-05-28 AB IMMATURE NEUT 0.01 0.0-0.1 K/UL Normal 05-24-2020 [facility] (89460) ABS BASO 0.03 0.00-0.22 K/UL Normal 05-24-2020 [facility] (11381) ABS EOS 0.43 0-0.45 K/UL Normal 05-24-2020 [facility] (42290) ABS NEUTROPHILS 4.23 1.8-7.7 K/UL Normal 05-24-2020 [facility] (73490) ABS.NEUT.CALCULATED 4.23 K/UL Normal 05-24-2020 [facility] (01738) Comment: Result Comment: Performed at [facility] [address] [facility] [address] Basophils/100 WBC (Bld) 0.30 0-1 % Normal 2019 [facility] (00 000) DIFF TYPE AUTO DIFF Normal 05-24-2020 [facility] (00 000) Eosinophils/100 WBC 4.20 0-3 % High 05-24-2020 [facility] (Bld) System ( 000) Erythrocyte distribution 14.5 11.7-15.0 % Normal 05-24 [facility] width (RBC) [Ratio] System (19626) Hematocrit (Bld) [Volume 33.0 41-50 % Low 05-24 [facility] fraction] System (00 000) Hemoglobin (Bld) 10.9 13.5-16.5 GM/DL Low 05-24-2020 [facility] [Mass/Vol] System (0 0000) Lymphocytes (Bld) 4.92 1.2-3.2 K/UL High 05-24-2020 [facility] [#/Vol] System (00 000) Lymphocytes/100 WBC 48.00 20-40 % High 05-24-2020 [facility] (Bld) System ( 000) MCH (RBC) [Entitic mass] 33.1 26-34 PG Normal 05-24 [facility] System ( 000) MCHC (RBC) [Mass/Vol] 33.0 31-37 % Normal 05-24-20 20 [facility] ( 000) MCV (RBC) [Entitic vol] 100.3 80-100 FL High 2019 [facility] ( 000) MEAN PLT VOL 9.5 7.0-12.6 CU Normal 05-24-2020 [facility] ( 000) Monocytes (Bld) [#/Vol] 0.63 0-0.8 K/UL Normal 2019 [facility] ( 000) Monocytes/100 WBC (Bld) 6.10 0-8 % Normal 2019 [facility] ( 000) Neutrophils/100 WBC 0.10 0.0-1.0 % Normal 05-24-2020 [facility] (Bld) System (00 000) Neutrophils/100 WBC 41.30 50-70 % Low 05-24-2020 [facility] (d) System ( 000) Platelets (Bld) [#/Vol] 104 150-450 K/UL Low 2019 [facility] (00 000) RBC (Bld) [#/Vol] 3.29 4.5-5.5 M/UL Low 05-24-2020 [facility] System ( 000) RDW-SD 54.3 37.0-54.0 FL High 05-24-2020 [facility] (00 000) WBC (Bld) [#/Vol] 10.3 4.5-11.0 K/UL Normal 05-24-2020 [facility] (00 000) prothrombin time on 2020-05-23 INR Coag (PPP) [Relative 2.7 0.86-1.16 {INR} High 05-23 [facility] time] (25581) Comment: Result Comment: INR Theraput ic Range: 2.0-3.5 Performed at [place] [address] [address] [place] [address] PT Coag (PPP) 29.2 9.3-12.7 SEC High 05-23-2020 [facility] [Time] (67454) PT Coag (PPP) HISTORY OF COUMADIN Normal 2019 [facility] [Time] (19573) pro-bnp on Natriuretic peptide B (Bld) 467 0-229 PG/ML High [facility] [Mass/Vol] (16188) Comment: Result Comment: Reference ra nges are based on clinical submission data. These ranges represent the 95th percentil e of normal cut-off points. As NT pro-BNP values approach 1000 pg/ml, clinical symptoms are more likely associated with CHF. Performed at [place] [address] Performed By: #### PBNP #### [place] [address] plt estimate battery on 2020-05-23 Platelets (Bld) [#/Vol] Normal 2019 [facility] (98028) Comment: Result Comment: DECREASED Performed at [place] [address] [address] [place] [phone] magnesium on 05-23 Magnesium [Mass/Vol] 1.8 1.6-3.1 MG/DL Normal 0 [facility] (48755) Comment: Result Comment: Performed at [place] [address] [address] [place] [phone] cbc without diff on 2020-05-23 Erythrocyte distribution 14.4 11.7-15.0 % Normal 05-23 [facility] width (RBC) [Ratio] (76443) Hematocrit (Bld) [Volume 31.9 41-50 % Low 05-23 [facility] fraction] (65990) Hemoglobin (Bld) 10.8 13.5-16.5 GM/DL Low 05-23-2020 [facility] [Mass/Vol] (35392) MCH (RBC) [Entitic mass] 34.0 26-34 PG Normal 05-23 [facility] (94565) MCHC (RBC) [Mass/Vol] 33.9 31-37 % Normal 05-23-20 20 [facility] (06158) MCV (RBC) [Entitic vol] 100.3 80-100 FL High 2019 [facility] (46006) MEAN PLT VOL 9.3 7.0-12.6 CU Normal 05-23-2020 [facility] (41156) Comment: Result Comment: Performed at [facility] [address] [place] [facility] [address] Platelets (Bld) [#/Vol] 94 150-450 K/UL Low 2019 [facility] (46167) Comment: Result Comment: CONSISTENT W ITH PERIPHERAL SMEAR RBC (Bld) [#/Vol] 3.18 4.5-5.5 M/UL Low 05-23-2020 [facility] (15267) RDW-SD 53.7 37.0-54.0 FL Normal 05-23-2020 [facility] (34713) WBC (Bld) [#/Vol] 14.6 4.5-11.0 K/UL High 05-23-2020 [facility] (50196) c reactive protein on 2020-05-23 CRP [Mass/Vol] 5.7 0-2.0 MG/DL High 05-23-2020 [facility] (31281) Comment: Result Comment: Performed at [address] [address] Performed By: #### CRP #### Main Laboratory [address] [address] basic metabolic panel on 2020-05-23 Anion gap [Moles/Vol] 10 0-19 MMOL/L Normal 05-23-20 20 [facility] (21570) Calcium [Mass/Vol] 8.2 8.5-10.4 MG/DL Low 05-23-2020 [facility] (78602) Comment: Result Comment: Performed at [address] [address] Chloride [Moles/Vol] 104 97-107 MMOL/L Normal 0 [facility] (87680) CO2 [Moles/Vol] 24 24-31 MMOL/L Normal 05-23-2020 [facility] (92623) Creatinine [Mass/Vol] 1.0 0.4-1.6 MG/DL Normal 05-23-20 20 [facility] (60798) Glucose [Mass/Vol] 105 65-99 MG/DL High 05-23-2020 [facility] (47391) Potassium [Moles/Vol] 3.3 3.4-5.1 MMOL/L Low 05-23-20 20 [facility] (35790) Sodium [Moles/Vol] 138 133-145 MMOL/L Normal 05-23-2020 [facility] (05293) Urea nitrogen [Mass/Vol] 17 8-25 MG/DL Normal 05-23 [facility] (40191) Urea nitrogen/Creatinine 17.0 8-21 RATIO Normal 05-23 [facility] [Mass ratio] (20846) sedimentation rate on 2020-05-22 SEDIMENTATION RATE 39 0-12 MM/HR High 05-22-2020 [facility] (87215) Comment: Result Comment: Performed at [address] [address] pt and ptt on 05-22 aPTT Coag (Bld) [Time] 40.9 22.0-32.5 SEC High 020 [facility] (13265) Comment: Result Comment: Performed at [address] [address] INR Coag (PPP) [Relative 2.5 0.86-1.16 {INR} High 05-22 [facility] time] (89587) Comment: Result Comment: INR Theraput ic Range: 2.0-3.5 PT Coag (PPP) [Time] 27.0 9.3-12.7 SEC High 0 [facility] (49274) ANTICOAGULANT COUMADIN Normal 05-22-2020 [facility] (06973) magnesium on 05-22 Magnesium [Mass/Vol] 1.9 1.6-3.1 MG/DL Normal 0 [facility] (96623) Comment: Result Comment: Performed at [facility] [address] [place] [phone] comprehensive metabolic panel on 2020-05-22 Albumin [Mass/Vol] 3.3 3.5-5.0 GM/DL Low 05-22-2020 [facility] (12902) Albumin/Globulin 1.1 1.5-3.0 RATIO Low 05-22-2020 [facility] [Mass ratio] (67478) ALP [Catalytic 97 35-125 U/L Normal 05-22-2020 [facility] activity/Vol] (97488 ) ALT [Catalytic 11 5-40 U/L Normal 05-22-2020 [facility] activity/Vol] (80542 ) Anion gap [Moles/Vol] 13 0-19 MMOL/L Normal 05-22-20 20 [facility] (56924) AST [Catalytic 53 5-40 U/L High 05-22-2020 [facility] activity/Vol] (94415 ) Bilirubin [Mass/Vol] 2.6 0.1-1.2 MG/DL High 0 [facility] (52183) Calcium [Mass/Vol] 8.5 8.5-10.4 MG/DL Normal 05-22-2020 [facility] (41233) Chloride [Moles/Vol] 102 97-107 MMOL/L Normal 0 [facility] (59126) CO2 [Moles/Vol] 22 24-31 MMOL/L Low 05-22-2020 [facility] (33383) Creatinine [Mass/Vol] 1.0 0.4-1.6 MG/DL Normal 05-22-20 20 [facility] (63217) GFR/1.73 sq 78 mL/min/1.73 m2 Normal 05-22-2020 [facility] M.predicted MDRD (00 000) (S/P/Bld) [Vol rate/Area] Comment: Result Comment: GFR ml/min/1.73m2 Stage ----- 90 1 60-89 2 30-59 3 15-29 4 <15 5 For -Americans, multi ply EGFR result by 1.210 Calculation not validated fo r patients under 18 years of age. Performed at [facility] [address] in [facility] [address] Globulin (S) [Mass/Vol] 3.1 1.9-3.7 G/DL Normal 2019 [facility] (54831) Glucose [Mass/Vol] 90 65-99 MG/DL Normal 05-22-2020 [facility] (08213) Potassium [Moles/Vol] 3.6 3.4-5.1 MMOL/L Normal 05-22-20 [facility] (49268) Protein [Mass/Vol] 6.4 5.9-7.9 G/DL Normal 05-22-2020 [facility] (86349) Sodium [Moles/Vol] 137 133-145 MMOL/L Normal 05-22-2020 [facility] (35915) Urea nitrogen [Mass/Vol] 18 8-25 MG/DL Normal 05-22 [facility] (02959) Urea nitrogen/Creatinine 18.0 8-21 RATIO Normal 05-22 [facility] [Mass ratio] (08802) cbc with diff on 16-05-26 ABS ATYPICAL LYMPH 0.19 K/UL Normal 05-22-2020 [facility] (16773) Comment: Performed By: #### CBCD #### [facility] [address] [place] [address] ABS BAND 0.39 K/UL Normal 05-22-2020 [facility] (31515) Comment: Performed By: #### CBCD #### [facility] [address] [place] [address] ABS EOS 0.58 0-0.45 K/UL High 05-22-2020 [facility] (25821) Comment: Performed By: #### CBCD #### [facility] [address] [place] [address] ABS NEUTROPHILS 8.50 1.8-7.7 K/UL High 05-22-2020 [facility] (64766) Comment: Performed By: #### CBCD #### [facility] [address] [place] [address] ABS.NEUT.MANUAL 8.88 Normal 05-22-2020 [facility] (07770) Comment: Performed By: #### CBCD #### [facility] [address] [place] [address] ATYPICAL LYMPH 1.00 % Normal 05-22-2020 [facility] (39714) Comment: Performed By: #### CBCD #### [facility] [address] [place] [address] BAND NEUTROPHIL 2.00 <16 % Normal 05-22-2020 [facility] (72677) Comment: Performed By: #### CBCD #### [facility] [address] [place] [address] DIFF TYPE MANUAL DIFF Normal 05-22-2020 [facility] (96493) Comment: Performed By: #### CBCD #### [facility] [address] [place] [address] Eosinophils/100 WBC (Bld) 3.00 0-3 % Normal 04-28 [facility] (52064) Comment: Performed By: #### CBCD #### [place] [address] [place] [address] Lymphocytes (Bld) [#/Vol] 8.50 1.2-3.2 K/UL High 04-28 [facility] (59031) Comment: Performed By: #### CBCD #### [facility] [address] [place] [address] Lymphocytes/100 WBC (Bld) 44.00 20-40 % High 04-28 [facility] (88155) Comment: Performed By: #### CBCD #### [facility] [address] [place] [address] Monocytes (Bld) [#/Vol] 1.16 0-0.8 K/UL High 2019 [facility] (56691) Comment: Performed By: #### CBCD #### [facility] [address] [place] [address] Monocytes/100 WBC (Bld) 6.00 0-8 % Normal 2019 [facility] (16634) Comment: Performed By: #### CBCD #### [facility] [address] [place] [address] Neutrophils/100 WBC (Bld) 44.00 50-70 % Low 04-28 [facility] (08619) Comment: Performed By: #### CBCD #### [facility] [address] [place] [address] Platelets (Bld) [#/Vol] SLIGHTLY DECREASED Normal 05-22-2020 [facility] (50956) Comment: Performed By: #### CBCD #### [facility] [address] [place] [address] RBC morphology finding CONSISTENT WITH Normal 0 05-22-2020 [facility] Nom (Bld) REPORTED RESULTS (00 000) Comment: Performed By: #### CBCD #### [facility] [address] [place] [address] ABS.NEUT.CALCULATED 9.43 K/UL Normal 05-22-2020 [facility] (70039) Comment: Result Comment: Performed at [address] [address] Performed By: #### CBCD #### [facility] [address] [place] [address] Erythrocyte distribution 14.4 11.7-15.0 % Normal 05-22 [facility] width (RBC) [Ratio] (40673) Comment: Performed By: #### CBCD #### [facility] [address] [place] [address] Hematocrit (Bld) [Volume 35.1 41-50 % Low 05-22 [facility] (59107) fraction] Comment: Performed By: #### CBCD #### [facility] [address] [place] [address] Hemoglobin (Bld) 11.9 13.5-16.5 GM/DL Low 05-22-2020 [facility] [Mass/Vol] (40958) Comment: Performed By: #### CBCD #### [facility] [address] [place] [address] MCH (RBC) [Entitic mass] 34.0 26-34 PG Normal 05-22 [facility] (66301) Comment: Performed By: #### CBCD #### [facility] [address] [place] [address] MCHC (RBC) [Mass/Vol] 33.9 31-37 % Normal 05-22-20 20 [facility] (27264) Comment: Performed By: #### CBCD #### [facility] [address] [place] [address] MCV (RBC) [Entitic vol] 100.3 80-100 FL High 2019 [facility] (43822) Comment: Performed By: #### CBCD #### [facility] [address] [place] [address] MEAN PLT VOL 9.7 7.0-12.6 CU Normal 05-22-2020 [facility] (32361) Comment: Performed By: #### CBCD #### [facility] [address] [place] [address] Platelets (Bld) [#/Vol] 112 150-450 K/UL Low 2019 [facility] (95364) Comment: Performed By: #### CBCD #### [facility] [address] [place] [address] RBC (Bld) [#/Vol] 3.50 4.5-5.5 M/UL [facility] 05-22-2020 [facility] (76155) Comment: Performed By: #### CBCD #### [facility] [address] [place] [address] RDW-SD 53.4 37.0-54.0 FL Normal 05-22-2020 [facility] (63535) Comment: Performed By: #### CBCD #### [facility] [address] [place] [address] WBC (Bld) [#/Vol] 19.3 4.5-11.0 K/UL High 05-22-2020 [facility] (86944) Comment: Performed By: #### CBCD #### [facility] [address] [place] [address] progress on 2020-04 PROGRESS HNO ID: [id number] Normal 05-19-2020 [facility] Author: Piper Harman) Orion [place] (10122) Service: ? Author Type: Nurse Practitioner Type: Progress Notes Filed: 05/19/2020 11:04 AM Note Text: Victorino Sears, C[employer]TER [employer] PASTER [employer]IPPINGS.JULIANA PROGRESS HNO ID: [id number] Normal 05-19-2020 [facility] Author: Elsie Huber RN [place] ([id number]) Service: ? Author Type: ? Type: Progress Notes Filed: 05/19/2020 11:04 AM Note Text: patient had inr completed at [facility] patients inr is 2.6 (patients inr [...] on 2020-05-19 CNPN Telephone (KAYY) Normal 05-19-2020 [place] [facility] JUSTIN ZAZUETA ([id number]) 1950 [facility] Date Time Provider Department (51064) 05/19/20 MATTHEW ROCHA During your visit today, [...] fibrillation, chronic (HCC) [ I48.20] Order(s):INR (POC) [4517920] Order #: [id number] STANDING PROTHROMBIN TIME/PT [SQPT] Order #: [id number] STANDING Prescriptions as of 05/19/2020 Sig: METOPROLOL [...] (INTMWS) Normal 05-10-2020 Liban wolf JUSTIN Julian ([id number]) 1950 [facility] Date Time Provider Department (78857) 05/10/20 MATTHEW ROCHA During your visit today, [...] 05/10/20 progress on 2020-04 PROGRESS HNO ID: [id number] Normal 04-27-2020 [place] Author: Vickie Griffin [facility] Service: ? [place] Author Type: Nurse Practitioner ([id number]) Type: Progress Notes Filed: 05/01/2020 9:32 AM [...] Laterality Date - COLONOSCOP W/ OR W/O [facility] SPEC April 2001 normal - COLONOSCOP W/ OR W/O [facility] SPEC 02/25/2012 Colonoscopy - PAST [...] education/counselling/coordination of care. Vickie Griffin, PhD, WOCN, DISASSEMBLER PRODUCT cnov on 2020-04-27 CNOV Office Visit (VASSWS) Normal 04-27-20 20 [place] [facility] JUSTIN ZAZUETA ([id number]) 1950 [facility] Date Time Provider Department (16178) 04/27/20 2:30 PM VICKIE GRIFFIN During your visit today, we recorded the following informati on about you: Vickie Griffin, PhD, [employer]PINGS.DISASSEMBLER PRODUCT 05/01/2020 9:32 AM Signed VASCULAR SURGERY WOUND [...] Laterality Date - COLONOSCOP W/ OR W/O [facility] SPEC April 2001 normal - COLONOSCOP W/ OR W/O [facility] SPEC 02/25/2012 Colonoscopy - PAST [...] education/counselling/coordination of care. Vickie Griffin, PhD, WOCN, DISASSEMBLER PRODUCT Referring Provider: VICKIE GRIFFIN [[id number]] Allergies As of Date: 04/27/2020 (No Known [...] on 2020-04-27 CNCO Letter Text Normal 04-27-2020 [facility] (26451) progress on 2020-03 PROGRESS HNO ID: [id number] Normal 04-21-2020 [facility] Author: Matthew Rocha [place] ([id number]) Service: ? Author Type: Physician Type: Progress Notes Filed: 04/21/2020 5:33 PM Note Text: Okay. FIELD SALES MANAGER notes reviewed. Medication list updated. PROGRESS HNO ID: [id number] Normal 04-21-2020 [facility] Author: Elsie Huber RN [place] ([id number]) Service: ? Author Type: ? Type: Progress Notes Filed: 04/21/2020 5:33 PM Note Text: patient had inr completed at [facility] patients inr is 2.5 (patients inr [...] for follow up INR. PROGRESS HNO ID: [id number] Normal 04-21-2020 [facility] Author: Mike Mccurdy [place] ([id number]) Service: ? Author Type: Nurse Practitioner Type: [...] Laterality Date - COLONOSCOP W/ OR W/O [facility] SPEC April 2001 normal - COLONOSCOP W/ OR W/O [facility] SPEC 02/25/2012 Colonoscopy - PAST [...] ER 10 MEQ TABLET,EXTENDED RELEASE Mike Mccurdy APRN.DISASSEMBLER PRODUCT Prescription instructions reviewed with patient as applicabl e. Potential red flag symptoms discussed with the patient. Reviewed appro priate action plan to take if red flag symptoms occur. Patient agreeable t o treatment plan. cnov on 2020-04-21 CNOV Office Visit (INTMWS) Normal 04-21-20 [place] [facility] JUSTIN ZAZUETA ([id number]) 1950 [facility] Date Time Provider Department ([id number]) 04/21/20 10:40 AM MIKE MCCURDY (DISASSEMBLER PRODUCT) INTMWS During your visit today, we recorded [...] Laterality Date - COLONOSCOP W/ OR W/O [facility] SPEC April 2001 normal - COLONOSCOP W/ OR W/O [facility] SPEC 02/25/2012 Colonoscopy - PAST [...] ER 10 MEQ TABLET,EXTENDED RELEASE Mike Mccurdy APRN.DISASSEMBLER PRODUCT Prescription instructions reviewed with patient as sanjay licable. Potential red flag symptoms discussed with the patient. Review ed appropriate action plan to take if red flag symptoms occur. Patient agreeable to treatm ent plan. Mike Mccurdy APRN.DISASSEMBLER PRODUCT 04/21/2020 11:05 AM Addendum Continue to check blood pressure daily. Contact office for readings <100/60 or >140/90. Check weight daily- record readings. Not mannie office of >5 pounds weight gain in 24 hour period. Continue to hold Lisinopril Referring Provider: MATTHEW ROCHA [[id number]] Allergies As of Date: 04/21/2020 (No Known Allergies) Date Reviewed: 04/21/2020 Reviewed by: Dianelys Donaldson Ma - Fully Assessed Reason for Visit: Ear Problem [38] Cmt: R ear muffled, improving Primary Visit Diagnosis:Perceived hearing changes [H91.90] Other Visit Diagnoses:Atrial fibrillation, unspecified type (HCC) [I48.91] Essential hypertension [I10] Bilateral lower extremity edema [R60.0] Order(s):INR (POC) [8394912] Order #: [id number]. #:[id number] metoprolol tartrate, short acting, (LOPRESSOR) 50 mg tabletT ken 0.5 tablets by mouth twice daily.Disp: 180 tabletRfl: 0 furosemide (LASIX) 20 mg tabletTake 0.5 tablets by mouth onc e daily.Disp: 45 tabletRfl: 0 potassium chloride (K-TAB) 10 mEq tabletTake 1 tablet by josette th daily with breakfast.Disp: 90 tabletRfl: 0 BASIC METABOLIC PNL [SQBMP] Order #: [id number] FUTURE Prescriptions as of 04/21/2020 Sig: METOPROLOL [...] 04/21/20 progress on 2020-03 PROGRESS HNO ID: [id number] Normal 04-15-2020 [place] Author: Vickie [facility] Service: ? [place] Author Type: Nurse Practitioner ([id number]) Type: Progress Notes Filed: 04/15/2020 6:01 PM [...] Laterality Date - COLONOSCOP W/ OR W/O [facility] SPEC April 2001 normal - COLONOSCOP W/ OR W/O [facility] SPEC 02/25/2012 Colonoscopy - PAST [...] education/counselling/coordination of care. Vickie Griffin, PhD, WOCN, DISASSEMBLER PRODUCT cnpn on 2020-04-15 CNPN Telephone (INTMWS) Normal 04-15-2020 [facility] JUSTIN ZAZUETA ([id number]) 1950 [facility] Date Time Provider Department (46019) 04/15/20 MATTHEW ROCHA INTMWS During your visit [...] to speak with a nurse. Itzel Moser [facility] Racheal Macario LPN 04/19/2020 11:05 AM Signed [...] 2020-04-15 CNOV Office Visit (VASSWS) Normal 04-15-[address] [place] [address] [facility] JUSTIN ZAZUETA ([id number]) 1950 [facility] Date Time Provider Department ([id number]) 04/15/20 10:30 AM VICKIE GRIFFIN VASSWS During your visit today, we recorded the following informati on about you: Pulse Blood pressure Weight 63/minute 103/42 147 kg Vickie Griffin, PhD, C[employer]TER [employer] CLIPPINGS.DISASSEMBLER PRODUCT 04/15/2020 6:01 PM Signed VASCULAR SURGERY WOUND [...] education/counselling/coordination of care. Vickie Griffin, PhD, WOCN, DISASSEMBLER PRODUCT Referring Provider: VICKIE GRIFFIN [[id number]] Allergies As of Date: 04/15/2020 (No Known Allergies) Date Reviewed: 04/15/2020 Reviewed by: Graciela Espiita Ma - Fully Assessed Reason for Visit: [...] 04/15/20 progress on 2020-03 PROGRESS HNO ID: [id number] Normal 04-07-2020 [facility] Author: Matthew Jsoe ([id number]) Service: ? Author Type: Physician Type: Progress Notes Filed: 04/07/2020 1:22 PM Note Text: I agree. PROGRESS HNO ID: [id number] Normal 04-07-2020 [facility] Author: Elsie Huber RN [place] ([id number]) Service: ? Author Type: ? Type: Progress Notes Filed: 04/07/2020 1:22 PM Note Text: patient had inr completed at [facility] patients inr is 1.5 (patients inr [...] PSA, Diagnostic 0.38 0.00-2.59 ng/mL Normal 04-06-2020 [facility] (85619) Comment: Result Comment: Total PSA te st methodology used is the Electrochemiluminescence Imm unoassay. Performed By: #### PSA, CMP, LIPB, CBCDIF ####[facility] [address] [place], [place] [phone] protime on PT Coag (PPP) Test sent to [facility] Normal 04-06 [facility] [Time] [facility] (13380) Comment: Result Comment: Account Cred ited HIDE progress on 2020-03 PROGRESS HNO ID: [id number] Normal 04-06-2020 [facility] Author: Matthew Rocha [place] ([id number]) Service: ? Author Type: Physician Type: Progress [...] discussion. Matthew Rocha MD PROGRESS HNO ID: [id number] Normal 04-06-2020 [facility] Author: Vickie Jose ([id number]) Service: ? Author Type: Nurse Practitioner Type: [...] education/counselling/coordination of care. Vickie Griffin, PhD, WOCN, DISASSEMBLER PRODUCT lipid panel, basic on 2020-04-06 Cholesterol [Mass/Vol] 127 <200 mg/dL Normal 04-06- 020 [facility] (10167) Comment: Result Comment: <200 mg/dL, Desirable 200-239 mg/dL, Borderline hi gh >239 mg/dL, High Performed By: #### PSA, CMP, LIPB, CBCDIF ####[facility] [address] [place], [place] [phone] Cholesterol in HDL 43 >39 mg/dL Normal 04-06-2020 [facility] [Mass/Vol] (91198) Comment: Result Comment: 40-59 mg/dL, Acceptable >59 mg/dL, High: Negative ri sk factor for coronary heart disease <40 mg/dL, Low: Positive ris k factor for coronary heart disease Performed By: #### PSA, CMP, LIPB, CBCDIF ####[facility] [address] [place], [place] [phone] Cholesterol in LDL 71 <100 mg/dL Normal 04-06-2020 [facility] [Mass/Vol] [place] (90299) Comment: Result Comment: <100 mg/dL, Optimal 100-129 mg/dL, Near optimal/ above optimal 130-159 mg/dL, Borderline hi gh 160-189 mg/dL, High >189 mg/dL, Very high Secondary prevention optimal LDL Cholesterol levels are recommended to be < 70 mg/dL Performed By: #### PSA, CMP, LIPB, CBCDIF ####[facility] [address] [place], [place] [phone] Fasting Time 12 hrs Normal 04-06-2020 [facility] (46395) Comment: Performed By: #### PSA, CMP, LIPB, CBCDIF ####[facility] [address] [place], [place] [phone] LDL:HDL Ratio 1.65 <2.54 Normal 04-06-2020 [facility] (22442) Comment: Result Comment: Reference: 1. National Cholesterol Educ ation Program ATP III Guideline At-A-Glance Quick Desk Reference: National Heart, Lung, and Blood [place]. National Institutes of Health. 2001: NIH Publication No. 01-3305. 2. An International Atherosc lerosis Society position paper: global recommendations for the management of dyslipidemia: executive summary, Atherosclerosis. 2014: 232(2):410-413. Performed By: #### PSA, CMP, LIPB, CBCDIF ####[place] [address] [place], [place] [phone] Non HDL Cholesterol 84 <130 mg/dL Normal 04-06-2020 [facility] (55253) Comment: Result Comment: <130 mg/dL, Optimal 130-159 mg/dL, Near optimal/ above optimal 160-189 mg/dL, Borderline hi gh 190-219 mg/dL, High >219 mg/dL, Very high Secondary prevention optimal non HDL Cholesterol levels are recommended to be < 100 mg/dL Performed By: #### PSA, CMP, LIPB, CBCDIF ####[facility] [address] [place], [place] [phone] TC:HDL Ratio 2.95 <5.10 Normal 04-06-2020 [facility] (59992) Comment: Performed By: #### PSA, CMP, LIPB, CBCDIF ####[place] [address] [place] [phone] Triglyceride [Mass/Vol] 63 <150 mg/dL Normal 2019 [facility] (93661) Comment: Result Comment: <150 mg/dL, Normal 150-199 mg/dL, Borderline hi gh 200-499 mg/dL, High >499 mg/dL, Very high Performed By: #### PSA, CMP, LIPB, CBCDIF ####[facility] [address] [place] [phone] VLDL Cholesterol 13 <30 mg/dL Normal 04-06-2020 [facility] (04737) Comment: Performed By: #### PSA, CMP, LIPB, CBCDIF ####[facility] [address] [place] [phone] comp metabolic panel on 2020-04-06 Albumin [Mass/Vol] 3.7 3.9-4.9 g/dL Low 04-06-2020 [facility] (55308) Comment: Performed By: #### PSA, CMP, LIPB, CBCDIF ####[place] [address] [place] [phone] ALP [Catalytic activity/Vol] 88 38-113 U/L Normal 0 04-06-2020 [facility] (60814) Comment: Performed By: #### PSA, CMP, LIPB, CBCDIF ####[facility] [place], [place] [phone] ALT [Catalytic activity/Vol] 7 10-54 U/L Low 0 04-06-2020 [facility] (39319) Comment: Performed By: #### PSA, CMP, LIPB, CBCDIF ####[place] [address] [place], [place] [phone] Anion gap [Moles/Vol] 11 9-18 mmol/L Normal 04-06-20 20 [facility] (30637) Comment: Performed By: #### PSA, CMP, LIPB, CBCDIF ####[place] [address] [place], [place] [phone] AST [Catalytic activity/Vol] 66 14-40 U/L High 0 04-06-2020 [facility] (96362) Comment: Performed By: #### PSA, CMP, LIPB, CBCDIF ####[place] [address] [place], [place] [phone] Bilirubin [Mass/Vol] 2.7 0.2-1.3 mg/dL High 0 [facility] (86759) Comment: Performed By: #### PSA, CMP, LIPB, CBCDIF ####[facility] [place], [place] [phone] Calcium [Mass/Vol] 9.7 8.5-10.2 mg/dL Normal 04-06-2020 [facility] (66266) Comment: Performed By: #### PSA, CMP, LIPB, CBCDIF ####[facility] [address] [place], [place] [phone] Chloride [Moles/Vol] 98 97-105 mmol/L Normal 0 [facility] (28993) Comment: Performed By: #### PSA, CMP, LIPB, CBCDIF ####[facility] [address] [place], [place] [phone] CO2 [Moles/Vol] 26 22-30 mmol/L Normal 04-06-2020 [facility] (03961) Comment: Performed By: #### PSA, CMP, LIPB, CBCDIF ####[facility] [address] [place] [phone] Creatinine [Mass/Vol] 0.92 0.73-1.22 mg/dL Normal 04-06-20 [facility] (73494) Comment: Performed By: #### PSA, CMP, LIPB, CBCDIF ####[facility] [address] [place], [place] [phone] eGFR- Amer. >60 Normal 04-06-2020 [facility] (83920) Comment: Performed By: #### PSA, CMP, LIPB, CBCDIF ####[facility] [place], [place] [phone] GFR/1.73 sq M predicted >60 mL/min/{1.73_m2} Normal 04-06-2020 [facility] among non-blacks MDRD [place] (48602) (S/P/Bld) [Vol rate/Area] Comment: Result Comment: eGFR [...] Performed By: #### PSA, CMP, LIPB, CBCDIF ####[facility] [address] [place], [place] [phone] Glucose [Mass/Vol] 97 74-99 mg/dL Normal 04-06-2020 [facility] (93705) Comment: Result Comment: The [place] Diabetes Association (ADA) provides guidance for cutoff [...] for diagnosis of diabetes. Reference: Standards of [facility] Care in Diabetes 2016, [place] [employer]. Diabetes Care. 2016.39(Suppl 1). Performed By: #### PSA, CMP, LIPB, CBCDIF ####[facility] [address] [place], [place] [phone] Potassium [Moles/Vol] 3.8 3.7-5.1 mmol/L Normal 04-06-20 20 [facility] (59744) Comment: Performed By: #### PSA, CMP, LIPB, CBCDIF ####[facility] [address] [place], [place] [phone] Protein [Mass/Vol] 7.2 6.3-8.0 g/dL Normal 04-06-2020 [facility] (53314) Comment: Performed By: #### PSA, CMP, LIPB, CBCDIF ####[facility] [address] [place], [place] [phone] Sodium [Moles/Vol] 135 136-144 mmol/L Low 04-06-2020 [facility] (20270) Comment: Performed By: #### PSA, CMP, LIPB, CBCDIF ####[facility] [address] [place], [place] [phone] Urea nitrogen [Mass/Vol] 20 9-24 mg/dL Normal 04-06 [facility] (51792) Comment: Performed By: #### PSA, CMP, LIPB, CBCDIF ####[facility] [address] [place], [place] [phone] cnpn on 2020-04-06 CNPN Telephone (INTMWS) Normal 04-06-2020 [place] [facility] JUSTIN ZAZUETA ([id number]) 1950 [facility] Date Time Provider Department (15535) 04/06/20 MATTHEW ROCHA INTDiandraWS During your visit today, we recorded the following informati on about you: Darby Venegas LPN 04/06/2020 4:42 PM Signed as of 4:41PM , INR not resulted in [facility]. Kate Lemon LPN 04/06/2020 5:05 PM Signed Called [facility] Lab, INR specimen was rejected because there [...] [I48.91] Order(s):CBC + DIFF [SQCBCDIF] Order #: [id number] FUTURE HEPATIC FUNCTION PNL [SQHFP] Order #: [id number] FUTURE PROTHROMBIN TIME/PT [SQPT] Order #: [id number] STANDING INR (POC) [[id number]] Order #: [id number]: 99 STANDING Prescriptions as of 04/06/2020 Sig: [...] 2020-04-06 CNOV Office Visit (VASSWS) Normal 04-06-[address] [place] [address] [facility] JUSTIN ZAZUETA ([id number]) 1950 M [place] Date Time Provider Department ([id number]) 04/06/20 11:00 AM VICKIE GRIFFIN VASSWS During your visit today, we recorded the following informati on about you: Pulse Blood pressure Weight 65/minute 113/62 139.6 kg Vickie Griffin, PhD, CUTTER AND PASTER PRESS CLIPPINGS.DISASSEMBLER PRODUCT 04/07/2020 1:15 PM Signed VASCULAR SURGERY WOUND [...] Laterality Date - COLONOSCOP W/ OR W/O [facility] SPEC April 2001 normal - COLONOSCOP W/ OR W/O [facility] SPEC 02/25/2012 Colonoscopy - PAST [...] education/counselling/coordination of care. Vickie Griffin, PhD, WOCN, DISASSEMBLER PRODUCT Referring Provider: VICKIE GRIFFIN [[id number]] Allergies As of Date: 04/06/2020 (No Known [...] extremities w*01/08/2019 Encounter Status:Closed by VICKIE GRIFFIN DISASSEMBLER PRODUCT on 04/07/20 cbc and differential on 2020-04-06 Abs Baso 0.16 <0.11 k/uL High 04-06-2020 [facility] ([id number]) Comment: Performed By: #### PSA, CMP, LIPB, CBCDIF ####[facility] [address] [place] [phone] Abs Pickett 0.81 <0.87 k/uL Normal 04-06-2020 [facility] (08609) Comment: Performed By: #### PSA, CMP, LIPB, CBCDIF ####[facility] [address] [place], [place] [phone] Abs Neut 2.76 1.45-7.50 k/uL Normal 04-06-2020 [facility] (69733) Comment: Performed By: #### PSA, CMP, LIPB, CBCDIF ####[facility] [address] [place] [phone] ANC(includeSEG+BAND) 2.76 k/uL Normal 0 [facility] (66964) Comment: Performed By: #### PSA, CMP, LIPB, CBCDIF ####[facility] [place], [place] [phone] Basophils/100 WBC (Bld) 1.0 % Normal 2019 [facility] (23535) Comment: Performed By: #### PSA, CMP, LIPB, CBCDIF ####[facility] [place], [place] [phone] DTYPE Manual Diff Normal 04-06-2020 [facility] (91658) Comment: Performed By: #### PSA, CMP, LIPB, CBCDIF ####[place] [address] [place], [place] [phone] Eosinophils (Bld) [#/Vol] 0.00 <0.46 k/uL Normal 03-28 [facility] (95994) Comment: Performed By: #### PSA, CMP, LIPB, CBCDIF ####[facility] [place], [place] [phone] Eosinophils/100 WBC (Bld) 0.0 % Normal 03-28 [facility] (25112) Comment: Performed By: #### PSA, CMP, LIPB, CBCDIF ####[facility] [place], [place] [phone] Erythrocyte distribution 14.3 11.5-15.0 % Normal 04-06 [facility] width (RBC) [Ratio] [place] (13580) Comment: Performed By: #### PSA, CMP, LIPB, CBCDIF ####[facility] [address] [place], [place] [phone] Hematocrit (Bld) [Volume 42.1 39.0-51.0 % Normal 04-06 [facility] fraction] [place] (73536) Comment: Performed By: #### PSA, CMP, LIPB, CBCDIF ####[facility] [place], [place] [phone] Hemoglobin (Bld) 13.9 13.0-17.0 g/dL Normal 04-06-2020 [facility] [Mass/Vol] [place] (58736) Comment: Performed By: #### PSA, CMP, LIPB, CBCDIF ####[place] [address] [place], [place] [phone] Lymphocytes (Bld) [#/Vol] 12.50 1.00-4.00 k/uL High 03-28 [facility] (57307) Comment: Performed By: #### PSA, CMP, LIPB, CBCDIF ####[place] [address] [place], [place] [phone] Lymphocytes/100 WBC (Bld) 77.0 % Normal 03-28 [facility] (19544) Comment: Performed By: #### PSA, CMP, LIPB, CBCDIF ####[place] [address] [place], [place] [phone] MCH (RBC) [Entitic mass] 33.4 26.0-34.0 pG Normal 04-06 [facility] (09476) Comment: Performed By: #### PSA, CMP, LIPB, CBCDIF ####[place] [address] [place], [place] [phone] MCHC (RBC) [Mass/Vol] 33.0 30.5-36.0 g/dL Normal 04-06-20 [facility] (77168) Comment: Performed By: #### PSA, CMP, LIPB, CBCDIF ####[place] [address] [place], [place] [phone] MCV (RBC) [Entitic vol] 101.2 80.0-100.0 fL High 04-06 [facility] (01529) Comment: Performed By: #### PSA, CMP, LIPB, CBCDIF ####[facility] [address] [place], [place] [phone] Monocytes/100 WBC (Bld) 5.0 % Normal 2019 [facility] (41412) Comment: Performed By: #### PSA, CMP, LIPB, CBCDIF ####[facility] [address] [place], [place] [phone] Neutrophils/100 WBC (Bld) 17.0 % Normal 03-28 [facility] (70563) Comment: Performed By: #### PSA, CMP, LIPB, CBCDIF ####[facility] [place], [place] [phone] Platelet mean volume 10.2 9.0-12.7 fL Normal 0 [facility] (Bld) [Entitic vol] [place] (70492) Comment: Performed By: #### PSA, CMP, LIPB, CBCDIF ####[place] [address] [place], [place] [phone] Platelets (Bld) Platelet estimate Normal 2019 [facility] [#/Vol] adequate [place] (06219) Comment: Performed By: #### PSA, CMP, LIPB, CBCDIF ####[facility] [place], [place] [phone] Platelets (Bld) [#/Vol] 181 150-400 k/uL Normal 2019 [facility] (20455) Comment: Performed By: #### PSA, CMP, LIPB, CBCDIF ####[facility] [address] [place], [place] [phone] Polychromasia Slight Normal 04-06-2020 [facility] (06715) Comment: Performed By: #### PSA, CMP, LIPB, CBCDIF ####[facility] [address] [place], [place] [phone] RBC (Bld) [#/Vol] 4.16 4.20-6.00 m/uL Low 04-06-2020 C [facility] (48869) Comment: Performed By: #### PSA, CMP, LIPB, CBCDIF ####[facility] [address] [place], [place] [phone] Red Cell Morph SEE COMMENT Normal 04-06-2020 [facility] (10050) Comment: Result Comment: Unremarkable Performed By: #### PSA, CMP, LIPB, CBCDIF ####[facility] [address] [place], [place] [phone] WBC (Bld) [#/Vol] 16.24 3.70-11.00 k/uL High 04-06-2020 [facility] (21115) Comment: Performed By: #### PSA, CMP, LIPB, CBCDIF ####[facility] [address], [place] [phone] progress on 2020-03 PROGRESS HNO ID: [id number] Normal 04-04-2020 [place] Author: Vickie Griffin [facility] Service: ? [place] Author Type: Nurse Practitioner ([id number]) Type: Progress Notes Filed: 04/04/2020 5:56 AM [...] Laterality Date - COLONOSCOP W/ OR W/O [facility] SPEC April 2001 normal - COLONOSCOP W/ OR W/O [facility] SPEC 02/25/2012 Colonoscopy - PAST [...] education/counselling/coordination of care. Vickie Griffin, PhD, WOCN, DISASSEMBLER PRODUCT progress on 2020-03 PROGRESS HNO ID: [id number] Normal 03-31-2020 [facility] Author: Elsie Huber RN ([id number]) Service: ? Author Type: ? Type: Progress Notes Filed: 03/31/2020 12:06 PM Note Text: patient had inr completed at [facility] patients inr is 2.3 (patients inr range is 2.0-3.0) patient is currently holding due to high level from [facility] of 4 .3 per patient patients last [...] inr in 1 week on 04/07/20 as [facility] had him hold coumadin for the pa st 3 days. cnpn on 2020-03-30 CNPN Telephone (INTMWS) Normal 03-30-2020 [place] [facility] JUSTIN ZAZUETA ([id number]) 1950 [facility] Date Time Provider Department (35154) 03/30/20 MATTHEW ROCHA INTMWS During your visit [...] % and ER advised that he see [facility] wound doctor. he still has one draining blister on side of his right leg. Patient asking if PCP would refer him to [facility] wound doctor, Ying Griffin DNP? Patient does not wish to see vascular surgeon at this time. Please review and advise. NAVID Ramsey MD 03/30/2020 10:59 AM Signed He has an appointment with Ashley Griffin here in [place] at 3 25 PM. Please inform the patient. Kate Lemon LPN 03/30/2020 11:08 AM Signed Left below message on identified vm. Kate Lemon LPN Allergies As of Date: 03/30/2020 (No Known Allergies) Date Reviewed: 11/06/2019 Reviewed by: Itzel Moser Excavator Backhoe Operator - Fully Assessed Reason for Visit: request [...] CNOV Office Visit (VASSWS) Normal 03-30-20 20 [place] [facility] JUSTIN ZAZUETA ([id number]) 1950 M [place] Date Time Provider Department (57320) 03/30/20 3:30 PM VICKIE GRIFFIN VASSWS During your visit today, we recorded the following informati on about you: Vickie Griffin, PhD, CUTTER AND PASTER PRESS CLIPPINGS.DISASSEMBLER PRODUCT 04/04/2020 5:56 AM Signed VASCULAR SURGERY WOUND [...] education/counselling/coordination of care. Vickie Griffin, PhD, WOCN, DISASSEMBLER PRODUCT Referring Provider: MATTHEW ROCHA [[id number]] Allergies As of Date: 03/30/2020 (No Known [...] (HCC) [I83.229, L97.929] Order(s):CONSULT TO VASCULAR SURGERY [5482] Order #: [id number]: 1 Prescriptions as of 03/30/2020 Sig: [...] 04/04/20 progress on 2020-02 PROGRESS HNO ID: [id number] Normal 03-24-2020 [facility] Author: Matthew Jose ([id number]) Service: ? Author Type: Physician Type: Progress Notes Filed: 03/24/2020 9:18 AM Note Text: This note was created using [employer]. Subjective This Team Access Model visit is [...] encounter. This telemedicine encounter was accomplished via [employer]. Patient presents with: Wound Evaluation: new left [...] on 2020-03-24 CNPN Telephone (INTMWS) Normal 03-24-2020 [place] [facility] JUSTIN ZAZUETA ([id number]) 1950 [facility] Date Time Provider Department ([id number]) 03/24/20 MATTHEW ROCHA INTMWS During your visit today, we recorded the following informati on about you: Kate Lemon LPN 03/24/2020 9:[address] Rocha has Ordered US leg vein dvt dilcia va s lab AND Consult to Vascular Surgery. Please call Patient to schedule. Kate Lemon LPN Sindy Megan [facility] 03/24/2020 2:39 PM Signed Spoke with the patient and he is refusing to schedule ultrasound and consult with Dr Mckay until swelling goes down . We would like to try medication first before quality lab technician starts pushing on his leg s [...] same day in 1-2 weeks. Racheal Macario HEALTH SAFETY AND ENVIRONMENT MANAGER 03/28/2020 10:34 AM Signed Please call pt [...] Date Reviewed: 11/06/2019 Reviewed by: Itzel Moser Excavator Backhoe Operator - Fully Assessed Reason for Visit: Orders [...] 2020-01 OBSOLETE Refill (INTMWS) Normal 02-18-2020 [place] [facility] JUSTIN ZAZUETA ([id number]) 1950 [facility] Time Provider Department (16662) 02/18/20 MATTHEW ROCHA INTMWS During your visit [...] on file. Encounter Status:Closed by PIPER SEARS DISASSEMBLER PRODUCT on 02/18/20 cnpn on 2020-02-15 CNPN Telephone (INTMWS) Normal 02-15-2020 [place] [facility] JUSTIN ZAZUETA ([id number]) 1950 [facility] Date Time Provider Department ([id number]) 02/15/20 MATTHEW ROCHA INTMWS During your visit [...] .0] Order(s):BASIC METABOLIC PNL [SQBMP] Order #: [id number] FUT URE Prescriptions as of 02/15/2020 Sig: [...] 02/15/20 progress on 2020-01 PROGRESS HNO ID: [id number] Normal 02-04-2020 [facility] Author: Matthew Rocha [place] ([id number]) Service: ? Author Type: Physician Type: Progress Notes Filed: 02/04/2020 2:08 PM Note Text: This note was created using [employer]. Subjective This Team Access Model visit is a virtual encounter. It requ ired patient-provider interaction for the medical decision making as documented below. Patient presents with: Edema Justin Zazueta was called first and consent for using [employer] (not HIPAA compliant) was obtained. He had [...] week. Matthew Rocha MD PROGRESS HNO ID: [id number] Normal 02-04-2020 [facility] Author: Matthew Rocha [place] ([id number]) Service: ? Author Type: Physician Type: Progress Notes Filed: 02/04/2020 1:04 PM Note Text: I agree. PROGRESS HNO ID: [id number] Normal 02-04-2020 [facility] Author: Elsie Huber RN [place] ([id number]) Service: ? Author Type: ? Type: Progress Notes Filed: 02/04/2020 9:27 AM Note Text: patient had inr completed at [facility] patients inr is 2.7 (patients inr [...] on 2019-12 OBSOLETE Refill (INTMWS) Normal 01-18-2020 [facility] JUSTIN ZAZUETA ([id number]) 1950 [facility] Date Time Provider Department (55503) 01/18/20 MATTHEW ROCHA INTMWS During your visit [...] on 2019-11 OBSOLETE Refill (INTMWS) Normal 12-22-2019 [facility] JUSTIN ZAZUETA ([id number]) 1950 [facility] Time Provider Department (93409) 12/22/19 PIPER SEARS (JULIANA) INTMWS During your [...] RX INSTRUCTIONS: Patient is out of the [facility] de - Patient thought pharmacy requested refills [...] Date Reviewed: 11/06/2019 Reviewed by: Itzel Moser Excavator Backhoe Operator - Fully Assessed Reason for Visit: Refill [...] 12/23/19 progress on 2019-11 PROGRESS HNO ID: [id number] Normal 12-18-2019 [facility] Author: Matthew Rocha [place] ([id number]) Service: ? Author Type: Physician Type: Progress Notes Filed: 12/18/2019 6:15 PM Note Text: Ok. PROGRESS HNO ID: [id number] Normal 12-18-2019 [facility] Author: Elsie Huber RN [place] ([id number]) Service: ? Author Type: ? Type: Progress [...] OBSOLETE Refill (LAB) Normal 11-14-2019 [place] [facility] JUSTIN ZAZUETA ([id number]) 1950 [facility] Date Time Provider Department (30396) 11/14/19 MATTHEW ROCHA LAB During your visit [...] TSH Qn 2.610 0.270-4.200 uU/mL Normal 11-06-2019 [facility] (91045) Comment: Performed By: #### CBC, CMP, TSH ####[facility] [address] [place] [address] [phone] progress on 2019-10 PROGRESS HNO ID: [id number] Normal 11-06-2019 [facility] Author: Piper Harman) [facility] (49323) Service: ? Author Type: Nurse Practitioner Type: Progress Notes Filed: 11/06/2019 10:50 AM Note Text: Addressed during office visit today, see notes Piper Sears APRN.CNP PROGRESS HNO ID: [id number] Normal 11-06-2019 [facility] Author: Elise Huber [facility] ([id number]) Service: ? Author Type: ? Type: Progress Notes Filed: 11/06/2019 10:31 AM Note Text: patient had inr completed at [facility] patients inr is 3.6 (patients inr [...] results at that time PROGRESS HNO ID: [id number] Normal 11-06-2019 [facility] Author: Piper Harman) [facility] (77722) Service: ? Author Type: Nurse Practitioner Type: [...] Laterality Date - COLONOSCOP W/ OR W/O [facility] SPEC April 2001 normal - COLONOSCOP W/ OR W/O [facility] SPEC 02/25/2012 Colonoscopy - PAST [...] agreeable t o treatment plan. Piper Sears APRN.DISASSEMBLER PRODUCT comp metabolic panel on 2019-11-06 Albumin [Mass/Vol] 3.9 3.9-4.9 g/dL Normal 11-06-2019 [facility] (92689) Comment: Performed By: #### CBC, CMP, TSH ####[place] [id number] [place] [address] ALP [Catalytic activity/Vol] 100 38-113 U/L Normal 0 11-06-2019 [facility] (35078) Comment: Performed By: #### CBC, CMP, TSH ####[facility] [address] [place] [address] [phone] ALT [Catalytic activity/Vol] 16 10-54 U/L Normal 0 11-06-2019 [facility] (72416) Comment: Performed By: #### CBC, CMP, TSH ####[facility] [address] [place] [address] [phone] Anion gap [Moles/Vol] 15 9-18 mmol/L Normal 11-06-19 [facility] (53767) Comment: Performed By: #### CBC, CMP, TSH ####[facility] [address] [place] [address] [phone] AST [Catalytic activity/Vol] 60 14-40 U/L High 0 11-06-2019 [facility] (88808) Comment: Performed By: #### CBC, CMP, TSH ####[place] [address] [place] [address] [phone] Bilirubin [Mass/Vol] 1.7 0.2-1.3 mg/dL High 0 [facility] (42662) Comment: Performed By: #### CBC, CMP, TSH ####[place] [address] [place] [address] [phone] Calcium [Mass/Vol] 9.2 8.5-10.2 mg/dL Normal 11-06-2019 [facility] (91556) Comment: Performed By: #### CBC, CMP, TSH ####[place] [address] [phone] Chloride [Moles/Vol] 100 97-105 mmol/L Normal 0 [facility] (57540) Comment: Performed By: #### CBC, CMP, TSH ####[place] [address] [address] [place] [address] [phone] CO2 [Moles/Vol] 25 22-30 mmol/L Normal 11-06-2019 [facility] (16251) Comment: Performed By: #### CBC, CMP, TSH ####[place] [address] [place] [address] [phone] Creatinine [Mass/Vol] 1.01 0.73-1.22 mg/dL Normal 11-06-19 20 [facility] (62545) Comment: Performed By: #### CBC, CMP, TSH ####[place] [address] [place] [address] [phone] eGFR- Amer. >60 Normal 11-06-2019 [facility] (00794) Comment: Performed By: #### CBC, CMP, TSH ####[facility] [place] [address] [phone] GFR/1.73 sq M predicted >60 mL/min/{1.73_m2} Normal 11-06-2019 [facility] among non-blacks MDRD [place] (00571) (S/P/Bld) [Vol rate/Area] Comment: Result Comment: eGFR [...] GFR. Performed By: #### CBC, CMP, TSH ####[facility] [place] [address] [phone] Glucose [Mass/Vol] 88 74-99 mg/dL Normal 11-06-2019 [facility] (84233) Comment: Result Comment: The [place] [employer] (ADA) provides guidance for cutoff [...] for diagnosis of diabetes. Reference: Standards of [facility] Care in Diabetes 2016, [place] [employer]. Diabetes Care. 2016.39(Suppl 1). Performed By: #### CBC, CMP, TSH ####[facility] [address] [place] [address] [phone] Potassium [Moles/Vol] 3.9 3.7-5.1 mmol/L Normal 11-06-19 20 [facility] (48471) Comment: Performed By: #### CBC, CMP, TSH ####[place] [address] [place] [address] [phone] Protein [Mass/Vol] 6.9 6.3-8.0 g/dL Normal 11-06-2019 [facility] (55731) Comment: Performed By: #### CBC, CMP, TSH ####[place] [address] [place] [address] [phone] Sodium [Moles/Vol] 140 136-144 mmol/L Normal 11-06-2019 [facility] (19364) Comment: Performed By: #### CBC, CMP, TSH ####[facility] [place] [address] [phone] Urea nitrogen [Mass/Vol] 24 9-24 mg/dL Normal 11-06 [facility] (62994) Comment: Performed By: #### CBC, CMP, TSH ####[place] [address] [phone] cnov on 2019-11-06 CNOV Office Visit (INTMWS) Normal 11-06-19 [place] [facility] JUSTIN ZAZUETA ([id number]) 1950 [facility] Date Time Provider Department () 11/06/19 9:00 [...] 2001 normal - COLONOSCOP W/ OR W/O [facility] SPEC 02/25/2012 Colonoscopy - PAST [...] Reviewed: 11/06/2019 Reviewed by: Itzel N Nenadal Excavator Backhoe Operator - Fully Assessed Primary Visit Diagnosis:Bilateral lower extremity edema [R60 .0] Other Visit Diagnoses:Venous insufficiency of both low er extremities [I87.2] Rash [R21] Chronic anticoagulation [Z79.01] Order(s):triamcinolone acetonide (KENALOG) 0.5 % cream Apply 1 application to affected area twice daily. For rash/itching. Apply sparingly . Avoid face/skin fold.Disp: 30 gRfl: 0 COMP METABOLIC PANEL [SQCMP] Order #: [id number] FUTURE TSH BLD [SQTSH] Order #: [id number] FUTURE CBC [SQCBC] Order #: [id number] FUTURE COMPRESSION STOCKINGS [1350440] Order #: [id number] Prescriptions as of 11/06/2019 Sig: FUROSEMIDE 20 [...] 2019-11-06 Absolute nRBC <0.01 <0.01 Normal 11-06-2019 [facility] (09919) Comment: Performed By: #### CBC, CMP, TSH ####[facility] [address] [place] [address] Erythrocyte distribution 13.8 11.5-15.0 % Normal 11-06 [facility] width (RBC) [Ratio] [place] (51501) Comment: Performed By: #### CBC, CMP, TSH ####[facility] [address] [place] [address] Hematocrit (Bld) [Volume 41.7 39.0-51.0 % Normal 11-06 [facility] fraction] [place] (72148) Comment: Performed By: #### CBC, CMP, TSH ####[facility] [address] [place] [address] Hemoglobin (Bld) 13.8 13.0-17.0 g/dL Normal 11-06-2019 Cl [facility] [Mass/Vol] [place] (69566) Comment: Performed By: #### CBC, CMP, TSH ####[place] [address] [place] [address] [phone] MCH (RBC) [Entitic mass] 32.5 26.0-34.0 pG Normal 11-06 [facility] (93354) Comment: Performed By: #### CBC, CMP, TSH ####[place] [address] [place] [address] MCHC (RBC) [Mass/Vol] 33.1 30.5-36.0 g/dL Normal 11-06-19 20 [facility] (37274) Comment: Performed By: #### CBC, CMP, TSH ####[place] [address] [phone] MCV (RBC) [Entitic vol] 98.1 80.0-100.0 fL Normal 11-06 [facility] (99054) Comment: Performed By: #### CBC, CMP, TSH ####[place] [address] [phone] Platelet mean volume 11.2 9.0-12.7 fL Normal 0 [facility] (Bld) [Entitic vol] [place] (65956) Comment: Performed By: #### CBC, CMP, TSH ####[address] [place] [address] [phone] Platelets (Bld) [#/Vol] 128 150-400 k/uL Low 2019 [facility] (64914) Comment: Performed By: #### CBC, CMP, TSH ####[place] [address] [place] [address] [phone] RBC (Bld) [#/Vol] 4.25 4.20-6.00 m/uL Normal 11-06-2019 C [facility] (44461) Comment: Performed By: #### CBC, CMP, TSH ####[place] [address] [phone] WBC (Bld) [#/Vol] 12.13 3.70-11.00 k/uL High 11-06-2019 [facility] (13998) Comment: Performed By: #### CBC, CMP, TSH ####[place] [address] [phone] basic metabolic panl on 2019-10-02 Anion gap [Moles/Vol] 13 9-18 mmol/L Normal 10-02-20 [facility] (61098) Comment: Performed By: #### BMP ####[address] [phone] Calcium [Mass/Vol] 9.1 8.5-10.2 mg/dL Normal 10-02-2019 [facility] (67270) Comment: Performed By: #### BMP ####[address] [phone] Chloride [Moles/Vol] 102 97-105 mmol/L Normal 9 [facility] (93795) Comment: Performed By: #### BMP ####[address] [phone] CO2 [Moles/Vol] 27 22-30 mmol/L Normal 10-02-2019 [facility] (57919) Comment: Performed By: #### BMP ####[address] [phone] Creatinine [Mass/Vol] 1.07 0.73-1.22 mg/dL Normal 10-02-20 19 [facility] (88243) Comment: Performed By: #### BMP ####[address] [phone] eGFR- Amer. >60 Normal 10-02-2019 [facility] (08372) Comment: Performed By: #### BMP ####[facility] [facility] [place], [place] [phone] GFR/1.73 sq M predicted >60 mL/min/{1.73_m2} Normal 10-02-2019 [facility] among non-blacks MDRD [place] ([id number]) (S/P/Bld) [Vol rate/Area] Comment: Result Comment: eGFR [...] actual GFR. Performed By: #### BMP ####C [facility] [place], [place] [phone] Glucose [Mass/Vol] 125 74-99 mg/dL High 10-02-2019 [facility] (65171) Comment: Result Comment: The [place] Diabetes Association (ADA) provides guidance for cutoff [...] for diagnosis of diabetes. Reference: Standards of [facility] Care in Diabetes 2016, [place] [employer]. Diabetes Care. 2016.39(Suppl 1). Performed By: #### BMP ####C [facility] [place], [place] [phone] Potassium [Moles/Vol] 3.7 3.7-5.1 mmol/L Normal 10-02-20 [facility] (06107) Comment: Performed By: #### BMP ####C [address] [phone] Sodium [Moles/Vol] 142 136-144 mmol/L Normal 10-02-2019 [facility] (98463) Comment: Performed By: #### BMP ####C [address] [phone] Urea nitrogen [Mass/Vol] 21 9-24 mg/dL Normal 10-02 [facility] (69214) Comment: Performed By: #### BMP ####C [address] [phone] jose m cbc on 2018 Erythrocyte distribution 14.2 11.5-15.0 % Normal 09-18 [facility] width (RBC) [Ratio] [place] (57385) Hematocrit (Bld) [Volume 40.0 39.0-51.0 % Normal 09-18 [facility] fraction] [place] (57180) Hemoglobin (Bld) 13.6 13.0-17.0 g/dL Normal 09-18-2019 [facility] [Mass/Vol] [place] (03619) MCH (RBC) [Entitic mass] 33.1 26.0-34.0 pg Normal 09-18 [facility] (17365) MCHC (RBC) [Mass/Vol] 34.0 30.5-36.0 g/dL Normal 09-18-20 [facility] (61490) MCV (RBC) [Entitic vol] 97.3 80.0-100.0 fL Normal 09-18 [facility] (96989) Platelet mean volume 10.3 9.0-12.7 fL Normal 9 [facility] (Bld) [Entitic vol] [place] (26666) Comment: Result Comment: Test perform ed by: [facility] [place], [address] [place], [place] [address]. RBC (Bld) [#/Vol] 4.11 4.20-6.00 m/uL Low 09-18-2019 C [facility] (32074) WBC (Bld) [#/Vol] 11.59 3.70-11.00 k/uL High 09-18-2019 [facility] (43035) [place] Platelet Cnt 125 150-400 k/uL Low 9 [facility] (37070) protime on PT Coag (PPP) Test sent to [place] Normal 09-18 [facility] [Time] [facility]. [place] (91093) Comment: Result Comment: Account Cred ited HIDE progress on 2019-08 PROGRESS HNO ID: [id number] Normal 09-18-2019 [facility] Author: Piper (Juliana) [facility] ([id number]) Service: ? Author Type: Nurse Practitioner Type: [...] agreeable t o treatment plan. Piper Older, CUTTER AND PASTER [employer]ESS CLIPPINGS.DISASSEMBLER PRODUCT nt pro bnp on 09-18 PRO B Natr Peptide Test sent to [place] <125 Normal 09-18-2019 [facility]. [place] (00386) Comment: Result Comment: Account Cred ited HIDE comp metabolic panel on 2019-09-18 Albumin [Mass/Vol] 3.6 3.9-4.9 g/dL Low 09-18-2019 [facility] (93400) ALP [Catalytic 103 38-113 U/L Normal 09-18-2019 [facility] activity/Vol] [place] and (90145) ALT [Catalytic 12 10-54 U/L Normal 09-18-2019 [facility] activity/Vol] [place] and (38592) Anion gap 7 9-18 mmol/L Low 09-18-2019 [facility] [Moles/Vol] [place] (67786) AST [Catalytic 47 14-40 U/L High 09-18-2019 [facility] activity/Vol] [place] and (00622) Bilirubin [Mass/Vol] 1.6 0.2-1.3 mg/dL High 9 [facility] (12505) Calcium [Mass/Vol] 9.3 8.5-10.2 mg/dL Normal 09-18-2019 [facility] (07283) Chloride [Moles/Vol] 104 97-105 mmol/L Normal 9 [facility] (63159) CO2 [Moles/Vol] 27 22-30 mmol/L Normal 09-18-2019 [facility] (42132) Creatinine 0.92 0.73-1.22 mg/dL Normal 09-18-2019 [facility] [Mass/Vol] [place] (25330) eGFR- Amer. >60 Normal 09-18-2019 [facility] (22096) GFR/1.73 sq M >60 mL/min/{1.73_m Normal 09-18-2019 [facility] predicted among 2} Joni crcokett (74047) non-blacks MDRD (S/P/Bld) [Vol rate/Area] Comment: Result [...] Glucose [Mass/Vol] 107 74-99 mg/dL High 09-18-2019 [facility] (34790) Comment: Result Comment: The [place] Diabetes Association (ADA) provides guidance for cutoff [...] for diagnosis of diabetes. Reference: Standards of [facility] Care in Diabetes 2016, [place] [employer]. Diabetes Care. 2016.39(Suppl 1). Potassium [Moles/Vol] 3.5 3.7-5.1 mmol/L Low 09-18-20 19 [facility] (58114) Protein [Mass/Vol] 6.9 6.3-8.0 g/dL Normal 09-18-2019 [facility] (42444) Sodium [Moles/Vol] 138 136-144 mmol/L Normal 09-18-2019 [facility] (63498) Urea nitrogen [Mass/Vol] 18 9-24 mg/dL Normal 09-18 [facility] (71149) cnov on 2019-09-18 CNOV Office Visit (INTMWS) Normal 09-18-20 [place] [facility] JUSTIN ZAZUETA ([id number]) 1950 M [place] Date Time Provider Department (10384) 09/18/19 1:00 PM PIPER SEARS (JULIANA) INTMWS During your visit [...] Date Reviewed: 09/18/2019 Reviewed by: Itzel Moser Excavator Backhoe Operator - Fully Assessed Reason for Visit: URI [115] left leg swelling and pain [Other] Primary Visit Diagnosis:Bilateral lower extremity edema [R60 .0] Other Visit Diagnoses:Atrial fibrillation, unspecified type (HCC) [I48.91] Venous insufficiency [I87.2] Order(s):amoxicillin-clavulanic acid (AUGMENTIN) 875-1 25 mg per tabletTake 1 tablet by mouth twice daily for 10 days.Disp: 20 tabletRfl: 0 COMP METABOLIC PANEL [SQCMP] Order #: [id number] FUTURE JOSE M CBC [SQWCBC] Order #: [id number] FUTURE US LEG VEIN DVT DILCIA [facility] [0148748] Order #: [id number] FU TURE Prescriptions as of 09/18/2019 Sig: [...] 09/18/19 progress on 2019-08 PROGRESS HNO ID: [id number] Normal 09-04-2019 [facility] Author: Piper Harman) Orion [place] (58698) Service: ? Author Type: Nurse Practitioner Type: Progress Notes Filed: 09/04/2019 1:33 PM Note Text: Ambrociomiguel ángel Sears, [employer].JULIANA PROGRESS HNO ID: [id number] Normal 09-04-2019 [facility] Author: Elsie Huber RN [place] ([id number]) Service: ? Author Type: ? Type: Progress Notes Filed: 09/04/2019 1:06 PM Note Text: patient had inr completed at [facility] patients inr is 2.1 (patients inr [...] INR. progress on 2019-06 PROGRESS HNO ID: [id number] Normal 07-16-2019 [facility] Author: Mike Riojas LPN [place] (70245) Service: ? Author Type: ? Type: Progress Notes Filed: 07/16/2019 4:07 PM Note Text: INR addressed at [facility] with PCP today. 4. Chronic atrial fibrillation (HCC) - ICD9: 427.31, ICD10: I48.2 Continue Coumadin dose. INR in 4 weeks. [place] sheet given to patient Mike Haywoodelissa CARRILLO PROGRESS HNO ID: [id number] Normal 07-16-2019 [facility] Author: Matthew Rocha [place] ([id number]) Service: ? Author Type: Physician Type: Progress [...] Continue Coumadin dose. INR in 4 weeks. [place] sheet given to patient. 5. BPH with [...] CBC Matthew Rocha MD PROGRESS HNO ID: [id number] Normal 07-16-2019 [facility] Author: Elsie Huber RN [place] ([id number]) Service: ? Author Type: ? Type: Progress Notes Filed: 07/16/2019 11:11 AM Note Text: patient had inr completed at [facility] patients inr is 2.5 (patients inr [...] for follow up INR. PROGRESS HNO ID: [id number] Normal 07-16-2019 [facility] Author: Matthew Rocha [place] (86305) Service: ? 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 INR in 4 weeks. [place] sheet given to patient. 5. BPH with [...] Date Reviewed: 07/16/2019 Reviewed by: Itzel Moser Excavator Backhoe Operator - Fully Assessed Reason for Visit: Imm/Inj [58] Cmt: Flu Vaccine Primary Visit Diagnosis:Medicare annual wellness visit, meza bsequent [Z00.00] Other Visit Diagnoses:Need for vaccination [Z23] Essential hypertension [I10] Chronic atrial fibrillation (HCC) [I48.2] BPH with obstruction/lower urinary tract symptoms [N40.1, N13.8] Thrombocytopenia (HCC) [D69.6] Order(s):INFLUENZA SEASONAL HIGH DOSE AGE 65+ [62884NB D] Order #: [id number] CBC [SQCBC] Order #: [id number] FUTURE COMP METABOLIC PANEL [SQCMP] Order #: [id number] FUTURE LIPID PANEL BASIC [SQLIPB] Order #: [id number] FUTURE PSA/PROSTSPECAG DIAG [SQPSA] Order #: [id number] FUTURE Prescriptions as of 07/16/2019 Sig: WARFARIN [...] - Patient encounter Chronic atrial Matthew Rocha [facility] 06-27-2020 procedure fibrillation Echocardiogram Wstr Comment: Chronic atrial fibrillation (HCC) 06-27-2020 - 06-27-2020 Refill Matthew guaman [facility] Jose M Comment: Refill Request 06-27-2020 Results Only Matthew Rocha [facility] Jose M Procedures Procedure Name Date Provider Location Echo tthrc r-t 2d 06-27-2020 Matthew Jose C linic w/wom-mode compl spec&colr (4419 5) d LVEF TRANSTHORACIC ECHO 06-27-2020 Matthew Rocha [facility] (41325) Colonoscopy 10-30-2017 - [facility] 10-30-2017 (63669) Plan of Treatment Plan Description Date Location DTAP,TDAP,TD (3 - Td) DTAP,TDAP,TD (3 - Td) 05-06-2028 - [facility] 05-06-2028 (96351) COLONOSCOPY COLONOSCOPY 10-30-2027 - [facility] 10-30-2027 (74175) COLORECTAL CANCER COLORECTAL CANCER 10-30-2027 [facility] inic SCREENING,SEE MODIFIER SCREENING,SEE MODIFIER (7 2174) LIPID SCREEN LIPID SCREEN 04-06-2025 - [facility] 04-06-2025 (11690) DIABETES SCREEN DIABETES SCREEN 04-06-2023 - [facility] 04-06-2023 (81175) ANNUAL PCP TEAM CHRONIC ANNUAL PCP TEAM CHRONIC 04-21-2021 - [facility] DISEASE VISIT DISEASE VISIT 04-21-2021 (87183) BP CONTROLLED (<130/80) BP CONTROLLED (<130/80) 04-21-2021 - [facility] 04-21-2021 (03448) INFLUENZA (#1) INFLUENZA (#1) 2020 - [facility] 06-28-2020 (44443) ADVANCE DIRECTIVE ADVANCE DIRECTIVE 2013 - [facility] in DISCUSSION DISCUSSION 2013 (98247) SHINGRIX VACCINE (2 of SHINGRIX VACCINE (2 of 07-23-2012 - [facility] 3) 3) 07-23-2012 (95501) no information [facility] (85434) no information [facility] (43846) Immunizations Vaccine Notes Status Date Location Influenza Vaccine, influenza virus (completed) 07-09-2016 - [facility] Split-Non Spec vaccine, unspecified 07-09-2016 (4419 5) formulation Influenza Vaccine, influenza virus (completed) 07-25-2009 - [facility] Split-Non Spec vaccine, unspecified 07-25-2009 (4419 5) formulation Influenza Vaccine, influenza virus (completed) 10-01-2007 - [facility] Split-Non Spec vaccine, unspecified 10-01-2007 (4419 5) formulation Influenza Vaccine, influenza virus (completed) 09-11-2006 - [facility] Split-Non Spec vaccine, unspecified 09-11-2006 (4419 5) formulation Influenza Seasonal - influenza, high dose (completed) 07-16-2019 - [facility] High Dose - Age 65+ seasonal, 07-16-2019 (20092) preservative-free Influenza Seasonal - influenza, high dose (completed) 07-24-2017 - [facility] High Dose - Age 65+ seasonal, 07-24-2017 (70871) preservative-free Influenza Seasonal influenza, injectable, (completed) 07-24-2018 - [facility] Inj Quadrivalent Age quadrivalent, contains 07-24-2018 (46857) 3+ preservative Influenza Seasonal influenza, seasonal, (completed) 06-28-2014 - [facility] Inj Age 3+ injectable 06-28-2014 (76259) Pneumococcal-13 Vac pneumococcal conjugate (completed) 06-30-2015 - [facility] Conjugate vaccine, 13 valent 06-30-2015 (42983) Pneumovax pneumococcal (completed) 06-04-2014 - [facility] polysaccharide vaccine, 06-04-2014 (441 95) 23 valent TD Adult tetanus and diphtheria (completed) 10-28-2000 - [facility] toxoids, adsorbed, 10-28-2000 (46102) preservative free, for adult use (2 Lf of tetanus toxoid and 2 Lf of diphtheria toxoid) Tdap (Age 7+) tetanus toxoid, reduced (completed) 05-06-2018 - [facility] diphtheria toxoid, and 05-06-2018 (4419 5) acellular pertussis vaccine, adsorbed Tdap (Age 7+) tetanus toxoid, reduced (completed) 11-03-2010 - [facility] diphtheria toxoid, and 11-03-2010 (4419 5) acellular pertussis vaccine, adsorbed Zostavax zoster vaccine, live (completed) 05-28-2012 - [facility] 05-28-2012 (10163) Payers Payer Name Policy Number Location MMO MEDICARE [id number] [facility] ([phone]) The following information is from the original human readable contentNo Payer Records FoundNo Payer Records FoundNo Payer Records Found Social History Type Social History Date Location Description History of tobacco use Current smoker 10-28-1975 [facility] (16087) History SDOH Social 5 04-06-2020 - [facility] inic Connections Phone 04-06-2020 (73005) History of tobacco use Cigarette Smoker 10-28-1975 [facility] (58040) Cigarettes smoked 04-27-2020 - [place] [facility] current (pack per day) - 04-27-2020 (72332) Reported Tobacco use and exposure Never used 04-27-2020 - [facility] 04-27-2020 (15880) Alcohol intake Current non-drinker of 04-27-2020 [facility] alcohol (finding) 04-27-2020 (29593) History SDOH Alcohol 1 04-06-2020 [facility] Frequency 04-06-2020 (82141) History SDOH Alcohol Std 98 04-06-2020 [facility] Drinks 04-06-2020 (17007) Tobacco smoking status Former smoker 04-27-2020 [facility] NHIS 04-27-2020 (15500) History SDOH Social 3 04-06-2020 [facility] Cheondoism 04-06-2020 (42287) History SDOH Physical 0 04-06-2020 [facility] Activity DPW 04-06-2020 (38935) History SDOH Education 21 04-06-2020 - [facility] 04-06-2020 (86389) History SDOH Financial 4 04-06-2020 - [facility] 04-06-2020 (85626) History SDOH Transport 2 04-06-2020 - [facility] Med 04-06-2020 (69143) Sex Assigned At Not on file [facility] (66954) Exposure to SARS-CoV-2 Not sure [facility] (event) (56097) Sex Assigned At Male [facility] (20483) The following information is from the original [...] BE BASED ON THE PRIMARY CLINICAL RECORDS. [facility] provides no warranty or guarantee of the accuracy or completeness of information in this document. UNRECOGNIZED CONTENT PROVIDED BELOW FOR UNRECOGNIZED SECTION No Status Records FoundNo Status Records Found UNRECOGNIZED CONTENT PROVIDED BELOW FOR UNRECOGNIZED SECTION INFORMATION SOURCE DATE CREATED AUTHOR AUTHOR'S ORGANIZATIO N 05/30/2020 [facility] DATE CREATED AUTHOR AUTHOR'S ORGANIZATIO N 07/13/2020 [facility] UNRECOGNIZED CONTENT PROVIDED BELOW FOR UNRECOGNIZED SECTION Source Comments In the event this information is protected by the Federal Confidentiality of Alcohol and Drug Abuse Patient Records regulations: The Federal rules restrict any use of the information to criminally investigate or prosecute any alcohol or drug abuse patient.[facility] Hospital[facility] the event this information is protected by the Federal Confidentiality of Alcohol and Drug Abuse Patient Records regulations: The Federal rules restrict any use of the information to criminally investigate or prosecute any alcohol or drug abuse patient.[facility] Hospital[facility] the event this information is protected by the [facility] Confidentiality of Alcohol and Drug Abuse Patient Records regulations: The Federal rules restrict any use of the information to criminally investigate or prosecute any alcohol or drug abuse patient.[facility] Hospital[facility] the event this information is protected by the Federal Confidentiality of Alcohol and Drug Abuse Patient Records regulations: The Federal rules restrict any use of the information to criminally investigate or prosecute any alcohol or drug abuse patient.[facility] UNRECOGNIZED CONTENT PROVIDED BELOW FOR UNRECOGNIZED SECTION Reason for Visit Reason Onset Date Comments Refill Request 06/27/2020 Status Reason Specialty Diagnoses / Referred By Referred To Procedures Contact Contact Authorized Auto-Generated HEART AND Diagnoses Chronic atrial fibrillation (HCC) Aj, Heart And Referral VASCULAR Procedures ECHO TTE W/DOPPLER, COMPLETE [facility] [address] [place] [place] [address] [address] [place], [place] Phone: [phone] UNRECOGNIZED CONTENT PROVIDED BELOW [...] and dressing applied. 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 Nichelle Rose RN documented in this encounter
== END 2020-03-26 23:42 | disposition home or self-care (01) ==
PROVIDERS: Emergency Provider Emergency Medicine; PCP Internal Medicine
DX: L03.116 Cellulitis of left lower limb (principal); I48.91 Unspecified atrial fibrillation; I10 Essential (primary) hypertension; Z79.01 Long term (current) use of anticoagulants
CPT/HCPCS: 36415; 80048; 83605; 85025; 85610; 87040; 96365; 96366; 96367; 99284; J7040; A4216

== ENCOUNTER → 2020-04-06 | Outpatient (CLI) | payer MEDICARE, SELFPAY ==
[2020-03-26 19:07] VITALS: BMI 47.5
--- OUTSIDE RECORDS SUMMARY | 2020-08-14 11:12 | XMS RPT_ITS | CCD ---
:1950 External Reference #:[id number] Author Organization [facility] Care Team Providers Name Role Phone Matthew Rocha Primary Care Provider Medications Medication Name Sig Date Prescriber Location Finasteride finasteride (PROSCAR) 08-11-2020 Matthew Rocha [facility] 5 mg tablet Take 1 (03412) tablet by mouth once daily. 90 tablet 1 08/11/2020 Active finasteride (PROSCAR) 5 12-23-2019 - 08-11-2020 [facility] ([place]) [facility] mg tablet TAKE 1/2 (98505) (ONE-HALF) OF A TABLET BY MOUTH DAILY 45 tablet 0 06/27/2020 08/11/2020 Discontinued Comment: TAKE 1/2 (ONE-HALF) OF A TAB LET BY MOUTH DAILY Take 1 tablet by mouth once daily. Furosemide furosemide (LASIX) 40 mg 08-11-2020 [facility] tablet Indications: (01167) Varicose veins of bilateral lower extremities with other complications Take 1 tablet by mouth once daily. 90 tablet 1 08/11/2020 Active furosemide (LASIX) 20 mg 04-21-2020 - Mike (Jul[place]) [facility] tablet Indications: 08-11-2020 (46349) Bilateral lower extremity edema Take 0.5 tablets by mouth once daily. 45 tablet 0 04/21/2020 08/11/2020 Discontinued Comment: Take 0.5 tablets by mouth on ce daily. Take 1 tablet by mouth once daily. Metoprolol metoprolol tartrate, 05-10-2020 - Matthew Montes [facility] short acting, 08-11-2020 Aj (54907) (LOPRESSOR) 50 mg tablet Indications: Atrial fibrillation, unspecified type (HCC) , Essential hypertension Take 0.5 tablets by mouth twice daily. 180 tablet 1 08/11/2020 Active Comment: Take 0.5 tablets by mouth tw ice daily. perflutren lipid perflutren lipid 05-27-2020 - Crispin Libanvela nd microspheres microspheres (DEFINITY) 08-11-2020 [facility] ic (53218) (DEFINITY) 1.1 1.1 mg/mL injection (to mg/mL [...] of preservative-free saline. 1.3 mL 0 05/27/2020 08/11/2020 Discontinued perflutren lipid 05-27-2020 - Crispin [facility] inic microspheres (DEFINITY) 1.1 05-27-2021 (441 95) [...] 05/27/2020 05/27/2021 Active perflutren lipid 05-27-2020 [facility] (DEFINITY) 1.1 05-27-2021 (441 95) [...] 05/27/2020 05/27/2021 Active perflutren lipid 05-27-2020 [facility] (DEFINITY) 1.1 05-27-2021 (441 95) [...] 05/27/2020 05/27/2021 Active perflutren lipid 05-27-2020 - Matthew Rocha [facility] inic microspheres (DEFINITY) 1.1 05-27-2021 (441 95) [...] of preservative-free saline. Potassium Chloride potassium chloride 08-11-2020 [facility] ER (K-DUR, (78093) KLOR-CON) 20 mEq tablet Take 1 tablet by mouth once daily. 90 tablet 1 08/11/2020 Active potassium chloride 04-21-2020 - Mike ([facility]) [facility] (K-TAB) 10 mEq tablet 08-11-2020 (69779) Indications: Bilateral lower extremity edema Take 1 tablet by mouth daily with breakfast. 90 tablet 0 04/21/2020 08/11/2020 Discontinued (Erroneous entry) Comment: Take 1 tablet by mouth daily with breakfast. Take 1 tablet by mouth once daily. Triamcinolone triamcinolone 11-06-2019 - Piper ([facility]) [facility] acetonide (KENALOG) 08-11-2020 Older (70975) 0.5 % cream Apply 1 application to affected area twice daily. For rash/itching. Apply sparingly. Avoid face/skin fold. 30 g 0 11/06/2019 08/11/2020 Discontinued Comment: Apply 1 application to affec ino area twice daily. For rash/itching. Apply sparingly. Avoid face/skin f old. Warfarin warfarin (COUMADIN) 5 mg 06-02-2020 [facility] tablet Indications: (09967) Atrial fibrillation, unspecified type (HCC) TAKE 1 TABLET BY MOUTH DAILY or DIRECTED 90 tablet 1 06/02/2020 Active Comment: TAKE 1 TABLET BY MOUTH DAILY or DIRECTED Problems Active Problems Category Problem Name Status Date Location Cardiac dysrhythmias Atrial fibrillation Active 07-25-2009 - [facility] (49055) Essential hypertension Hypertensive disorder Active 9 - [facility] (70868) Hyperplasia of prostate Benign prostatic Active 07-14-2007 [facility] hypertrophy with (78998) outflow obstruction Osteoarthritis Osteoarthritis of right Active 09-29-2015 - [facility] knee joint (24617) Other and ill-defined Right ventricular Active 06-27-2020 - [facility] heart disease hypertrophy (30196) Other nutritional; Morbid obesity Active 03-10-2018 - [facility] endocrine; and metabolic (44 195) disorders Pulmonary heart disease Pulmonary hypertension Active 020 - [facility] (24183) Residual codes; Obstructive sleep apnea Active 09-01-2009 - [facility] unclassified syndrome (69089) Residual codes; Requires vaccination Active [facility] unclassified (68376) Residual codes; Localized edema Active [facility] unclassified (21299) Varicose veins of lower Varicose veins of lower Active 2018 - [facility] extremity extremity (21372) Past or Other Problems Category Problem Name Status Date Location Other screening for Platelet count below Completed 01-08-2019 - [facility] suspected conditions reference range (441 95) (not mental disorders or infectious disease) Other skin disorders Alopecia Completed 05-03-2010 - [facility] (95669) Results Result Name Value Range Unit Interpretation Flag Date Location progress on 2020-07 PROGRESS HNO ID: [id number] Normal 08-11-2020 [facility] Author: Matthew Rocha [place] ([id number]) Service: ? Author Type: Physician Type: Progress Notes Filed: 08/12/2020 10:33 AM Note Text: This note was created using itzbig. Subjective Justin Zazueta is a 69 year old male was here for persistent sy mptomatic lymphedema. His medication list was not accurate and needed clarification. His edema apparently worsened, so he self ref erred to a private hospital in [place] where he was admitted for 4 da ys in April. He was treated with IV diuresis, and lost a lot of weight. H e felt better. He was discharged on furosemide 40 mg BID and potass ium 20 meq BID, but he was only taking those once a day. The furosemide he filled last was 40 mg daily from here. He was prescribed a venous p ump by vascular surgery, but there was some mix up with insurance, and he has not received the pump yet. His legs were becoming heavy and weak again. I reviewed his records, and he never returned call about his echo, so cardiology was not set up. Review of Systems Constitutional: Negative for chills and fever. Respiratory: Negative. Cardiovascular: Positive for leg swelling. Negative for ches t pain and palpitations. Gastrointestinal: Negative. Musculoskeletal: Positive for myalgias. Skin: Positive for color change. Negative for wound. Neurological: Negative. ACTIVE PROBLEM LIST Bph With Obstruction/Lower Urinary Tract Symptoms Htn (Hypertension) Atrial Fibrillation (Hcc) Obstructive Sleep Apnea, on CPAP Alopecia Primary Osteoarthritis of Right Knee Obesity, Class Iii, Bmi 40-49.9 (Morbid Obesity) (Hcc) Thrombocytopenia (Hcc) Varicose Veins of Bilateral Lower Extremities With Other Com plications Pulmonary Hypertension (Hcc) Right Heart Enlargement Current Outpatient Medications Medication Sig - finasteride (PROSCAR) 5 mg tablet Take 1 tablet by mouth o nce daily. - metoprolol tartrate, short acting, (LOPRESSOR) 50 mg table t Take 0.5 tablets by mouth twice daily. - warfarin (COUMADIN) 5 mg tablet TAKE 1 TABLET BY MOUTH SHARON LY or DIRECTED - furosemide (LASIX) 40 mg tablet Take 1 tablet by mouth onc e daily. - potassium chloride ER (K-DUR, KLOR-CON) 20 mEq tablet Take 1 tablet by mouth once daily. No current facility-administered medications for this visit. Objective BP (P) 128/70 (BP Site: Left Arm, BP Position: Sitting, BP C uff Size: Large Adult) Pulse (P) 76 Temp (P) 36.7 ?C (98 ?F) (Temp oral Artery) Resp (P) 20 Wt (!) (P) 154.2 kg (340 lb) BMI (P) 45.45 kg/m? Physical Exam Constitutional: General: He is not in acute distress. Appearance: He is not diaphoretic. Cardiovascular: Rate and Rhythm: Normal rate. Rhythm irregular. Heart sounds: No murmur. No gallop. Pulmonary: Effort: No respiratory distress. Breath sounds: No wheezing or rales. Musculoskeletal: General: Swelling and tenderness present. Right lower leg: Edema present. Left lower leg: Edema present. Comments: 2-3+ lymphedema with papular skin changes and disc oloration in areas, no open ulcers. Neurological: General: No focal deficit present. Mental Status: He is alert. Assessment and Plan 1. 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 Take one(1) tablet daily. - Message vascular SECURITY THREAT ANALYST about status of venous pump. - Do BMP ordered. - Request discharge summary from hospital in [place]. 2. Atrial fibrillation, unspecified type (HCC) - ICD9: 427.3 1, ICD10: I48.91 Refilled. - METOPROLOL TARTRATE 50 MG TABLET 3. Essential hypertension - ICD9: 401.9, ICD10: I10 - good control - METOPROLOL TARTRATE 50 MG TABLET 4. Bilateral lower extremity edema - ICD9: 782.3, ICD10: R60 .0 Poor control 5. Need for vaccination - ICD9: V05.9, ICD10: Z23 - INFLUENZA SEASONAL QUADRIVALENT HIGH DOSE AGE 65+ 6. Right heart enlargement - ICD9: 429.3, ICD10: I51.7 Discuss again at next visit. 7. Pulmonary hypertension (HCC) - ICD9: 416.8, ICD10: I27.20 Discuss again at next visit. Matthew Rocha MD cnov on 2020-08-11 CNOV Office Visit (INTMWS) Normal 08-11-20 20 [facility] JUSTIN ZAZUETA ([id number]) 1950 [facility] Date Time Provider Department ([id number]) 08/11/20 4:20 PM MATTHEW ROCHA INTMWS During your visit today, we recorded the following informati on about you: Matthew Rocha MD 08/12/2020 10:33 AM Signed This note was created using Ozy Mediariter. Subjective Justin Zazueta is a 69 year old male was here for persistent sy mptomatic lymphedema. His medication list was not accurate and needed clarification. His edema apparently worsened, so he self referred to a [facility] hospital in [place] where he was admitted for 4 days in April. He was t reated with IV diuresis, and lost a lot of weight. He felt better. He was d ischarged on furosemide 40 mg BID and potassium 20 meq BID, but he was only taking those once a day. The furosemide he filled last was 40 mg daily from here. He was prescribed a venous pump by vascular surgery, but ther e was some mix up with insurance, and he has not received the pump yet. His legs were becoming heavy and weak again. I reviewed his records, and he never returned call about his echo, so cardiology was not set up. Review of Systems Constitutional: Negative for chills and fever. Respiratory: Negative. Cardiovascular: Positive for leg swelling. Negative for ches t pain and palpitations. Gastrointestinal: Negative. Musculoskeletal: Positive for myalgias. Skin: Positive for color change. Negative for wound. Neurological: Negative. ACTIVE PROBLEM LIST Bph With Obstruction/Lower Urinary Tract Symptoms Htn (Hypertension) Atrial Fibrillation (Hcc) Obstructive Sleep Apnea, on CPAP Alopecia Primary Osteoarthritis of Right Knee Obesity, Class Iii, Bmi 40-49.9 (Morbid Obesity) (Hcc) Thrombocytopenia (Hcc) Varicose Veins of Bilateral Lower Extremities With Other Com plications Pulmonary Hypertension (Hcc) Right Heart Enlargement Current Outpatient Medications Medication Sig - finasteride (PROSCAR) 5 mg tablet Take 1 tablet by mouth o nce daily. - metoprolol tartrate, short acting, (LO PRESSOR) 50 mg tablet Take 0.5 tablets by mouth twice daily. - warfarin (COUMADIN) 5 mg tablet TAKE 1 TABLET BY MOUTH DAILY or DIRECTED - furosemide (LASIX) 40 mg tablet Take 1 tablet by mouth onc e daily. - potassium chloride ER (K-DUR, KLOR-CON ) 20 mEq tablet Take 1 tablet by mouth once daily. No current facility-administered medications for this visit. Objective BP (P) 128/70 (BP Site: Left Arm, BP Position: Sitting, BP Cuff Size: Large Adult) Pulse (P) 76 Temp (P) 36.7 ?C (98 ?F) (Temporal A rtery) Resp (P) 20 Wt (!) (P) 154.2 kg (340 lb) BMI (P) 45.45 kg/m? Physical Exam Constitutional: General: He is not in acute distress. Appearance: He is not diaphoretic. Cardiovascular: Rate and Rhythm: Normal rate. Rhythm irregular. Heart sounds: No murmur. No gallop. Pulmonary: Effort: No respiratory distress. Breath sounds: No wheezing or rales. Musculoskeletal: General: Swelling and tenderness present. Right lower leg: Edema present. Left lower leg: Edema present. Comments: 2-3+ lymphedema with papular skin changes and disc oloration in areas, no open ulcers. Neurological: General: No focal deficit present. Mental Status: He is alert. Assessment and Plan 1. Varicose veins of bilateral lower extremities with othe r complications - ICD9: 454.8, ICD10: I83.893 (primary diagnosis) - FUROSEMIDE 40 MG TABLET. Take one(1) tablet daily. - Message vascular SECURITY THREAT ANALYST about status of venous pump. - Do BMP ordered. - Request discharge summary from hospital in [place]. 2. Atrial fibrillation, unspecified type (HCC) - ICD9: 427.31, ICD10: I48.91 Refilled. - METOPROLOL TARTRATE 50 MG TABLET 3. Essential hypertension - ICD9: 401.9, ICD10: I10 - good control - METOPROLOL TARTRATE 50 MG TABLET 4. Bilateral lower extremity edema - ICD9: 782.3, ICD10: R60 .0 Poor control 5. Need for vaccination - ICD9: V05.9, ICD10: Z23 - INFLUENZA SEASONAL QUADRIVALENT HIGH DOSE AGE 65+ 6. Right heart enlargement - ICD9: 429.3, ICD10: I51.7 Discuss again at next visit. 7. Pulmonary hypertension (HCC) - ICD9: 416.8, ICD10: I27.20 Discuss again at next visit. Matthew Rocha MD Referring Provider: MATTHEW ROCHA [[id number]] Allergies As of Date: 08/11/2020 (No Known Allergies) Date Reviewed: 08/11/2020 Reviewed by: Kate Lemon LPN - Fully Assessed Reason for Visit: 6 week follow-up [Other] Primary Visit Diagnosis:Varicose veins of bilateral lower ex tremities with other complications [I83.893] Other Visit Diagnoses:Atrial fibrillation, unspecified type (HCC) [I48.91] Essential hypertension [I10] Bilateral lower extremity edema [R60.0] Need for vaccination [Z23] Right heart enlargement [I51.7] Pulmonary hypertension (HCC) [I27.20] Order(s):INFLUENZA SEASONAL QUADRIVALENT HIGH DOSE AGE 65+ [89237MWJ] Order #: [id number] finasteride (PROSCAR) 5 mg tabletTake 1 tablet by mouth once daily.Disp: 90 tabletRfl: 1 metoprolol tartrate, short acting, (LOPRESSOR) 50 mg tabletT ken 0.5 tablets by mouth twice daily.Disp: 180 tabletRfl: 1 furosemide (LASIX) 40 mg tabletTake 1 tablet by mouth once daily.Disp: 90 tabletRfl: 1 potassium chloride ER (K-DUR, KLOR-CON) 20 mEq tabletTake 1 tablet by mouth once daily.Disp: 90 tabletRfl: 1 Prescriptions as of 08/11/2020 Sig: FINASTERIDE 5 MG TABLET Take 1 tablet by mouth once d* METOPROLOL TARTRATE 50 MG TAB* Take 0.5 tablets by mouth twi * WARFARIN 5 MG TABLET TAKE 1 TABLET BY MOUTH DAILY * FUROSEMIDE 40 MG TABLET Take 1 tablet by mouth once d* POTASSIUM CHLORIDE ER 20 MEQ * Take 1 tablet by mouth once d * Problem List As Of Date 08/11/2020 Noted Resolved Abnormal liver function test [R94.5] [...] Varicose veins of bilateral lower extremities w*01/08/2019 Pulmonary hypertension (HCC) [I27.20] 06/28/2020 Prescriptions ordered this encounter Disp Refills Start End FINASTERIDE 5 MG TABLET 90 t* 1 08/11/2020 Route: ORAL Sig: Take 1 tablet by mouth once daily. METOPROLOL TARTRATE 50 MG TABLET 180 * 1 08/11/2020 Route: ORAL Sig: Take 0.5 tablets by mouth twice daily. FUROSEMIDE 40 MG TABLET 90 t* 1 08/11/2020 Route: ORAL Sig: Take 1 tablet by mouth once daily. POTASSIUM CHLORIDE ER 20 MEQ TABLET,* 90 t* 1 08/11/2020 Route: ORAL Sig: Take 1 tablet by mouth once daily. Medications Discontinued During This Encounter Prescriptions - furosemide (LASIX) 20 mg tablet (Discontinued) Take 20 mg by mouth once daily. - triamcinolone acetonide (KENALOG) 0.5 % cream (Discontinue d) Reported on 04/15/2020 - potassium chloride (KLOR-CON 10) 10 mEq tablet (Discontinu ed) Take 1 tablet by mouth daily with breakfast for 5 days. - potassium chloride (K-TAB) 10 mEq tablet (Discontinued) Take 1 tablet by mouth daily with breakfast. - metoprolol tartrate, short acting, (LOPRESSOR) 50 mg tablet (Discontinued) Take 0.5 tablets by mouth twice daily. - finasteride (PROSCAR) 5 mg tablet (Discontinued) TAKE 1/2 (ONE-HALF) OF A TABLET BY MOUTH DAILY - perflutren lipid microspheres (DEFINIT Y) 1.1 mg/mL injection (to be provided with echo procedure) (Discontinued) Inject 1.3 mL intravenously as directed. Administration In structions: If no IV access, insert saline lock prior to administering contras t. Discontinue saline lock post exam. If patient has central line or IVAD, may access for administration according to line specific nursing protocol. Once exam is complete, flush line and de-access per line specific nursing protocol. Diluted IV Bolus: Dilute 1.3 ml of Definity with 8.7 m l of preservative-free saline. Disposition: Return in about 6 weeks (around 09/22/2020). Follow-up and Disposition History Recorded Letter Text Encounter Status:Closed by MATTHEW ROCHA MD on 0 obsolete on 2020-05 OBSOLETE Refill (INTMWS) Normal 06-27-2020 [facility] JUSTIN ZAZUETA ([id number]) 1950 [facility] Date Time Provider Department ([id number]) 06/27/20 MATTHEW ROCHA INTMWS During your visit [...] Status:Closed by PIPER SEARS CNP on 06/27/20 cnov on 2020-06-27 CNOV Office Visit (CARDWS) Normal 06-27-20 20 [facility] JUSTIN ZAZUETA ([id number]) 1950 [facility] Date Time Provider Department ([id number]) 06/27/20 10:00 AM ECHOCARDIOGRAM WSTR CARDWS During your visit today, we recorded the following informati on about you: Nichelle Rose, RN, RN 06/27/2020 10:34 AM Signed 24 ga angio started to right arm. Good blood ret urn. Flushed easily with NSS. Dressing applied. Definity (Lot # [id number] exp ) mixed per protocol. 4 cc administered throughout proc edure. 6 cc discarded. Pt tolerated procedure well. No C/o's, Hep lock D/c'd and dressing applied. Patient discharged ambulatory with Legal Administrator. Nichelle Rose, NAVID Referring Provider: MATTHEW ROCHA [[id number]] Allergies As of Date: 06/27/2020 (No Known Allergies) Date Reviewed: 06/06/2020 Reviewed by: Chhaya Singh Ma - Fully Assessed Visit Diagnosis:Chronic atrial fibrillation (HCC) [I48.20] Order(s):ECHO [113650] Order #: [id number]. #:[id number]: [id number] Prescriptions as of 06/27/2020 Sig: WARFARIN [...] lower extremities w*01/08/2019 Visit Notes: >> Nichelle Rose RN, RN Mon Jun 27, 2020 10:33 AM Status: Signed 24 ga angio started to right arm. Good blood return. Flushed easily with NSS. Dressing applied. Definity (Lot # [id number] exp 02-1-21 ) mi xed per protocol. 4 cc administered throughout procedure. 6 cc disca rded. Pt tolerated procedure well. No C/o's, Hep lock D/c'd and dress ing applied. Patient discharged ambulatory with Legal Administrator. Nichelle Rose RN Encounter Status:Closed by FRIDA GORDILLO CMA on 07/13/20 No panel information on 2020-06-27 LV Ejection Fraction 63 % 0 [facility] ([id number]) [facility] (65030) cnco on 2020-06-09 CNCO Letter Text Normal 06-09-2020 [facility] ([id number]) progress on 2020-05 PROGRESS HNO ID: [id number] Normal 06-06-2020 [facility] Author: Kaitlin Betancourt [place] ([id number]) Service: ? Author Type: Physician Type: Progress [...] Laterality Date - COLONOSCOP W/ OR W/O [facility] SPEC April 2001 normal - COLONOSCOP W/ OR W/O [facility] SPEC 02/25/2012 Colonoscopy - PAST SURGICAL HISTORY [...] ? Kaitlin Betancourt DPM Podiatry [address] [facility] [address] Dept: [phone] Dept PROGRESS HNO ID: [id number] Normal 06-06-2020 [facility] Author: Chhaya Singh Ma [place] ([id number]) Service: ? Author Type: ? Type: Progress [...] 2020-06-06 CNOV Office Visit (PODIWS) Normal 06-06-20 [facility] JUSTIN ZAZUETA ([id number]) 1950 [facility] Date Time Provider Department ([id number]) 06/06/20 3:00 PM KAITLIN BETANCOURT PODIWS During your visit today, we recorded the following informati on about you: Chhaya Singh Ma 06/06/2020 9:19 PM Signed AMB ROOMING INTAKE FLOWSHEET DATA Patient presents [...] last month? No Travel History Travel since 07/10/20 No documented travel since 05/06/20 Kaitlin VillatoroBRITTANIE sosa 06/06/2020 9:19 PM Signed Initial Podiatric Office Visit: Chief Complaint: This 69 year old male who presents with chi ef complaint:toenail fungus HPI Patient presents to clinic for evaluation of b/l feet. Pricila farrar complains of thick dystrophic toenails of b/l [...] Laterality Date - COLONOSCOP W/ OR W/O [facility] SPEC April 2001 normal - COLONOSCOP W/ OR W/O [facility] SPEC 02/25/2012 Colonoscopy - PAST SURGICAL HISTORY [...] Kaitlin Betancourt DPM Podiatry [address] [place] [address] Dept: [phone] Dept Referring Provider: SELF [[id number]] Allergies As of Date: 06/06/2020 (No Known Allergies) Date Reviewed: 06/06/2020 Reviewed by: Chhaya Singh Ma - Fully Assessed Reason for Visit: New [037288] Nail Fungus [764] New [400482] Nail Fungus [764] Primary Visit Diagnosis:Onychomycosis [B35.1] [...] Return in about 3 months (around 09/06/2020) [facility]. Follow-up and Disposition History Recorded Encounter Status:Closed by KAITLIN BETANCOURT DPM on 06/06/20 obsolete on 2020-05 OBSOLETE Refill (FAMPWS) Normal 06-02-2020 [facility] JUSTIN ZAZUETA ([id number]) 1950 [facility] Date Time Provider Department ([id number]) 06/02/20 MATTHEW ROCHAPWS During your visit today, we recorded the [...] Status:Closed by MATTHEW ROCHA MD on 06/02/20 cnpn on 2020-05-[facility] Normal 05-27-2020 [facility] [place] ([id number]) 1950 [place] Date Time Provider Department ([id number]) 05/27/20 MATTHEW ROCHA INTMWS During your visit [...] ICD10: I48.20 - ECHO MD Itzel Saul [facility] 05/27/2020 12:37 PM Signed PSS please assist [...] Diagnosis:Chronic atrial fibrillation (HCC) [I 48.20] Order(s):ECHO [216341] Order #: [id number]: 1 FUTURE perflutren lipid microspheres (DEFINITY) 1.1 [...] Bacteria identified Specimen source XXX: Normal 05-27-2020 [facility] Cx Nom (Bld) BLOOD Performed at [address] [address] System ([id number]) Service Cmnt XXX-Imp: NONE Performed at [place] [id number] Bacteria identified: NO GROWTH 5 DAYS Performed at [facility] [place], [facility],[address] [place] [address] : FINAL 05/27/2020 Comment: Performed By: #### BCUL #### [facility], [place], [facility] [place] [address] prothrombin time on 2020-05-25 INR Coag (PPP) [Relative 2.0 0.86-1.16 {INR} High 05-25 [facility] time] (10781) Comment: Result Comment: INR Theraput ic Range: 2.0-3.5 Performed at [place] [address] [place] [id number] PT Coag (PPP) 22.0 9.3-12.7 SEC High 05-25-2020 [facility] [Time] System (00 000) PT Coag (PPP) INFORMATION NOT Normal 05-25-2020 [facility] [Time] REPORTED TO System ( 38272) LABORATORY comprehensive metabolic panel on 2020-05-25 Albumin [Mass/Vol] 2.9 3.5-5.0 GM/DL Low 05-25-2020 [facility] (61452) Albumin/Globulin [Mass 1.0 1.5-3.0 RATIO Low 020 [facility] ratio] (54557) ALP [Catalytic 82 35-125 U/L Normal 05-25-2020 [facility] activity/Vol] (06403 ) ALT [Catalytic 8 5-40 U/L Normal 05-25-2020 [facility] activity/Vol] (70053 ) Comment: Result Comment: Performed at [place] [place] [address] Anion gap [Moles/Vol] 11 0-19 MMOL/L Normal 05-25-20 20 [facility] (32762) AST [Catalytic 39 5-40 U/L Normal 05-25-2020 [facility] activity/Vol] (22683 ) Bilirubin [Mass/Vol] 2.3 0.1-1.2 MG/DL High 0 [facility] (54021) Calcium [Mass/Vol] 8.3 8.5-10.4 MG/DL Low 05-25-2020 [facility] (45104) Chloride [Moles/Vol] 104 97-107 MMOL/L Normal 0 [facility] (51853) CO2 [Moles/Vol] 25 24-31 MMOL/L Normal 05-25-2020 [place] (91182) Creatinine [Mass/Vol] 1.0 0.4-1.6 MG/DL Normal 05-25-20 20 [facility] (00384) Globulin (S) [Mass/Vol] 2.8 1.9-3.7 G/DL Normal 2019 [facility] (44383) Glucose [Mass/Vol] 94 65-99 MG/DL Normal 05-25-2020 [facility] (77717) Potassium [Moles/Vol] 3.5 3.4-5.1 MMOL/L Normal 05-25-20 20 [facility] (33953) Protein [Mass/Vol] 5.7 5.9-7.9 G/DL Low 05-25-2020 [facility] (26587) Sodium [Moles/Vol] 140 133-145 MMOL/L Normal 05-25-2020 [facility] (01581) Urea nitrogen [Mass/Vol] 14 8-25 MG/DL Normal 05-25 [facility] (49137) Urea nitrogen/Creatinine 14.0 8-21 RATIO Normal 05-25 [facility] [Mass ratio] (50178) cbc with diff on 16-05-29 AB IMMATURE NEUT 0.02 0.0-0.1 K/UL Normal 05-25-2020 [facility] (37163) ABS BASO 0.03 0.00-0.22 K/UL Normal 05-25-2020 [facility] (00815) ABS EOS 0.41 0-0.45 K/UL Normal 05-25-2020 [facility] (79263) ABS NEUTROPHILS 3.11 1.8-7.7 K/UL Normal 05-25-2020 [place] (51178) ABS.NEUT.CALCULATED 3.11 K/UL Normal 05-25-2020 [facility] (39679) Comment: Result Comment: Performed at [facility] [address] [facility] [address] Basophils/100 WBC (Bld) 0.30 0-1 % Normal 2019 [facility] (00 000) DIFF TYPE AUTO DIFF Normal 05-25-2020 [facility] (00 000) Eosinophils/100 WBC 4.40 0-3 % High 05-25-2020 [facility] (Bld) System (00 000) Erythrocyte distribution 14.2 11.7-15.0 % Normal 05-25 [facility] width (RBC) [Ratio] System (18999) Hematocrit (Bld) [Volume 35.5 41-50 % Low 05-25 [facility] fraction] System (00 000) Hemoglobin (Bld) 11.8 13.5-16.5 GM/DL Low 05-25-2020 [facility] [Mass/Vol] System (0 0000) Lymphocytes (Bld) 5.24 1.2-3.2 K/UL High 05-25-2020 [facility] [#/Vol] System (00 000) Lymphocytes/100 WBC 55.60 20-40 % High 05-25-2020 [facility] (Bld) System (00 000) MCH (RBC) [Entitic mass] 33.1 26-34 PG Normal 05-25 [facility] (00 000) MCHC (RBC) [Mass/Vol] 33.2 31-37 % Normal 05-25-20 20 [facility] (00 000) MCV (RBC) [Entitic vol] 99.4 80-100 FL Normal 2019 [facility] (00 000) MEAN PLT VOL 9.7 7.0-12.6 CU Normal 05-25-2020 [facility] System (00 000) Monocytes (Bld) [#/Vol] 0.61 0-0.8 K/UL Normal 2019 [facility] (00 000) Monocytes/100 WBC (Bld) 6.50 0-8 % Normal 2019 [facility] (00 000) Neutrophils/100 WBC 33.00 50-70 % Low 05-25-2020 [facility] (Bld) System (00 000) Comment: Result Comment: CONSISTENT W ITH PERIPHERAL SMEAR Neutrophils/100 WBC 0.20 0.0-1.0 % Normal 05-25-2020 [facility] (Bld) System (11275) Platelets (Bld) 105 150-450 K/UL Low 05-25-2020 [facility] [#/Vol] System (20090) Platelets (Bld) CONSISTENT WITH Normal 05-25-[address] [place] [address] [#/Vol] REPORTED RESULTS Sys tem (20051) RBC (Bld) [#/Vol] 3.57 4.5-5.5 M/UL Low 05-25-2020 [facility] (38852) RBC morphology CONSISTENT WITH Normal 0 [facility] finding Nom (Bld) REPORTED RESULTS System (84469) RDW-SD 52.3 37.0-54.0 FL Normal 05-25-2020 [facility] (22113) WBC (Bld) [#/Vol] 9.4 4.5-11.0 K/UL Normal 05-25-2020 [facility] (38981) WBC MORPHOLOGY SMEAR REVIEWED AND Normal 2019 [facility] FOUND CONSISTENT Sys tem WITH AUTOMATED (0000 0) DIFFERENTIAL prothrombin time on 2020-05-24 INR Coag (PPP) [Relative 2.4 0.86-1.16 {INR} High 05-24 [facility] time] (38463) Comment: Result Comment: INR Theraput ic Range: 2.0-3.5 Performed at [place] [address] [address] [place] [address] PT Coag (PPP) 26.0 9.3-12.7 SEC High 05-24-2020 [facility] [Time] System (00 000) PT Coag (PPP) INFORMATION NOT Normal 05-24-2020 [facility] [Time] REPORTED TO System ( 78243) LABORATORY comprehensive metabolic panel on 2020-05-24 Bilirubin [Mass/Vol] 1.8 0.1-1.2 MG/DL High 0 [facility] (40892) Comment: Result Comment: RESULT CHECK ED Albumin [Mass/Vol] 2.9 3.5-5.0 GM/DL Low 05-24-2020 [facility] (75391) Albumin/Globulin [Mass 1.0 1.5-3.0 RATIO Low 05-24- 020 [facility] ratio] (58634) ALP [Catalytic 82 35-125 U/L Normal 05-24-2020 [facility] activity/Vol] (15469 ) ALT [Catalytic 9 5-40 U/L Normal 05-24-2020 [facility] activity/Vol] (82458 ) Comment: Result Comment: Performed at [facility] [address] [address] [place] [address] Anion gap [Moles/Vol] 11 0-19 MMOL/L Normal 05-24-20 20 [facility] (31051) AST [Catalytic 40 5-40 U/L Normal 05-24-2020 [facility] activity/Vol] (99074 ) Calcium [Mass/Vol] 8.2 8.5-10.4 MG/DL Low 05-24-2020 [facility] (64292) Chloride [Moles/Vol] 104 97-107 MMOL/L Normal 0 [facility] (51436) CO2 [Moles/Vol] 23 24-31 MMOL/L Low 05-24-2020 [place] (04037) Creatinine [Mass/Vol] 0.9 0.4-1.6 MG/DL Normal 05-24-20 20 [facility] (30132) Globulin (S) [Mass/Vol] 2.9 1.9-3.7 G/DL Normal 2019 [facility] (27727) Glucose [Mass/Vol] 98 65-99 MG/DL Normal 05-24-2020 [facility] (90763) Potassium [Moles/Vol] 3.5 3.4-5.1 MMOL/L Normal 05-24-20 20 [facility] (15174) Protein [Mass/Vol] 5.8 5.9-7.9 G/DL Low 05-24-2020 [facility] (98551) Sodium [Moles/Vol] 138 133-145 MMOL/L Normal 05-24-2020 [facility] (01773) Urea nitrogen [Mass/Vol] 16 8-25 MG/DL Normal 05-24 [facility] (37244) Urea nitrogen/Creatinine 17.8 8-21 RATIO Normal 05-24 [facility] [Mass ratio] (78848) cbc with diff on 16-05-28 AB IMMATURE NEUT 0.01 0.0-0.1 K/UL Normal 05-24-2020 [facility] (19605) ABS BASO 0.03 0.00-0.22 K/UL Normal 05-24-2020 [facility] (65012) ABS EOS 0.43 0-0.45 K/UL Normal 05-24-2020 [facility] (85535) ABS NEUTROPHILS 4.23 1.8-7.7 K/UL Normal 05-24-2020 [place] (13494) ABS.NEUT.CALCULATED 4.23 K/UL Normal 05-24-2020 [facility] (89702) Comment: Result Comment: Performed at [facility] [address] [facility] [address] Basophils/100 WBC (Bld) 0.30 0-1 % Normal 2019 [facility] (00 000) DIFF TYPE AUTO DIFF Normal 05-24-2020 [facility] (00 000) Eosinophils/100 WBC 4.20 0-3 % High 05-24-2020 [facility] (Bld) System (00 000) Erythrocyte distribution 14.5 11.7-15.0 % Normal 05-24 [facility] width (RBC) [Ratio] System (37008) Hematocrit (Bld) [Volume 33.0 41-50 % Low 05-24 [facility] fraction] System (00 000) Hemoglobin (Bld) 10.9 13.5-16.5 GM/DL Low 05-24-2020 [facility] [Mass/Vol] System (0 0000) Lymphocytes (Bld) 4.92 1.2-3.2 K/UL High 05-24-2020 [facility] [#/Vol] System (00 000) Lymphocytes/100 WBC 48.00 20-40 % High 05-24-2020 [facility] (Bld) System (00 000) MCH (RBC) [Entitic mass] 33.1 26-34 PG Normal 05-24 [facility] (00 000) MCHC (RBC) [Mass/Vol] 33.0 31-37 % Normal 05-24-20 20 [facility] (00 000) MCV (RBC) [Entitic vol] 100.3 80-100 FL High 2019 [facility] (00 000) MEAN PLT VOL 9.5 7.0-12.6 CU Normal 05-24-2020 [facility] ealt System (00 000) Monocytes (Bld) [#/Vol] 0.63 0-0.8 K/UL Normal 2019 [facility] (00 000) Monocytes/100 WBC (Bld) 6.10 0-8 % Normal 2019 [facility] (00 000) Neutrophils/100 WBC 41.30 50-70 % Low 05-24-2020 [facility] (Bld) System (00 000) Neutrophils/100 WBC 0.10 0.0-1.0 % Normal 05-24-2020 [facility] (d) System (00 000) Platelets (Bld) [#/Vol] 104 150-450 K/UL Low 2019 [facility] (00 000) RBC (Bld) [#/Vol] 3.29 4.5-5.5 M/UL Low 05-24-2020 [facility] (00 000) RDW-SD 54.3 37.0-54.0 FL High 05-24-2020 [facility] (00 000) WBC (Bld) [#/Vol] 10.3 4.5-11.0 K/UL Normal 05-24-2020 [facility] (00 000) prothrombin time on 2020-05-23 INR Coag (PPP) [Relative 2.7 0.86-1.16 {INR} High 05-23 [facility] time] (32008) Comment: Result Comment: INR Theraput ic Range: 2.0-3.5 Performed at [address] [place] [address] PT Coag (PPP) 29.2 9.3-12.7 SEC High 05-23-2020 [facility] [Time] (67308) PT Coag (PPP) HISTORY OF COUMADIN Normal 2019 [facility] [Time] (15484) pro-bnp on Natriuretic peptide B (Bld) 467 0-229 PG/ML High [facility] [Mass/Vol] (02118) Comment: Result Comment: Reference ra nges are based on clinical submission data. These ranges represent the 95th percentil e of normal cut-off points. As NT pro-BNP values approach 1000 pg/ml, clinical symptoms are more likely associated with CHF. Performed at [address] [address] Performed By: #### PBNP #### Main Laboratory [address] [address] plt estimate battery on 2020-05-23 Platelets (Bld) [#/Vol] Normal 2019 [facility] (17655) Comment: Result Comment: DECREASED Performed at [place] [address] [address] [place] [id number] magnesium on 05-23 Magnesium [Mass/Vol] 1.8 1.6-3.1 MG/DL Normal 0 [facility] (13797) Comment: Result Comment: Performed at [facility] [address] [address] [facility] [address] cbc without diff on 2020-05-23 Erythrocyte distribution 14.4 11.7-15.0 % Normal 05-23 [facility] width (RBC) [Ratio] (99979) Hematocrit (Bld) [Volume 31.9 41-50 % Low 05-23 [facility] fraction] (47836) Hemoglobin (Bld) 10.8 13.5-16.5 GM/DL Low 05-23-2020 [facility] [Mass/Vol] (56991) MCH (RBC) [Entitic mass] 34.0 26-34 PG Normal 05-23 [facility] (76488) MCHC (RBC) [Mass/Vol] 33.9 31-37 % Normal 05-23-20 20 [facility] (34233) MCV (RBC) [Entitic vol] 100.3 80-100 FL High 2019 [facility] (21976) MEAN PLT VOL 9.3 7.0-12.6 CU Normal 05-23-2020 [facility] (97684) Comment: Result Comment: Performed at [facility] [address] [address] [facility] [address] Platelets (Bld) [#/Vol] 94 150-450 K/UL Low 2019 [facility] (91026) Comment: Result Comment: CONSISTENT W ITH PERIPHERAL SMEAR RBC (Bld) [#/Vol] 3.18 4.5-5.5 M/UL Low 05-23-2020 [facility] (67247) RDW-SD 53.7 37.0-54.0 FL Normal 05-23-2020 [facility] (53066) WBC (Bld) [#/Vol] 14.6 4.5-11.0 K/UL High 05-23-2020 [facility] (95944) c reactive protein on 2020-05-23 CRP [Mass/Vol] 5.7 0-2.0 MG/DL High 05-23-2020 [facility] (87524) Comment: Result Comment: Performed at [address] [address] Performed By: #### CRP #### Main Laboratory [facility] [address] [place] [address] basic metabolic panel on 2020-05-23 Anion gap [Moles/Vol] 10 0-19 MMOL/L Normal 05-23-20 [facility] (79641) Calcium [Mass/Vol] 8.2 8.5-10.4 MG/DL Low 05-23-2020 [facility] (51146) Comment: Result Comment: Performed at [place] [id number] Chloride [Moles/Vol] 104 97-107 MMOL/L Normal 0 [facility] (58314) CO2 [Moles/Vol] 24 24-31 MMOL/L Normal 05-23-2020 [place] (49944) Creatinine [Mass/Vol] 1.0 0.4-1.6 MG/DL Normal 05-23-20 [facility] (42196) Glucose [Mass/Vol] 105 65-99 MG/DL High 05-23-2020 [facility] (67203) Potassium [Moles/Vol] 3.3 3.4-5.1 MMOL/L Low 05-23-20 20 [facility] (49234) Sodium [Moles/Vol] 138 133-145 MMOL/L Normal 05-23-2020 [facility] (57482) Urea nitrogen [Mass/Vol] 17 8-25 MG/DL Normal 05-23 [facility] (21150) Urea nitrogen/Creatinine 17.0 8-21 RATIO Normal 05-23 [facility] [Mass ratio] (28998) sedimentation rate on 2020-05-22 SEDIMENTATION RATE 39 0-12 MM/HR High 05-22-2020 [facility] (98666) Comment: Result Comment: Performed at [address] [address] pt and ptt on 05-22 aPTT Coag (Bld) [Time] 40.9 22.0-32.5 SEC High 020 [facility] (21972) Comment: Result Comment: Performed at [address] [address] INR Coag (PPP) [Relative 2.5 0.86-1.16 {INR} High 05-22 [facility] time] (30147) Comment: Result Comment: INR Theraput ic Range: 2.0-3.5 PT Coag (PPP) [Time] 27.0 9.3-12.7 SEC High 0 [facility] (66807) ANTICOAGULANT COUMADIN Normal 05-22-2020 [facility] (97419) magnesium on 05-22 Magnesium [Mass/Vol] 1.9 1.6-3.1 MG/DL Normal 0 [facility] (71175) Comment: Result Comment: Performed at [facility] [address] [facility] [address] comprehensive metabolic panel on 2020-05-22 Albumin [Mass/Vol] 3.3 3.5-5.0 GM/DL Low 05-22-2020 [facility] (13341) Albumin/Globulin 1.1 1.5-3.0 RATIO Low 05-22-2020 [facility] [Mass ratio] (13278) ALP [Catalytic 97 35-125 U/L Normal 05-22-2020 [facility] activity/Vol] (32527 ) ALT [Catalytic 11 5-40 U/L Normal 05-22-2020 [facility] activity/Vol] (83428 ) Anion gap [Moles/Vol] 13 0-19 MMOL/L Normal 05-22-20 20 [facility] (65080) AST [Catalytic 53 5-40 U/L High 05-22-2020 [facility] activity/Vol] (11078 ) Bilirubin [Mass/Vol] 2.6 0.1-1.2 MG/DL High 0 [facility] (89210) Calcium [Mass/Vol] 8.5 8.5-10.4 MG/DL Normal 05-22-2020 [facility] (20427) Chloride [Moles/Vol] 102 97-107 MMOL/L Normal 0 [facility] (22914) CO2 [Moles/Vol] 22 24-31 MMOL/L Low 05-22-2020 [place] (28332) Creatinine [Mass/Vol] 1.0 0.4-1.6 MG/DL Normal 05-22-20 20 [facility] (15620) GFR/1.73 sq 78 mL/min/1.73 m2 Normal 05-22-2020 [facility] M.predicted MDRD (00 000) (S/P/Bld) [Vol rate/Area] Comment: Result Comment: GFR ml/min/1.73m2 Stage ----- 90 1 60-89 2 30-59 3 15-29 4 <15 5 For -Americans, multi ply EGFR result by 1.210 Calculation not validated fo r patients under 18 years of age. Performed at [facility] [address] [address] [facility] [address] Globulin (S) [Mass/Vol] 3.1 1.9-3.7 G/DL Normal 2019 [facility] (28357) Glucose [Mass/Vol] 90 65-99 MG/DL Normal 05-22-2020 [facility] (66673) Potassium [Moles/Vol] 3.6 3.4-5.1 MMOL/L Normal 05-22-20 [facility] (01841) Protein [Mass/Vol] 6.4 5.9-7.9 G/DL Normal 05-22-2020 [facility] (42390) Sodium [Moles/Vol] 137 133-145 MMOL/L Normal 05-22-2020 [facility] (85229) Urea nitrogen [Mass/Vol] 18 8-25 MG/DL Normal 05-22 [facility] (91254) Urea nitrogen/Creatinine 18.0 8-21 RATIO Normal 05-22 [facility] [Mass ratio] (51477) cbc with diff on 16-05-26 ABS ATYPICAL LYMPH 0.19 K/UL Normal 05-22-2020 [facility] (04064) Comment: Performed By: #### CBCD #### [facility] [place] [address] [place] [address] ABS BAND 0.39 K/UL Normal 05-22-2020 [facility] (90946) Comment: Performed By: #### CBCD #### [facility] [place] [address] [place] [address] ABS EOS 0.58 0-0.45 K/UL High 05-22-2020 [facility] (11058) Comment: Performed By: #### CBCD #### [facility] [place] [address] [place] [address] ABS NEUTROPHILS 8.50 1.8-7.7 K/UL High 05-22-2020 [facility] (82592) Comment: Performed By: #### CBCD #### [facility] [place] [address] [place] [address] ABS.NEUT.MANUAL 8.88 Normal 05-22-2020 [facility] (78678) Comment: Performed By: #### CBCD #### [facility] [place] [address] [place] [address] ATYPICAL LYMPH 1.00 % Normal 05-22-2020 [facility] (11915) Comment: Performed By: #### CBCD #### [facility] [place] [address] [place] [address] BAND NEUTROPHIL 2.00 <16 % Normal 05-22-2020 [facility] (46234) Comment: Performed By: #### CBCD #### [facility] [place] [address] [place] [address] DIFF TYPE MANUAL DIFF Normal 05-22-2020 [facility] (37273) Comment: Performed By: #### CBCD #### [facility] [place] [address] [place] [address] Eosinophils/100 WBC (Bld) 3.00 0-3 % Normal 04-28 [facility] (39998) Comment: Performed By: #### CBCD #### [facility] [place] [address] [place] [address] Lymphocytes (Bld) [#/Vol] 8.50 1.2-3.2 K/UL High 04-28 [facility] (00038) Comment: Performed By: #### CBCD #### [facility] [place] [address] [place] [address] Lymphocytes/100 WBC (Bld) 44.00 20-40 % High 04-28 [facility] (36612) Comment: Performed By: #### CBCD #### [facility] [place] [address] [place] [address] Monocytes (Bld) [#/Vol] 1.16 0-0.8 K/UL High 2019 [facility] (13771) Comment: Performed By: #### CBCD #### [facility] [place] [address] [place] [address] Monocytes/100 WBC (Bld) 6.00 0-8 % Normal 2019 [facility] (40424) Comment: Performed By: #### CBCD #### [facility] [place] [address] [place] [address] Neutrophils/100 WBC (Bld) 44.00 50-70 % Low 07- [facility] (07376) Comment: Performed By: #### CBCD #### [facility] [place] [address] [place] [address] Platelets (Bld) [#/Vol] SLIGHTLY DECREASED Normal 05-22-2020 [facility] (85894) Comment: Performed By: #### CBCD #### [facility] [place] [address] [place] [address] RBC morphology finding CONSISTENT WITH Normal 0 05-22-2020 [facility] Nom (Bld) REPORTED RESULTS (00 000) Comment: Performed By: #### CBCD #### [facility] [place] [address] [address] ABS.NEUT.CALCULATED 9.43 K/UL Normal 05-22-2020 [facility] (94534) Comment: Result Comment: Performed at [facility] [address] [facility] [address] Performed By: #### CBCD #### [facility] [place] [address] [address] Erythrocyte distribution 14.4 11.7-15.0 % Normal 05-22 [facility] width (RBC) [Ratio] (66565) Comment: Performed By: #### CBCD #### [facility] [place] [address] [place] [address] Hematocrit (Bld) [Volume 35.1 41-50 % Low 05-22 [facility] (99741) fraction] Comment: Performed By: #### CBCD #### [facility] [place] [address] [place] [address] Hemoglobin (Bld) 11.9 13.5-16.5 GM/DL Low 05-22-2020 [facility] [Mass/Vol] (58751) Comment: Performed By: #### CBCD #### [facility] [place] [address] [address] MCH (RBC) [Entitic mass] 34.0 26-34 PG Normal 05-22 [facility] (73934) Comment: Performed By: #### CBCD #### [place] [address] [place] [address] MCHC (RBC) [Mass/Vol] 33.9 31-37 % Normal 05-22-20 20 [facility] (77572) Comment: Performed By: #### CBCD #### [place] [address] [place] [address] MCV (RBC) [Entitic vol] 100.3 80-100 FL High 2019 [facility] (41810) Comment: Performed By: #### CBCD #### [place] [address] [place] [address] MEAN PLT VOL 9.7 7.0-12.6 CU Normal 05-22-2020 [facility] (74045) Comment: Performed By: #### CBCD #### [place] [address] [address] Platelets (Bld) [#/Vol] 112 150-450 K/UL Low 2019 [facility] ([id number]) Comment: Performed By: #### CBCD #### [place] [address] [place] [address] RBC (Bld) [#/Vol] 3.50 4.5-5.5 M/UL Low 05-22-2020 [facility] ([id number]) Comment: Performed By: #### CBCD #### [place] [address] [place] [address] RDW-SD 53.4 37.0-54.0 FL Normal 05-22-2020 [facility] (83226) Comment: Performed By: #### CBCD #### [place] [address] [address] WBC (Bld) [#/Vol] 19.3 4.5-11.0 K/UL High 05-22-2020 [facility] (35704) Comment: Performed By: #### CBCD #### [place] [address] [place] [address] progress on 2020-04 PROGRESS HNO ID: [id number] Normal 05-19-2020 [facility] Author: Piper Harman) [employer] ([id number]) Service: ? Author Type: Nurse Practitioner Type: Progress Notes Filed: 05/19/2020 11:04 AM Note Text: Victorino Piper Sears, CLERICAL ADVISER.JULIANA PROGRESS HNO ID: [id number] Normal 05-19-2020 [facility] Author: Elsie Huber RN [facility] ([id number]) Service: ? Author Type: ? Type: Progress Notes Filed: 05/19/2020 11:04 AM Note Text: patient had inr completed at [facility] patients inr is 2.6 (patients [...] for follow up INR. hay on 2020-05-19 HAY Telephone (KAYY) Normal 05-19-2020 [facility] JUSTIN ZAZUETA ([id number]) 1950 [facility] Date Time Provider Department (02678) 05/19/20 MATTHEW ROCHA During your visit today, [...] fibrillation, chronic (HCC) [ I48.20] Order(s):INR (POC) [2971160] Order #: [id number] STANDING PROTHROMBIN TIME/PT [SQPT] Order #: [id number] STANDING Prescriptions as of 05/19/2020 Sig: METOPROLOL [...] OBSOLETE Refill (INTMWS) Normal 05-10-2020 Liban wolf [facility] JUSTIN ZAZUETA ([id number]) 1950 [facility] Date Time Provider Department (08205) 05/10/20 MATTHEW ROCHA During your visit today, we recorded the following informati on about you: Carmen Farris LPN 05/10/2020 9:14 AM Signed Last [...] BP: 04/21/2020 118/72 Please advise. Thank you. Carmen Farris LPN Allergies As of Date: 05/10/2020 [...] Status:Closed by PIPER SEARS CNP on 05/10/20 cnpn on 2020-05-10 CNPN Telephone (VASSWS) Normal 05-10-2020 [facility] JUSTIN Julian ([id number]) 1950 [facility] Date Time Provider Department (00406) 05/10/20 VICKIE GRIFFIN During your visit today, we recorded the following informati on about you: Carmen Agnieszka Farris LPN 05/10/2020 9:22 AM Signed Patient called and he has been waiting o n a call regarding the leg pumps he is to get. He has not heard anything. Please call patient and advise where this is at. Carmen Singh Ma 06/07/2020 3:57 PM Signed Has this been addressed? Carmen Farris LPN 06/08/2020 10:28 AM Signed Left a message for patient to call the office and ask to spe ak to a triage nurse. Carmen Grantie Agnieszka Farris LPN 06/20/2020 3:51 PM Signed Please advise what company h as been calling him so when he calls back or we try to reach him we can let him know they need his updated insurance information and so do we. Carmen Farris LPN Allergies As of Date: 05/10/2020 (No Known Allergies) Date Reviewed: 04/27/2020 Reviewed by: Graciela Espitia Ma - Fully Assessed Reason for Visit: leg pumps [Other] Prescriptions as of 05/10/2020 Sig: METOPROLOL TARTRATE 50 MG TAB* Take 0.5 tablets by mouth twi * FUROSEMIDE 20 MG TABLET Take 0.5 tablets by mouth onc* Patient taking differently: Take 20 mg by mouth once rosis* POTASSIUM CHLORIDE ER 10 MEQ * Take [...] bilateral lower extremities w*01/08/2019 Encounter Status:Closed by CARMEN FARRIS LPN on 0 progress on 2020-04 PROGRESS HNO ID: [id number] Normal 04-27-2020 [facility] Author: Vickie Griffin [facility] Service: ? [facility] Author Type: Nurse Practitioner ([id number]) Type: Progress Notes Filed: 05/01/2020 9:32 AM [...] education/counselling/coordination of care. Vickie Griffin, PhD, WOCN, SECURITY THREAT ANALYST cnov on 2020-04-27 CNOV Office Visit (VASSWS) Normal 04-27-[address] [place] [address] [facility] JUSTIN ZAZUETA ([id number]) 1950 [facility] Date Time Provider Department ([id number]) 04/27/20 2:30 PM VICKIE GRIFFIN VASSWS During your visit today, we recorded the following informati on about you: Vickie Griffin, PhD, CLERICAL ADVISER.SECURITY THREAT ANALYST 05/01/2020 9:32 AM Signed VASCULAR SURGERY WOUND [...] Laterality Date - COLONOSCOP W/ OR W/O [facility] SPEC April 2001 normal - COLONOSCOP W/ OR W/O [facility] SPEC 02/25/2012 Colonoscopy - PAST SURGICAL HISTORY [...] education/counselling/coordination of care. Vickie Griffin, PhD, WOCN, SECURITY THREAT ANALYST Referring Provider: VICKIE GRIFFIN [[id number]] Allergies As of Date: 04/27/2020 (No Known [...] extremities w*01/08/2019 Encounter Status:Closed by VICKIE GRIFFIN SECURITY THREAT ANALYST on 05/01/20 cnco on 2020-04-27 CNCO Letter Text Normal 04-27-2020 [facility] (62614) progress on 2020-03 PROGRESS HNO ID: [id number] Normal 04-21-2020 [facility] Author: Matthew Rocha [employer] ([id number]) Service: ? Author Type: Physician Type: Progress Notes Filed: 04/21/2020 5:33 PM Note Text: Okay. KNITTING TEACHER notes reviewed. Medication list updated. PROGRESS HNO ID: [id number] Normal 04-21-2020 [facility] Author: Elsie [place] RN [facility] ([id number]) Service: ? Author Type: ? Type: Progress Notes Filed: 04/21/2020 5:33 PM Note Text: patient had inr completed at [facility] patients inr is 2.5 (patients inr range [...] for follow up INR. PROGRESS HNO ID: [id number] Normal 04-21-2020 [facility] Author: Mike Harman) Sin [facility] ([id number]) Service: ? Author Type: Nurse Practitioner Type: [...] Laterality Date - COLONOSCOP W/ OR W/O [facility] SPEC April 2001 normal - COLONOSCOP W/ OR W/O [facility] SPEC 02/25/2012 Colonoscopy - PAST SURGICAL HISTORY [...] ER 10 MEQ TABLET,EXTENDED RELEASE Mike Mccurdy APRN.CNP Prescription instructions reviewed with patient as applicabl e. Potential red flag symptoms discussed with the patient. Reviewed appro priate action plan to take if red flag symptoms occur. Patient agreeable t o treatment plan. cnov on 2020-04-21 CNOV Office Visit (INTMWS) Normal 04-21-20 [facility] JUSTIN ZAZUETA ([id number]) 1950 [facility] Date Time Provider Department (50698) 04/21/20 10:40 AM MIKE MCCURDY (SECURITY THREAT ANALYST) INTMWS During your visit today, we recorded the following informati on about you: Temperature Pulse Respiration Blood pressure 97.3 degrees 63/minute 16/minute 118/72 Weight 148.8 kg Mike Mccurdy APRN.JULIANA 04/21/2020 1:53 PM Signed CC: Patient presents [...] Laterality Date - COLONOSCOP W/ OR W/O [facility] SPEC April 2001 normal - COLONOSCOP W/ OR W/O [facility] SPEC 02/25/2012 Colonoscopy - PAST SURGICAL HISTORY [...] ER 10 MEQ TABLET,EXTENDED RELEASE Mike Mccurdy APRN.CNP Prescription instructions reviewed with patient as sanjay licable. Potential red flag symptoms discussed with the patient. Review ed appropriate action plan to take if red flag symptoms occur. Patient agreeable to treatm ent plan. Mike Mccurdy APRN.CNP 04/21/2020 11:05 AM Addendum Continue to check blood pressure daily. Contact office for readings <100/60 or >140/90. Check weight daily- record readings. Not mannie office of >5 pounds weight gain in 24 hour period. Continue to hold Lisinopril Referring Provider: MATTHEW ROCHA [[id number]] Allergies As of Date: 04/21/2020 (No Known Allergies) Date Reviewed: 04/21/2020 Reviewed by: Dianelys Donaldson Ma - Fully Assessed Reason for Visit: Ear Problem [38] Cmt: R ear muffled, improving Primary Visit Diagnosis:Perceived hearing changes [H91.90] Other Visit Diagnoses:Atrial fibrillation, unspecified type (HCC) [I48.91] Essential hypertension [I10] Bilateral lower extremity edema [R60.0] Order(s):INR (POC) [9486431] Order #: [id number]. #:[id number] metoprolol tartrate, short acting, (LOPRESSOR) 50 mg tabletT ken 0.5 tablets by mouth twice daily.Disp: 180 tabletRfl: 0 furosemide (LASIX) 20 mg tabletTake 0.5 tablets by mouth onc e daily.Disp: 45 tabletRfl: 0 potassium chloride (K-TAB) 10 mEq tabletTake 1 tablet by josette th daily with breakfast.Disp: 90 tabletRfl: 0 BASIC METABOLIC PNL [SQBMP] Order #: [id number] FUTURE Prescriptions as of 04/21/2020 Sig: METOPROLOL [...] 04/21/20 progress on 2020-03 PROGRESS HNO ID: [id number] Normal 04-15-2020 [facility] Author: Vickie Griffin [facility] Service: ? [place] Author Type: Nurse Practitioner ([id number]) Type: Progress Notes Filed: 04/15/2020 6:01 PM [...] Laterality Date - COLONOSCOP W/ OR W/O [facility] SPEC April 2001 normal - COLONOSCOP W/ OR W/O [facility] SPEC 02/25/2012 Colonoscopy - PAST SURGICAL HISTORY [...] education/counselling/coordination of care. Vickie Griffin, PhD, WOCN, SECURITY THREAT ANALYST cnpn on 2020-04-15 JULIANAN Telephone (INTMWS) Normal 04-15-2020 [facility] JUSTIN ZAZUETA ([id number]) 1950 [facility] Date Time Provider Department (38354) 04/15/20 MATTHEW ROCHA INTDiandraWS During your visit today, we recorded the following informati on about you: Carmen Tate RN 04/15/2020 1:27 PM Signed Patient calls to report that he saw Vickie Griffin DNP today and BP was running too low at 103/42 and patient verbalized intermittent dizzin ess and mild headache. Denies shortness o f breath or other symptoms. At visit on 04/06/20 his BP was 113/62. His is only on Lisinopril 20 mg d aily and Metroprolol Tartrate 50 mg twice a day. Reports neri walden remains off diuretics and lost too much/30 pounds water weight in past month. He was down to 307 #'s but is now regaining some weight and back up to 324#'s. Patient also reports that [facility] is not permitted to check patient's ear for his recent hearing etienne ge. Vickie informed patient to notify PCP. Pharmacy is [facility]. Patient does not monitor BP at home. Please review and advise. NAVID Ramsey MD 04/15/2020 3:45 PM Signed Schedule with me or Piper next week when he comes in for INR for BP and ear check. Cut LISINOPRIL 20 mg to 1/2 tablet daily. Itzel Moser Cma 04/15/2020 3:58 PM Signed Left message for patient to call office back and to ask to speak with a nurse. Itzel Naseem Moser Cma Racheal Macario LORENA 04/19/2020 11:05 AM Signed My chart message sent to pt. Racheal Jennyjesus FILM TOUCH UP INSPECTOR 04/19/2020 11:54 AM Signed Message left to pt with info. Allergies As of Date: 04/15/2020 (No Known Allergies) Date Reviewed: 04/15/2020 Reviewed by: Graciela Espitia Ma - Fully Assessed Reason for Visit: bp lower [Other] Visit Diagnosis:Essential hypertension [I10] Order(s):lisinopril (ZESTRIL, PRINIVIL) 20 mg ta bletTake 0.5 tablets by mouth once daily.Disp: Rfl: [...] 2020-04-15 CNOV Office Visit (VASSWS) Normal 04-15-[address] [place] [address] [facility] JUSTIN ZAZUETA ([id number]) 1950 [facility] Date Time Provider Department ([id number]) 04/15/20 10:30 AM VICKIE GRIFFIN VASSWS During your visit today, we recorded the following informati on about you: Pulse Blood pressure Weight 63/minute 103/42 147 kg Vickie Griffin, PhD, CLERICAL ADVISER.SECURITY THREAT ANALYST 04/15/2020 6:01 PM Signed VASCULAR SURGERY WOUND [...] education/counselling/coordination of care. Vickie Griffin, PhD, WOCN, SECURITY THREAT ANALYST Referring Provider: VICKIE GRIFFIN [[id number]] Allergies As of Date: 04/15/2020 (No Known [...] 04/15/20 progress on 2020-03 PROGRESS HNO ID: [id number] Normal 04-07-2020 [facility] Author: Matthew Rocha [facility] ([id number]) Service: ? Author Type: Physician Type: Progress Notes Filed: 04/07/2020 1:22 PM Note Text: I agree. PROGRESS HNO ID: [id number] Normal 04-07-2020 [facility] Author: Elsie Huber RN [facility] ([id number]) Service: ? Author Type: ? Type: Progress Notes Filed: 04/07/2020 1:22 PM Note Text: patient had inr completed at [facility] patients inr is 1.5 (patients [...] PSA, Diagnostic 0.38 0.00-2.59 ng/mL Normal 04-06-2020 [facility] ([id number]) Comment: Result Comment: Total PSA te st methodology used is the Electrochemiluminescence Imm unoassay. Performed By: #### LIPB, PSA , CMP, CBCDIF ####[facility] [address] [place], [place] [phone] protime on PT Coag (PPP) Test sent to [place] Normal 04-06 [facility] [Time] [facility] (00676) Comment: Result Comment: Account Cred ited HIDE progress on 2020-03 PROGRESS HNO ID: [id number] Normal 04-06-2020 [facility] Author: Matthew Rocha [employer] ([id number]) Service: ? Author Type: Physician Type: Progress Notes Filed: 04/06/2020 6:14 PM Note Text: This note was created using TripHoboter. Subjective This Team Access Model visit is [...] discussion. Matthew Rocha MD PROGRESS HNO ID: [id number] Normal 04-06-2020 [facility] Author: Vickie Jose ([id number]) Service: ? Author Type: Nurse Practitioner Type: [...] education/counselling/coordination of care. Vickie Griffin, PhD, WOCN, SECURITY THREAT ANALYST lipid panel, basic on 2020-04-06 Cholesterol [Mass/Vol] 127 <200 mg/dL Normal 020 [facility] (68212) Comment: Result Comment: <200 mg/dL, Desirable 200-239 mg/dL, Borderline hi gh >239 mg/dL, High Performed By: #### LIPB, PSA , CMP, CBCDIF ####[facility] [address] [place], [place] [phone] Cholesterol in HDL 43 >39 mg/dL Normal 04-06-2020 [facility] [Mass/Vol] (58116) Comment: Result Comment: 40-59 mg/dL, Acceptable >59 mg/dL, High: Negative ri sk factor for coronary heart disease <40 mg/dL, Low: Positive ris k factor for coronary heart disease Performed By: #### LIPB, PSA , CMP, CBCDIF ####[facility] [address] [place], [place] [phone] Cholesterol in LDL 71 <100 mg/dL Normal 04-06-2020 [facility] [Mass/Vol] [facility] (85263) Comment: Result Comment: <100 mg/dL, Optimal 100-129 mg/dL, Near optimal/ above optimal 130-159 mg/dL, Borderline hi gh 160-189 mg/dL, High >189 mg/dL, Very high Secondary prevention optimal LDL Cholesterol levels are recommended to be < 70 mg/dL Performed By: #### LIPB, PSA , CMP, CBCDIF ####[facility] [place], [place] [phone] Fasting Time 12 hrs Normal 04-06-2020 [facility] (88049) Comment: Performed By: #### LIPB, PSA , CMP, CBCDIF ####[place] [address] [place], [place] [phone] LDL:HDL Ratio 1.65 <2.54 Normal 04-06-2020 [facility] (67361) Comment: Result Comment: Reference: 1. National Cholesterol Educ ation Program ATP III Guideline At-A-Glance Quick Desk Reference: National Heart, Lung, and Blood [place]. National Institutes of Health. 2001: NIH Publication No. 01-3305. 2. An International Atherosc lerosis Society position paper: global recommendations for the management of dyslipidemia: executive summary, Atherosclerosis. 2014: 232(2):410-413. Performed By: #### LIPB, PSA , CMP, CBCDIF ####[address] [place], [place] [phone] Non HDL Cholesterol 84 <130 mg/dL Normal 04-06-2020 [facility] (22543) Comment: Result Comment: <130 mg/dL, Optimal 130-159 mg/dL, Near optimal/ above optimal 160-189 mg/dL, Borderline hi gh 190-219 mg/dL, High >219 mg/dL, Very high Secondary prevention optimal non HDL Cholesterol levels are recommended to be < 100 mg/dL Performed By: #### LIPB, PSA , CMP, CBCDIF ####[place] [address] [place], [place] [phone] TC:HDL Ratio 2.95 <5.10 Normal 04-06-2020 [facility] (79829) Comment: Performed By: #### LIPB, PSA , CMP, CBCDIF ####[facility] [address] [place], [place] [phone] Triglyceride [Mass/Vol] 63 <150 mg/dL Normal 2019 [facility] (06160) Comment: Result Comment: <150 mg/dL, Normal 150-199 mg/dL, Borderline hi gh 200-499 mg/dL, High >499 mg/dL, Very high Performed By: #### LIPB, PSA , CMP, CBCDIF ####[facility] [address] [place], [place] [phone] VLDL Cholesterol 13 <30 mg/dL Normal 04-06-[address] [facility] (56193) Comment: Performed By: #### LIPB, PSA , CMP, CBCDIF ####[place] [address] [place] [phone] comp metabolic panel on 2020-04-06 Albumin [Mass/Vol] 3.7 3.9-4.9 g/dL Low 04-06-2020 [facility] (17747) Comment: Performed By: #### LIPB, PSA , CMP, CBCDIF ####[facility] [address] [place], [place] [phone] ALP [Catalytic activity/Vol] 88 38-113 U/L Normal 0 04-06-2020 [facility] (57750) Comment: Performed By: #### LIPB, PSA , CMP, CBCDIF ####[facility] [address] [place], [place] [phone] ALT [Catalytic activity/Vol] 7 10-54 U/L Low 0 04-06-2020 [facility] (72259) Comment: Performed By: #### LIPB, PSA , CMP, CBCDIF ####[facility] [address] [place], [place] [phone] Anion gap [Moles/Vol] 11 9-18 mmol/L Normal 04-06-20 20 [facility] (47541) Comment: Performed By: #### LIPB, PSA , CMP, CBCDIF ####[facility] [address] [place], [place] [phone] AST [Catalytic activity/Vol] 66 14-40 U/L High 0 04-06-2020 [facility] (43768) Comment: Performed By: #### LIPB, PSA , CMP, CBCDIF ####[facility] [address] [place], [place] [phone] Bilirubin [Mass/Vol] 2.7 0.2-1.3 mg/dL High 0 [facility] (55702) Comment: Performed By: #### LIPB, PSA , CMP, CBCDIF ####[facility] [place], [place] [phone] Calcium [Mass/Vol] 9.7 8.5-10.2 mg/dL Normal 04-06-2020 [facility] (50184) Comment: Performed By: #### LIPB, PSA , CMP, CBCDIF ####[facility] [address] [place], [place] [phone] Chloride [Moles/Vol] 98 97-105 mmol/L Normal 0 [facility] (10291) Comment: Performed By: #### LIPB, PSA , CMP, CBCDIF ####[facility] [address] [place], [place] [phone] CO2 [Moles/Vol] 26 22-30 mmol/L Normal 04-06-2020 [facility] (60648) Comment: Performed By: #### LIPB, PSA , CMP, CBCDIF ####[facility] [address] [place], [place] [phone] Creatinine [Mass/Vol] 0.92 0.73-1.22 mg/dL Normal 04-06-20 20 [facility] (41914) Comment: Performed By: #### LIPB, PSA , CMP, CBCDIF ####[facility] [address] [place], [place] [phone] eGFR- Amer. >60 Normal 04-06-2020 [facility] (84384) Comment: Performed By: #### LIPB, PSA , CMP, CBCDIF ####[facility] [address] [place], [place] [phone] GFR/1.73 sq M predicted >60 mL/min/{1.73_m2} Normal 04-06-2020 [facility] among non-blacks MDRD [facility] (77027) (S/P/Bld) [Vol rate/Area] Comment: Result Comment: eGFR [...] accurately reflect actual GFR. Performed By: #### LIPB, PSA , CMP, CBCDIF ####[facility] [address] [place], [place] [phone] Glucose [Mass/Vol] 97 74-99 mg/dL Normal 04-06-2020 [facility] (14083) Comment: Result Comment: The [place] Diabetes Association (ADA) provides guidance for cutoff [...] for diagnosis of diabetes. Reference: Standards of [facility] Care in Diabetes 2016, [place] Diabetes Association. Diabetes Care. 2016.39(Suppl 1). Performed By: #### LIPB, PSA , CMP, CBCDIF ####[facility] [address] [place], [place] [phone] Potassium [Moles/Vol] 3.8 3.7-5.1 mmol/L Normal 04-06-20 20 [facility] (33530) Comment: Performed By: #### LIPB, PSA , CMP, CBCDIF ####[facility] [place], [place] [phone] Protein [Mass/Vol] 7.2 6.3-8.0 g/dL Normal 04-06-2020 [facility] (93946) Comment: Performed By: #### LIPB, PSA , CMP, CBCDIF ####[facility] [place], [place] [phone] Sodium [Moles/Vol] 135 136-144 mmol/L Low 04-06-2020 [facility] (48422) Comment: Performed By: #### LIPB, PSA , CMP, CBCDIF ####[facility] [address] [place], [place] [phone] Urea nitrogen [Mass/Vol] 20 9-24 mg/dL Normal 04-06 [facility] (74291) Comment: Performed By: #### LIPB, PSA , CMP, CBCDIF ####[facility] [place], [place] [phone] cnpn on 2020-04-06 CNPN Telephone (INTMWS) Normal 04-06-2020 [facility] JUSTIN ZAZUETA ([id number]) 1950 [facility] Date Time Provider Department (63225) 04/06/20 MATTHEW ROCHA INTDiandraWS During your visit today, we recorded the following informati on about you: Darby Rubi CARRILLO 04/06/2020 4:42 PM Signed as of 4:41PM , INR not resulted in [facility]. Kate Lemon LPN 04/06/2020 5:05 PM Signed Called [facility] Lab, INR specimen was rejected because [...] Known Allergies) Date Reviewed: 04/06/2020 Reviewed by: Carmen Johnson Ma - Fully Assessed Reason for Visit: Anticoagulation [8] Primary Visit Diagnosis:Leukocytosis, unspecified type [D72. 829] Other Visit Diagnoses:Abnormal liver enzymes [R74.8] Atrial fibrillation, unspecified type (HCC) [I48.91] Order(s):CBC + DIFF [SQCBCDIF] Order #: [id number] FUTURE HEPATIC FUNCTION PNL [SQHFP] Order #: [id number] FUTURE PROTHROMBIN TIME/PT [SQPT] Order #: [id number] STANDING INR (POC) [3052176] Order #: [id number]: 99 STANDING Prescriptions as of 04/06/2020 Sig: [...] 2020-04-06 CNOV Office Visit (VASSWS) Normal 04-06-[address] [place] [address] Clinic JUSTIN ZAZUETA ([id number]) 1950 [facility] Date Time Provider Department (85943) 04/06/20 11:00 AM VICKIE GRIFFIN During your visit today, we recorded the following informati on about you: Pulse Blood pressure Weight 65/minute 113/62 139.6 kg Vickie Griffin, PhD, CLERICAL ADVISER.SECURITY THREAT ANALYST 04/07/2020 1:15 PM Signed VASCULAR SURGERY WOUND [...] education/counselling/coordination of care. Vickie Griffin, PhD, WOCN, SECURITY THREAT ANALYST Referring Provider: VICKIE GRIFFIN [[id number]] Allergies As of Date: 04/06/2020 (No Known Allergies) Date Reviewed: 04/06/2020 Reviewed by: Carmen Johnson Ma - Fully Assessed Reason for [...] extremities w*01/08/2019 Encounter Status:Closed by VICKIE GRIFFIN SECURITY THREAT ANALYST on 04/07/20 cbc and differential on 2020-04-06 Abs Baso 0.16 <0.11 k/uL High 04-06-2020 [facility] (41246) Comment: Performed By: #### LIPB, PSA , CMP, CBCDIF ####[place] [address] [place] [phone] Abs Jerauld 0.81 <0.87 k/uL Normal 04-06-2020 [facility] (41920) Comment: Performed By: #### LIPB, PSA , CMP, CBCDIF ####[facility] [place] [phone] Abs Neut 2.76 1.45-7.50 k/uL Normal 04-06-2020 [facility] (19363) Comment: Performed By: #### LIPB, PSA , CMP, CBCDIF ####[facility] [place] [phone] ANC(includeSEG+BAND) 2.76 k/uL Normal 0 [facility] (02472) Comment: Performed By: #### LIPB, PSA , CMP, CBCDIF ####[facility] [place] [phone] Basophils/100 WBC (Bld) 1.0 % Normal 2019 [facility] (27962) Comment: Performed By: #### LIPB, PSA , CMP, CBCDIF ####[place] [address] [place] [phone] DTYPE Manual Diff Normal 04-06-2020 [facility] ([id number]) Comment: Performed By: #### LIPB, PSA , CMP, CBCDIF ####[facility] [place], [place] [phone] Eosinophils (Bld) [#/Vol] 0.00 <0.46 k/uL Normal 03-28 [facility] (09496) Comment: Performed By: #### LIPB, PSA , CMP, CBCDIF ####[place] [address] [place], [place] [phone] Eosinophils/100 WBC (Bld) 0.0 % Normal 03-28 [facility] (15246) Comment: Performed By: #### LIPB, PSA , CMP, CBCDIF ####[place] [address] [place], [place] [phone] Erythrocyte distribution 14.3 11.5-15.0 % Normal 04-06 [facility] width (RBC) [Ratio] [place] (90691) Comment: Performed By: #### LIPB, PSA , CMP, CBCDIF ####[place] [address] [place], [place] [phone] Hematocrit (Bld) [Volume 42.1 39.0-51.0 % Normal 04-06 [facility] fraction] [facility] (84155) Comment: Performed By: #### LIPB, PSA , CMP, CBCDIF ####[facility] [place], [place] [phone] Hemoglobin (Bld) 13.9 13.0-17.0 g/dL Normal 04-06-2020 [facility] [Mass/Vol] [place] (26492) Comment: Performed By: #### LIPB, PSA , CMP, CBCDIF ####[facility] [place], [place] [phone] Lymphocytes (Bld) [#/Vol] 12.50 1.00-4.00 k/uL High 03-28 [facility] (20295) Comment: Performed By: #### LIPB, PSA , CMP, CBCDIF ####[facility] [place], [place] [phone] Lymphocytes/100 WBC (Bld) 77.0 % Normal 03-28 [facility] (12883) Comment: Performed By: #### LIPB, PSA , CMP, CBCDIF ####[facility] [place], [place] [phone] MCH (RBC) [Entitic mass] 33.4 26.0-34.0 pG Normal 04-06 [facility] (83485) Comment: Performed By: #### LIPB, PSA , CMP, CBCDIF ####[facility] [place], [place] [phone] MCHC (RBC) [Mass/Vol] 33.0 30.5-36.0 g/dL Normal 04-06-20 [facility] (96134) Comment: Performed By: #### LIPB, PSA , CMP, CBCDIF ####[facility] [place], [place] [phone] MCV (RBC) [Entitic vol] 101.2 80.0-100.0 fL High 04-06 [facility] (77578) Comment: Performed By: #### LIPB, PSA , CMP, CBCDIF ####[facility] [place], [place] [phone] Monocytes/100 WBC (Bld) 5.0 % Normal 2019 [facility] (07961) Comment: Performed By: #### LIPB, PSA , CMP, CBCDIF ####[facility] [place], [place] [phone] Neutrophils/100 WBC (Bld) 17.0 % Normal 03-28 [facility] (58307) Comment: Performed By: #### LIPB, PSA , CMP, CBCDIF ####[facility] [address] [place], [place] [phone] Platelet mean volume 10.2 9.0-12.7 fL Normal 0 [facility] (Bld) [Entitic vol] [facility] (91093) Comment: Performed By: #### LIPB, PSA , CMP, CBCDIF ####[facility] [address] [place], [place] [phone] Platelets (Bld) [#/Vol] 181 150-400 k/uL Normal 2019 [facility] (28609) Comment: Performed By: #### LIPB, PSA , CMP, CBCDIF ####[facility] [place], [place] [phone] Platelets (Bld) Platelet estimate Normal 2019 [facility] [#/Vol] adequate [facility] (70342) Comment: Performed By: #### LIPB, PSA , CMP, CBCDIF ####[facility] [address] [place], [place] [phone] Polychromasia Slight Normal 04-06-2020 [facility] (17259) Comment: Performed By: #### LIPB, PSA , CMP, CBCDIF ####[facility] [address] [place], [place] [phone] RBC (Bld) [#/Vol] 4.16 4.20-6.00 m/uL Low 04-06-2020 [facility] (26283) Comment: Performed By: #### LIPB, PSA , CMP, CBCDIF ####[facility] [address] [place], [place] [phone] Red Cell Morph SEE COMMENT Normal 04-06-[address] [facility] (65405) Comment: Result Comment: Unremarkable Performed By: #### LIPB, PSA , CMP, CBCDIF ####[facility] [address] [place], [place] [phone] WBC (Bld) [#/Vol] 16.24 3.70-11.00 k/uL High 04-06-2020 [facility] (04313) Comment: Performed By: #### LIPB, PSA , CMP, CBCDIF ####[facility] [address] [place], [place] [phone] progress on 2020-03 PROGRESS HNO ID: [id number] Normal 04-04-2020 [place] Author: Vickie Griffin [facility] Service: ? [place] Author Type: Nurse Practitioner ([id number]) Type: Progress Notes Filed: 04/04/2020 5:56 AM [...] Laterality Date - COLONOSCOP W/ OR W/O [facility] SPEC April 2001 normal - COLONOSCOP W/ [...] education/counselling/coordination of care. Vickie Griffin, PhD, WOCN, SECURITY THREAT ANALYST progress on 2020-03 PROGRESS HNO ID: [id number] Normal 03-31-2020 [facility] Author: Elsie Huber RN ([id number]) Service: ? Author Type: ? Type: Progress Notes Filed: 03/31/2020 12:06 PM Note Text: patient had inr completed at [facility] patients inr is 2.3 (patients inr range is 2.0-3.0) patient is currently holding due to high level from [facility] of 4 .3 per patient patients [...] on 2020-03-30 CNPN Telephone (INTMWS) Normal 03-30-2020 [facility] JUSTIN ZAZUETA ([id number]) 1950 [facility] Time Provider Department ([id number]) 03/30/20 MATTHEW ROCHA INTMWS During your visit today, we recorded the following informati on about you: Carmen Tate RN 03/30/2020 10:09 AM Signed Patient [...] % and ER advised that he see [facility] wound doctor. he still has one draining blister on side of his right leg. Patient asking if PCP would refer him to [facility] wound doctor, Ying Griffin DNP? Patient does not wish to see vascular surgeon at this time. Please review and advise. NAVID Ramsey MD 03/30/2020 10:59 AM Signed He has an appointment with Ashley Griffin here in [place] at 3 25 PM. Please inform the patient. Kate Lemon LPN 03/30/2020 11:08 AM Signed Left below message on identified vm. Kate Lemon LPN Allergies As of Date: 03/30/2020 (No Known Allergies) Date Reviewed: 11/06/2019 Reviewed by: Itzel Moser Cma - Fully Assessed Reason for Visit: request [...] 2020-03-30 CNOV Office Visit (VASSWS) Normal 03-30-20 [facility] JUSTIN ZAZUETA ([id number]) 1950 [facility] Date Time Provider Department ([id number]) 03/30/20 3:30 PM VICKIE GRIFFIN During your visit today, we recorded the following informati on about you: Vickie Griffin, PhD, CLERICAL ADVISER.SECURITY THREAT ANALYST 04/04/2020 5:56 AM Signed VASCULAR SURGERY WOUND [...] Laterality Date - COLONOSCOP W/ OR W/O [facility] SPEC April 2001 normal - COLONOSCOP W/ OR W/O [facility] SPEC 02/25/2012 Colonoscopy - PAST SURGICAL HISTORY [...] education/counselling/coordination of care. Vickie Griffin, PhD, WOCN, SECURITY THREAT ANALYST Referring Provider: MATTHEW ROCHA [[id number]] Allergies As of Date: 03/30/2020 (No Known [...] (HCC) [I83.229, L97.929] Order(s):CONSULT TO VASCULAR SURGERY [9053] Order #: [id number]: 1 Prescriptions as of 03/30/2020 Sig: [...] lower extremities w*01/08/2019 Encounter Status:Closed by VICKIE GRIFFNI CNP on 04/04/20 progress on 2020-02 PROGRESS HNO ID: [id number] Normal 03-24-2020 [facility] Author: Matthew Rocha [facility] ([id number]) Service: ? Author Type: Physician Type: Progress Notes Filed: 03/24/2020 9:18 AM Note Text: This note was created using TripHoboter. Subjective This Team Access Model visit is [...] encounter. This telemedicine encounter was accomplished via Mtivity. Patient presents with: Wound Evaluation: new left [...] on 2020-03-24 CNPN Telephone (INTMWS) Normal 03-24-2020 [facility] JUSTIN ZAZUETA ([id number]) 1950 [facility] Date Time Provider Department (67298) 03/24/20 MATTHEW ROCHA INTMWS During your visit today, we recorded the following informati on about you: Kate Lemon LPN 03/24/2020 9:[address] Rocha has Ordered US leg vein dvt dilcia va s lab AND Consult to Vascular Surgery. Please call Patient to schedule. Kate Lemon LPN Sindy Megan Pss 03/24/2020 2:39 PM Signed Spoke with the patient and he is refusing to schedule ultrasound and consult with Dr Mckay until swelling goes down . 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 Racheal Macario FILM TOUCH UP INSPECTOR 03/28/2020 10:34 AM Signed Please call pt to arrange test per pcp notes Manjula Conroy Pss 03/30/2020 4:02 PM Signed 1st attempt. Message left for patient to contact office to [facility] US Vascular Surgery consult with Dr. Mckay Patient is scheduled to see Miesha Griffin on 04/06. Jessica Lee Pss 04/20/2020 9:42 AM Signed 2nd attempt to contact patient. L/m for him to call and rekha leo. Jessica Lee Pss Jessica Lee Pss 04/27/2020 8:52 AM Signed 3rd attempt to contact patient to schedule. L/m and letter s ent. Jessica Lee Pss Allergies As of Date: 03/24/2020 (No Known Allergies) Date Reviewed: 11/06/2019 Reviewed by: Itzel Moser Utilization Review Specialist - Fully Assessed Reason for Visit: Orders [...] 2020-01 OBSOLETE Refill (INTMWS) Normal 02-18-2020 Liban wolf [facility] JUSTIN ZAZUETA ([id number]) 1950 [facility] Time Provider Department (34702) 02/18/20 MATTHEW ROCHA During your visit today, we recorded the following informati on about you: Kae Jacobsenelba Galeana 02/18/2020 11:42 AM Signed Patient has [...] ROGER: No Please review and advise. Kae Jacobsenelba Pss Allergies As of Date: 02/18/2020 (No [...] Encounter Status:Closed by PIPER SEARS CNP on 02/18/20 cnpn on 2020-02-15 CNPN Telephone (INTMWS) Normal 02-15-2020 [facility] JUSTIN Julian ([id number]) 1950 [place] Date Time Provider Department ([id number]) 02/15/20 MATTHEW ROCHA INTMWS During your visit [...] .0] Order(s):BASIC METABOLIC PNL [SQBMP] Order #: [id number] FUT URE Prescriptions as of 02/15/2020 Sig: [...] 02/15/20 progress on 2020-01 PROGRESS HNO ID: [id number] Normal 02-04-2020 [facility] Author: Matthew Rocha [place] ([id number]) Service: ? Author Type: Physician Type: Progress Notes Filed: 02/04/2020 2:08 PM Note Text: This note was created using itzbig. Subjective This Team Access Model visit is a virtual encounter. It requ ired patient-provider interaction for the medical decision making as documented below. Patient presents with: Edema Justin Zazueta was called first and consent for using Mtivity (not HIPAA compliant) was obtained. He had [...] week. Matthew Rocha MD PROGRESS HNO ID: [id number] Normal 02-04-2020 [facility] Author: Matthew Jose ([id number]) Service: ? Author Type: Physician Type: Progress Notes Filed: 02/04/2020 1:04 PM Note Text: I agree. PROGRESS HNO ID: [id number] Normal 02-04-2020 [facility] Author: Elsie Huber RN [place] ([id number]) Service: ? Author Type: ? Type: Progress Notes Filed: 02/04/2020 9:27 AM Note Text: patient had inr completed at [facility] patients inr is 2.7 (patients [...] on 2019-12 OBSOLETE Refill (INTMWS) Normal 01-18-2020 [facility] JUSTIN ZAZUETA ([id number]) 1950 [facility] Date Time Provider Department ([id number]) 01/18/20 MATTHEW ROCHA INTMWS During your visit [...] Reviewed: 11/06/2019 Reviewed by: Itzel N Nenadal Utilization Review Specialist - Fully Assessed Reason for Visit: Refill [...] on 2019-11 OBSOLETE Refill (INTMWS) Normal 12-22-2019 [place] wolf [facility] JUSTIN ZAZUETA ([id number]) 1950 [facility] Date Time Provider Department ([id number]) 12/22/19 PIPER SEARS ([facility]) INTMWS During your visit today, we recorded [...] INSTRUCTIONS: Patient is out of the [facility] de - Patient thought pharmacy requested refills [...] Date Reviewed: 11/06/2019 Reviewed by: Itzel Moser Utilization Review Specialist - Fully Assessed Reason for Visit: Refill [...] 12/23/19 progress on 2019-11 PROGRESS HNO ID: [id number] Normal 12-18-2019 [facility] Author: Matthew Rocha [place] ([id number]) Service: ? Author Type: Physician Type: Progress Notes Filed: 12/18/2019 6:15 PM Note Text: Ok. PROGRESS HNO ID: [id number] Normal 12-18-2019 [facility] Author: Elsie Huber RN [place] ([id number]) Service: ? Author Type: ? Type: Progress Notes Filed: 12/18/2019 11:18 AM Note Text: patient had inr completed at [facility] patients inr is 2.6 (patients [...] on 2019-10 OBSOLETE Refill (LAB) Normal 11-14-2019 [place] and [facility] JUSTIN ZAZUETA ([id number]) 1950 [facility] Date Time Provider Department (27202) 11/14/19 MATTHEW ROCHA LAB During your visit today, we recorded the following informati on about you: Graciela Parkheather Galeana 11/14/2019 9:56 AM Signed Patient has [...] 6 month follow-up scheduled: 01/14/2020 Kate Lemon LPN Allergies As of Date: 11/14/2019 (No Known [...] TSH Qn 2.610 0.270-4.200 uU/mL Normal 11-06-2019 [facility] (07816) Comment: Performed By: #### TSH, CMP, CBC ####[facility] [address] [place] [address] [phone] progress on 2019-10 PROGRESS HNO ID: [id number] Normal 11-06-2019 [facility] Author: Piper (Juliana) [facility] ([id number]) Service: ? Author Type: Nurse Practitioner Type: Progress Notes Filed: 11/06/2019 10:50 AM Note Text: Addressed during office visit today, see notes Piper Sears APRN.CNP PROGRESS HNO ID: [id number] Normal 11-06-2019 [facility] Author: Elsie Huber RN [place] ([id number]) Service: ? Author Type: ? Type: Progress Notes Filed: 11/06/2019 10:31 AM Note Text: patient had inr completed at [facility] patients inr is 3.6 (patients [...] results at that time PROGRESS HNO ID: [id number] Normal 11-06-2019 [facility] Author: Piper Harman) [facility] ([id number]) Service: ? Author Type: Nurse Practitioner Type: [...] Laterality Date - COLONOSCOP W/ OR W/O [facility] SPEC April 2001 normal - COLONOSCOP W/ OR W/O [facility] SPEC 02/25/2012 Colonoscopy - PAST SURGICAL HISTORY [...] agreeable t o treatment plan. Piper Sears APRN.SECURITY THREAT ANALYST comp metabolic panel on 2019-11-06 Albumin [Mass/Vol] 3.9 3.9-4.9 g/dL Normal 11-06-2019 [facility] (70477) Comment: Performed By: #### TSH, CMP, CBC ####[place] [address] [address] [place] [address] ALP [Catalytic activity/Vol] 100 38-113 U/L Normal 0 11-06-2019 [facility] (09780) Comment: Performed By: #### TSH, CMP, CBC ####[address] [place] [address] [phone] ALT [Catalytic activity/Vol] 16 10-54 U/L Normal 0 11-06-2019 [facility] (41530) Comment: Performed By: #### TSH, CMP, CBC ####[place] [address] [place] [address] [phone] Anion gap [Moles/Vol] 15 9-18 mmol/L Normal 11-06-19 [facility] (37542) Comment: Performed By: #### TSH, CMP, CBC ####[address] [place] [address] [phone] AST [Catalytic activity/Vol] 60 14-40 U/L High 0 11-06-2019 [facility] (93996) Comment: Performed By: #### TSH, CMP, CBC ####[place] [address] [place] [address] [phone] Bilirubin [Mass/Vol] 1.7 0.2-1.3 mg/dL High 0 [facility] (84343) Comment: Performed By: #### TSH, CMP, CBC ####[place] [address] [place] [address] [phone] Calcium [Mass/Vol] 9.2 8.5-10.2 mg/dL Normal 11-06-2019 [facility] (41287) Comment: Performed By: #### TSH, CMP, CBC ####[facility] [place] [address] [phone] Chloride [Moles/Vol] 100 97-105 mmol/L Normal 0 [facility] (99108) Comment: Performed By: #### TSH, CMP, CBC ####[facility] [place] [address] [phone] CO2 [Moles/Vol] 25 22-30 mmol/L Normal 11-06-2019 [facility] (09795) Comment: Performed By: #### TSH, CMP, CBC ####[place] [address] [place] [address] [phone] Creatinine [Mass/Vol] 1.01 0.73-1.22 mg/dL Normal 11-06-19 20 [facility] (47673) Comment: Performed By: #### TSH, CMP, CBC ####[place] [address] [place] [address] [phone] eGFR- Amer. >60 Normal 11-06-2019 [facility] (56676) Comment: Performed By: #### TSH, CMP, CBC ####[place] [address] [place] [address] [phone] GFR/1.73 sq M predicted >60 mL/min/{1.73_m2} Normal 11-06-2019 [facility] among non-blacks [facility] (90681) (S/P/Bld) [Vol rate/Area] Comment: Result Comment: eGFR [...] accurately reflect actual GFR. Performed By: #### TSH, CMP, CBC ####[facility] [address] [place] [address] [phone] Glucose [Mass/Vol] 88 74-99 mg/dL Normal 11-06-2019 [facility] (27555) Comment: Result Comment: The [place] Diabetes Association (ADA) provides guidance for cutoff [...] for diagnosis of diabetes. Reference: Standards of [facility] Care in Diabetes 2016, [place] Diabetes [employer]. Diabetes Care. 2016.39(Suppl 1). Performed By: #### TSH, CMP, CBC ####[facility] [address] [address] [phone] Potassium [Moles/Vol] 3.9 3.7-5.1 mmol/L Normal 11-06-19 [facility] (74807) Comment: Performed By: #### TSH, CMP, CBC ####[facility] [address] [address] [phone] Protein [Mass/Vol] 6.9 6.3-8.0 g/dL Normal 11-06-2019 [facility] (31996) Comment: Performed By: #### TSH, CMP, CBC ####[facility] [address] [address] [phone] Sodium [Moles/Vol] 140 136-144 mmol/L Normal 11-06-2019 [facility] (18792) Comment: Performed By: #### TSH, CMP, CBC ####[facility] [address] [place] [address] [phone] Urea nitrogen [Mass/Vol] 24 9-24 mg/dL Normal 11-06 [facility] (42261) Comment: Performed By: #### TSH, CMP, CBC ####[facility] [address] [place] [address] [phone] cnov on 2019-11-06 CNOV Office Visit (INTMWS) Normal 11-06-19 [facility] JUSTIN ZAZUETA ([id number]) 1950 [facility] Date Time Provider Department (92953) 11/06/19 9:00 AM PIPER SEARS (JULIANA) INTMWS During your visit today, we recorded the following informati on about you: Pulse Respiration Blood pressure Weight 63/minute 16/minute 130/88 155.1 kg Piper Sears APRN.CNP 11/06/2019 11:08 AM Addendum CC: Follow-up on leg swelling and new onset rash MARYJO Mcclellandy Wilber Waltersshaina is a 68 year old male who [...] Laterality Date - COLONOSCOP W/ OR W/O [facility] SPEC April 2001 normal - COLONOSCOP W/ OR W/O [facility] SPEC 02/25/2012 Colonoscopy - PAST SURGICAL HISTORY [...] Date Reviewed: 11/06/2019 Reviewed by: Itzel Moser Utilization Review Specialist - Fully Assessed Primary Visit Diagnosis:Bilateral lower extremity edema [R60 .0] Other Visit Diagnoses:Venous insufficiency of both low er extremities [I87.2] Rash [R21] Chronic anticoagulation [Z79.01] Order(s):triamcinolone acetonide (KENALOG) 0.5 % cream Apply 1 application to affected area twice daily. For rash/itching. Apply sparingly . Avoid face/skin fold.Disp: 30 gRfl: 0 COMP METABOLIC PANEL [SQCMP] Order #: [id number] FUTURE TSH BLD [SQTSH] Order #: [id number] FUTURE CBC [SQCBC] Order #: [id number] FUTURE COMPRESSION STOCKINGS [2692477] Order #: [id number] Prescriptions as of 11/06/2019 Sig: FUROSEMIDE 20 [...] , DORSAL/NO GENITALIA last updated by Piper (Juliana) [facility] on 11/06/2019 10:53 AM Encounter Status:Closed by PIPER SEARS CNP on 11/06/19 cbc on 2019-11-06 Absolute nRBC <0.01 <0.01 Normal 11-06-2019 [facility] (13474) Comment: Performed By: #### TSH, CMP, CBC ####[place] [address] [phone] Erythrocyte distribution 13.8 11.5-15.0 % Normal 11-06 [facility] width (RBC) [Ratio] [facility] (81624) Comment: Performed By: #### TSH, CMP, CBC ####[place] [address] [phone] Hematocrit (Bld) [Volume 41.7 39.0-51.0 % Normal 11-06 [facility] fraction] [facility] (10957) Comment: Performed By: #### TSH, CMP, CBC ####[place] [address] [phone] Hemoglobin (Bld) 13.8 13.0-17.0 g/dL Normal 11-06-2019 [facility] [Mass/Vol] [facility] (41132) Comment: Performed By: #### TSH, CMP, CBC ####[place] [address] [phone] MCH (RBC) [Entitic mass] 32.5 26.0-34.0 pG Normal 11-06 [facility] (06400) Comment: Performed By: #### TSH, CMP, CBC ####[place] [address] [phone] MCHC (RBC) [Mass/Vol] 33.1 30.5-36.0 g/dL Normal 11-06-19 20 [facility] (25954) Comment: Performed By: #### TSH, CMP, CBC ####[address] [place] [address] [phone] MCV (RBC) [Entitic vol] 98.1 80.0-100.0 fL Normal 11-06 [facility] (89802) Comment: Performed By: #### TSH, CMP, CBC ####[place] [address] [phone] Platelet mean volume 11.2 9.0-12.7 fL Normal 0 [facility] (Bld) [Entitic vol] [facility] (30088) Comment: Performed By: #### TSH, CMP, CBC ####[place] [address] [phone] Platelets (Bld) [#/Vol] 128 150-400 k/uL Low 2019 [facility] (77990) Comment: Performed By: #### TSH, CMP, CBC ####[place] [address] [phone] RBC (Bld) [#/Vol] 4.25 4.20-6.00 m/uL Normal 11-06-2019 [facility] (02095) Comment: Performed By: #### TSH, CMP, CBC ####[address] [place] [address] [phone] WBC (Bld) [#/Vol] 12.13 3.70-11.00 k/uL High 11-06-2019 [facility] (87604) Comment: Performed By: #### TSH, CMP, CBC ####[address] [place] [address] [phone] basic metabolic panl on 2019-10-02 Anion gap [Moles/Vol] 13 9-18 mmol/L Normal 12-06-20 19 [facility] (09839) Comment: Performed By: #### BMP ####[address] [phone] Calcium [Mass/Vol] 9.1 8.5-10.2 mg/dL Normal 10-02-2019 [facility] (40722) Comment: Performed By: #### BMP ####[address] [phone] Chloride [Moles/Vol] 102 97-105 mmol/L Normal 9 [facility] (88748) Comment: Performed By: #### BMP ####[address] [phone] CO2 [Moles/Vol] 27 22-30 mmol/L Normal 10-02-2019 [facility] (07241) Comment: Performed By: #### BMP ####[address] [phone] Creatinine [Mass/Vol] 1.07 0.73-1.22 mg/dL Normal 10-02-20 19 [facility] (70783) Comment: Performed By: #### BMP ####[address] [phone] eGFR- Amer. >60 Normal 10-02-2019 [facility] (72776) Comment: Performed By: #### BMP ####[address] [phone] GFR/1.73 sq M predicted >60 mL/min/{1.73_m2} Normal 10-02-2019 [facility] among non-blacks [facility] (72948) (S/P/Bld) [Vol rate/Area] Comment: Result Comment: eGFR [...] actual GFR. Performed By: #### BMP ####[address] [phone] Glucose [Mass/Vol] 125 74-99 mg/dL High 10-02-2019 [facility] (71816) Comment: Result Comment: The [place] Diabetes Association (ADA) provides guidance for cutoff [...] for diagnosis of diabetes. Reference: Standards of [facility] Care in Diabetes 2016, [place] Diabetes [employer]. Diabetes Care. 2016.39(Suppl 1). Performed By: #### BMP ####C [place] [address] [place], [place] [phone] Potassium [Moles/Vol] 3.7 3.7-5.1 mmol/L Normal 10-02-20 19 [facility] (47238) Comment: Performed By: #### BMP ####C [place] [address] [place], [place] [phone] Sodium [Moles/Vol] 142 136-144 mmol/L Normal 10-02-2019 [facility] (66427) Comment: Performed By: #### BMP ####[address] [address] [phone] Urea nitrogen [Mass/Vol] 21 9-24 mg/dL Normal 10-02 [facility] ([id number]) Comment: Performed By: #### BMP ####[facility] [id number] [place], [place] [id number] [phone] jose m cbc on 2018 Erythrocyte distribution 14.2 11.5-15.0 % Normal 09-18 [facility] width (RBC) [Ratio] [facility] ([id number]) Hematocrit (Bld) [Volume 40.0 39.0-51.0 % Normal 09-18 [facility] fraction] [facility] ([id number]) Hemoglobin (Bld) 13.6 13.0-17.0 g/dL Normal 09-18-2019 [facility] [Mass/Vol] [facility] ([id number]) MCH (RBC) [Entitic mass] 33.1 26.0-34.0 pg Normal 09-18 [facility] (77909) MCHC (RBC) [Mass/Vol] 34.0 30.5-36.0 g/dL Normal 09-18-20 19 [facility] ([id number]) MCV (RBC) [Entitic vol] 97.3 80.0-100.0 fL Normal 09-18 [facility] (26535) Platelet mean volume 10.3 9.0-12.7 fL Normal 9 [facility] (Bld) [Entitic vol] [facility] ([id number]) Comment: Result Comment: Test perform ed by: [facility] Joes M, [address] [place], [place] [address]naseem Mcclain, [place], [place] [address]. RBC (Bld) [#/Vol] 4.11 4.20-6.00 m/uL Low 09-18-2019 [facility] (68754) WBC (Bld) [#/Vol] 11.59 3.70-11.00 k/uL High 09-18-2019 [facility] (80250) Jose M Platelet Cnt 125 150-400 k/uL Low 9 [facility] (81292) protime on PT Coag (PPP) Test sent to Jose M Normal 09-18 [facility] [Time] [facility]. [facility] (48011) Comment: Result Comment: Account Cred ited HIDE progress on 2019-08 PROGRESS HNO ID: [id number] Normal 09-18-2019 [facility] Author: Piper Harman) [facility] ([id number]) Service: ? Author Type: Nurse Practitioner Type: [...] Patient agreeable t o treatment plan. Piper Sears, CLERICAL ADVISER.SECURITY THREAT ANALYST nt pro bnp on 09-18 PRO B Natr Peptide Test sent to [place] <125 Normal 09-18-2019 [facility]. [place] ([id number]) Comment: Result Comment: Account Cred ited HIDE comp metabolic panel on 2019-09-18 Albumin [Mass/Vol] 3.6 3.9-4.9 g/dL Low 09-18-2019 [facility] (85475) ALP [Catalytic 103 38-113 U/L Normal 09-18-2019 [facility] activity/Vol] [facility] and (37985) ALT [Catalytic 12 10-54 U/L Normal 09-18-2019 [facility] activity/Vol] [facility] and (02096) Anion gap 7 9-18 mmol/L Low 09-18-2019 [facility] [Moles/Vol] [facility] (18547) AST [Catalytic 47 14-40 U/L High 09-18-2019 [facility] activity/Vol] [facility] and (80486) Bilirubin [Mass/Vol] 1.6 0.2-1.3 mg/dL High 9 [facility] (63411) Calcium [Mass/Vol] 9.3 8.5-10.2 mg/dL Normal 09-18-2019 [facility] (61739) Chloride [Moles/Vol] 104 97-105 mmol/L Normal 9 [facility] (04555) CO2 [Moles/Vol] 27 22-30 mmol/L Normal 09-18-2019 [facility] (90154) Creatinine 0.92 0.73-1.22 mg/dL Normal 09-18-2019 [facility] [Mass/Vol] [facility] (84679) eGFR- Amer. >60 Normal 09-18-2019 [facility] (20769) GFR/1.73 sq M >60 mL/min/{1.73_m Normal 09-18-2019 [facility] predicted among 2} [facility] (47281) non-blacks MDRD (S/P/Bld) [Vol rate/Area] Comment: Result [...] Glucose [Mass/Vol] 107 74-99 mg/dL High 09-18-2019 [facility] (05219) Comment: Result Comment: The [place] Diabetes Association (ADA) provides guidance for cutoff [...] for diagnosis of diabetes. Reference: Standards of [facility] Care in Diabetes 2016, [place] [employer] Association. Diabetes Care. 2016.39(Suppl 1). Potassium [Moles/Vol] 3.5 3.7-5.1 mmol/L Low 09-18-20 [facility] (92676) Protein [Mass/Vol] 6.9 6.3-8.0 g/dL Normal 09-18-2019 [facility] (00544) Sodium [Moles/Vol] 138 136-144 mmol/L Normal 09-18-2019 [facility] (55780) Urea nitrogen [Mass/Vol] 18 9-24 mg/dL Normal 09-18 [facility] (83655) cnov on 2019-09-18 CNOV Office Visit (INTMWS) Normal 09-18-20 [facility] JUSTIN ZAZUETA ([id number]) 1950 [facility] Date Time Provider Department ([id number]) 09/18/19 1:00 PM PIPER SEARS (JULIANA) INTMWS During your visit today, we recorded the following informati on about you: Pulse Respiration Blood pressure Weight 68/minute 14/minute 120/80 156.5 kg Piper Older, CLERICAL ADVISERPEARL 09/18/2019 3:08 PM Addendum This Team Access [...] Date Reviewed: 09/18/2019 Reviewed by: Itzel Moser Utilization Review Specialist - Fully Assessed Reason for Visit: URI [115] left leg swelling and pain [Other] Primary Visit Diagnosis:Bilateral lower extremity edema [R60 .0] Other Visit Diagnoses:Atrial fibrillation, unspecified type (HCC) [I48.91] Venous insufficiency [I87.2] Order(s):amoxicillin-clavulanic acid (AUGMENTIN) 875-1 25 mg per tabletTake 1 tablet by mouth twice daily for 10 days.Disp: 20 tabletRfl: 0 COMP METABOLIC PANEL [SQCMP] Order #: [id number] FUTURE JOSEM CBC [SQWCBC] Order #: [id number] FUTURE LEG VEIN DVT [facility] [[id number]] Order #: [id number] FU TURE Prescriptions as of 09/18/2019 Sig: [...] 09/18/19 progress on 2019-08 PROGRESS HNO ID: [id number] Normal 09-04-2019 [facility] Author: Piper Harman) [facility] ([id number]) Service: ? Author Type: Nurse Practitioner Type: Progress Notes Filed: 09/04/2019 1:33 PM Note Text: Victorino Sears APRN.CNP PROGRESS HNO ID: [id number] Normal 09-04-2019 [facility] Author: Elsie Huber RN [facility] ([id number]) Service: ? Author Type: ? Type: Progress Notes Filed: 09/04/2019 1:06 PM Note Text: patient had inr completed at [facility] patients inr is 2.1 (patients inr range is 2.0-3.0) patient is currently taking 5mg daily patients last dose change was on 5/17/18 due to a high level of 3.2 [...] call into schedule) for follow up INR. Encounters Date Type Reason Provider Location 06-09-2020 - Letter encounter Matthew Rocha Inter nal 06-09-2020 [facility] 08-11-2020 - Patient encounter Atrial fibrillation Matthew Mckeon ez Internal 08-11-2020 procedure [facility] [place] [facility] Comment: Varicose veins of bilateral lower extremities with other complications (Primary Dx); Atrial fibrillation, unspeci fied type (HCC); Essential hypertension; Bilateral lower extremity ed remi; Need for vaccination; Right heart enlargement; Pulmonary hypertension (HCC) 06-27-2020 - Patient Chronic atrial Matthew Montes nd 06-27-2020 encounter fibrillation Echocardiogram [facility] procedure Comment: Chronic atrial fibrillation (HCC) 06-27-2020 - 06-27-2020 Refill Matthew guaman Internal Medicine Jose M Comment: Refill Request 06-27-2020 Results Only Matthew Rocha Internal Medicine Jose M 05-10-2020 - 05-10-2020 Telephone encounter Vickie Blank [facility] Comment: leg pumps Procedures Procedure Name Date Provider Location INFLUENZA SEASONAL 08-11-2020 Matthew Rocha [facility] QUADRIVALENT HIGH DOSE AGE (4419 5) 65+ Echo tthrc r-t 2d 06-27-2020 Matthew Rocha [facility] w/wom-mode compl spec&colr (4419 5) d LVEF TRANSTHORACIC ECHO 06-27-2020 Matthew Rocha [facility] (33126) Colonoscopy 10-30-2017 - [facility] 10-30-2017 (06010) Plan of Treatment Plan Description Date Location DTAP,TDAP,TD (3 - Td) DTAP,TDAP,TD (3 - Td) 05-06-2028 - [facility] 05-06-2028 ([id number]) COLONOSCOPY COLONOSCOPY 10-30-2027 - [facility] 10-30-2027 ([id number]) COLORECTAL CANCER COLORECTAL CANCER 10-30-2027 [facility] in[facility] SCREENING,SEE MODIFIER SCREENING,SEE MODIFIER ([phone]) LIPID SCREEN LIPID SCREEN 04-06-2025 - [facility] 04-06-2025 ([id number]) DIABETES SCREEN DIABETES SCREEN 04-06-2023 - [facility] 04-06-2023 ([id number]) ANNUAL PCP TEAM CHRONIC ANNUAL PCP TEAM CHRONIC 08-11-2021 - [facility] DISEASE VISIT DISEASE VISIT 08-11-2021 ([id number]) BP CONTROLLED (<130/80) BP CONTROLLED (<130/80) 08-11-2021 - [facility] 08-11-2021 ([id number]) ANNUAL PCP TEAM CHRONIC ANNUAL PCP TEAM CHRONIC 04-21-2021 - [facility] DISEASE VISIT DISEASE VISIT 04-21-2021 (53774) BP CONTROLLED (<130/80) BP CONTROLLED (<130/80) 04-21-2021 - [facility] 04-21-2021 ([id number]) INFLUENZA (#1) INFLUENZA (#1) 2020 - [facility] 06-28-2020 ([id number]) ADVANCE DIRECTIVE ADVANCE DIRECTIVE 2013 - [facility] in[facility] DISCUSSION DISCUSSION 2013 (02917) SHINGRIX VACCINE (2 of SHINGRIX VACCINE (2 of 07-23-2012 - [facility] 3) 3) 07-23-2012 (84888) no information [facility] (22750) no information [facility] (53530) Immunizations Vaccine Notes Status Date Location Influenza Vaccine, influenza virus (completed) 07-09-2016 - [facility] Split-Non Spec vaccine, unspecified 07-09-2016 (4419 5) formulation Influenza Vaccine, influenza virus (completed) 07-25-2009 - [facility] Split-Non Spec vaccine, unspecified 07-25-2009 (4419 5) formulation Influenza Vaccine, influenza virus (completed) 10-01-2007 - [facility] Split-Non Spec vaccine, unspecified 10-01-2007 (4419 5) formulation Influenza Vaccine, influenza virus (completed) 09-11-2006 - [facility] Split-Non Spec vaccine, unspecified 09-11-2006 (4419 5) formulation Influenza Seasonal - influenza, high dose (completed) 07-16-2019 - [facility] High Dose - Age 65+ seasonal, 07-16-2019 (18672) preservative-free Influenza Seasonal - influenza, high dose (completed) 07-24-2017 - [facility] High Dose - Age 65+ seasonal, 07-24-2017 (21514) preservative-free influenza, high-dose, influenza, high-dose, (completed) 08-11-2020 [facility] quadrivalent vaccine quadrivalent vaccine (69952) (FLUZONE HIGH DOSE (FLUZONE HIGH DOSE QUADRIVALENT) QUADRIVALENT) Influenza Seasonal influenza, injectable, (completed) 07-24-2018 - [facility] Inj Quadrivalent Age quadrivalent, contains 07-24-2018 (96961) 3+ preservative Influenza Seasonal influenza, seasonal, (completed) 06-28-2014 - [facility] Inj Age 3+ injectable 06-28-2014 (87715) Pneumococcal-13 Vac pneumococcal conjugate (completed) 06-30-2015 - [facility] Conjugate vaccine, 13 valent 06-30-2015 (71557) Pneumovax pneumococcal (completed) 06-04-2014 - [facility] polysaccharide vaccine, 06-04-2014 (441 95) 23 valent TD Adult tetanus and diphtheria (completed) 10-28-2000 - [facility] toxoids, adsorbed, 10-28-2000 (14313) preservative free, for adult use (2 Lf of tetanus toxoid and 2 Lf of diphtheria toxoid) Tdap (Age 7+) tetanus toxoid, reduced (completed) 05-06-2018 - [facility] diphtheria toxoid, and 05-06-2018 (4419 5) acellular pertussis vaccine, adsorbed Tdap (Age 7+) tetanus toxoid, reduced (completed) 11-03-2010 - [facility] diphtheria toxoid, and 11-03-2010 (4419 5) acellular pertussis vaccine, adsorbed Zostavax zoster vaccine, live (completed) 05-28-2012 - [facility] 05-28-2012 (19900) Payers Payer Name Policy Number Location MMO MEDICARE [id number] [facility] (44 600) The following information is from the original human readable contentNo Payer Records FoundNo Payer Records FoundNo Payer Records Found Social History Type Social History Date Location Description History of tobacco use Current smoker 10-28-1975 [facility] ([id number]) History SDOH Social 5 04-06-2020 - [facility] Connections Phone 04-06-2020 (52673) History of tobacco use Cigarette Smoker 10-28-1975 [facility] (70966) Cigarettes smoked 04-27-2020 [facility] current (pack per day) - 08-12-2020 (85471) Reported Tobacco use and exposure Never used 04-27-2020 [facility] 08-12-2020 (97710) Alcohol intake Current non-drinker of 04-27-2020 [facility] alcohol (finding) 08-12-2020 (30595) History SDOH Alcohol 1 04-06-2020 [facility] C linic Frequency 04-06-2020 (68676) History SDOH Alcohol Std 98 04-06-2020 - [facility] Drinks 04-06-2020 (49682) Tobacco smoking status Former smoker 04-27-2020 [facility] NHIS 08-12-2020 (26123) History SDOH Social 3 04-06-2020 - [facility] 04-06-2020 (32714) History SDOH Physical 0 04-06-2020 - [facility] Activity DPW 04-06-2020 (40010) History SDOH Education 21 04-06-2020 - [facility] 04-06-2020 (81669) History SDOH Financial 4 04-06-2020 - [facility] 04-06-2020 (66605) History SDOH Transport 2 04-06-2020 - [facility] Med 04-06-2020 (84527) Sex Assigned At Not on file [facility] (49583) Exposure to SARS-CoV-2 Not sure [facility] (event) (08765) Sex Assigned At Male [facility] (23631) The following information is from the original [...] Diagnosis Chronic atrial fibrillation (HCC) Atrial fibrillation Diagnosis Varicose veins of bilateral lower extrem ities with other complications - Primary Atrial fibrillation, unspecified type (H CC) Essential hypertension Unspecified essential hypertension Bilateral lower extremity edema Edema Need for vaccination Need for prophylactic vaccination and in oculation against unspecified single disease Right heart enlargement Cardiomegaly Pulmonary hypertension (HCC) Other chronic pulmonary heart diseases History of Present Illness Matthew Rocha - 08/11/2020 5:09 PM EDT This note was created using NoteWriter. Subjective Justin Zazueta is a 69 year old male was here for persistent symptomatic lymphedema. His medication list was not accurate and needed clarification. His edema apparently worsened, so he self referred to a private hospital in [place] where he was admitted for 4 days in April. He was treated with IV diuresis, and lost a lot of weight. He felt better. He was discharged on furosemide 40 mg BID and [id number] meq BID, but he was only taking those once a day. The furosemide he filled last was 40 mg daily from here. He was prescribed a venous pump by vascular surgery, but there was some mix up with insurance, and he has not received the pump yet. His legs were becoming heavy and weak again. I reviewed his records, and he never returned call about his echo, so cardiology was not set up. Review of Systems Constitutional: Negative for chills and fever. Respiratory: Negative. Cardiovascular: Positive for leg swelling. Negative for chest pain and palpitations. Gastrointestinal: Negative. Musculoskeletal: Positive for myalgias. Skin: Positive for color change. Negative for wound. Neurological: Negative. ACTIVE PROBLEM LIST Bph With Obstruction/Lower Urinary Tract Symptoms Htn (Hypertension) Atrial Fibrillation (Hcc) Obstructive Sleep Apnea, on CPAP Alopecia Primary Osteoarthritis of Right Knee Obesity, Class Iii, Bmi 40-49.9 (Morbid Obesity) (Hcc) Thrombocytopenia (Hcc) Varicose Veins of Bilateral Lower Extremities With Other Complications Pulmonary Hypertension (Hcc) Right Heart Enlargement Current Outpatient Medications Medication Sig ? finasteride (PROSCAR) 5 mg tablet Take 1 tablet by mouth once daily. ? metoprolol tartrate, short acting, (LOPRESSOR) 50 mg tablet Take 0.5 tablets by mouth twice daily. ? warfarin (COUMADIN) 5 mg tablet TAKE 1 TABLET BY MOUTH DAILY or DIRECTED ? furosemide (LASIX) 40 mg tablet Take 1 tablet by mouth once daily. ? potassium chloride ER (K-DUR, KLOR-CON) 20 mEq tablet Take 1 tablet by mouth once daily. No current facility-administered medications for this visit. Objective BP (P) 128/70 (BP Site: Left Arm, BP Position: Sitting, BP Cuff Size: Large Adult) Pulse (P) 76 Temp (P) 36.7 ?C (98 ?F) (Temporal Artery) Resp (P) 20 Wt (!) (P) 154.2 kg (340 lb) BMI (P) 45.45 kg/m? Physical Exam Constitutional: General: He is not in acute distress. Appearance: He is not diaphoretic. Cardiovascular: Rate and Rhythm: Normal rate. Rhythm irregular. Heart sounds: No murmur. No gallop. Pulmonary: Effort: No respiratory distress. Breath sounds: No wheezing or rales. Musculoskeletal: General: Swelling and tenderness present. Right lower leg: Edema present. Left lower leg: Edema present. Comments: 2-3+ lymphedema with papular skin changes and discoloration in areas, no open ulcers. Neurological: General: No focal deficit present. Mental Status: He is alert. Assessment and Plan 1. 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 Take one(1) tablet daily. - Message vascular SECURITY THREAT ANALYST about status of venous pump. - Do BMP ordered. - Request discharge summary from hospital in [place]. 2. Atrial fibrillation, unspecified type (HCC) - ICD9: 427.31, ICD10: I48.91 Refilled. - METOPROLOL TARTRATE 50 MG TABLET 3. Essential hypertension - ICD9: 401.9, ICD10: I10 - good control - METOPROLOL TARTRATE 50 MG TABLET 4. Bilateral lower extremity edema - ICD9: 782.3, ICD10: R60.0 Poor control 5. Need for vaccination - ICD9: V05.9, ICD10: Z23 - INFLUENZA SEASONAL QUADRIVALENT HIGH DOSE AGE 65+ 6. Right heart enlargement - ICD9: 429.3, ICD10: I51.7 Discuss again at next visit. 7. Pulmonary hypertension (HCC) - ICD9: 416.8, ICD10: I27.20 Discuss again at next visit. Matthew Rocha MD documented in this encounter Additional Source Comments FOR RECORDS PERTAINING TO [...] BE BASED ON THE PRIMARY CLINICAL RECORDS. [facility] provides no warranty or guarantee of the accuracy or completeness of information in this document. UNRECOGNIZED CONTENT PROVIDED BELOW FOR UNRECOGNIZED SECTION No Status Records FoundNo Status Records Found UNRECOGNIZED CONTENT PROVIDED BELOW FOR UNRECOGNIZED SECTION INFORMATION SOURCE DATE CREATED AUTHOR AUTHOR'S LAURENSATNAMO N 05/30/2020 [facility] DATE CREATED AUTHOR AUTHOR'S ORGANIZATIO N 08/12/2020 [facility] UNRECOGNIZED CONTENT PROVIDED BELOW FOR UNRECOGNIZED SECTION Source Comments In the event this information is protected by the Federal Confidentiality of Alcohol and Drug Abuse Patient Records regulations: The Federal rules restrict any use of the information to criminally investigate or prosecute any alcohol or drug abuse patient.[facility] the event this information is protected by the Federal Confidentiality of Alcohol and Drug Abuse Patient Records regulations: The Federal rules restrict any use of the information to criminally investigate or prosecute any alcohol or drug abuse patient.[facility] HospitalIn the event this information is protected by the Federal Confidentiality of Alcohol and Drug Abuse Patient Records regulations: The Federal rules restrict any use of the information to criminally investigate or prosecute any alcohol or drug abuse patient.[facility] HospitalIn the event this information is protected by the Federal Confidentiality of Alcohol and Drug Abuse Patient Records regulations: The Federal rules restrict any use of the information to criminally investigate or prosecute any alcohol or drug abuse patient.[facility] HospitalIn the event this information is protected by the Federal Confidentiality of Alcohol and Drug Abuse Patient Records regulations: The Federal rules restrict any use of the information to criminally investigate or prosecute any alcohol or drug abuse patient.[facility] HospitalIn the event this information is protected by the Federal Confidentiality of Alcohol and Drug Abuse Patient Records regulations: The Federal rules restrict any use of the information to criminally investigate or prosecute any alcohol or drug abuse patient.[facility] UNRECOGNIZED CONTENT PROVIDED BELOW FOR UNRECOGNIZED SECTION Reason for Visit Reason Onset Date Comments Refill Request 06/27/2020 Status Reason Specialty Diagnoses / Referred By Referred To Procedures Contact Contact Authorized Auto-Generated HEART AND Diagnoses Chronic atrial fibrillation (HCC) Aj, Heart And Referral VASCULAR Procedures ECHO TTE W/DOPPLER, COMPLETE [facility] [address] [place] [place] [address] [address] [place], [place] Phone: [phone] Reason Onset Date Comments leg pumps 05/10/2020 Reason Comments 6 week follow-up UNRECOGNIZED CONTENT PROVIDED BELOW FOR UNRECOGNIZED SECTION [...] advise. Cary Og RN documented in this encounterTelephone Encounter - Carmen Farris LPN - 06/20/2020 3:51 PM EDTPlease advise what company has been calling him so when he calls back or we try to reach him we can let him know they need his updated insurance information and so do we. Carmen Farris LPN Telephone Encounter - Carmen Farris LPN - 06/08/2020 10:26 AM EDTLeft a message for patient to call the office and ask to speak to a triage nurse. Carmen Farris LPN Telephone Encounter - Chhaya Singh Ma - 06/07/2020 3:57 PM EDTHas this been addressed? Telephone Encounter - Carmen Farris LPN - 05/10/2020 9:20 AM EDTPatient called and he has been waiting on a call regarding the leg pumps he is to get. He has not heard anything. Please call patient and advise where this is at. Carmen Farris LPN documented in this encounter UNRECOGNIZED CONTENT PROVIDED [...] and dressing applied. Patient discharged ambulatory with Legal Administrator. Nichelle Rose, RN documented in this encounter
== END | disposition home or self-care (01) ==
LOC: LABSPEC 14:01
PROVIDERS: PCP Internal Medicine; Referring Provider Internal Medicine; Visit Provider Internal Medicine
DX: I48.20 Chronic atrial fibrillation, unspecified (principal)

== ENCOUNTER → 2020-04-27 15:59 | Outpatient (CLI) | payer MEDICARE, SELFPAY ==
[2020-04-27 17:37] LABS: Absolute Lymphocyte Count 5.62 X10^3/uL (0.83-4.51); Absolute Neutrophil Count 3.5 X10^3/uL (2.0-7.7); Basophil# 0.06 X10^3/uL; Basophil% 0.6 % (0-1); Eosinophil# 0.27 X10^3/uL; Eosinophils% 2.7 % (0-5); Hematocrit 37.2 % (40-54); Hemoglobin 12.3 g/dL (13.0-16.5); Lymphocyte # 5.62 X10^3/ul (4.0); Lymphocyte % 55.5 % (19-41); Mean Corp Hgb Conc 33.1 g/dL (32-36); Mean Corpuscular Hgb 33.6 pg (27.0-32.0); Mean Corpuscular Volume 101.6 fL (80-94); Mean Platelet Vol. 9.9 fl (6.2-12.0); Monocyte# 0.64 X10^3/uL; Monocyte% 6.3 % (0-10); NRBC Flagged by Analyzer 0 % (0-5); Neutrophil # 3.51 X10^3/uL (2.7-7.7); Neutrophil % 34.7 % (47-70); POSITIVE DIFFERENTIAL YES; Platelet Count 102 K/mm3 (150-450); RBC Distribution Width SD 56.8 fl (35.1-43.9); Red Blood Count 3.66 M/mm3 (4.6-6.2); White Blood Count 10.1 K/mm3 (4.4-11.0)
[2020-04-27 17:41] LABS: Differential Indicated SCAN CRITERIA MET
[2020-04-27 17:56] LABS: ALB/GLOB Ratio 0.8 RATIO (0.9-2.4); AST(SGOT) 52 U/L (15-37); Alanine Aminotransfer ALT/SGPT 20 U/L (16-61); Albumin, Serum 3.1 g/dL (3.2-5.0); Alkaline Phosphatase 94 U/L (45-117); Anion Gap 7 (5-15); BUN 14 mg/dL (7-18); BUN/Creat Ratio 14.9 RATIO (10-20); Calcium,Total 8.4 mg/dL (8.5-10.1); Chloride 108 mmol/L (98-107); Creatinine, Serum 0.94 mg/dL (0.70-1.30); EST Glomerular Filtration Rate 84 mL/min (>60); Est Glom Filt Rate - Afr Amer 102 mL/min (>60); Globulin 3.7 g/dL (2.2-4.2); Glucose 95 mg/dL (74-106); Potassium 3.8 mmol/L (3.5-5.1); Protein, Total 6.8 g/dL (6.4-8.2); Sodium Level 140 mmol/L (136-145)
[2020-04-27 19:27] LABS: Anisocytosis 1+; Platelet Estimate SLT DEC (ADEQ); Reactive Lymphocyte 1+; Red Cell Morphology N CHROM NORMAL (NORM C&C)
[2020-05-03 04:50] LABS: Hepatitis A AB, Total POSITIVE; Hepatitis A IgM Antibody NEGATIVE; Interpretation ABNORMAL
[2020-05-03 04:51] LABS: Comment REACTIVE; Hep B Surface Antibodies NONREACTIVE; Hepatitis B Core AB IgM NEGATIVE; Hepatitis B Core Ab Total NEGATIVE; Hepatitis C Ab 2.4
[2020-05-03 04:52] LABS: QNTFERON TB Mitogen Value > 10.00; QNTFERON TB Nil Value 0.01; QNTFERON TB1+ Ag Value 0.02; QNTFERON TB2+ Ag Value 0.02; QNTIFERON TB Gold+ NEGATIVE
[2020-05-03 04:58] LABS: Comment ABNORMAL
[2020-05-03 04:59] LABS: HEPATITIS B SURFACE AG NEGATIVE
== END ==
PROVIDERS: PCP Internal Medicine; Referring Provider Dermatology; Visit Provider Dermatology
DX: L40.0 Psoriasis vulgaris (principal); Z79.899 Other long term (current) drug therapy
CPT/HCPCS: 36415; 80053; 85025; 86480; 86704; 86705; 86706; 86708; 86709; 86803; 87340